=== PATIENT | female | born 1980 | race African-American/Black ===

== ENCOUNTER 2024-02-18 10:10 | Emergency (ER) | payer OTHER, SELFPAY ==
--- NOTE | ~2024-02-18 | US_ITS ---
RIGHT LOWER EXTREMITY VENOUS ULTRASOUND Ordering provider: Owen Dupont MD History: . r/o DVT . Comparison: The FINDINGS: --COMMON FEMORAL: Patent and free of thrombus. Normal compressibility, phasic flow and augmentation. --PROXIMAL SUPERFICIAL FEMORAL: Patent and free of thrombus. Normal compressibility, phasic flow and augmentation. --DISTAL SUPERFICIAL FEMORAL: Patent and free of thrombus. Normal compressibility, phasic flow and au gmentation. --POPLITEAL: Patent and free of thrombus. Normal compressibility, phasic flow and augmentation. --POSTERIOR TIBIAL: Patent and free of thrombus. Normal compressibility, phasic flow and augmentation . IMPRESSION: Negative right lower extremity venous US. No deep vein thrombosis. Reviewed, dictated and finalized at location A. ENTRY
[2024-02-18 10:13] VITALS: BP 186/102; PULSE 91; RESP 20; TEMP 37; O2SAT 100
--- NOTE | 2024-02-18 14:47 | ED_ITS ---
HPI - Extremity Problem General Chief complaint: Extremity Problem,Nontraumatic Stated complaint: right leg pain Time Seen by Provider: 02/18/24 13:33 History of Present Illness HPI Narrative: 43-year-old female with a history of anxiety depression presenting to the emergency room with chief complaint of right lower extremity pain and vague myalgias. Patient states that she is concerned she is having a blood clot. No history of blood clots, no recent surgeries, no recent travel or illnesses. Patient states that she is having some electrical tingling distal to her right knee on lateral aspect. No neuropathy or footdrop. She states she is also getting the same myalgias and sensations in various other locations including neck, arms and legs. She has a history of hypertension diabetes and is somewhat compliant with her medication. Was otherwise in her normal state of health. Related Data Allergies Allergy/AdvReac Type Severity Reaction Status Date / Time amlodipine Allergy Intermediate Anaphylaxis Verified 02/18/24 13:30 fluconazole (From Diflucan) Allergy Intermediate Difficulty Verified 02/18/24 13:30 Swallowing lisinopril Allergy Intermediate Anaphylaxis Verified 02/18/24 13:30 losartan Allergy Intermediate Anaphylaxis Verified 02/18/24 13:30 Review of Systems 2 Review of Systems: As reviewed above in HPI Exam 2 Narrative: GENERAL: [Well-appearing, well-nourished, and in no acute distress.] HEAD: [Normocephalic, atraumatic.] EYES: [PERRLA and EOMI.] ENT: Nares clear, no rhinorrhea or epistaxis. Mucous membranes moist. NECK: Supple. CHEST: [Clear to auscultation. No respiratory distress.] HEART: [Regular rate and rhythm]. No murmur heard. [Normal peripheral pulses.] ABDOMEN: [Soft, nondistended], [nontender], [No rigidity or guarding] EXTREMITIES: Normal range of motion. [No edema.] SKIN: Warm, dry, no rash. NEURO: [No focal deficits]. Alert and oriented [x3.] PSYCH: [Normal mood and affect.] Course Vital Signs Vital signs: Vital Signs Temperature 37.0 C 02/18/24 10:13 Pulse Rate 91 02/18/24 10:13 Respiratory Rate 20 02/18/24 10:13 Blood Pressure 186/102 H 02/18/24 10:13 Pulse Oximetry 100 02/18/24 10:13 Oxygen Delivery Room Air 02/18/24 10:13 Temperature 37.0 C 02/18/24 10:13 Pulse Rate 72 02/18/24 16:01 Respiratory Rate 15 02/18/24 16:01 Blood Pressure 180/115 H 02/18/24 16:01 Pulse Oximetry 98 02/18/24 16:01 Oxygen Delivery Room Air 02/18/24 10:13 MDM - Extremity (Nontraumatic) MDM Narrative Medical decision making narrative: 43-year-old female presenting with vague complaints including right lower extremity electrical pain and concern for blood clot. She also states she is having vague myalgias in various extremities. She thinks her potassium might be deranged or she is having a blood clot. She takes multiple medications sporadically for her hypertension diabetes and is poorly controlled. She is hypertensive here with a blood pressure 186/102 but denies any chest pain, shortness a breath, nausea vomiting, is acting appropriately has normal mental examination and no signs or symptoms of a hypertensive emergency. No tachycardia, tachypnea, fever or hypoxia. She has 2+ pulses throughout all extremities, warm well-perfused extremities, symmetric calf, no tenderness, full range of motion of the ankles and bilateral lower extremities. Very low criteria for DVT but based on patient's complaints at presentation a DVT ultrasound of the right lower extremities ordered. Basic laboratory studies for assessment of her electrolytes and CBC were also obtained. She was bright Toradol for analgesia. Laboratory studies showed no leukocytosis or significant anemia. Normal electrolytes, negative D-dimer. Ultrasound was conducted and shows no deep venous thrombosis, unremarkable DVT study. Patient is requesting a dose of her missed hypertensive medication which will provide her p.o.. She is stable and safe for discharge home at this time with regular PCP follow-up instructions. Patient verbalized understanding and was discharged Lab Data 02/18/24 15:20 02/18/24 15:20 Labs: Lab Results 02/18/24 Range/Units 15:20 WBC 5.6 (4.5-10.0) K/mm3 RBC 4.22 (4.2-5.4) M/mm3 Hgb 11.3 L (12.0-15.0) g/dL Hct 34.5 L (37.0-47.0) % MCV 81.8 (80-100) fl MCH 26.8 (26-34) pg MCHC 32.8 (32-36) g/dl RDW 14.4 (11.5-14.5) % Plt Count 186 (150-375) k/mm3 MPV 13.3 H (7.4-10.4) fl Immature Gran % (Auto) 0.2 (0-0.5) % Neut % (Auto) 53.4 (45.5-73.1) % Lymph % (Auto) 38.7 (18.3-44.2) % [place] % (Auto) 6.8 (2.6-8.5) % Eos % (Auto) 0.5 (0-4.4) % Baso % (Auto) 0.4 (0.2-1.2) % Lymph # (Auto) 2.15 (0.9-3.2) K/mm3 [place] # (Auto) 0.4 (0.1-0.6) K/mm3 Eos # (Auto) 0.0 (0-0.3) K/mm3 Baso # (Auto) 0.0 (0.0-0.1) K/mm3 Abs Immat Gran (auto) 0.01 (0.00-0.031) K/mm3 Absolute Neuts (auto) 3.0 (1.3-6.7) K/mm3 Absolute Nucleated RBC 0.000 (0.0-0.012) K/mm3 Nucleated RBC % 0.0 (0.0-0.2) % % Immature Plt Fraction 14.1 H (0.9-11.2) % PT 14.0 (11.1-14.7) Seconds INR 1.1 APTT 30.6 (22.3-36.8) Seconds D-Dimer < 0.27 (<0.48) ug/mL Sodium 136 L (137-145) mmol/L Potassium 3.8 (3.4-5.0) mmol/L Chloride 107 (98-107) mmol/L Carbon Dioxide 23 (22-30) mmol/L Anion Gap 6 (4-12) mmol/L BUN 10 (7-17) mg/dL Creatinine 0.60 L (0.7-1.0) mg/dL Estim Creat Clear Calc 110 ml/min Estimated GFR > 60 (59 - ) Glucose 194 H (65-110) mg/dL Calcium 9.5 (8.4-10.2) mg/dL Discharge Plan Discharge Clinical Impression: Pain in right lower leg, Chronic hypertension Patient Disposition: Home, Self-Care Condition: Stable Instructions: Antibiotic Form Additional Instructions: Your DVT scan was reassuring, no signs of a blood clot, your electrolytes are within normal limits. We gave you dose of your blood pressure medicine here. Follow-up with your regular doctor for further evaluation treatment and please continue to take your medications as prescribed. Return with any new or worsening concerns at any time. Patient Language: German Follow-up/Referrals: UNKNOWN,DOCTOR [Primary Care Provider] - Time of Disposition: 16:17
[2024-02-18] MEDS: KETOROLAC 15 MG/ML VIAL (*BKC) IV PUSH (15:19)
[2024-02-18 15:35] LABS: Basophils Percent Auto 0.4 % (0.2-1.2); Eosinophils Percent Auto 0.5 % (0-4.4); Hematocrit 34.5 % (37.0-47.0); Hemoglobin 11.3 g/dL (12.0-15.0); Immature Granulocyte Absolute 0.01 K/mm3 (0.00-0.031); Immature Granulocyte Percent A 0.2 % (0-0.5); Immature Platelet Fraction Pct 14.1 % (0.9-11.2); Lymphocytes Absolute Auto 2.15 K/mm3 (0.9-3.2); Lymphocytes Percent Auto 38.7 % (18.3-44.2); Mean Corpuscular HGB Conc 32.8 g/dl (32-36); Mean Corpuscular Hemoglobin 26.8 pg (26-34); Mean Corpuscular Volume 81.8 fl (80-100); Mean Platelet Volume 13.3 fl (7.4-10.4); Monocytes Absolute Auto 0.4 K/mm3 (0.1-0.6); Monocytes Percent Auto 6.8 % (2.6-8.5); Neutrophils Percent Auto 53.4 % (45.5-73.1); Platelet Count Result 186 k/mm3 (150-375); Red Blood Count 4.22 M/mm3 (4.2-5.4); Red Cell Distribution Width 14.4 % (11.5-14.5); White Blood Count 5.6 K/mm3 (4.5-10.0)
[2024-02-18 15:43] LABS: Anion Gap 6 mmol/L (4-12); Blood Urea Nitrogen 10 mg/dL (7-17); Calcium 9.5 mg/dL (8.4-10.2); Carbon Dioxide 23 mmol/L (22-30); Chloride 107 mmol/L (98-107); Estimated CRCL calculation 110 ml/min; Estimated Glomerular Filt Rate > 60; Glucose 194 mg/dL (65-110); Potassium 3.8 mmol/L (3.4-5.0); Sodium 136 mmol/L (137-145)
[2024-02-18 15:48] LABS: INR 1.1; Partial Thromboplastin Time 30.6 Seconds (22.3-36.8)
[2024-02-18 15:58] LABS: D Dimer < 0.27 ug/mL (<0.48)
[2024-02-18 16:01] VITALS: BP 180/115; PULSE 72; RESP 15; O2SAT 98
[2024-02-18] MEDS: NEBIVOLOL HCL 5 MG TABLET PO (16:52)
[2024-02-18 16:59] VITALS: BP 193/108; PULSE 80; RESP 18; O2SAT 100
--- OUTSIDE RECORDS SUMMARY | 2024-02-25 20:47 | XMS_ITS | Encounter Summary ---
Author Organization [facility] Address [address] [place] [address] Care Team Providers Care Radiologic Electronic Specialist Name Role Phone Ruma Shrestha APRN-FIREARMS ASSEMBLY SUPERVISOR Primary Care Provi genoveva Encounter Details Date Type Department Care Team (Late st Contact Info) Description 09/21/2021 [facility] [address], [address] [place] [address] Karina Grace, RN Social History Tobacco Use Types Packs/Day Years Used Date Smoking Tobacco: Former Cigarettes 1 18.7 2 000 - 11/06/2017 Smokeless Tobacco: Never Alcohol Use Standard Drinks/Week Comments No 0 (1 standard drink = 0.6 oz pure alcohol) former heavy drinking after work and weekends, 1/2 pint/d2017 rare alcohol Sex and Gender Information Value Date Recorded Sex Assigned at Not on file Gender Identity Not on file Sexual Orientation Not on file documented as of this encounter Progress Notes * Karina Grace RN - 09/21/2021 1:58 PM CDT Refills authorized per Otolaryngology protocol 08/14/2021. Pt. States pharmacy did not get the Astelin refill that was approved on 08/19/2021. documented in this encounter Plan of Treatment Upcoming Encounters Date Type Department Care Team (Late st Contact Info) Description 03/08/2024 10:45 AM SQL ANALYST Office Visit [facility] - ENT [address] [place] [address] Mitul Canas MD [address] [facility] [address] [place] [address] documented as of this encounter Visit Diagnoses Not on filedocumented in this encounter Care Teams Radiologic Electronic Specialist Relationship Specialty Start Date End Date Ruma Shrestha APRN-FIREARMS ASSEMBLY SUPERVISOR PCP - General 11/17/17 documented as of this encounter
--- OUTSIDE RECORDS SUMMARY | 2024-02-25 20:47 | XMS_ITS | Encounter Summary ---
Author Organization [facility] Address [address] [place] [address] Care Team Providers Care Beet Topper Name Role Phone Valeri Shresthaascha Rabia COLORER HIDES AND SKINS-GRATED CHEESE MAKER Primary Care Provi genoveva Reason for Visit * Reason Comments Refill Request Encounter Details Date Type Department Care Team (Late Contact Info) Description 02/10/2023 Refill [facility] [address] [place] [phone] Mitul Canas MD [address] [facility] [address] [place] [address] Refill Request Social History Tobacco Use Types Packs/Day Years Used Date Smoking Tobacco: Former Cigarettes 1 18.7 2 000 - 11/06/2017 Smokeless Tobacco: Never Alcohol Use Standard Drinks/Week Comments No 0 (1 standard drink = 0.6 oz pure alcohol) former heavy drinking after work and weekends, 1/2 pint/d, 2017 rare alcohol Sex and Gender Information Value Date Recorded Sex Assigned at Not on file Gender Identity Not on file Sexual Orientation Not on file documented as of this encounter Plan of Treatment Upcoming Encounters Date Type Department Care Team (Late Contact Info) Description 03/08/2024 10:45 AM ENVIRONMENTAL SCIENCE TECHNICIAN Office Visit [facility] ENT [address] [place] [address] Mitul Canas MD [address] [facility] [address] [place] [address] documented as of this encounter Visit Diagnoses Not on filedocumented in this encounter Care Teams Beet Topper Relationship Specialty Start Date End Date Ruma Shrestha APRN-GRATED CHEESE MAKER PCP - General 11/17/17 documented as of this encounter
--- OUTSIDE RECORDS SUMMARY | 2024-02-25 20:47 | XMS_ITS | Encounter Summary ---
Author Organization [facility] Address [address] [place] [address] Care Team Providers Care Ship'S Officer Name Role Phone Ruma Shrestha INDUSTRIAL ENGINEERING DIRECTOR-PER DIEM NURSE Primary Care Provi genoveva Encounter Details Date Type Department Care Team (Latest Contact Info) Description 02/14/2020 Travel Social History Tobacco Use Types Packs/Day Years Used Date Smoking Tobacco: Former Cigarettes 1 18.7 2 000 - 11/06/2017 Smokeless Tobacco: Never Alcohol Use Standard Drinks/Week Comments No 0 (1 standard drink = 0.6 oz pure alcohol) former heavy drinking after work and weekends, 2 pint/d2017 rare alcohol Sex and Gender Information Value Date Recorded Sex Assigned at Not on file Gender Identity Not on file Sexual Orientation Not on file COVID-19 Exposure Response Date Recorded In the last month, have you been in contact with someone who was confirmed or suspected to have Coronavirus / COVID-19? Unable to assess 02/14/2020 3:39 PM POLYMERIZATION ENGINEER documented as of this encounter Plan of Treatment Upcoming Encounters Date Type Department Care Team (Late st Contact Info) Description 03/08/2024 10:45 AM POLYMERIZATION ENGINEER Office Visit [facility] [address] [facility], [place] [phone] Mitul Canas MD [facility] [facility] [address] [place] [address] documented as of this encounter Visit Diagnoses Not on filedocumented in this encounter Care Teams Ship'S Officer Relationship Specialty Start Date End Date Ruma Shrestha, FANI-PER DIEM NURSE PCP - General 11/17/17 documented as of this encounter
--- OUTSIDE RECORDS SUMMARY | 2024-02-25 20:47 | XMS_ITS | Encounter Summary ---
Author Organization [facility] Address [address] [address] Care Team Providers Care Plumber Gasfitter Name Role Phone Ruma Shrestha Primary Care Provi genoveva Encounter Details Date Type Department Care Team (Latest Contact Info) Description 01/05/2024 Travel Social History Tobacco Use Types Packs/Day Years Used Date Smoking Tobacco: Former Cigarettes 1 18.7 2 000 - 11/06/2017 Smokeless Tobacco: Never Alcohol Use Standard Drinks/Week Comments Yes 0 (1 standard drink = 0.6 oz pur e alcohol) occ Sex and Gender Information Value Date Recorded Sex Assigned at Not on file Gender Identity Not on file Sexual Orientation Not on file documented as of this encounter Plan of Treatment Upcoming Encounters Date Type Department Care Team (Late st Contact Info) Description 03/08/2024 10:45 AM DRAFTER REFRIGERATION Office Visit [facility] [address] [facility], [place] [phone] Mitul Canas MD [address] [facility] [address] [place] [address] documented as of this encounter Visit Diagnoses Not on filedocumented in this encounter Care Teams Plumber Gasfitter Relationship Specialty Start Date End Date Ruma Shrestha APRN-CNP PCP - General 11/17/17 documented as of this encounter
--- OUTSIDE RECORDS SUMMARY | 2024-02-25 20:47 | XMS_ITS | Clinical Summary ---
Author Organization [facility] [employer] Address [address] [place] [address] Care Team Providers Care Electronic Equipment Installer Name Role Phone Ruma Shrestha APRN-ARCHITECTURAL PROJECT CAPTAIN Primary Care Provi genoveva Source Comments [facility] [employer],non-owned Affiliates and Associated Physician Practices is amultiple site organization consisting of ambulatory clinics and hospital sitesin [place], [place], [place] and [place]. This disclosure is being madepursuant to the Care Everywhere program and may not contain all information available regarding this patient. Last updated 17.[facility] [employer] Allergies Active Allergy Reactions Criticality Noted Date Comments Amlodipine Base Other 12/06/2017 Throat feels funny Diflucan Wheezing Medium 11/27/2020 Lisinopril Itching,Cough Low 08/03/2017 Knot in throat feeling Losartan Itching Low 08/03/2017 Also feels like knot in throat after couple weeks Medications * Be aware that medications may not be up to date on this document. Alwaysverify current medications with the patient. Medication Sig Dispensed Refills Start Date End Date Status metFORMIN (GLUCOPHAGE) 500 MG tablet Take 1 (one) tablet by mouth once daily 3 05/20/2017 Active Carboxymethylcellul ose Sodium (REFRESH LIQUIGEL OP) 2 drops by Ophthalmic route as needed Active TRUE METRIX BLOOD GLUCOSE TEST test strip 12/02/2017 Active potassium chloride (KLOR-CON 10) 10 MEQ tablet Take 1 (one) tablet by mouth once Active PRO COMFORT LANCETS 31G MISC 12/02/2017 Active hydroCHLOROthiazide (HYDRODIURIL) 12.5 MG Take 12.5 mg by mouth once daily Active famotidine (PEPCID) 20 MG tablet Take 1 (one) tablet by mouth once daily 07/04/2019 Active hydrOXYzine hcl (ATARAX) 10 MG tablet Take 1 (one) tablet by mouth 3 times daily 12/31/2019 Active magnesium oxide (MAG-OX) 400 MG tablet every 2 days Active ferrous sulfate 325 (65 FE) MG tablet every 24 hours Act eduard vitamin D, ergocalciferol, (DRISDOL) 1.25 MG (04675 UT) capsule TAKE 1 CAPSULE BY MOUTH EVERY WEEK DIRECTED 02/27/2021 Active clonazePAM (KlonoPIN) 0.5 MG tablet Take 1 (one) tablet by mouth as needed for Anxiety Active Azelastine HCl 137 MCG/SPRAY SOLN [place] 1 spray into each nostril 2 times daily 90 mL 2 01/05/2024 Active fluticasone propionate (Flonase) 50 MCG/ACT nasal spray [place] 1 (one) spray into each nostril once daily 3 Each 2 01/05/2024 Active loratadine (Claritin) 10 MG tablet Take 1 (one) tablet by mouth once daily 90 tablet 2 01/05/2024 Active montelukast (Singulair) 10 MG tablet Take 1 (one) tablet by mouth once daily 90 tablet 2 01/05/2024 Active EPINEPHrine (Epipen) 0.3 MG/0.3ML auto-injector pen Inject 0.3 mL into muscle once as needed for Anaphylaxis 2 Each 01/05/2024 Active azelastine (Optivar) 0.05 % ophthalmic solution Instill 1 (one) drop into both eyes 2 times daily as needed 6 mL 1 01/05/2024 Active Active Problems Problem Noted Date Diagnosed Date History of brain concussion 03/06/2020 Sleep related gastroesophageal reflux disease JAYLEEN (obstructive sleep apnea) 12/06/2017 Restless legs syndrome (RLS) 12/06/2017 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 Excessive daytime sleepiness 12/06/2017 Chronic fatigue 12/06/2017 Inadequate sleep hygiene 12/06/2017 Neuropathy 12/06/2017 Poor concentration 12/06/2017 SOB (shortness of breath) on exertion 12/06/2017 Claustrophobia 12/06/2017 Anxiety 11/02/2017 Chest discomfort 11/02/2017 Gastroesophageal reflux disease 11/02/2017 Hypertensive disorder 11/02/2017 Globus sensation 08/11/2017 Smoking 08/11/2017 Snoring 08/11/2017 PND (post-nasal drip) 08/11/2017 Non-seasonal allergic rhinitis due to pollen Allergic rhinitis due to animal hair and dander 08/03/2017 Diabetes mellitus 10/16/2015 Anemia Bronchitis Overview (12/06/2017): recurrent Memory problem Multiple thyroid nodules Overview (03/06/2020): 07/20/17 Right thyroid lobe: 5.1 x 1.8 x 1.7 cm Left thyroid lobe: 4.9 x 1.7 x 1.9 cm Isthmus: 6 mm ?? Three nodules are detected in the right thyroid lobe. The first nodule is located within the mid-superior right lobe and measures 3 x 2 x 3 mm, decreased in size from prior exam measurement of 10 x 7 x 7 mm. It is hypoechoic, solid, round, and well-defined with an internal focus of echogenicity and no detected vascular flow. The second nodule is located in the mid/inferior right thyroid lobe and measures 3 x 2 x 2 mm, unchanged in size from prior exam measurement. This nodule is round, well-defined, and hypoechoic with no detectable vascular flow. Posterior through transmission is noted, suggesting cystic nature. The third nodule is located in the medial inferior right thyroid lobe, and measures 5 x 1 x 4 mm, and is new from prior exam. This nodule is hypoechoic and mildly irregular in shape but with well-defined margins and no detectable internal vascular flow. No echogenic foci are seen. Multiple tiny hypoechoic nodules are identified in the left thyroid lobe. The isthmus is not thickened. Vascularity of the thyroid is normal. ?? IMPRESSION: ?? 1. Decreased size of mid-superior right thyroid lobe nodule to 3 mm, previously 10 mm. This lesion no longer meets criteria for follow-up or biopsy. ?? 2. Multiple other hypoechoic nodules measuring up to 5 mm in the thyroid lobes. These lesions do not meet criteria for follow-up or biopsy. Obesity (BMI 30-39.9) Encounters Date Type Department Care Team Description 01/05/2024 8:15 AM WEB CONTENT & SOCIAL MEDIA MANAGER Office Visit [facility] - ENT [address] [place] [address] Mitul Canas MD Allergic rhinitis due to animal hair and dander (Primary Dx) 01/05/2024 Travel 12/14/2023 Travel from Last 3 Months Family History Medical History Relation Name Comments CAD (Coronary Artery Disease) Father CVA Father Diabetes - Type 2 Father Hypertension Father Diabetes - Type 2 Mother Hypertension Mother Seizures Sister 1 oleksandr Relation Name Status Comments Brother 1 dad Alive Brother 2 dad Alive Father Alive Mother Alive Sister 1 oleksandr Alive Sister 2 Alive Sister 3 dad Alive Sister 4 dad Alive Social History Tobacco Use Types Packs/Day Years Used Date Smoking Tobacco: Former Cigarettes 1 18.7 2 000 - 11/06/2017 Smokeless Tobacco: Never Tobacco Cessation:Counseling Given: Not Answered Alcohol Use Standard Drinks/Week Comments Yes 0 (1 standard drink = 0.6 oz pur e alcohol) occ Sex and Gender Information Value Date Recorded Sex Assigned at Not on file Gender Identity Not on file Sexual Orientation Not on file Last Filed Vital Signs Vital Sign Reading Time Taken Comments Blood Pressure 169/109 01/05/2024 8:33 AM WEB CONTENT & SOCIAL MEDIA MANAGER Pulse 76 01/05/2024 8:33 AM WEB CONTENT & SOCIAL MEDIA MANAGER Temperature - - Respiratory Rate 12 11/25/2015 9:56 AM CDT Oxygen Saturation 99% 03/29/2019 10:17 AM WEB CONTENT & SOCIAL MEDIA MANAGER Inhaled Oxygen Concentration - - Weight 96.3 kg (212 lb 3.2 oz) 01/05/2024 8:33 A M WEB CONTENT & SOCIAL MEDIA MANAGER Height 157.5 cm (5' 2 ) 01/05/2024 8:33 AM WEB CONTENT & SOCIAL MEDIA MANAGER Body Mass Index 38.81 01/05/2024 8:33 AM WEB CONTENT & SOCIAL MEDIA MANAGER Plan of Treatment Upcoming Encounters Date Type Department Care Team (Late st Contact Info) Description 03/08/2024 10:45 AM WEB CONTENT & SOCIAL MEDIA MANAGER Office Visit [facility] - ENT [address] [place] [address] [place] [address] [place] [address] [address] [place] [address] Health Maintenance Due Date Last Done Comments MAMMOGRAM 1980 PAP SMEAR 1980 PNEUMOCOCCAL VACCINE (1 of 2 - PCV) 1986 HIV SCREENING 05/12/1995 HEPATITIS C SCREENING 05/07/1998 DIABETES-SERUM CREATININE 1998 DTAP/TDAP/TD VACCINES (1 - Tdap) 05/12/1999 HEPATITIS B VACCINE (1 of 3 - 19+ 3-dose series) 05/12/1999 DIABETES RETINOPATHY SCREENING 05/09/2018 DIABETES-FOOT EXAM WITH MONOFILAMENT 05/09/2018 DIABETES-HGB A1C 05/09/2018 DIABETES-STATIN 2020 DEPRESSION SCREENING 02/14/2023 DIABETES - URINE PROTEIN SCREENING 02/14/2023 COVID-19 VACCINE (1 - 2023-2 5 season) 2023 INFLUENZA VACCINE (#1) 2023 ZOSTER VACCINE (1 of 2) 2030 HIB VACCINE Aged Out No longer eligi ble based on patient's age to complete this topic HPV VACCINE Aged Out No longer eligi ble based on patient's age to complete this topic MENINGOCOCCAL VACCINE Aged Out No filipe sylvester eligible based on patient's age to complete this topic Care Teams Electronic Equipment Installer Relationship Specialty Start Date End Date Ruma Shrestha, FIXTURE MAKER-ARCHITECTURAL PROJECT CAPTAIN PCP - General 11/17/17
--- OUTSIDE RECORDS SUMMARY | 2024-02-25 20:47 | XMS_ITS | Encounter Summary ---
Author Organization [facility] Address [address] [place] [address] Care Team Providers Care Lead Custodian Name Role Phone FadyRuma MANAGER OUTPATIENT-SOLAR SALES AMBASSADOR Primary Care Provi genoveva Reason for Visit * Reason Onset Date Comments MEDICATION REFILL 11/14/2023 Allergy medica tions refused Encounter Details Date Type Department Care Team (Late st Contact Info) Description 11/14/2023 Refill [facility] [address] [facility], [place] [phone] Mitul Canas MD [address] [place] [address] [address] [place] [address] MEDICATION REFILL (Allergy medications refused) Social History Tobacco Use Types Packs/Day Years [...] on file documented as of this encounter Miscellaneous Notes * Telephone Encounter - Rosalinda Hare RN - 11/14/2023 10:14 AM CDT Also see other refill encounter for same date. Noted last [facility] visit 11/2020. Will await call from pt for discussion; pt could request refills from PCP or make appt with KRISTEN, orobtain [id number]. documented in this encounter Plan of Treatment Upcoming Encounters Date Type Department Care Team (Late st Contact Info) Description 03/08/2024 10:45 AM WINDOWS MOBILE DEVELOPER Office Visit [facility] - [facility]NT [address] [facility], [place] [phone] Mitul Canas MD [facility] [facility] [address] [place] [address] documented as of this encounter Visit Diagnoses Not on filedocumented in this encounter Care Teams Lead Custodian Relationship Specialty Start Date End Date Ruma Shrestha APRN-SOLAR SALES AMBASSADOR PCP - General 11/17/17 documented as of this encounter
--- OUTSIDE RECORDS SUMMARY | 2024-02-25 20:47 | XMS_ITS | Encounter Summary ---
Author Organization [facility] Address [address] [address] Care Team Providers Care Escalator Attendant Name Role Phone Ruma Shrestha APRN-MACHINE FEEDER FLOORPERSON Primary Care Provi genoveva Reason for Referral * Radiology Services (Routine) - Closed Specialty Diagnoses / Procedures Referred By Contac t Referred To Contact CT Scan Diagnoses JAYLEEN (obstructive sleep apnea) Recurrent sinusitis Procedures CT SINUS WO CONTRAST Mitul Canas MD [address] [place] [address] [facility] [address] [place] [address] Referral ID Status Reason Start Date Expiration Date Visits Re quested Visits Authorized [id number] Closed 02/19/2020 03/19/2020 1 1 NOMICS CONSULTANT Reason for Visit * Reason Comments Sinus Problem Encounter Details Date Type Department Care Team (Late st Contact Info) Description 02/11/2020 1:15 PM ERGONOMICS CONSULTANT Office Visit [facility] [address] [facility], [place] [id number] Mitul Canas MD [facility] [facility] [address] [place] [address] Recurrent sinusitis (Primary Dx); JAYLEEN (obstructive sleep apnea) Social History Tobacco Use Types Packs/Day Years Used Date Smoking Tobacco: Former Cigarettes 1 18.7 2 000 - 11/06/2017 Smokeless Tobacco: Never Alcohol Use Standard Drinks/Week Comments No 0 (1 standard drink = 0.6 oz pure alcohol) former heavy drinking after work and weekends, 12 pint/d2017 rare alcohol Sex and Gender Information Value Date Recorded Sex Assigned at Not on file Gender Identity Not on file Sexual Orientation Not on file documented as of this encounter Last Filed Vital Signs Vital Sign Reading Time Taken Comments Blood Pressure 152/98 02/11/2020 1:13 PM ERGONOMICS CONSULTANT Pulse 113 02/11/2020 1:13 PM ERGONOMICS CONSULTANT Temperature - - Respiratory Rate - - Oxygen Saturation - - Inhaled Oxygen Concentration - - Weight 99.2 kg (218 lb 9.6 oz) 02/11/2020 1:13 P M ERGONOMICS CONSULTANT Height 157.5 cm (5' 2 ) 02/11/2020 1:13 PM ERGONOMICS CONSULTANT Body Mass Index 39.98 02/11/2020 1:13 PM ERGONOMICS CONSULTANT documented in this encounter Patient Instructions * Patient Instructions* Rita Ayala - 02/11/2020 1:18 PM ERGONOMICS CONSULTANT daThank you for visiting [facility] Ot[facility] Surgery. We appreciate your confidence in allowing us to participate in your health care. You may receive a survey about your visit with us today. Making our patients happy isn???t just happy talk; it???s ourmission. Please tell us if we made the right impression on you- and how we can serve you better. Please SAVE the information below, it will assist you when it???s time for you to contact us. ??? To MAKE - CHANGE - CANCEL an office appointment If you become ill, need to be seen before your next scheduled appointment, or need to cancel or reschedule an appointment, please call our office at [phone] Tuesday through Tuesday from 8:30 am to4:30 pm. You can also request a routine appointment through your [email or web address] account. ??? Prescription Refills Contact your pharmacy to request all refills. The pharmacy will need to fax the request to us at . Please allow a minimum of 48-72 hours for your prescription to be completed. Your pharmacy will notify you when your prescription is ready to be picked up. ??? Medical Emergency / After Hours Contact Information If you have a medical emergency, please call 911 or go to the nearest emergency room. For urgent medical calls which cannot wait until the office opens, please call the medical exchangeat and ask the casting machine operator helper to page the ENT physician vocational psychologist. *Caller ID blocking service will need to be turned off for your call to be returned. We also specialize in Hearing Aids, Allergy testing, swallowing disorders, voice problems, cancer diagnosis, and so much more. Visit our website at [email or web address] for information about our practice and an interactive health encyclopedia. NOMICS CONSULTANT documented in this encounter Progress Notes * Mitul Canas MD - 02/11/2020 1:41 PM CST History of Present Illness: 39 year old with a h/o was not able to get sleep study will try again. Has nasal congestion some midface pressure. Review of Systems: A 11-organ review of systems was performed and was negative Past Medical History: Diagnosis Date ??? Allergic rhinitis due to animal hair and dander 08/03/2017 ??? Anemia ??? Anxiety 11/02/2017 ??? Bronchitis recurrent ??? Chest discomfort 11/02/2017 ??? Chronic fatigue 12/06/2017 ??? Claustrophobia 12/06/2017 ??? Concussion no LOC ??? Diabetes mellitus 10/16/2015 ??? Excessive daytime sleepiness 12/06/2017 ??? Frequent headaches ??? Gastroesophageal reflux disease 11/02/2017 ??? Globus sensation 08/11/2017 ??? Hemorrhoids ??? Hypertensive disorder 11/02/2017 ??? Hypnopompic hallucination ??? Inadequate sleep hygiene 12/06/2017 ??? Memory problem ??? Multiple thyroid nodules ??? Non-seasonal allergic rhinitis due to pollen 08/03/2017 ??? Obesity (BMI 30-39.9) ??? JAYLEEN (obstructive sleep apnea) 12/06/2017 ??? PND (post-nasal drip) 08/11/2017 ??? Poor concentration 12/06/2017 ??? Restless legs syndrome (RLS) ??? 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 Smoking 08/11/2017 ??? Snoring 08/11/2017 ??? SOB (shortness of breath) on exertion 12/06/2017 ??? Vitamin D deficiency PSH: has a past surgical history that includes breast lumpectomy; ovarian cyst removal; tonsillectomy and adenoidectomy; colonoscopy; and section. Current Outpatient Medications Medication Sig Dispense Refill ??? azelastine (ASTELIN) 0.1 % nasal spray USE 1 SPRAY IN EACH NOSTRIL TWICE DAILY 30 mL 5 ??? Carboxymethylcellulose Sodium (REFRESH LIQUIGEL OP) 2 drops by Ophthalmic route as needed ??? clonazePAM (KLONOPIN) 0.5 MG tablet Take 0.5 mg by mouth 2 times daily as needed ??? EPINEPHrine (EPIPEN) 0.3 MG/0.3ML auto-injector pen Inject 0.3 mL into muscle as needed for Anaphylaxis 1 Each 0 ??? famotidine (PEPCID) 20 MG tablet Take 20 mg by mouth once daily ??? ferrous sulfate 325 (65 FE) MG tablet every 24 hours ??? fluticasone propionate (FLONASE) 50 MCG/ACT nasal spray [place] 1 spray into each nostril DAILY. 1 bottles 3 ??? hydroCHLOROthiazide (HYDRODIURIL) 12.5 MG Take 12.5 mg by mouth once daily ??? hydrOXYzine hcl (ATARAX) 10 MG tablet Take 10 mg by mouth 3 times daily ??? loratadine (CLARITIN) 10 MG tablet Take 1 tablet by mouth once daily 90 tablet 11 ??? LORazepam (ATIVAN) 1 MG tablet Take 1 mg by mouth every 8 hours as needed for Anxiety ??? magnesium oxide (MAG-OX) 400 MG tablet every 2 days ??? metFORMIN (GLUCOPHAGE) 500 MG tablet Take 500 mg by mouth once daily 3 ??? montelukast (SINGULAIR) 10 MG tablet Take 10 mg by mouth once daily 2 ??? potassium chloride (KLOR-CON 10) 10 MEQ tablet Take 10 mEq by mouth once ??? PRO COMFORT LANCETS 31G MISC ??? TRUE METRIX BLOOD GLUCOSE TEST test strip No current facility-administered medications for this visit. Allergies Lisinopril, Amlodipine base, and Losartan Social History Tobacco Use ??? Smoking status: Former Smoker Packs/day: 1.00 Years: 18.00 Pack years: 18.00 Types: Cigarettes Start date: 1999 Quit date: 11/06/2017 Years since quittin.2 ??? Smokeless tobacco: Never Used Substance Use Topics ??? Alcohol use: No Comment: former heavy drinking after work and weekends, 1/2 pint/d, 2017 rare alcohol ??? Drug use: No Family History Problem Relation Name Age of Onset ??? Hypertension Mother ??? CAD (Coronary Artery Disease) Father ??? Hypertension Father ??? CVA Father ??? Seizures Sister oleksandr Physical Exam: Constitutional: Alert, No acute Distress; Well developed/well nourished Neuro:cranial nerves III-XII grossly intact CV/Pulm: Normal respirations and peripheral pulses. Eyes: PERRL, EOMI Face/Skin: normal appearance, no lesions/masses Ears: Right: Normal external Auditory canal Left: Normal external Auditory canal Nose: patent bilaterally, no septal deviation, Turbinates intact, Mucosal membranes intact, allergic changes. Mouth and oropharynx: symmetric tongue mobility, no lesions/masses/ulcers Neck: supple, no lymphadenopathy, no masses Voice: strong MusculoSkeletal: moves all extremities well No notes on file Assessment and Plan: JAYLEEN will refer to sleep medicine, sinus pain will get CT sinus. NOMICS CONSULTANT * Rita Ayala - 02/11/2020 1:18 PM CST Review of Systems [facility] reports the following:Nose: congestion NOMICS CONSULTANT documented in this encounter Plan of Treatment Upcoming Encounters Date Type Department Care Team (Late st Contact Info) Description 03/08/2024 10:45 AM ERGONOMICS CONSULTANT Office Visit [facility] [facility], [place] [address] Mitul Canas MD [address] [place] [address] [address] [place] [address] documented as of this encounter Results * CT SINUS WO CONTRAST (02/28/2020 1:45 PM ERGONOMICS CONSULTANT) Anatomical Region Laterality Modality Head Computed Tomogra phy 02/28/2020 2:19 PM ERGONOMICS CONSULTANT Impressions 02/28/2020 2:24 PM ERGONOMICS CONSULTANT IMPRESSION: No CT evidence of acute or chronic sinusitis. Anatomic variants as above. This report was electronically signed by DAXA HERNÁNDEZ ??on 02/28/2020 2:24 PM . Narrative 02/28/2020 2:[address] scan of the paranasal sinuses without intravenous contrast INDICATION: Recurrent sinusitis, obstructive apnea COMPARISON: No prior similar studies available for comparison. TECHNIQUE: CT scan of the paranasal sinuses was obtained without intravenous contrast according to standard protocol. FINDINGS: Frontal sinuses: The left frontal sinus is not pneumatized. The right frontal sinus and bilateral outflow tracts are patent. Ethmoid air cells: Aerated bilaterally Maxillary sinuses: There is a small retention cyst in the left maxillary sinus inferiorly. Otherwise, the maxillary sinuses are aerated. The ostiomeatal unit complexes are patent bilaterally. Miryam lamella and bullosa are seen on the right. Mickey cells are seen bilaterally. Sphenoid sinuses: The left frontal sinus is hypoplastic with stenosis of the ostium. The right sinus is unremarkable. The intersinus septum attaches to the left of midline posteriorly, separate from the optic canal and carotid canal. Tympanomastoid cavities: Aerated bilaterally Nasal cavity: No polyps or masses. There is narrowing of the anterior nasal valve bilaterally, left more than right. There is S-shaped deviation of the nasal septum. The cribriform plate is intact bilaterally. The fovea ethmoidalis are at the same level bilaterally. There is aeration of the ethmoid air cells above the anterior ethmoidal notch bilaterally. No significant dental disease is seen. The right styloid process is elongated reaching the oropharynx. Included intracranial contents are unremarkable. The orbits are unremarkable. Procedure Note Daxa Hernández MD - 02/28/2020 CT scan of the paranasal sinuses without intravenous contrast INDICATION: Recurrent sinusitis, obstructive apnea COMPARISON: No prior similar studies available for comparison. TECHNIQUE: CT scan of the paranasal sinuses was obtained without intravenous contrast according to standard protocol. FINDINGS: Frontal sinuses: The left frontal sinus is not pneumatized. The right frontal sinus and bilateral outflow tracts are patent. Ethmoid air cells: Aerated bilaterally Maxillary sinuses: There is a small retention cyst in the left maxillary sinus inferiorly. Otherwise, the maxillary sinuses are aerated. The ostiomeatal unit complexes are patent bilaterally. Miryam lamella and bullosa are seen on the right. Mickey cells are seen bilaterally. Sphenoid sinuses: The left frontal sinus is hypoplastic with stenosis of the ostium. The right sinus is unremarkable. The intersinus septum attaches to the left of midline posteriorly, separate from the opticcanal and carotid canal. Tympanomastoid cavities: Aerated bilaterally Nasal cavity: No polyps or masses. There is narrowing of the anterior nasal valve bilaterally, left more than right. There is S-shapeddeviation of the nasal septum. The cribriform plate is intact bilaterally. Thefovea ethmoidalis are at the same level bilaterally. There is aeration of the ethmoid air cells above the anterior ethmoidal notch bilaterally. No significant dental disease is seen. The right styloid process is elongated reaching the oropharynx. Included intracranial contents are unremarkable. The orbits are unremarkable. IMPRESSION: No CT evidence of acute or chronic sinusitis. Anatomic variants asabove. This report was electronically signed by DAXA HERNÁNDEZ on 02/28/2020 2:24PM . Mitul Canas MD CT ORDERABLES documented in this encounter Visit Diagnoses Diagnosis Recurrent sinusitis- Primary Unspecified sinusitis (chronic) JAYLEEN (obstructive sleep apnea) Obstructive sleep apnea (adult) (pediatric) JAYLEEN (obstructive sleep apnea) Obstructive sleep apnea (adult) (pediatric) Recurrent sinusitis Unspecified sinusitis (chronic) documented in this encounter Care Teams Escalator Attendant Relationship Specialty Start Date End Date Ruma Shrestha, WOOL BUYER-MACHINE FEEDER FLOORPERSON PCP - General 11/17/17 documented as of this encounter
--- OUTSIDE RECORDS SUMMARY | 2024-02-25 20:47 | XMS_ITS | Encounter Summary ---
Author Organization [facility] Address [address] [place] [address] Care Team Providers Care Positive Printer Operator Name Role Phone Ruma Shrestha COUTURIERE-TELEMETRY REGISTERED NURSE Primary Care Provi genoveva Reason for Visit * Reason Onset Date Comments Question 05/13/2021 Encounter Details Date Type Department Care Team (Late st Contact Info) Description 05/13/2021 Telephone [facility] [address] [facility] [place] [address] Mitul Canas MD [address] [facility] [address] [place] [address] Question Social History Tobacco Use Types Packs/Day Years Used Date Smoking Tobacco: Former Cigarettes 1 18.7 2 000 - 11/06/2017 Smokeless Tobacco: Never Alcohol Use Standard Drinks/Week Comments No 0 (1 standard drink = 0.6 oz pure alcohol) former heavy drinking after work and weekends, 12 pint/d, 2018 rare alcohol Sex and Gender Information Value Date Recorded Sex Assigned at Not on file Gender Identity Not on file Sexual Orientation Not on file documented as of this encounter Miscellaneous Notes * Telephone Encounter - Karina Grace RN - 05/13/2021 1:06 PM CDT Pt. LVM with no details. Attempted to reach pt. With no success. LVM for her to return call. documented in this encounter Plan of Treatment Upcoming Encounters Date Type Department Care Team (Late st Contact Info) Description 03/08/2024 10:45 AM LOTUS NOTES ADMINISTRATOR Office Visit [facility] [address] [facility], [place] [address] Mitul Canas MD [facility] [facility] [address] [place] [address] documented as of this encounter Visit Diagnoses Not on filedocumented in this encounter Care Teams Positive Printer Operator Relationship Specialty Start Date End Date Ruma Shrestha, COUTURIERE-TELEMETRY REGISTERED NURSE PCP - General 11/17/17 documented as of this encounter
--- OUTSIDE RECORDS SUMMARY | 2024-02-25 20:47 | XMS_ITS | Patient Health Summary ---
Author Organization [facility] Address [address] [place] [address] Care Team Providers Care Molding Engineer Name Role Phone Ruma Shrestha APRN-AIR TRAFFIC COORDINATOR Primary Care Provi genoveva Note from [facility],non-owned Affiliates and Associated Physician Practices is amultiple site organization consisting of ambulatory clinics and hospital sitesin [place], [place], [place] and [place]. This disclosure is being madepursuant to the Care Everywhere program and may not contain all information available regarding this patient. Last updated 17.[facility] Allergies * Amlodipine Base(Other) * Diflucan(Wheezing) -Medium Criticality * Lisinopril(Itching,Cough) -Low Criticality * Losartan(Itching) -Low Criticality * Naproxen(Other),Inactive Medications * Be aware that medications may not be up to date on this document. Alwaysverify current medications with the patient. * metFORMIN (GLUCOPHAGE) 500 MG tablet(Started 05/20/2017) Take 1 (one) tablet by mouth once daily 3 refills left * Carboxymethylcellulose Sodium (REFRESH LIQUIGEL OP) 2 drops by Ophthalmic route as needed * TRUE METRIX BLOOD GLUCOSE TEST test strip(Started 12/02/2017) * potassium chloride (KLOR-CON 10) 10 MEQ tablet Take 1 (one) tablet by mouth once * PRO COMFORT LANCETS 31G MISC(Started 12/02/2017) * hydroCHLOROthiazide (HYDRODIURIL) 12.5 MG Take 12.5 mg by mouth once daily * famotidine (PEPCID) 20 MG tablet(Started 07/04/2019) Take 1 (one) tablet by mouth once daily * hydrOXYzine hcl (ATARAX) 10 MG tablet(Started 12/31/2019) Take 1 (one) tablet by mouth 3 times daily * magnesium oxide (MAG-OX) 400 MG tablet every 2 days * ferrous sulfate 325 (65 FE) MG tablet every 24 hours * vitamin D, ergocalciferol, (DRISDOL) 1.25 MG (14507 UT) capsule(Started 02/27/2021) TAKE 1 CAPSULE BY MOUTH EVERY WEEK DIRECTED * clonazePAM (KlonoPIN) 0.5 MG tablet Take 1 (one) tablet by mouth as needed for Anxiety * Azelastine HCl 137 MCG/SPRAY SOLN(Started 01/05/2024) [place] 1 spray into each nostril 2 times daily 2 refills by 01/04/2025 * fluticasone propionate (Flonase) 50 MCG/ACT nasal spray(Started 01/05/2024) [place] 1 (one) spray into each nostril once daily 2 refills by 01/04/2025 * loratadine (Claritin) 10 MG tablet(Started 01/05/2024) Take 1 (one) tablet by mouth once daily 2 refills by 01/04/2025 * montelukast (Singulair) 10 MG tablet(Started 01/05/2024) Take 1 (one) tablet by mouth once daily 2 refills by 01/04/2025 * EPINEPHrine (Epipen) 0.3 MG/0.3ML auto-injector pen(Started 01/05/2024) Inject 0.3 mL into muscle once as needed for Anaphylaxis * azelastine (Optivar) 0.05 % ophthalmic solution(Started 01/05/2024) Instill 1 (one) drop into both eyes 2 times daily as needed 1 refill by 01/04/2025 Active Problems Problem Noted Date Diagnosed Date [...] dander 08/03/2017 Diabetes mellitus 10/16/2015 Anemia Bronchitis Memory problem Multiple thyroid nodules Obesity (BMI 30-39.9) Social History Tobacco Use Types Packs/Day Years [...] Comments Blood Pressure 169/109 01/05/2024 8:33 AM CAFE SERVER Pulse 76 01/05/2024 8:33 AM CAFE SERVER Temperature - - Respiratory Rate 12 11/25/2015 9:56 AM CDT Oxygen Saturation 99% 03/29/2019 10:17 AM CAFE SERVER Inhaled Oxygen Concentration - - Weight 96.3 kg (212 lb 3.2 oz) 01/05/2024 8:33 A M CAFE SERVER Height 157.5 cm (5' 2 ) 01/05/2024 8:33 AM CAFE SERVER Body Mass Index 38.81 01/05/2024 8:33 AM CAFE SERVER Procedures * RI SLEEP STUDY UNATT&RESP EFFT(Performed 10/28/2020) Performed for JAYLEEN (obstructive sleep apnea) * CT SINUS WO CONTRAST(Performed 02/28/2020) Performed for JAYLEEN (obstructive sleep apnea), Recurrent sinusitis * RI LARYNGOSCOPY,FLEX FIBER,DIAGNOSTIC(Performed 08/12/2017) Performed for PND (post-nasal drip), Allergic rhinitis due to animal hair and dander * US THYROID(Performed 07/20/2017) Performed for Thyroid nodule * US SOFT TISSUE HEAD NECK(Performed 12/01/2015) Results * RI SLEEP STUDY UNATT&RESP EFFT (10/28/2020 10:15 AM CDT) Narrative Matt Peterson MD - 10/28/2020 10:15 AM CDT Matt Peterson MD ? 10/28/2020 10:18 AM [facility] Accredited by the [place] [employer] [facility], First Floor [address] [place] [address] Telephone : [phone] ? Medical Records Patient Name: ??Maribell Jordan : ??1980 Date of Study: ??10/23/2020 Referring Physician: ??No referring provider defined for this encounter. Type of Montage: ??Type III Respiratory (oximetry, pulse rate, airflow, body position, respiratory movement) UNATTENDED HOME SLEEP APNEA TEST Unattended HST Summary Report Patient Name: Maribell Jordan Date of : 1980 Chart Code: [id number] Weight: 218.0 lbs Study Date: 10/23/20 Height: 5? 2? 157 cm Age: 40 BMI: 40.2 Neck Circumference: 0? Sex: ??Female Waist: ??9? Hip: ??0? Waist-Hip Ratio: ??0.00 Referring Physician: Matt Peterson Comments: Total Recording Time(TRT): ??506.5 minutes Cardiac Respiratory and Snoring Events Total# Index Duration (sec.) Avg HR: 69.0 Min HR: 52.0 Max HR: 101.0 ?? Mean Min Max ? Central Apneas 0 0.0 0.0 0.0 0.0 Oximetry Obstructive.Apneas 2 0.2 15.9 15.2 16.6 Mean SpO2 94.8% Mixed Apneas 0 0.0 0.0 0.0 0.0 Min SpO2 87.0% Hypopneas 40 4.7 22.5 10.0 71.8 Max SpO2 98.0% Apnea + Hypopnea 42 5.0 22.2 10.0 71.8 SpO2 Range % Minutes ?90-100 % 99.6% 344.9 ?80-89 % 0.4% 1.5 Desaturations 45 5.3 41.2 6.3 118.9 70-79 % 0.0% 0.0 ?60-69% 0.0% 0.0 Snoring 917 108.6 0.7 0.2 3.4 50-59% 0.0% 0.0 ?< 50 % 0.0% 0.0 Body Position Supine Prone Left Side Right Side Total Non Supine % Time in Position 1.0% 0.1% 49.0% 49.9% 99.0% Snoring events 25 3 405 483 891 Apnea + Hypopnea events 0 0 10 32 42 Apnea + Hypopnea Index 0.0 0.0 2.4 7.6 5.0 ?? SPO2 ?? PULSE ?? RESPIRATORY #ERR# BODYPOS ?? BAD ? Total Recording Time: 506.5 minutes Patient Apnea-Hypopnea Index Severe Moderate Mild Normal Maribell Jordan 5.0 >30 15 to 30 5 to 15 <5 HOME SLEEP APNEA TEST INTERPRETATION (10/23/2020) DIAGNOSTIC STUDY During this diagnostic study, the patient was monitored for 506.5 minutes. The patient's overall respiratory event index (LUIS F) was increased at 5 per hour. ??The time spent with oxygen saturation less than 90% was 1.5 min. IMPRESSION: Mild obstructive sleep apnea when sleeping entirely in the lateral position RECOMMENDATIONS: Suggest therapeutic continuous positive airway pressure (CPAP) trial if patient has neurocognitive symptoms, mood disorder, cardiovascular disease, or diabetes mellitus. Matt Lee ??MD Kristen, [facility], [facility], [facility] Banana Handler, [facility] Professor of Internal Medicine Adjunct Weatherization Operations Manager of Neurology Division of Pulmonary, Critical Care, and Sleep Medicine [facility] [employer] [facility] This note was electronically signed on 10/28/2020. CC: ??No referring provider defined for this encounter. Ralph Rhodes MD PROCEDURE/MINOR SURG ICAL ORDERABLES * CT SINUS WO CONTRAST (02/28/2020 1:45 PM CAFE SERVER) Anatomical Region Laterality Modality Head Computed Tomogra phy 02/28/2020 2:19 PM CAFE SERVER Impressions 02/28/2020 2:24 PM CAFE SERVER IMPRESSION: No CT evidence of acute or chronic sinusitis. Anatomic variants as above. This report was electronically signed by DAXA HERNÁNDEZ ??on 02/28/2020 2:24 PM . Narrative 02/28/2020 2:[address] scan of the paranasal sinuses without [...] 2:24PM . Mitul Canas MD CT ORDERABLES * RI LARYNGOSCOPY,FLEX FIBER,DIAGNOSTIC (08/12/2017 9:20 AM CDT) Narrative Mitul Canas MD - 08/12/2017 9:20 AM CDT Fidencio Michelle MD ? 08/11/2017 ??7:05 PM Procedure Note Date of Procedure: ??08/11/2017 Indication: ??PND, allergic rhinitis Endoscopy Type: ??Laryngoscopy without stroboscopy Endoscope: 4mm flexible fiberoptic laryngoscope Anesthesia: Topical neosynephrine and lidocaine Procedure Details: ?? The patient was sitting upright in a chair with the head in a slightly anterior sniffing position. The topical anesthesia was administered and then adequate time was allowed ??for an anesthetic effect. The endoscope was passed thru the nasal cavity. The tip of the endoscope was positioned in the oropharynx which allowed a complete view of the base of tongue, vallecula, pyriform recesses, epiglottis, bilateral true and false vocal folds, the interarytenoid and post cricoid region, and the immediate subglottis. Findings: - Normal right nasal cavity with healthy appearing mucosa turbinates and septum, no purulence or polyps - Mucosa cobblestoning of posterior pharyngeal wall - Narrow airway noted at level of soft palate - True vocal cords mobile and symmetric - Arytenoid thickening and erythema - Edematous lingual tonsils - Pyriform sinuses, vallecula, tongue base clear - No masses or lesions Condition: Stable. ??Patient tolerated procedure well. Complications: None Dr. Canas was present for the entirety of the procedure. Fidencio Michelle MD PROCEDURE/MINOR SURG ICAL ORDERABLES * US THYROID (07/20/2017 3:42 PM CDT) Anatomical Region Laterality Modality Chest Ultrasound 07/20/2017 3:42 PM CDT Impressions 07/20/2017 5:46 PM CDT IMPRESSION: 1. Decreased size of mid-superior right thyroid lobe nodule to 3 mm, previously 10 mm. This lesion no longer meets criteria for follow-up or biopsy. 2. Multiple other hypoechoic nodules measuring up to 5 mm in the thyroid lobes. These lesions do not meet criteria for follow-up or biopsy. Dictated by Marlon Alves MD (anesthesia resident). This report was approved ??by Marlon Alves ?? on 07/20/2017 4:30 PM . I, Dr. Ru ONTIVEROS M.D. have personally reviewed and interpreted this examination/study. This report was electronically signed by Ru ONTIVEROS M.D. ??on 07/20/2017 5:46 PM . Narrative 07/20/2017 5:46 PM CDT EXAMINATION: Thyroid sonogram HISTORY: E04.1: Thyroid nodule FINDINGS: Comparison is made with Thyroid ultrasound from 12/01/2015. Right thyroid lobe: 5.1 x 1.8 x 1.7 cm Left thyroid lobe: 4.9 x 1.7 x 1.9 cm Isthmus: 6 mm Three nodules are detected in the right [...] thickened. Vascularity of the thyroid is normal. Procedure Note Fartun Ontiveros MD - 07/20/2017 EXAMINATION: Thyroid sonogram HISTORY: E04.1: Thyroid nodule FINDINGS: Comparison is made with Thyroid ultrasound from 12/01/2015. Right thyroid lobe: 5.1 x 1.8 x 1.7 cm Left thyroid lobe: 4.9 x 1.7 x 1.9 cm Isthmus: 6 mm Three nodules are detected in the right thyroid lobe. The first noduleis located within the mid-superior right lobe and [...] transmission is noted, suggesting cystic nature. The thirdnodule is located in the medial inferior right thyroid lobe, and measures 5 x 1x 4 mm, and is new from prior exam. This nodule is hypoechoic and mildly irregular in shape but with well-defined margins and no detectable internal vascular flow. No echogenic foci are seen. Multiple tiny hypoechoic nodules are identified in the left thyroid lobe. The isthmusis not thickened. Vascularity of the thyroid is normal. IMPRESSION: 1. Decreased size of mid-superior right thyroid lobe nodule to 3 mm, previously 10 mm. This lesion no longer meets criteria for follow-up or biopsy. 2. Multiple other hypoechoic nodules measuring up to 5 mm in the thyroid lobes. These lesions do not meet criteria for follow-up or biopsy. Dictated by Marlon Alves MD (anesthesia resident). This report was approved by Marlon Alves on 07/20/2017 4:[address] Ru Valderrama M.D. have personally reviewed and interpretedthis examination/study. This report was electronically signed by Ru ONTIVEROS M.D. on 07/20/2017 5:46 PM . Mitul Canas MD US ORDERABLES * US SOFT TISSUE HEAD NECK (12/01/2015 10:09 AM CDT) Anatomical Region Laterality Modality Head Other Impressions 12/01/2015 5:37 PM CDT IMPRESSION: 1. ??A 10 mm hypoechoic nodule with eccentric solid component the superior aspect of the right thyroid lobe does not meet strict LELAND criteria for biopsy. Ultrasound follow-up is recommended. 2. ??A 3 mm hypoechoic nodule in the inferior aspect of the right thyroid lobe also does not meet strict LELAND criteria for biopsy. Dictated by Randolph Chadwick MD (resident). This report was approved ??by Randolph Chadwick ?? on 12/01/2015 10:[address] Ru Valderrama M.D. have personally reviewed and interpreted this examination/study. This report was electronically signed by Ru ONTIVEROS M.D. ??on 12/01/2015 5:37 PM . Narrative 12/01/2015 5:37 PM CDT EXAMINATION: Thyroid sonogram HISTORY: Thyroid nodule COMPARISON: No prior study is available for comparison. FINDINGS: Right thyroid lobe: 5.2 x 1.7 x 1.9 cm Left thyroid lobe: 4.2 x 1.7 x 1.9 cm Isthmus: 3 mm There is a hypoechoic nodule with an eccentric solid component in the superior aspect of the right thyroid lobe measuring 10 x 7 x 7 mm. Flow is seen within the solid component. No microcalcifications are identified. A 3 mm hypoechoic nodule in the inferior aspect of the right lobe is also noted. The isthmus is not thickened. Vascularity of the thyroid is normal. Procedure Note Fartun Ontiveros MD - 05/14/2017 EXAMINATION: Thyroid sonogram HISTORY: Thyroid nodule COMPARISON: No prior study is available for comparison. FINDINGS: Right thyroid lobe: 5.2 x 1.7 x 1.9 cm Left thyroid lobe: 4.2 x 1.7 x 1.9 cm Isthmus: 3 mm There is a hypoechoic nodule with an eccentric solid component in thesuperior aspect of the right thyroid lobe measuring 10 x 7 x 7 mm. Flow isseen within the solid component. No microcalcifications are identified. A3 mm hypoechoic nodule in the inferior aspect of the right lobe is also noted. The isthmus is notthickened. Vascularity of the thyroid is normal. IMPRESSION IMPRESSION: 1. A 10 mm hypoechoic nodule with eccentric solid component the superioraspect of the right thyroid lobe does not meet strict LELAND criteria forbiopsy. Ultrasound follow-up is recommended. 2. A 3 mm hypoechoic nodule in the inferior aspect of the right thyroidlobe also does not meet strict LELAND criteria for biopsy. Dictated by Randolph Chadwick MD (resident). This report was approved by Randolph Chadwick on 12/01/2015 10:[address] Ru Valderrama M.D. have personally reviewed and interpreted thisexamination/study. This report was electronically signed by Ru ONTIVEROS M.D. on12/01/2015 5:37 PM . Mitul Canas MD ORDERABLES Care Teams Molding Engineer Relationship Specialty Start Date End Date Ruma Shrestha, POOL PLAYER-AIR TRAFFIC COORDINATOR PCP - General 11/17/17
--- OUTSIDE RECORDS SUMMARY | 2024-02-25 20:47 | XMS_ITS | Encounter Summary ---
Author Organization [facility] Address [address] [place] [address] Care Team Providers Care Buckle Strap Drum Operator Name Role Phone Ruma Shrestha APRN-GREENS CUTTER Primary Care Provi genoveva Encounter Details Date Type Department Care Team (Latest Contact Info) Description 02/28/2020 Travel Social History Tobacco Use Types Packs/Day Years Used Date Smoking Tobacco: Former Cigarettes 1 18.7 2 000 - 11/06/2017 Smokeless Tobacco: Never Alcohol Use Standard Drinks/Week Comments No 0 (1 standard drink = 0.6 oz pure alcohol) former heavy drinking after work and weekends, 02/15 pin/d2017 rare alcohol Sex and Gender Information Value Date Recorded Sex Assigned at Not on file Gender Identity Not on file Sexual Orientation Not on file COVID-19 Exposure Response Date Recorded In the last month, have you been in contact with someone who was confirmed or suspected to have Coronavirus / COVID-19? No / Unsure 02/28/2020 1:33 PM PRINCIPAL JAVA DEVELOPER documented as of this encounter Plan of Treatment Upcoming Encounters Date Type Department Care Team (Late st Contact Info) Description 03/08/2024 10:45 AM PRINCIPAL JAVA DEVELOPER Office Visit [facility] [address] [facility], [place] [phone] Mitul Canas MD [address] [facility] [address] [place] [address] documented as of this encounter Visit Diagnoses Not on filedocumented in this encounter Care Teams Buckle Strap Drum Operator Relationship Specialty Start Date End Date Ruma Shrestha, CRIME PREVENTION WORKER-GREENS CUTTER PCP - General 11/17/17 documented as of this encounter
--- OUTSIDE RECORDS SUMMARY | 2024-02-25 20:47 | XMS_ITS | Encounter Summary ---
Author Organization [facility] Address [address] [place] [address] Care Team Providers Care Oncology Technician Name Role Phone Ruma Shrestha APRN-MACHINE SNELLER Primary Care Provi genoveva Reason for Visit * Reason Onset Date Comments Immunotherapy 10/16/2020 Benefit Check Encounter Details Date Type Department Care Team (Late st Contact Info) Description 10/16/2020 Telephone [facility] [address] [place] [address] Aidee Jordan Immunotherapy (Benefit Check) Social History Tobacco Use Types Packs/Day Years Used Date Smoking Tobacco: Former Cigarettes 1 18.7 2 000 - 11/06/2017 Smokeless Tobacco: Never Alcohol Use Standard Drinks/Week Comments No 0 (1 standard drink = 0.6 oz pure alcohol) former heavy drinking after work and weekends, 1/2 pint/d, 2018 rare alcohol Sex and Gender Information Value Date Recorded Sex Assigned at Not on file Gender Identity Not on file Sexual Orientation Not on file documented as of this encounter Miscellaneous Notes * Telephone Encounter - Aidee Jordan - 10/16/2020 3:22 PM CDT Per phone conversation with Rhona at [facility] on 10/16/2020 : Regarding allergy testing (51599, 01355): Each are covered at 100% of allowable amount deductible waived. Regarding immunotherapy (91041 & 86657): Each are covered at 100% of allowable amount after deductible waived. Specialist copay: 50.00 Calendar year plan: $ 0 has been applied towards $ 1500 individual deductible. $ 0 has been applied towards $ 4500 family calendar year deductible. Authorization for above codes: npr Referral for above codes: none Policy effective 02/14/2019, current. No preexisting applies. Call reference number [id number] . documented in this encounter Plan of Treatment Upcoming Encounters Date Type Department Care Team (Late st Contact Info) Description 03/08/2024 10:45 AM SHEET SEWER Office Visit [facility] [address] [facility], [place] [address] Mitul Canas MD [address] [place] [address] documented as of this encounter Visit Diagnoses Not on filedocumented in this encounter Care Teams Oncology Technician Relationship Specialty Start Date End Date Ruma Shrestha, FANI-MACHINE SNELLER PCP - General 11/17/17 documented as of this encounter
--- OUTSIDE RECORDS SUMMARY | 2024-02-25 20:47 | XMS_ITS | Encounter Summary ---
Author Organization [facility] Address [address] [place] [address] Care Team Providers Care Lamp Shade Maker Name Role Phone Ruma Shrestha Primary Care Provi genoveva Encounter Details Date Type Department Care Team (Latest Contact Info) Description 12/14/2023 Travel Social History Tobacco Use Types Packs/Day [...] st Contact Info) Description 03/08/2024 10:45 AM COTA Office Visit [facility] [address] [facility], [place] [phone] Mitul Canas MD [address] [facility] [address] [place] [address] documented as of this encounter Visit Diagnoses Not on filedocumented in this encounter Care Teams Lamp Shade Maker Relationship Specialty Start Date End Date Ruma Shrestha APRN-CNP PCP - General 11/17/17 documented as of this encounter
--- OUTSIDE RECORDS SUMMARY | 2024-02-25 20:47 | XMS_ITS | Referral Summary ---
Author Organization [facility] Address [address] [facility] [place] [address] Care Team Providers Care Silk Screen Layout Drafter Name Role Phone Ruma Shrestha DOCK SUPERINTENDENT-CONTROL SUPERVISOR Primary Care Provi genoveva Source Comments [facility],non-owned Affiliates and Associated Physician Practices is amultiple site organization consisting of ambulatory clinics and hospital sitesin [place], [place], [place] and [place]. This disclosure is being madepursuant to the Care Everywhere program and may not contain all information available regarding this patient. Last updated 17.[facility] Encounters Date Type Department Care Team Description 01/05/2024 Travel 01/05/2024 8:15 AM YARD SWITCH OPERATOR Office Visit [facility] [address] [place] [address] Mitul Canas MD Allergic rhinitis due to animal hair and dander (Primary Dx) 12/14/2023 Travel from Last 3 Months Allergies Active Allergy Reactions Criticality Noted Date [...] eduard vitamin D, ergocalciferol, (DRISDOL) 1.25 MG (25481 UT) capsule TAKE 1 CAPSULE BY MOUTH EVERY WEEK DIRECTED 02/27/2021 Active clonazePAM (KlonoPIN) 0.5 MG tablet Take 1 (one) tablet by mouth as needed for Anxiety Active Azelastine HCl 137 MCG/SPRAY SOLN [place] 1 spray into each nostril 2 times daily 90 mL 2 01/05/2024 Active fluticasone propionate (Flonase) 50 MCG/ACT nasal spray [place] 1 (one) spray into each nostril once [...] for follow-up or biopsy. Obesity (BMI 30-39.9) Social History Tobacco Use [...] Comments Blood Pressure 169/109 01/05/2024 8:33 AM YARD SWITCH OPERATOR Pulse 76 01/05/2024 8:33 AM YARD SWITCH OPERATOR Temperature - - Respiratory Rate 12 11/25/2015 9:56 AM CDT Oxygen Saturation 99% 03/29/2019 10:17 AM YARD SWITCH OPERATOR Inhaled Oxygen Concentration - - Weight 96.3 kg (212 lb 3.2 oz) 01/05/2024 8:33 A M YARD SWITCH OPERATOR Height 157.5 cm (5' 2 ) 01/05/2024 8:33 AM YARD SWITCH OPERATOR Body Mass Index 38.81 01/05/2024 8:33 AM YARD SWITCH OPERATOR Plan of Treatment Upcoming Encounters Date Type Department Care Team (Late st Contact Info) Description 03/08/2024 10:45 AM YARD SWITCH OPERATOR Office Visit [facility] [address] [place] [phone] Mitul Canas MD [address] [place] [address] [address] [place] [address] Care Teams Silk Screen Layout Drafter Relationship Specialty Start Date End Date Ruma Shrestha, FANI-CONTROL SUPERVISOR PCP - General 11/17/17
--- OUTSIDE RECORDS SUMMARY | 2024-02-25 20:47 | XMS_ITS | Encounter Summary ---
Author Organization [facility] Address [address] [place] [address] Care Team Providers Care Sql Developer Dba Name Role Phone Ruma Shrestha APRN-COOK SHORT ORDER Primary Care Provi genoveva Encounter Details Date Type Department Care Team (Latest Contact Info) Description 02/26/2020 Travel Social History Tobacco Use Types Packs/Day [...] have Coronavirus / COVID-19? Unable to assess 02/26/2020 11:52 AM BANK VAULT ATTENDANT documented as of this encounter Plan of Treatment Upcoming Encounters Date Type Department Care Team (Late st Contact Info) Description 03/08/2024 10:45 AM BANK VAULT ATTENDANT Office Visit [facility] [address] [facility], [place] [phone] Mitul Canas MD [address] [facility] [address] [place] [address] documented as of this encounter Visit Diagnoses Not on filedocumented in this encounter Care Teams Sql Developer Dba Relationship Specialty Start Date End Date Ruma Shrestha, FANI-COOK SHORT ORDER PCP - General 11/17/17 documented as of this encounter
--- OUTSIDE RECORDS SUMMARY | 2024-02-25 20:47 | XMS_ITS | Encounter Summary ---
Author Organization [facility] Address [address] [place] [address] Care Team Providers Care Scuba Diving Teacher Name Role Phone Ruma Shrestha PROFESSIONAL GOLF TOURNAMENT PLAYER-COLLECTION ANALYST Primary Care Provi genoveva Reason for Visit * Reason Onset Date Comments Cpap Follow-up 08/05/2021 Encounter Details Date Type Department Care Team (Late st Contact Info) Description 08/05/2021 Telephone [facility] [address] [place] [address] Matt Peterson MD [address] OF PULMONARY/[place] [address] Cpap Follow-up Social History Tobacco Use Types Packs/Day Years [...] encounter Miscellaneous Notes * Telephone Encounter - MarioCarlos - 08/05/2021 3:44 PM CDT PT DME PROVIDER (IV/RESP) CALL THAT THE PT NEVER CAME TO RESERVATIONS AND TICKETING AGENT HER CPAP AND THIS IS THE SECOND TIME NOW. THEY CALL THE PT AND I CALL THE PT THERE WERE NO RESPONSE, SO THE DME AND I LEFT A VOICE MESSAGE. documented in this encounter Plan of Treatment Upcoming Encounters Date Type Department Care Team (Late st Contact Info) Description 03/08/2024 10:45 AM ASSISTANT DIRECTOR OF ADMISSIONS Office Visit [facility] [address] [facility], [place] [address] Mitul Canas MD [facility] [facility] [address] [place] [address] documented as of this encounter Visit Diagnoses Not on filedocumented in this encounter Care Teams Scuba Diving Teacher Relationship Specialty Start Date End Date Ruma Shrestha APRN-COLLECTION ANALYST PCP - General 11/17/17 documented as of this encounter
--- OUTSIDE RECORDS SUMMARY | 2024-02-25 20:47 | XMS_ITS | Encounter Summary ---
Author Organization [facility] Address [address] [facility] [place] [address] Care Team Providers Care Rubber Moulding Machine Operator Name Role Phone Ruma Shrestha SAWMILL TALLY CLERK-FOREST PRODUCTS TEACHER Primary Care Provi genoveva Reason for Visit * Reason Comments Refill Request Encounter Details Date Type Department Care Team (Late st Contact Info) Description 11/10/2019 Refill [facility] [address] [facility] [address] [place] [address] Mitul Canas MD [address] [facility] [address] [place] [address] Refill Request Social History Tobacco Use Types [...] encounter Miscellaneous Notes * Telephone Encounter - Carmela Oseguera RN - 11/12/2019 9:00 AM CDT Refills authorized per Otolaryngology protocol 08/15/2019. DOUG 07/2019 documented in this encounter Plan of Treatment Upcoming Encounters Date Type Department Care Team (Late st Contact Info) Description 03/08/2024 10:45 AM I&C TECHNICIAN Office Visit [facility] [address] [facility], [place] [address] Mitul Canas MD [address] [facility] [address] [place] [address] documented as of this encounter Visit Diagnoses Not on filedocumented in this encounter Care Teams Rubber Moulding Machine Operator Relationship Specialty Start Date End Date Ruma Shrestha APRN-FOREST PRODUCTS TEACHER PCP - General 11/17/17 documented as of this encounter
--- OUTSIDE RECORDS SUMMARY | 2024-02-25 20:47 | XMS_ITS | Encounter Summary ---
Author Organization [facility] Address [address] [facility] [place] [address] Care Team Providers Care Media Arts Professor Name Role Phone Ruma Shrestha WOODEN SHADE HARDWARE INSTALLER-PROGRAM PROJECT ANALYST Primary Care Provi genoveva Reason for Visit * Reason Comments Sinus Problem Encounter Details Date Type Department Care Team (Late st Contact Info) Description 10/06/2020 9:45 AM CDT Office Visit [facility] [address] [facility], [place] [address] Mitul Canas MD [facility] [facility] [address] [place] [address] JAYLEEN (obstructive sleep apnea) (Primary Dx) Social History Tobacco Use Types Packs/Day Years [...] Sign Reading Time Taken Comments Blood Pressure 144/94 10/06/2020 10:09 AM CDT Pulse 77 10/06/2020 10:09 AM CDT Temperature - - Respiratory Rate - - Oxygen Saturation - - Inhaled Oxygen Concentration - - Weight 98.9 kg (218 lb) 10/06/2020 10:09 AM CDT Height 157.5 cm (5' 2 ) 10/06/2020 10:09 AM CDT Body Mass Index 39.87 10/06/2020 10:09 AM CDT documented in this encounter Patient Instructions * Patient Instructions* Poonam Comer - 10/06/2020 10:10 AM CDT Thank you for visiting [facility] Otolaryngology - Head & Neck Surgery. We [...] an appointment, please call our office at [phone] Tuesday through Tuesday from 8:30 am to4:30 pm. You can also request a routine appointment through your [employer] account. ??? Prescription Refills Contact your pharmacy [...] call the medical exchangeat and ask the metal cnc operator to page the ENT physician frontend engineer. *Caller ID blocking service will need to be turned off for your call to be returned. We also specialize in Hearing Aids, Allergy testing, swallowing disorders, voice problems, cancer diagnosis, and so much more. Visit our website at [email or web address] for information about our practice and an interactive health encyclopedia. Thank you for visiting [facility] Otolaryngology - Head & Neck Surgery. We [...] an appointment, please call our office at [phone] Tuesday through Tuesday from 8:00 am to4:30 pm. You can also request a routine appointment through your [employer] account. ??? Prescription Refills Contact your pharmacy to request all refills. The pharmacy will need to fax the request to us at . Please allow a minimum of 48-72 hours for your prescription to be completed. ??? Medical Emergency / After Hours Contact Information If you have a medical emergency, please call 911 or go to the nearest emergency room. For urgent medical calls, which cannot wait until the office opens, please call the medical exchange at and ask the metal cnc operator to page the ENT physician frontend engineer. *Caller ID blocking service will need to be turned off for your call to be returned. We also specialize in Hearing Aids, Allergy testing, swallowing disorders, voice problems, cancer diagnosis, and so much more. Visit our website at [email or web address] for information about our practice and an interactive health encyclopedia. Thank you for visiting [facility] Otolaryngology - Head & Neck Surgery. We [...] an appointment, please call our office at [phone] Tuesday through Tuesday from 8:00 am to4:30 pm. You can also request a routine appointment through your [employer] account. ??? Prescription Refills Contact your pharmacy to request all refills. The pharmacy will need to fax the request to us at . Please allow a minimum of 48-72 hours for your prescription to be completed. ??? Medical Emergency / After Hours Contact Information If you have a medical emergency, please call 911 or go to the nearest emergency room. For urgent medical calls, which cannot wait until the office opens, please call the medical exchange at and ask the metal cnc operator to page the ENT physician frontend engineer. *Caller ID blocking service will need to be turned off for your call to be returned. We also specialize in Hearing Aids, Allergy testing, swallowing disorders, voice problems, cancer diagnosis, and so much more. Visit our website at [email or web address] for information about our practice and an interactive health encyclopedia. documented in this encounter Progress Notes * Cuate Steven MD - 10/06/2020 10:15 AM CDT Images from the original note were not included. Otolaryngology-Head and Neck Surgery Office Note PATIENT INFORMATION Maribell Jordan 40 year old female Today's Date: 10/06/2020 HPI/ROS/Allergies Maribell Jordan is a 40 year old female with a PMH significant for GERD, headaches, JAYLEEN, HTN, tobacco use seen for follow up. Continues having persistent sinonasal symptoms despite Claritin, Singulair, Flonase, Astelin. Also notes some dizziness. Has not yet done allergy testing and immunotherapy as she was previously on a beta jesus manuel. Prior CT with mild septal deviation but no evidence of sinusitis. Was going to get sleep study, but patient says she was never called and forgot all about it until you just mentioned it. Continues to have excessive daytime fatigue, restless sleep. ESS 12 today. Allergies: Allergies Allergen Reactions ??? Lisinopril Itching and Cough Knot in throat feeling ??? Amlodipine Base Other Throat feels funny ??? Losartan Itching Also feels like knot in throat after couple weeks Review of Systems: A 12-system review of systems was performed and was negative except for: Maribell reports the following:headaches, nose stopped up, burning, some dizziness, ear pain off and on PMH/PSH/SH/FH/Meds PAST MEDICAL HISTORY Past Medical History: Diagnosis Date ??? Allergic rhinitis due to animal hair and dander 08/03/2017 ??? Anemia ??? Anxiety 11/02/2017 ??? Bronchitis recurrent ??? Chest discomfort 11/02/2017 ??? Chronic fatigue 12/06/2017 ??? Claustrophobia 12/06/2017 ??? Concussion no LOC ??? Diabetes mellitus 10/16/2015 ??? Excessive daytime sleepiness 12/06/2017 ??? Frequent headaches ??? Gastroesophageal reflux disease 11/02/2017 ??? Globus sensation 08/11/2017 ??? Hemorrhoids ??? History of brain concussion 03/06/2020 ??? Hypertensive disorder 11/02/2017 ??? Hypnopompic hallucination ??? Inadequate sleep hygiene 12/06/2017 ??? Memory problem ??? Multiple thyroid nodules ??? Non-seasonal allergic rhinitis due to pollen 08/03/2017 ??? Obesity (BMI 30-39.9) ??? JAYLEEN (obstructive sleep apnea) 12/06/2017 ??? PND (post-nasal drip) 08/11/2017 ??? Poor concentration 12/06/2017 ??? Restless legs syndrome (RLS) ??? 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 Sinusitis 04/26/2019 ??? Sleep related gastroesophageal reflux disease 03/06/2020 ??? Smoking 08/11/2017 ??? Snoring 08/11/2017 ??? SOB (shortness of breath) on exertion 12/06/2017 ??? Vitamin D deficiency PAST SURGICAL HISTORY Past Surgical History: Procedure Laterality Date ??? Breast Lumpectomy fibroid ??? Section x3 ??? COLONOSCOPY ??? Ovarian Cyst Removal ??? Tonsillectomy and Adenoidectomy SOCIAL HISTORY: Social History Tobacco Use ??? Smoking status: Former Smoker Packs/day: 1.00 Years: 18.00 Pack years: 18.00 Types: Cigarettes Start date: 1999 Quit date: 11/06/2017 Years since quittin.9 ??? Smokeless tobacco: Never Used Vaping Use ??? Vaping Use: Never used Substance Use Topics ??? Alcohol use: No Comment: former heavy drinking after work and weekends, 1/2 pint/d, 2017 rare alcohol ??? Drug use: No FAMILY HISTORY Non-contributory. MEDICATIONS Current Outpatient Medications on File Prior to Visit Medication Sig Dispense Refill ??? azelastine (ASTELIN) 0.1 % nasal spray USE 1 SPRAY IN EACH NOSTRIL TWICE DAILY 30 mL 5 ??? Carboxymethylcellulose Sodium (REFRESH LIQUIGEL OP) 2 drops by Ophthalmic route as needed ??? clonazePAM (KLONOPIN) 0.5 MG tablet Take 0.5 mg by mouth 2 times daily as needed ??? EPINEPHrine (EPIPEN) 0.3 MG/0.3ML auto-injector pen INJECT 0.3 ML(0.3 MG) IN THE MUSCLE NEEDED FOR ANAPHYLAXIS 2 Each 0 ??? famotidine (PEPCID) 20 MG tablet Take 20 mg by mouth once daily ??? ferrous sulfate 325 (65 FE) MG tablet every 24 hours ??? fluticasone propionate (FLONASE) 50 MCG/ACT nasal spray Bates 1 spray into each nostril DAILY. 1 [...] TEST test strip No current facility-administered medications on file prior to visit. Physical Exam Vitals: BP 144/94 Pulse 77 Ht 5' 2 (1.575 m) Wt 218 lb (98.9 kg) LMP 11/23/2017 (Approximate) BMI 39.87 kg/m?? Constitutional: Alert, NAD. Well developed/well nourished. CV/Pulm: Normal respirations and peripheral pulses. Eyes: PERRL, EOMI Face/Skin: Normal appearance, no lesions/masses. Ears: Right: Normal external auditory canal Left: Normal external auditory canal Nose: Patent bilaterally, mild septal deviation, turbinates intact, mucosal membranes intact. Mouth and oropharynx: Symmetric tongue mobility, no lesions/masses/ulcers. Neck: Supple, no lymphadenopathy, no masses. Voice: Strong. MusculoSkeletal: Moves all extremities well. Neuro: Cranial nerves III-XII grossly intact. No notes on file Assessment & Plan Maribell Jordan is a 40 year old female with JAYLEEN, allergic rhinitis, headaches. 1. Standing order for home sleep study, provided number for [facility]. Patient will call to schedule this. 2. Will repeat allergy testing. 3. Continue current allergy medical regimen. Follow up with Dr. Canas in 2 months.. Cuate Steven MD Otolaryngology-Head and Neck Surgery 10/06/20 I personally saw and examined the patient along with the resident and was present for above procedures. I agree with the H&P and physical exam findings as documented above. I note the following: RTC to 2 months to check sleep study results. * Poonam Comer - 10/06/2020 10:10 AM CDT Review of Systems Maribell reports the following:headaches, nose stopped up, burning, some dizziness, ear pain off and on documented in this encounter Plan of Treatment Upcoming Encounters Date Type Department Care Team (Late st Contact Info) Description 03/08/2024 10:45 AM LEGAL EXECUTIVE Office Visit [facility] [address] [facility], [place] [address] Mitul Canas MD [facility] [facility] [address] [place] [address] documented as of this encounter Visit Diagnoses Diagnosis JAYLEEN (obstructive sleep apnea)- Primary Obstructive sleep apnea (adult) (pediatric) documented in this encounter Care Teams Media Arts Professor Relationship Specialty Start Date End Date Ruma Shrestha, WOODEN SHADE HARDWARE INSTALLER-PROGRAM PROJECT ANALYST PCP - General 11/17/17 documented as of this encounter
--- OUTSIDE RECORDS SUMMARY | 2024-02-25 20:47 | XMS_ITS | Encounter Summary ---
Author Organization [facility] Address [address] [facility] [address] Care Team Providers Care Senior Application Programmer Name Role Phone Ruma Shrestha APRN-JAVA TECHNICAL MANAGER Primary Care Provi genoveva Reason for Visit * Reason Comments Refill Request Encounter Details Date Type Department Care Team (Late st Contact Info) Description 08/19/2021 Refill [facility] [address] [facility] [place] [address] Mitul Canas MD [address] [facility] [address] [place] [address] Refill Request Social History Tobacco Use Types [...] Telephone Encounter - Karina Grace RN - 08/20/2021 8:04 AM CDT Refills authorized per Otolaryngology protocol 08/14/2020. documented in this encounter Plan of Treatment Upcoming Encounters Date Type Department Care Team (Late st Contact Info) Description 03/08/2024 10:45 AM RUG CLEANING SUPERVISOR Office Visit [facility] [address] [facility], [place] [address] Mitul Canas MD [address] [facility] [address] [place] [address] documented as of this encounter Visit Diagnoses Not on filedocumented in this encounter Care Teams Senior Application Programmer Relationship Specialty Start Date End Date Ruma Shrestha, FANI-JAVA TECHNICAL MANAGER PCP - General 11/17/17 documented as of this encounter
--- OUTSIDE RECORDS SUMMARY | 2024-02-25 20:47 | XMS_ITS | Encounter Summary ---
Author Organization [facility] Address [address] [place] [address] Care Team Providers Care Fireproof Door Maker Name Role Phone Ruma Shrestha DRYWALL STRIPPER HELPER-DAMAGED FREIGHT INSPECTOR Primary Care Provi genoveva Reason for Visit * Reason Onset Date Comments MEDICATION REFILL 03/16/2022 Encounter Details Date Type Department Care Team (Late st Contact Info) Description 03/16/2022 Refill [facility] [address] [facility], [place] [address] Mitul Canas MD [facility] [facility] [address] [place] [address] MEDICATION REFILL Social History Tobacco Use Types Packs/Day Years [...] Telephone Encounter - Carmela Oseguera RN - 03/16/2022 3:54 PM CST Refills authorized per Otolaryngology protocol 08/14/2021. RVISOR FORMING AND TEMPERING documented in this encounter Plan of Treatment Upcoming Encounters Date Type Department Care Team (Late st Contact Info) Description 03/08/2024 10:45 AM SUPERVISOR FORMING AND TEMPERING Office Visit [facility] [address] [facility], [place] [address] Mitul Canas MD [address] [facility] [address] [place] [address] documented as of this encounter Visit Diagnoses Not on filedocumented in this encounter Care Teams Fireproof Door Maker Relationship Specialty Start Date End Date Ruma Shrestha, DRYWALL STRIPPER HELPER-DAMAGED FREIGHT INSPECTOR PCP - General 11/17/17 documented as of this encounter
--- OUTSIDE RECORDS SUMMARY | 2024-02-25 20:47 | XMS_ITS | Encounter Summary ---
Author Organization [facility] Address [address] [place] [address] Care Team Providers Care Railroad Baggage Porter Name Role Phone Ruma Shrestha APRN-NIGHT CLEANER Primary Care Provi genoveva Reason for Referral * Procedure (Routine) - Closed Specialty Diagnoses / Procedures Referred By Contac t Referred To Contact Sleep Center Diagnoses JAYLEEN (obstructive sleep apnea) Procedures PROC HOME SLEEP STUDY TEST Ralph Rhodes MD [address] [facility] [address] [place] [address] Referral ID Status Reason Start Date Expiration Date Visits Re quested Visits Authorized [id number] Closed 03/06/2020 03/06/2021 1 1 CUTTER AND REAMER Reason for Visit * Reason Comments Obstructive Sleep Apnea Encounter Details Date Type Department Care Team (Latest Contact Info) Description 03/06/2020 2:00 PM CORE CUTTER AND REAMER Video Visit [facility] [address] [place] [address] Ralph Rhodes MD [address] [address] JAYLEEN (obstructive sleep apnea) ; Restless legs syndrome (RLS); Hypnopompic hallucination; History of brain concussion; Gastroesophageal reflux disease, unspecified whether esophagitis present; Excessive daytime sleepiness; Sleep related gastroesophageal reflux disease Social History Tobacco Use Types Packs/Day Years Used Date Smoking Tobacco: Former Cigarettes 1 18.7 2 000 - 11/06/2017 Smokeless Tobacco: Never Alcohol Use Standard Drinks/Week Comments No 0 (1 standard drink = 0.6 oz pure alcohol) former heavy drinking after work and weekends, 1/ pint/d2017 rare alcohol Sex and Gender Information Value Date Recorded Sex Assigned at Not on file Gender Identity Not on file Sexual Orientation Not on file COVID-19 Exposure Response Date Recorded In the last month, have you been in contact with someone who was confirmed or suspected to have Coronavirus / COVID-19? No / Unsure 02/28/2020 1:33 PM CORE CUTTER AND REAMER documented as of this encounter Last Filed Vital Signs Vital Sign Reading Time Taken Comments Blood Pressure - - Pulse - - Temperature - - Respiratory Rate - - Oxygen Saturation - - Inhaled Oxygen Concentration - - Weight 99.8 kg (220 lb) 03/06/2020 12:22 PM CORE CUTTER AND REAMER Height 157.5 cm (5' 2 ) 03/06/2020 12:22 PM CORE CUTTER AND REAMER Body Mass Index 40.24 03/06/2020 12:22 PM CORE CUTTER AND REAMER documented in this encounter Patient Instructions * Patient Instructions* Ralph Rhodes MD - 03/06/2020 2:55 PM CORE CUTTER AND REAMER Images from the original note were not included. [facility], [address] [facility] [place] [address] Telephone : [phone] Medical Records Impressions: The patient's problems are complicated and interrelated with significant co- morbidities including hypersomnia. We had discussion as regards diagnostic and therapeutic options related to multiple sleep problems and potentially associated comorbidities. We had discussion as regards pathology associated with untreated or insufficiently treated sleep apnea, including hypertension, cardiac arrhythmia,stroke, [place], sudden , autonomic dysfunction, problems with memory, balance, and decision making, sleepiness, decreased hand-eye coordination and visual response time and risk of accidental injuryor , nocturia, insulin resistance, weight gain, fasting hyperglycemia, etc. Obstructive sleep apnea and hypertension frequently coexist (an estimated 50% of patients with HTN have concomitant JAYLEEN), and recent evidence supports the role of JAYLEEN as the most prevalent secondary contributor to elevated blood pressure (BP) in patients with resistant HTN (c.f. Hypertension. 2014;63: 203-209). CPAP should be used in combination with antihypertensive medications in hypertensive patients with JAYLEEN. CPAP has the additional benefits of restoring nocturnal dipping and improving arterial stiffness, thus potentially influencing cardiovascular morbidity in these high-risk patients (Lobo MG1, Shadi DL, Use of continuous positive airway pressure for sleep apnea in the treatment of hypertension. Curr Opin Nephrol Hypertens. 2014). The pathophysiological relationship between upper airway resistance and reflux is complex, as treatment of sleep apnea with nocturnal CPAP improves reflux not only at night due to increase in intrathoracic pressure, but also during the day when the patient is upright, an effect presumably due to improved sleep quality (Seda M, Ranjit S, Pat G, Justin W. The effect of 1 week of continuous pos itive airway pressure treatment in obstructive sleep apnea patients with concomitant gastroesophageal reflux. Chest. 2006 130(4):1003-8). The patient has had problems with hypnpompic hallucinations. This is not currently a problem. Although these symptoms can be a consequence of any cause of sleep deprivation, they are features of narcolepsy. If these symptoms persist in spite of treatment of any other primary sleep disorder, then wewill test for narcolepsy. Memory consolidation occurs with sleep. All primary sleep disturbances can carry risk for reversible deficits in memory and concentration. When she returns to work, we will need to assess the possibility of additional circadian rhythm disorder - shift work type. For efficiency, we will undertake home apnea testing in the context of high risk for JAYLEEN. We discussed the decreased sensitivity and specificity of this test, which does not measure sleep quality or test for limb movements. Recommendations: 1. Diagnostic night of polysomnography. 2. Multiple Sleep Latency Test after a night of polysomnography to assess the etiology and significance of uncontrolled daytime sleepiness - this will be deferred until after treatment of any primarysleep disorder identified on PSG. 3. Review of requested data and pending data as ordered. 4. Further recommendations will follow polysomnography and re-evaluation. Rules for Better Sleep Hygiene 1. Exercise daily. Regular exercise can improve sleep quality. 2. Keep a regular daily activity and sleep schedule. Keeping a regular bedtime and rise time every night, including weekends, stabilizes the biological clock. Regular daily activity keeps the biological clock timed to daylight hours. 3. Make the last hour before bed a ???wind-down?? time. Engage in relaxing and pleasant activities, dim the lights, and have a light snack. 4. Do not consume caffeinated products (e.g., coffee, tea, many sodas, chocolate). 5. Do not use alcohol. 6. Smoking and other drugs will disrupt your sleep. If you smoke, do not smoke too close to bedtimeand do not smoke during the night if you are awake. All drugs of abuse worsen your sleep. 7. Do not nap during the day. Napping makes it harder to fall asleep and stay asleep at night. 8. Create a sleep-friendly bedroom environment. Make sure that your bed is comfortable and that your bedroom is dark, quiet, and cool (around 65??F). Darkness signals to the biological clock that it is night time. 9. Strive for bright light in the morning on awakening but limit exposure to bright light in the evening. CUTTER AND REAMER documented in this encounter Progress Notes * Ralph Rhodes MD - 03/06/2020 2:26 PM CST Images from the original note were not included. [facility], [address] [facility] [place] [address] Telephone : [phone] Medical Records Patient Verification & Telemedicine Based Consent I am proceeding with this evaluation at the direct request of the patient. I have verified this is the correct patient and have obtained verbal consent from the patient/surrogate to perform this voluntary telemedicine encounter evaluation. I have explained risks (including potential loss of confiden tiality), benefits, alternatives, and the potential need for subsequent face to face care. Patient/surrogate understands that there is a risk of medical inaccuracies given that our recommendations will be made based on reported data. Knowing that there is a risk that this information is not reported accurately, and that the telemedicine audio, or data feed may be incomplete, the patient agrees toproceed with evaluation and holds us harmless knowing these risks. In this evaluation, we will be providing recommendations only. The patient/surrogate has been notified that other healthcare professionals (including students, residents and technical personnel) may be involved in this audio evaluation. All laws concerning confidentiality and patient access to medical records and copies of medicalrecords apply to telemedicine. I have reviewed this above verification and consent paragraph with the patient/surrogate. Impressions: The patient's problems are complicated and interrelated with significant co- morbidities including hypersomnia. We had discussion as regards diagnostic and therapeutic options related to multiple sleep problems and potentially associated comorbidities. We had discussion as regards pathology associated with untreated or insufficiently treated sleep apnea, including hypertension, cardiac arrhythmia,stroke, [place], sudden , autonomic dysfunction, problems with memory, balance, and decision making, sleepiness, decreased hand-eye coordination and visual response time and risk of accidental injuryor , nocturia, insulin resistance, weight gain, fasting hyperglycemia, etc. Obstructive sleep apnea and hypertension frequently coexist (an estimated 50% of patients with HTN have concomitant JAYLEEN), and recent evidence supports the role of JAYLEEN as the most prevalent secondary contributor to elevated blood pressure (BP) in patients with resistant HTN (c.f. Hypertension. 2014;63: 203-209). CPAP should be used in combination with antihypertensive medications in hypertensive patients with JAYLEEN. CPAP has the additional benefits of restoring nocturnal dipping and improving arterial stiffness, thus potentially influencing cardiovascular morbidity in these high-risk patients (Lobo HARRISON1, Shadi DL, Use of continuous positive airway pressure for sleep apnea in the treatment of hypertension. Curr Opin Nephrol Hypertens. 2014). The pathophysiological relationship between upper airway resistance and reflux is complex, as treatment of sleep apnea with nocturnal CPAP improves reflux not only at night due to increase in intrathoracic pressure, but also during the day when the patient is upright, an effect presumably due to improved sleep quality (Seda M, Ranjit S, Pat G, Justin W. The effect of 1 week of continuous pos itive airway pressure treatment in obstructive sleep apnea patients with concomitant gastroesophageal reflux. Chest. 2006 130(4):1003-8). Patients with restless leg complaints frequently have low ferritin levels, and it is recommended that these levels be checked to ensure serum content of ferritin > 70 ng/ml and thereby, adequate brain content of iron. Medications and several substances may induce or worsen restless legs syndrome. These include caffeine, alcohol, SSRIs, SNRIs, tricyclic antidepressants, lithium, and dopamine P1xiyezzfy antagonists such as neuroleptics and antipsychotics. The patient has had problems with hypnpompic hallucinations. This is not currently a problem. Although these symptoms can be a consequence of any cause of sleep deprivation, they are features of narcolepsy. If these symptoms persist in spite of treatment of any other primary sleep disorder, then wewill test for narcolepsy. Memory consolidation occurs with sleep. All primary sleep disturbances can carry risk for reversible deficits in memory and concentration. When she returns to work, we will need to assess the possibility of additional circadian rhythm disorder - shift work type. For efficiency, we will undertake home apnea testing in the context of high risk for JAYLEEN. We discussed the decreased sensitivity and specificity of this test, which does not measure sleep quality or test for limb movements. Recommendations: 1. Diagnostic night of polysomnography. 2. Multiple Sleep Latency Test after a night of polysomnography to assess the etiology and significance of uncontrolled daytime sleepiness - this will be deferred until after treatment of any primarysleep disorder identified on PSG. 3. Review of requested data and pending data as ordered. Ferritin, TSH, sed rate, if not done. 4. Further recommendations will follow polysomnography and re-evaluation. Subjective: Chief Complaint Patient presents with ??? Obstructive Sleep Apnea Dr. Canas re-referred this right handed senior instrumentation engineer in consultation as regards the chief complaint and related problems. We reviewed with the patient extensive data that included laboratory results, diagnostic results, notes of other practitioners. She was last seen here by Dr. Simon, whoordered home sleep test, which was never accomplished. High blood pressure for 3-5 years. Diabetes about the same time - about 195 pounds. Son on CPAP at age [address] Canas 11 Feb 2020 ...was not able to get sleep study will try again. Has nasal congestion some midface pressure. Upper airway resistance: Snoring Yes Observed cessation of breathing: Yes Tonsillectomy/Adenoidectomy Yes Cleft palate repair No Mouth or facial surgery: No Nasal trauma or surgery No Nocturia No Sleepiness: The patient estimates [place] Sleepiness Scale at 11/07 Symptoms of cataplexy No Sleep paralysis No Hypnagogic or hypnopompic hallucinations No Parasomniae: Sleep Talking No Sleep walking No Sleep Eating No Awaken to eat No Age of onset of snoring was about 12 years. Mass at age 18 was 180 pounds. Neurological Restless limbs syndrome No* FROM Dr. Simon 06 Dec 2017 HPI: When ENT scoped throat told has tight airways and needed sleep study. Having some headaches and a lot of sinus issues. Starting allergy shots after sleep study. Symptoms have been going on for all her life-even got tonsils aout at age 12. Patient sleeps on 2-3pillows; has fallen asleep while driving last time was recently when coming home from work in the work; has never had a close call while driving due to sleepiness; and, has never had an accident due to sleepiness. [place] Sleep Scale - 10 Fatigue Severity Scale - 37 Sleep Schedule: 7pm to 5 am [facility] Bedtime Workdays 530-6 am Weekends/Off days 3-4 am Fall asleep minutes/hours 5 minutes or play game on phone til sleepy 30-40 minutes Number Times Awake/ Reason Total 2-3x, Bathroom unknown, mom or kids wake her Back to Sleep Hard to get back Awake Time/Alarm Weekdays 630-635 am to get kids to school (kids often wake her) then back to bed at 9 am, wake again 230-245 pm to get kids from school (usually wakes to check time), may doze off later Alarm Yes but often not hear it, often oversleeps Thinks sleeps 5 hours on workday and up to 8 on off day Rise Time Trouble getting out of bed especially if headache Naps Yes tries to nap daily but only if really sleepy, sometimes naps on break at work 20 min SLEEP REVIEW OF SYSTEMS: Sleep hygiene: Pertinent positives: cool room, TV on all night, no exercise 3-4 hours before bedtime and no caffeine 3-4 hours before bed Pertinent negatives: dark room, quiet room, TV off, computer off, regular bed time, regular wake time, No dinner 3-4 hours before bedtime, use of bed only for sleep/sex and no fluids 3-4 hours beforebed Sleep position: prone, lateral and restless sleeper, does not like sleeping on back Feeling upon awakening: sleepy/tired, achy (musculoskeletal), morning headache at most a couple times a week lasting up to all day (?sinus) and sometimes dryness of the mouth/throat Time most tired: 10 am to 2 pm Snoring intensity: Frio when outside room, door open Witnessed apneas: No Snort arousals: Yes Mouth breather: Yes in past maybe not now Nasal congestion: Yes Night sweats: hot all the time but not sweaty Use of fan at night: Yes Weight gain: No Reported collar size: in. Parasomnias: Pertinent positives: hypnopompic hallucination hears things sleep talking sleep drunkenness rhythmic movements: leg-shaking more so in past Limb movements Restless legs/limbs: yes: Location: legs/calves, sometimes arms Quality: creep/crawly and urge to move Activity during onset: sitting lying TIme of onset/aggravation:anytime Relieving factors: rubbing/massaging Periodic limb movements: No Neuropathic pain: Yes numbness and tingling every now and then Systemic ROS: Other pertinent positives and negatives: Pertinent positives: chest pain/angina-may be more GERD exertional dyspnea: Not sure if she can walk a mile orthopnea poor concentration ruminating thought clock watching wheezing heartburn/acid reflux nocturia: frequency ?/night PLAN: Full night polysomnograpy: Diagnostic HST Serum iron, ferritin, MMA, folate-get labs from PCP/psych Complete PFT with bronchodilator Discussed the patient's risk for JAYLEEN based on history and physical findings as well as the complications of JAYLEEN. Explained the procedure for the sleep study including the monitoring. Sinus rinse sample Current Outpatient Medications Medication Instructions ??? azelastine (ASTELIN) 0.1 % nasal spray USE 1 SPRAY IN EACH NOSTRIL TWICE DAILY ??? Carboxymethylcellulose Sodium (REFRESH LIQUIGEL OP) 2 drops, Ophthalmic, PRN ??? clonazePAM (KLONOPIN) 0.5 mg, Oral, 2 TIMES DAILY PRN ??? EPINEPHrine (EPIPEN) 0.3 mg, Intramuscular, PRN ??? famotidine (PEPCID) 20 mg, Oral, DAILY ??? ferrous sulfate 325 (65 FE) MG tablet EVERY 24 HOURS ??? fluticasone propionate (FLONASE) 50 MCG/ACT nasal spray 1 spray, Each Nostril, DAILY ??? hydroCHLOROthiazide (HYDRODIURIL) 12.5 mg, Oral, DAILY ??? hydrOXYzine hcl (ATARAX) 10 mg, Oral, 3 TIMES DAILY ??? loratadine (CLARITIN) 10 mg, Oral, DAILY ??? LORazepam (ATIVAN) 1 mg, Oral, EVERY 8 HOURS PRN ??? magnesium oxide (MAG-OX) 400 MG tablet EVERY 48 HOURS ??? metFORMIN (GLUCOPHAGE) 500 mg, Oral, DAILY ??? montelukast (SINGULAIR) 10 mg, Oral, DAILY ??? potassium chloride (KLOR-CON 10) 10 MEQ tablet 10 mEq, Oral, ONCE ??? PRO COMFORT LANCETS 31G MISC No dose, route, or frequency recorded. ??? TRUE METRIX BLOOD GLUCOSE TEST test strip No dose, route, or frequency recorded. Patient Active Problem List: Non-seasonal allergic rhinitis due to pollen Allergic rhinitis due to animal hair and dander Globus sensation Smoking Snoring PND (post-nasal drip) Anxiety Chest discomfort Diabetes mellitus Gastroesophageal reflux disease Hypertensive disorder Anemia Bronchitis Memory problem Multiple thyroid nodules Obesity (BMI 30-39.9) JAYLEEN (obstructive sleep apnea) Restless legs syndrome (RLS) Shift work sleep disorder Excessive daytime sleepiness Chronic fatigue Inadequate sleep hygiene Hypnopompic hallucination Neuropathy Poor concentration SOB (shortness of breath) on exertion Claustrophobia History of brain concussion Sleep related gastroesophageal reflux disease Objective: Ht 5' 2 (1.575 m) Wt 220 lb (99.8 kg) BMI 40.24 kg/m2 General: normal, appears reported age Integument: Visible integument is clear of significant lesions. Nails and hair are unremarkable. Eyes: Sclera and conjunctiva are clear. Ears: normal pinnae Nose: Appears midline. Neck: The neck is supple. Neuro: The patient is alert, oriented, and capable of rational thought. Extra- ocular movements are intact and without lid lag. Lab Review Lab results smartLinks are not currently available Lab results smartLinks are not currently available Lab results smartLinks are not currently available Lab results smartLinks are not currently available Lab results smartLinks are not currently available Lab results smartLinks are not currently available Links to laboratory results have broken with change in EHR platform. All interim results available were reviewed with the patient. Impressions and recommendations can be found at the beginning of this note. Total of 35 min historical review, exam, analysis, discussion, recommendations. See scanned material and instructions. Patient location: Home This encounter was performed using: audio and video The plan was reviewed with the patient and the patient confirmed understanding of the plan and all follow-up steps. All aspects of patient's medical history were reviewed and updated as documented in Epic CUTTER AND REAMER documented in this encounter Plan of Treatment Upcoming Encounters Date Type Department Care Team (Late st Contact Info) Description 03/08/2024 10:45 AM CORE CUTTER AND REAMER Office Visit [facility] - E[facility] [address] [place] [address] [phone] Mitul Canas MD [address] [place] [id number] documented as of this encounter Results * [place] SLEEP STUDY UNATT&RESP EFFT (10/28/2020 10:15 AM CDT) Narrative Matt Peterson MD - 10/28/2020 10:15 AM CDT Matt Peterson MD ? 10/28/2020 10:18 AM [facility] Accredited by the [place] [employer] [facility], First Floor [address] [facility] [place] [address] Telephone : [phone] ? Medical Records Patient Name: ??Maribell Jordan : ??1980 Date of Study: ??10/23/2020 Referring Physician: ??No referring provider defined for this encounter. Type of Montage: ??Type III Respiratory (oximetry, pulse rate, airflow, body position, respiratory movement) UNATTENDED HOME SLEEP APNEA TEST Unattended HST Summary Report Patient Name: Maribell Jordan Date of : 1980 Chart Code: [id number] Weight: 218.0 lbs Study Date: 10/23/20 Height: [...] Apnea-Hypopnea Index Severe Moderate Mild Normal Maribell Julian 5.0 >30 15 to 30 5 to [...] or diabetes mellitus. Matt Lee ??MD Kristen, [facility], [facility], [facility] Engineering Aid, [facility] Professor of Internal Medicine Adjunct [employer] Furnish[employer] Salesperson of Neurology Division of Pulmonary, Critical Care, and Sleep Medicine [facility] This note was electronically signed on 10/28/2020. CC: ??No referring provider defined for this encounter. Ralph Rhodes MD PROCEDURE/MINOR SURG ICAL ORDERABLES documented in this encounter Visit Diagnoses Diagnosis JAYLEEN (obstructive sleep apnea)- Primary Obstructive sleep apnea (adult) (pediatric) Restless legs syndrome (RLS) Hypnopompic hallucination Hallucinations History of brain concussion Gastroesophageal reflux disease, unspecified whether esophagitis present Excessive daytime sleepiness documented in this encounter Care Teams Railroad Baggage Porter Relationship Specialty Start Date End Date Ruma Shrestha, CLINICAL RESEARCH ANALYST-NIGHT CLEANER PCP - General 11/17/17 documented as of this encounter
--- OUTSIDE RECORDS SUMMARY | 2024-02-25 20:47 | XMS_ITS | Encounter Summary ---
Author Organization [facility] Address [address] [place] [address] Care Team Providers Care Internet Marketing Executive Name Role Phone Ruma Shrestha APRN-CREDIT ADJUSTER Primary Care Provi genoveva Reason for Visit * Reason Comments Refill Request Epinephrine refused Encounter Details Date Type Department Care Team (Late st Contact Info) Description 11/12/2023 Refill [facility] - ENT [address], [address] [place] [phone] Mitul Canas MD [address] [facility] [address] [place] [address] Refill Request (Epinephrine refused) Social History Tobacco Use Types Packs/Day [...] Encounter - Rosalinda Hare RN - 11/14/2023 8:55 AM CDT Noted refused epipen refill 09/2023, No contact with pt for > 1 year; Epipen previously prescribed while pt on immunotherapy with [facility] de[facility]. Will await call & discussion with pt before refill. documented in this encounter Plan of Treatment Upcoming Encounters Date Type Department Care Team (Late st Contact Info) Description 03/08/2024 10:45 AM AUTOMOBILES SALESPERSON Office Visit [facility] - [facility]NT [address] [facility], [place] [address] Mitul Canas MD [facility] [facility] [address] [place] [address] documented as of this encounter Visit Diagnoses Not on filedocumented in this encounter Care Teams Internet Marketing Executive Relationship Specialty Start Date End Date Ruma Shrestha APRN-CREDIT ADJUSTER PCP - General 11/17/17 documented as of this encounter
--- OUTSIDE RECORDS SUMMARY | 2024-02-25 20:47 | XMS_ITS | Encounter Summary ---
Author Organization [facility] Address [address] [facility] [place] [address] Care Team Providers Care Teamcenter Solution Architect Name Role Phone Ruma Shrestha APRN-JEWEL HOLE CORNERER Primary Care Provi genoveva Reason for Visit * Reason Comments Follow-up Obstructive Sleep Apnea Encounter Details Date Type Department Care Team (Late st Contact Info) Description 05/14/2021 3:00 PM CDT Office Visit [facility] [address] [place] [address] Ralph Rhodes MD [address] [id number] JAYLEEN (obstructive sleep apnea) (Primary Dx); UARS (upper airway resistance syndrome); Hypertension, secondary; Hypersomnia due to medical condition Social History Tobacco Use Types Packs/Day Years Used Date Smoking Tobacco: Former Cigarettes 1 18.7 2 000 - 11/06/2017 Smokeless Tobacco: Never Tobacco Cessation:Counseling Given: No Alcohol Use Standard Drinks/Week Comments No 0 [...] Sign Reading Time Taken Comments Blood Pressure 148/92 05/14/2021 3:04 PM CDT Pulse 89 05/14/2021 3:04 PM CDT Temperature - - Respiratory Rate - - Oxygen Saturation - - Inhaled Oxygen Concentration - - Weight 89.8 kg (198 lb) 05/14/2021 3:04 PM CDT Height 157.5 cm (5' 2 ) 05/14/2021 3:04 PM CDT Body Mass Index 36.21 05/14/2021 3:04 PM CDT documented in this encounter Patient Instructions * Patient Instructions* Ralph Rhodes MD - 05/14/2021 3:29 PM CDT Images from the original note were not included. [facility], [address] [facility] [place] [address] Telephone : [phone] Medical Records Recommendations: 1. For now, the patient should be maintained on PAP at pressure setting of 4 to 20 cm H2O as ordered by Dr. Peterson. 2. Download of treatment data in 4 weeks and then every 3 months and immediately if problems develop. Put reminders in your calendar to call ([phone]) or send a message in [place]n Burton in 4 weeks andevery 3 months to let us know how you are doing and to request a review of downloaded flow data from your CPAP device. 3. The patient was counseled and cautioned regarding safe driving. 4. The patient was counseled to avoid sleep deprivation, alcohol, and all sedative medications as these can exacerbate upper airway resistance and sleep related breathing disorders. (If you must go to the hospital, bring your CPAP machine labelled with your name.) 5. The patient should continue a weight reduction program. Even mild to moderate weight loss shouldresult in significant improvement in the patient???s nocturnal respiratory events. 6. Exercise should be undertaken daily, with respect given to any orthopedic limitations. Physical therapy or physical medicine consultation may be warranted. Strenuous exercise, which activates the sympathetic nervous system (adrenaline system) not only helps with weight loss and mood, but also improves sleep quality, and upper respiratory muscle tone during sleep. 7. The patient was counseled on principles of good sleep hygiene with particular emphasis on maintaining a regular sleep/wake schedule, ensuring sufficient total sleep time, and providing a good environment for sleep - dark, cool, quiet, secure area. 8. Continue ENT consultation to determine if the patient is an appropriate candidate for further medical, dental, or surgical intervention for treatment of obstructive sleep apnea. 9. Return in 45 to 90 days - earlier for increase in weight, increase in sleepiness, inability to lose weight, acting out of dreams, or any problems or questions ([phone]). Rules for Better Sleep Hygiene 1. Exercise [...] exposure to bright light in the evening. documented in this encounter Progress Notes * Ralph Rhodes MD - 05/14/2021 3:15 PM CDT Images from the original note were not included. [facility], [address] [facility] [place] [address] Telephone : [phone] Medical Records Impressions: Obstructive Sleep Apnea (LUIS F= 5.0 respiratory events/h; Sandor SaO2=87% with 1.5% of recording belowSaO2 of 90%; reported body mass of 94 kg; Kristen; 23 Oct 2020) The patient had borderline testing at home for sleep apnea. Body mass is 5 kg less than at study, but she continues to have elevated blood pressure and symptoms. She has taken delivery of a CPAP device, and in the context of possibly associated pathology, trialon CPAP seems reasonable to assess effects of therapy on blood pressure, insulin sensitivity/glucose control, reflux, daytime sleepiness. Obstructive sleep apnea and hypertension frequently coexist [...] SSRIs, SNRIs, tricyclic antidepressants, lithium, and dopamine [id number] antagonists such as neuroleptics and antipsychotics. Memory consolidation occurs with sleep. All primary [...] or test for limb movements. Recommendations: 1. For now, the patient should be maintained on PAP at pressure setting of 4 to 20 cm H2O as ordered by Dr. Peterson. 2. Download of treatment data in 4 weeks and then every 3 months and immediately if problems develop. Put reminders in your calendar to call ([phone]) or send a message in [place]n Burton in 4 weeks andevery 3 months to let us know how you are doing and to request a review of downloaded flow data from your CPAP device. 3. The patient was counseled and cautioned regarding safe driving. 4. The patient was counseled to avoid sleep deprivation, alcohol, and all sedative medications as these can exacerbate upper airway resistance and sleep related breathing disorders. (If you must go to the hospital, bring your CPAP machine labelled with your name.) 5. The patient should continue a weight reduction program. Even mild to moderate weight loss shouldresult in significant improvement in the patient???s nocturnal respiratory events. 6. Exercise should be undertaken daily, with respect given to any orthopedic limitations. Physical therapy or physical medicine consultation may be warranted. Strenuous exercise, which activates the sympathetic nervous system (adrenaline system) not only helps with weight loss and mood, but also improves sleep quality, and upper respiratory muscle tone during sleep. 7. The patient was counseled on principles of good sleep hygiene with particular emphasis on maintaining a regular sleep/wake schedule, ensuring sufficient total sleep time, and providing a good environment for sleep - dark, cool, quiet, secure area. 8. Continue ENT consultation to determine if the patient is an appropriate candidate for further medical, dental, or surgical intervention for treatment of obstructive sleep apnea. 9. Return in 45 to 90 days - earlier for increase in weight, increase in sleepiness, inability to lose weight, acting out of dreams, or any problems or questions ([phone]). Rules for Better Sleep Hygiene 1. Exercise [...] exposure to bright light in the evening. Subjective: Chief Complaint Patient presents with ??? Follow-up ??? Obstructive Sleep Apnea Dr. 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 She returned in follow-up to CPAP therapy from Dr. Peterson. All interim data reviewed. High blood pressure for 3-5 years. Diabetes about the same time - about 195 pounds. Son on CPAP at age 19. Body mass is 5 kg less than at study, but she continues to have elevated blood pressure and symptoms. ESS= Interim communication was reviewed with the patient. Some history was reiterated: Upper airway resistance: Snoring Yes Observed cessation of breathing: Yes Tonsillectomy/Adenoidectomy Yes Cleft palate repair No Mouth or facial surgery: No Nasal trauma or surgery No Nocturia No Sleepiness: The patient estimates P[place] Sleepiness Scale at 11/07 Symptoms of cataplexy [...] never had an accident due to sleepiness. P[place]roke Sleep Scale - 10 Fatigue Severity Scale - 37 Sleep Schedule: 7pm to [address] [facility] Bedtime Workdays 530-6 am Weekends/Off days 3-4 [...] 10 am to 2 pm Snoring intensity: Cooper when outside room, door open Witnessed apneas: [...] LIQUIGEL OP) 2 drops, Ophthalmic, PRN ??? EPINEPHrine (EPIPEN) 0.3 MG/0.3ML auto-injector pen INJECT 0.3 ML(0.3 MG) IN THE MUSCLE NEEDED FOR ANAPHYLAXIS ??? famotidine (PEPCID) 20 mg, Oral, DAILY ??? ferrous sulfate 325 (65 FE) MG tablet EVERY 24 HOURS ??? fluticasone propionate (FLONASE) 50 MCG/ACT nasal spray 1 spray, Each Nostril, DAILY ??? hydroCHLOROthiazide (HYDRODIURIL) 12.5 mg, DAILY ??? hydrOXYzine HCl (ATARAX) 10 mg, Oral, 3 TIMES DAILY ??? loratadine (CLARITIN) 10 mg, Oral, DAILY ??? magnesium oxide (MAG-OX) 400 MG tablet EVERY 48 HOURS ??? metFORMIN (GLUCOPHAGE) 500 mg, Oral, DAILY ??? montelukast (SINGULAIR) 10 mg, Oral, DAILY ??? potassium chloride (KLOR-CON 10) 10 MEQ tablet 10 mEq, Oral, ONCE ??? PRO COMFORT LANCETS 31G MISC No dose, route, or frequency recorded. ??? TRUE METRIX BLOOD GLUCOSE TEST test strip No dose, route, or frequency recorded. ??? vitamin D, ergocalciferol, (DRISDOL) 1.25 MG (37647 UT) capsule TAKE 1 CAPSULE BY MOUTH EVERY WEEK DIRECTED Patient Active Problem List: Non-seasonal allergic rhinitis [...] daytime sleepiness Chronic fatigue Inadequate sleep hygiene Neuropathy Poor concentration SOB (shortness of breath) on exertion Claustrophobia History of brain concussion Sleep related gastroesophageal reflux disease Objective: BP 148/92 (BP SITE: LEFT ARM, BP POSITION: SITTING, BP CUFF SIZE: 12) Pulse 89 Ht 5' 2 (1.575 m) Wt 198 lb (89.8 kg) BMI 36.21 kg/m2 General: normal, appears reported age Integument: [...] results available were reviewed with the patient. 10/23/2020 Referring Physician: No referring provider defined for this encounter. Type of Montage: Type III Respiratory (oximetry, pulse rate, airflow, body position, respiratory movement) ?? UNATTENDED HOME SLEEP APNEA TEST ?? Unattended HST Summary Report Patient Name: Maribell Jordan Date of : 1980 Chart Code: [id number] Weight: 218.0 lbs Study Date: 10/23/20 Height: 5??? 2?? 157 cm Age: 40 BMI: 40.2 Neck Circumference: 0?? Sex: Female Waist: 9?? Hip: 0?? Waist-Hip Ratio: 0.00 Referring Physician: Matt Peterson Comments: ?? Total Recording Time(TRT): 506.5 minutes Cardiac Respiratory and Snoring Events Total# Index Duration (sec.) Avg HR: 69.0 Min HR: 52.0 Max HR: 101.0 Mean Min Max Central Apneas 0 0.0 0.0 0.0 0.0 Oximetry Obstructive.Apneas 2 0.2 15.9 15.2 16.6 Mean SpO2 94.8% Mixed Apneas 0 0.0 0.0 0.0 0.0 Min SpO2 87.0% Hypopneas 40 4.7 22.5 10.0 71.8 Max SpO2 98.0% Apnea + Hypopnea 42 5.0 22.2 10.0 71.8 SpO2 Range % Minutes 90-100 % 99.6% 344.9 80-89 % 0.4% 1.5 Desaturations 45 5.3 41.2 6.3 118.9 70-79 % 0.0% 0.0 60-69% 0.0% 0.0 Snoring 917 108.6 0.7 0.2 3.4 50-59% 0.0% 0.0 ? < 50 % 0.0% 0.0 ?? Body Position Supine Prone Left Side Right Side Total Non Supine % Time in Position 1.0% 0.1% 49.0% 49.9% 99.0% Snoring events 25 3 405 483 891 Apnea + Hypopnea events 0 0 10 32 42 Apnea + Hypopnea Index 0.0 0.0 2.4 7.6 5.0 ?? SPO2 PULSE RESPIRATORY #ERR# BODYPOS BAD ? Total Recording Time: 506.5 minutes Patient Apnea-Hypopnea Index Severe Moderate Mild Normal Maribell Julian 5.0 >30 15 to 30 5 to 15 <5 ?? HOME SLEEP APNEA TEST INTERPRETATION (10/23/2020) ?? DIAGNOSTIC STUDY ?? During this diagnostic study, the patient was monitored for 506.5 minutes. The patient's overall respiratory event index (LUIS F) was increased at 5 per hour. The time spent with oxygen saturation less than 90% was 1.5 min. ? IMPRESSION: Mild obstructive sleep apnea when sleeping entirely in the lateral position ? RECOMMENDATIONS: Suggest therapeutic continuous positive airway pressure (CPAP) trial if patient has neurocognitive symptoms, mood disorder, cardiovascular disease, or diabetes mellitus. Impressions and recommendations can be found at the beginning of this note. My total encounter time on 05/14/2021 was 30 minutes which was spent in the activities documented inthe note including review of interim results, analysis, and discussion of impressions and recommmendations. Encounter time includes time spent prior to the visit and after the visit in direct care ofthe patient. This time does not include time spent in any separately reportable services. documented in this encounter Plan of Treatment Upcoming Encounters Date Type Department Care Team (Late st Contact Info) Description 03/08/2024 10:45 AM DESTINATION SPECIALIST Office Visit [facility] - ENT [address] [place] [phone] Mitul Canas MD [address] [facility] [address] [place] [address] documented as of this encounter Visit Diagnoses Diagnosis JAYLEEN (obstructive sleep apnea)- Primary Obstructive sleep apnea (adult) (pediatric) UARS (upper airway resistance syndrome) Other organic sleep disorders Hypertension, secondary Other secondary hypertension, unspecified Hypersomnia due to medical condition Hypersomnia, unspecified documented in this encounter Care Teams Teamcenter Solution Architect Relationship Specialty Start Date End Date Ruma Shrestha, MOLDER SWEEP-JEWEL HOLE CORNERER PCP - General 11/17/17 documented as of this encounter
--- OUTSIDE RECORDS SUMMARY | 2024-02-25 20:47 | XMS_ITS | Encounter Summary ---
Author Organization [facility] Address [address] [place] [address] Care Team Providers Care Flash Drier Operator Name Role Phone Ruma Shrestha APRN-CAFE TEAM MEMBER Primary Care Provi genoveva Reason for Referral * Radiology Services (Routine) - Closed Specialty Diagnoses / Procedures Referred By Contac t Referred To Contact CT Scan Diagnoses JAYLEEN (obstructive sleep apnea) Recurrent sinusitis Procedures CT SINUS WO CONTRAST Mitul Canas MD [address] [place] [address] [address] [facility] [address] [place] [phone] Referral ID Status Reason Start Date Expiration Date Visits Re quested Visits Authorized [id number] Closed 02/19/2020 03/19/2020 1 1 HAND Reason for Visit * Radiology Services (Routine) - Closed Specialty Diagnoses / Procedures Referred By Contac t Referred To Contact CT Scan Diagnoses JAYLEEN (obstructive sleep apnea) Recurrent sinusitis Procedures CT SINUS WO CONTRAST Mitul Canas MD [address] [place] [address] [address] [facility] [address] [facility] [place] [address] Referral ID Status Reason Start Date Expiration Date Visits Re quested Visits Authorized [id number] Closed 02/19/2020 03/19/2020 1 1 Encounter Details Date Type Department Care Team (Latest Contact Info) Description 02/28/2020 1:30 PM DOCK HAND - 02/28/2020 11:59 PM DOCK HAND Hospital Encounter [facility] CAT SCAN [address] [place] [address] Mitul Canas MD [address] [facility] [address] [place] [address] Discharge Disposition: Home or Self Care Social History Tobacco Use Types Packs/Day Years Used Date Smoking Tobacco: Former Cigarettes 1 18.7 2 000 - 11/06/2017 Smokeless Tobacco: Never Alcohol Use Standard Drinks/Week Comments No 0 (1 standard drink = 0.6 oz pure alcohol) former heavy drinking after work and weekends, 02/15 pint/d2017 rare alcohol Sex and Gender Information Value Date Recorded Sex Assigned at Not on file Gender Identity Not on file Sexual Orientation Not on file COVID-19 Exposure Response Date Recorded In the last month, have you been in contact with someone who was confirmed or suspected to have Coronavirus / COVID-19? No / Unsure 02/28/2020 1:33 PM DOCK HAND documented as of this encounter Medications at Time of Discharge Medication Sig Dispensed Refills Start Date End Date Carboxymethylcellulos e Sodium (REFRESH LIQUIGEL OP) 2 drops by Ophthalmic route as needed famotidine (PEPCID) 20 MG tablet Take 1 (one) tablet by mouth once daily 07/04/2019 ferrous sulfate 325 (65 FE) MG tablet every 24 hours hydroCHLOROthiazide (HYDRODIURIL) 12.5 MG Take 12.5 mg by mouth once daily hydrOXYzine hcl (ATARAX) 10 MG tablet Take 1 (one) tablet by mouth 3 times daily 12/31/2019 magnesium oxide (MAG-OX) 400 MG tablet every 2 days metFORMIN (GLUCOPHAGE) 500 MG tablet Take 1 (one) tablet by mouth once daily 3 05/20/2017 potassium chloride (KLOR-CON 10) 10 MEQ tablet Take 1 (one) tablet by mouth once PRO COMFORT LANCETS 31G MISC 12/02/2017 TRUE METRIX BLOOD GLUCOSE TEST test strip 12/02/2017 azelastine (ASTELIN) 0.1 % nasal spray USE 1 SPRAY IN EACH NOSTRIL TWICE DAILY 30 mL 5 11/12/2019 07/17/2020 clonazePAM (KLONOPIN) 0.5 MG tablet Take 0.5 mg by mouth 2 times daily as needed 07/14/2019 10/06/2020 EPINEPHrine (EPIPEN) 0.3 MG/0.3ML auto-injector pen Inject 0.3 mL into muscle as needed for Anaphylaxis 1 Each 08/02/2019 09/05/2020 fluticasone propionate (FLONASE) 50 MCG/ACT nasal spray [place] 1 spray into each nostril DAILY. 1 bottles 3 11/25/2015 03/16/2022 loratadine (CLARITIN) 10 MG tablet Take 1 tablet by mouth once daily 90 tablet 11 03/29/2019 03/16/2022 LORazepam (ATIVAN) 1 MG tablet Take 1 mg by mouth every 8 hours as needed for Anxiety 10/06/2020 montelukast (SINGULAIR) 10 MG tablet Take 10 mg by mouth once daily 2 05/20/2017 03/16/2022 documented as of this encounter Plan of Treatment Upcoming Encounters Date Type Department Care Team (Late st Contact Info) Description 03/08/2024 10:45 AM DOCK HAND Office Visit [facility] - ENT [address] [place] [phone] Mitul Canas MD [address] [place] [address] 3 [place] [address] documented as of this encounter Procedures Procedure Name Priority Date/Time Associated Diagnosis Comments CT SINUS WO CONTRAST Routine 02/28/2020 1:45 PM DOCK HAND JAYLEEN (obstructive sleep apnea) Recurrent sinusitis documented in this encounter Results * CT SINUS WO CONTRAST (02/28/2020 1:45 PM DOCK HAND) Anatomical Region Laterality Modality Head Computed Tomogra phy 02/28/2020 2:19 PM DOCK HAND Impressions 02/28/2020 2:24 PM DOCK HAND IMPRESSION: No CT evidence of acute or chronic sinusitis. Anatomic variants as above. This report was electronically signed by DAXA HERNÁNDEZ ??on 02/28/2020 2:24 PM . Narrative 02/28/2020 2:[address] scan of the paranasal sinuses without [...] encounter Visit Diagnoses Diagnosis JAYLEEN (obstructive sleep apnea) Obstructive sleep apnea (adult) (pediatric) Recurrent sinusitis Unspecified sinusitis (chronic) documented in this encounter Care Teams Flash Drier Operator Relationship Specialty Start Date End Date Ruma Shrestha, COMPONENTS ENGINEER-CAFE TEAM MEMBER PCP - General 11/17/17 documented as of this encounter
--- OUTSIDE RECORDS SUMMARY | 2024-02-25 20:47 | XMS_ITS | Encounter Summary ---
Author Organization [facility] Address [address] [place] [address] Care Team Providers Care Development Intern Name Role Phone Ruma Shrestha APRN-SYSTEMS OPERATOR Primary Care Provi genoveva Reason for Visit * Reason Comments Refill Request Encounter Details Date Type Department Care Team (Late st Contact Info) Description 09/01/2021 Refill [facility] [address] [facility], [address] [place] [address] Mitul Canas MD [address] [facility] [address] [place] [address] Refill Request Social History Tobacco Use Types [...] Telephone Encounter - Carmela Oseguera RN - 09/02/2021 8:22 AM CDT Refills authorized per Otolaryngology protocol 08/14/2021. documented in this encounter Plan of Treatment Upcoming Encounters Date Type Department Care Team (Late st Contact Info) Description 03/08/2024 10:45 AM PROJECT DEVELOPMENT LEADER Office Visit [facility] [address] [facility], [place] [address] Mitul Canas MD [address] [facility] [address] [place] [address] documented as of this encounter Visit Diagnoses Not on filedocumented in this encounter Care Teams Development Intern Relationship Specialty Start Date End Date Ruma Sherstha APRN-SYSTEMS OPERATOR PCP - General 11/17/17 documented as of this encounter
--- OUTSIDE RECORDS SUMMARY | 2024-02-25 20:47 | XMS_ITS | Encounter Summary ---
Author Organization [facility] Address [address] [place] [address] Care Team Providers Care Geochemical Manager Name Role Phone Fady Rumarich Camarillo APRN-SEAL MIXER Primary Care Provi genoveva Reason for Visit * Reason Onset Date Comments Immunotherapy 08/30/2019 plan to start SC IT Encounter Details Date Type Department Care Team ([facility] Contact Info) Description 08/30/2019 Telephone [facility] [address] [address] Rosalinda Hare, RN Immunotherapy (plan to start SCIT) Social History Tobacco Use Types Packs/Day Years [...] Miscellaneous Notes * Telephone Encounter - Rosalinda Hare, RN - 08/30/2019 2:46 PM CDT Pt has not shown for allergy shots scheduled in August so far. Left message requesting call to [facility] allergy line. documented in this encounter Plan of Treatment Upcoming Encounters Date Type Department Care Team (Late Contact Info) Description 03/08/2024 10:45 AM JEWELRY SALES Office Visit [facility] [address] [facility], [place] [address] Mitul Canas MD [address] [facility] [address] [place] [address] documented as of this encounter Visit Diagnoses Not on filedocumented in this encounter Care Teams Geochemical Manager Relationship Specialty Start Date End Date Ruma Shrestha, FANI-SEAL MIXER PCP - General 11/17/17 documented as of this encounter
--- OUTSIDE RECORDS SUMMARY | 2024-02-25 20:47 | XMS_ITS | Encounter Summary ---
Author Organization [facility] Address [address] [facility] [place] [address] Care Team Providers Care High School Admissions Representative Name Role Phone Ruma Shrestha POLICE DETENTION ATTENDANT-UX INTERACTION DESIGNER Primary Care Provi genoveva Reason for Visit * Reason Comments Sinus Problem Encounter Details Date Type Department Care Team (Late st Contact Info) Description 08/02/2019 11:00 AM CDT Office Visit [facility] [address] [address] Mitul Canas MD [address] [facility] [address] [place] [address] Seasonal allergic rhinitis due to pollen (Primary Dx) Social History Tobacco Use Types [...] Sign Reading Time Taken Comments Blood Pressure 128/86 08/02/2019 11:25 AM CDT Pulse - - Temperature - - Respiratory Rate - - Oxygen Saturation - - Inhaled Oxygen Concentration - - Weight 101.2 kg (223 lb) 08/02/2019 11:25 AM CDT Height 157.5 cm (5' 2 ) 08/02/2019 11:25 AM CDT Body Mass Index 40.79 08/02/2019 11:25 AM CDT documented in this encounter Patient Instructions * Patient Instructions* Claudette Hodge - 08/02/2019 11:26 AM CDT Thank you for visiting [facility] Otolaryngology - Head & Neck Surgery. We appreciate your confidence in allowing us to participate in your health care. You may receive a survey about your visit with us today. Making our patients happy isn't just happy talk; it's our mission. Please tell us ifwe made the right impression on you- and how we can serve you better. Please SAVE the information below, it will assist you when it's time for you to contact us. To MAKE - CHANGE - CANCEL an office appointment If you become ill, need to be seen before your next scheduled appointment, or need to cancel or reschedule an appointment, please call our office at [phone] Tuesday through Tuesday from 8:30 am to4:30 pm. You can also request a routine appointment through your [facility] account. Prescription Refills Contact your pharmacy to request all refills. The pharmacy will need to fax the request to us at . Please allow a minimum of 48-72 hours for your prescription to be completed. Your pharmacy will notify you when your prescription is ready to be picked up. Medical Emergency / After Hours Contact Information If you have a medical emergency, please call 911 or go to the nearest emergency room. For urgent medical calls which cannot wait until the office opens, please call the medical exchangeat and ask the nitroglycerin separator operator to page the ENT physician soft iron inspector. *Caller ID blocking service will need to be turned off for your call to be returned. We also specialize in Hearing Aids, Allergy testing, swallowing disorders, voice problems, cancer diagnosis, and so much more. Visit our website at [email or web address] for information about our practice and an interactive healthencyclopedia. documented in this encounter Progress Notes * Mariama Ramirez - 08/02/2019 11:33 AM CDT Otolaryngology Clinic Note Date: 08/02/2019 Patient Name: Maribell Jordan : 1980 Chief Complaint Patient presents with ??? Sinus Problem HPI: Maribell Jordan is a 39 year old female with history of chronic nasal congestion. Had previously attempted to start SCIT but there was an issue with insurance. At last visit 03/29/19, we added astelin to her flonase. This has made a small difference, but overall she is very frustrated with her nasal congestion. Feels like this worsens her panic attacks. + rhinorrhea and postnasal drip. No acute sinusitis type symptoms. Patient is interested in allergy shots again. ROS: 11 system review performed and notable as Maribell reports the following: Nose: sinus pain, post nasal drainage, congestion Current Outpatient Medications Medication Sig Dispense Refill ??? azelastine (ASTELIN) 0.1 % nasal spray [place] 1 spray into each nostril 2 times daily 1 Inhaler 5 ??? BYSTOLIC 5 MG tablet Take 5 mg by mouth once daily ??? Carboxymethylcellulose Sodium (REFRESH LIQUIGEL OP) 2 drops by Ophthalmic route as needed ??? clonazePAM (KLONOPIN) 0.5 MG tablet Take 0.5 mg by mouth 2 times daily as needed ??? EPINEPHrine (EPIPEN) 0.3 MG/0.3ML auto-injector pen Inject 0.3 mL into muscle as needed for Anaphylaxis (Patient not taking: Reported on 03/29/2019) 1 Each 0 ??? famotidine (PEPCID) 20 MG tablet Take 20 mg by mouth once daily ??? fluticasone propionate (FLONASE) 50 MCG/ACT nasal spray [place] 1 spray into each nostril DAILY. 1 bottles 3 ??? hydroCHLOROthiazide (HYDRODIURIL) 12.5 MG Take 12.5 mg by mouth once daily ??? loratadine (CLARITIN) 10 MG tablet Take 1 tablet by mouth once daily 90 tablet 11 ??? loratadine (CLARITIN) 10 MG tablet Take 10 mg by mouth once daily ??? LORazepam (ATIVAN) 1 MG tablet Take 1 mg by mouth every 8 hours as needed for Anxiety ??? metFORMIN (GLUCOPHAGE) 500 MG tablet Take 500 mg by mouth once daily 3 ??? montelukast (SINGULAIR) 10 MG tablet Take 10 mg by mouth once daily 2 ??? potassium chloride (KLOR-CON 10) 10 MEQ tablet Take 10 mEq by mouth once ??? PRO COMFORT LANCETS 31G MISC ??? TRUE METRIX BLOOD GLUCOSE TEST test strip No current facility-administered medications for this visit. ALLERGIES: Lisinopril; Amlodipine base; and Losartan Past Medical History: Diagnosis Date ??? Allergic [...] on exertion 12/06/2017 ??? Vitamin D deficiency Past Surgical History: Procedure Laterality Date ??? Breast Lumpectomy fibroid ??? Section x3 ??? COLONOSCOPY ??? Ovarian Cyst Removal ??? Tonsillectomy and Adenoidectomy Family History Problem Relation Name Age of Onset ??? Hypertension Mother ??? CAD (Coronary Artery Disease) Father ??? Hypertension Father ??? CVA Father ??? Seizures Sister oleksandr Social History Socioeconomic History ??? Marital status: Single Spouse name: Not on file ??? Number of children: 2 ??? Years of education: 13 ??? Highest education level: Not on file Occupational History ??? 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 Smoking status: Former Smoker Packs/day: 1.00 Years: 18.00 Pack years: 18.00 Types: Cigarettes Start date: 1999 Last attempt to quit: 11/06/2017 Years since quittin.7 ??? Smokeless tobacco: Never Used Substance and Sexual Activity ??? Alcohol use: No Comment: former heavy drinking after work and weekends, 02/15 pint/d, 2017 rare alcohol ??? Drug use: No ??? Sexual activity: Yes Partners: Male control/protection: Condom, I.U.D. Other Topics Concern ??? Not on file Social History Narrative ??? Not on file Physical Exam: Vitals: 08/02/19 1125 BP: 128/86 Weight: 223 lb (101.2 kg) Height: 5' 2 (1.575 m) Estimated body mass index is 40.79 kg/m?? as calculated from the following: Height as of this encounter: 5' 2 (1.575 m). Weight as of this encounter: 223 lb (101.2 kg). General: NAD Eyes: EOMI, normal conjunctivae and lids Ears: EACs clear, TM intact bilaterally with normal landmarks Nose: Bilateral inferior turbinate hypertrophy. L septal deviation. Narrow nasal passages. Oral Cavity, Oropharynx: Age appropriate dentition, no lesions/masses/ulcerations noted, symmetric tongue mobility Neck: No appreciable cervical lymphadenopathy Neuro: CN 2-12 grossly intact bilaterally Resp: Comfortable on room air CV: Extremities WWP No notes on file Radiology Na/ Lab n/a Pathology n/a Assessment: Maribell Jordan is a 39 year old female with allergic rhinitis and nasal congestion Plan: We will initiate SCIT Allergy nurse to call with a date for first administration F/u in 4 months Mariama Ramirez MD Otolaryngology - Head and Neck Surgery PGY-3 I personally saw and examined the patient along with the resident and was present for above procedures. I agree with the H&P and physical exam findings as documented above. I note the following: will try again to start shot as this likely best treatment. * Claudette Hodge - 08/02/2019 11:25 AM CDT Review of Systems Maribell reports the following: Nose: sinus pain, post nasal drainage, congestion documented in this encounter Plan of Treatment Upcoming Encounters Date Type Department Care Team (Late st Contact Info) Description 03/08/2024 10:45 AM GARBAGE COLLECTOR Office Visit [facility] - ENT [address] [place] [address], [place] [address] Mitul Canas MD [address] [place] [address] [address] [place] [address] documented as of this encounter Visit Diagnoses Diagnosis Seasonal allergic rhinitis due to pollen- Primary documented in this encounter Care Teams High School Admissions Representative Relationship Specialty Start Date End Date Ruma Shrestha, POLICE DETENTION ATTENDANT-UX INTERACTION DESIGNER PCP - General 11/17/17 documented as of this encounter
--- OUTSIDE RECORDS SUMMARY | 2024-02-25 20:47 | XMS_ITS | Encounter Summary ---
Author Organization [facility] Address [address] [place] [address] Care Team Providers Care Resource Efficiency Manager Name Role Phone Ruma Shrestha APRN-PRESIDENT & FOUNDER Primary Care Provi genoveva Reason for Referral * Evaluate & Treat (Routine) - Closed Specialty Diagnoses / Procedures Referred By Renata t Referred To Contact Sleep Center Diagnoses Allergic rhinitis due to animal hair and dander Mitul Canas MD [address] [place] [address] [address] Referral ID Status Reason Start Date Expiration Date V isits Requested Visits Authorized [id number] Closed Specialty Services Required 01/05/2024 01/04/2025 1 1 RVISOR ALUMINUM FABRICATION Reason for Visit * Reason Comments Establish Care Sinus Problem Encounter Details Date Type Department Care Team (Late st Contact Info) Description 01/05/2024 8:15 AM SUPERVISOR ALUMINUM FABRICATION Office Visit [facility] - ENT [address] [place] [phone] Mitul Canas MD [address] [place] [id number] Allergic rhinitis due to animal hair and dander (Primary Dx) Social History Tobacco Use Types [...] Comments Blood Pressure 169/109 01/05/2024 8:33 AM SUPERVISOR ALUMINUM FABRICATION Pulse 76 01/05/2024 8:33 AM SUPERVISOR ALUMINUM FABRICATION Temperature - - Respiratory Rate - - Oxygen Saturation - - Inhaled Oxygen Concentration - - Weight 96.3 kg (212 lb 3.2 oz) 01/05/2024 8:33 A M SUPERVISOR ALUMINUM FABRICATION Height 157.5 cm (5' 2 ) 01/05/2024 8:33 AM SUPERVISOR ALUMINUM FABRICATION Body Mass Index 38.81 01/05/2024 8:33 AM SUPERVISOR ALUMINUM FABRICATION documented in this encounter Patient Instructions * Patient Instructions* Mariam Garcia MA - 01/05/2024 8:08 AM SUPERVISOR ALUMINUM FABRICATION Thank you for visiting [facility] Otolaryngology - Head & Neck Surgery. [...] it???s time for you to contact us. To MAKE - CHANGE - CANCEL an office appointment If you become ill, need to be seen before your next scheduled appointment, or need to cancel or reschedule an appointment, please call our office at [phone] Tuesday through Tuesday from 8:00 am to4:30 pm. You can also request a routine appointment through your [email or web address] account. Prescription Refills Contact your pharmacy to request all refills. The pharmacy will need to fax the request to us at . Please allow a minimum of 48-72 hours for your prescription to be completed. Medical Emergency / After Hours Contact Information If you have a medical emergency, please call 911 or go to the nearest emergency room. For urgent medical calls, which cannot wait until the office opens, please call the medical exchange at and ask the poultice machine operator to page the ENT physician roll tension tester. *Caller ID blocking service will need to be turned off for your call to be returned. We also specialize in Hearing Aids, Allergy testing, swallowing disorders, voice problems, cancer diagnosis, and so much more. Visit our website at [email or web address] for information about our practice and an interactive health encyclopedia. RVISOR ALUMINUM FABRICATION documented in this encounter Progress Notes * Kevin Sanchez MD - 01/05/2024 8:29 AM CST Images from the original note were not included. Otolaryngology-Head and Neck Surgery Office Note PATIENT INFORMATION Maribell Jordan 43 year old female Today's Date: 01/05/2024 HPI/ROS/Allergies Maribell Jordan is a 43 year old female with a PMH significant for GERD, headaches, JAYLEEN, HTN, tobacco use, allergic rhinitis seen for follow up. Prior CT with mild septal deviation but no evidence of sinusitis. Prior allergy testing a few years ago but not doing shots because at the time she was on beta jesus manuel. She is seeing cardiology soon for fu to see if she needs it agian Current regimen of astelin, flonase, claritin, Singulair. Has epipen bc of multiple allergies Still having sleep symptoms and dry throat. She was recommended CPAP but never picked it up Prior sleep study with Obstructive Sleep Apnea (LUIS F= 5.0 respiratory events/h; Sandor SaO2=87% with 1.5% of recording below SaO2 of 90%) and was started on CPAP. Previously seen thyroid nodules US in 2018 required no further follow up at the time Allergies: Allergies Allergen Reactions Lisinopril Itching and Cough Knot in throat feeling Diflucan Wheezing Amlodipine Base Other Throat feels funny Losartan Itching Also feels like knot in throat after couple weeks Review of Systems: A 12-system review of systems was performed and was negative except for above PMH/PSH/SH/FH/Meds PAST MEDICAL HISTORY Past Medical History: Diagnosis Date Acute pharyngitis 11/08/2003 Allergic rhinitis due to animal hair and dander 08/03/2017 Anemia Anxiety 11/02/2017 Bronchitis recurrent Chest discomfort 11/02/2017 Chronic fatigue 12/06/2017 Claustrophobia 12/06/2017 Concussion no LOC Diabetes mellitus (HCC) 10/16/2015 Excessive daytime sleepiness 12/06/2017 Frequent headaches Gastroesophageal reflux disease 11/02/2017 Globus sensation 08/11/2017 Hemorrhoids History of brain concussion 03/06/2020 Hypertensive disorder 11/02/2017 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 Inadequate sleep hygiene 12/06/2017 Memory problem Multiple thyroid nodules Non-seasonal allergic rhinitis due to pollen 08/03/2017 Obesity (BMI 30-39.9) JAYLEEN (obstructive sleep apnea) 12/06/2017 PND (post-nasal drip) 08/11/2017 Poor concentration 12/06/2017 Restless legs syndrome (RLS) 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 Sinusitis 04/26/2019 Sleep related gastroesophageal reflux disease 03/06/2020 Smoking 08/11/2017 Snoring 08/11/2017 SOB (shortness of breath) on exertion 12/06/2017 Vitamin D deficiency PAST SURGICAL HISTORY Past Surgical History: Procedure Laterality Date Breast Lumpectomy fibroid Section x3 COLONOSCOPY Ovarian Cyst Removal Tonsillectomy and Adenoidectomy SOCIAL HISTORY: Social History Tobacco Use Smoking status: Former Current packs/day: 0.00 Average packs/day: 1 pack/day for 18.7 years (18.7 ttl pk-yrs) Types: Cigarettes Start date: 1999 Quit date: 11/06/2017 Years since quittin.1 Smokeless tobacco: Never Vaping Use Vaping status: Never Used Substance Use Topics Alcohol use: No Comment: former heavy drinking after work and weekends, 1/2 pint/d, 2017 rare alcohol Drug use: No FAMILY HISTORY Non-contributory. MEDICATIONS Current Outpatient Medications on File Prior to Visit Medication Sig Dispense Refill Azelastine HCl 137 MCG/SPRAY SOLN [place] 1 spray into each nostril 2 times daily 90 mL 2 Carboxymethylcellulose Sodium (REFRESH LIQUIGEL OP) 2 drops by Ophthalmic route as needed EPINEPHrine (EPIPEN) 0.3 MG/0.3ML auto-injector pen INJECT 0.3 ML( 0.3 MG) IN THE MUSCLE NEEDED FOR ANAPHYLAXIS 2 Each 0 famotidine (PEPCID) 20 MG tablet Take 20 mg by mouth once daily ferrous sulfate 325 (65 FE) MG tablet every 24 hours fluticasone propionate (Flonase) 50 MCG/ACT nasal spray [place] 1 (one) spray into each nostril once daily 3 Each 2 hydroCHLOROthiazide (HYDRODIURIL) 12.5 MG Take 12.5 mg by mouth once daily (Patient not taking: Reported on 05/14/2021) hydrOXYzine hcl (ATARAX) 10 MG tablet Take 10 mg by mouth 3 times daily loratadine (Claritin) 10 MG tablet Take 1 (one) tablet by mouth once daily 90 tablet 2 magnesium oxide (MAG-OX) 400 MG tablet every 2 days (Patient not taking: Reported on 05/14/2021) metFORMIN (GLUCOPHAGE) 500 MG tablet Take 500 mg by mouth once daily 3 montelukast (Singulair) 10 MG tablet Take 1 (one) tablet by mouth once daily 90 tablet 2 potassium chloride (KLOR-CON 10) 10 MEQ tablet Take 10 mEq by mouth once PRO COMFORT LANCETS 31G [facility] TRUE METRIX BLOOD GLUCOSE TEST test strip vitamin D, ergocalciferol, (DRISDOL) 1.25 MG (25782 UT) capsule TAKE 1 CAPSULE BY MOUTH EVERY WEEK DIRECTED No current facility-administered medications on file prior to visit. Physical Exam Vitals: BP (!) 169/109 (BP Location: Left arm, Patient Position: Sitting, BP Cuff Size: Large adult) Pulse 76 Ht 1.575 m (5' 2 ) Wt 96.3 kg (212 lb 3.2 oz) Constitutional: Alert, NAD. Well developed/well nourished. CV/Pulm: Normal respirations and peripheral pulses. Eyes: PERRL, EOMI Face/Skin: Normal appearance, no lesions/masses. Ears: Right: Normal external auditory canal Left: Normal external auditory canal Nose: Patent bilaterally, mild septal deviation, turbinates intact, mucosal membranes intact. Larynx: mirror exam with generalized narrowing of pharynx Mouth and oropharynx: Symmetric tongue mobility, no lesions/masses/ulcers. Neck: Supple, no lymphadenopathy, no masses. Voice: Strong. MusculoSkeletal: Moves all extremities well. Neuro: Cranial nerves III-XII grossly intact. Assessment & Plan Maribell Jordan is a 43 year old female with JAYLEEN, allergic rhinitis, headaches. - Refilled allergy meds and epipen today - At this time her symptoms are controlled. If interested and ok to not take beta jesus manuel per cardiology, we could re consider immunotherapy for allergies - She never picked up CPAP after her last sleep eval so will send again to sleep medicine for evaluation - Follow up Kevin Sanchez MD Otolaryngology - Head and Neck Surgery 01/05/2024 I personally saw and examined the patient along with the resident. I agree with the A&P and physical exam findings as documented above. I note the following: Will consider allergy treatment if not on bet jesus manuel. RVISOR ALUMINUM FABRICATION documented in this encounter Plan of Treatment Upcoming Encounters Date Type Department Care Team (Late st Contact Info) Description 03/08/2024 10:45 AM SUPERVISOR ALUMINUM FABRICATION Office Visit [facility] - ENT [address] [facility], [place] [address] Mitul Canas MD [address] [place] [address] [address] [place] [address] Scheduled Referrals Name Type Priority Associated Diagnoses Order Schedule Ref to Sleep Specialist - [facility] Outpatient Referral Routine Allergic rhinitis due to animal hair and dander 1 Occurrences starting 01/05/2024 until 01/04/2025 documented as of this encounter Visit Diagnoses Diagnosis Allergic rhinitis due to animal hair and dander- Primary Allergic rhinitis due to animal (cat) (dog) hair and dander documented in this encounter Care Teams Resource Efficiency Manager Relationship Specialty Start Date End Date Ruma Shrestha, ATMOSPHERIC PHYSICIST-PRESIDENT & FOUNDER PCP - General 11/17/17 documented as of this encounter
--- OUTSIDE RECORDS SUMMARY | 2024-02-25 20:47 | XMS_ITS | Encounter Summary ---
Author Organization [facility] Address [address] [place] [place] [address] Care Team Providers Care Acid Adjuster Name Role Phone Valeri Shresthaascha Rabia SAND MILL OPERATOR FACING SAND-SURGICAL DRESSING MAKER Primary Care Provi genoveva Reason for Visit * Reason Comments Refill Request Encounter Details Date Type Department Care Team (Late Contact Info) Description 09/23/2023 Refill [facility] - ENT [address] [place] [phone] Mitul Canas MD [address] [facility] [address] [place] [address] Refill Request Social History Tobacco Use Types [...] (Late Contact Info) Description 03/08/2024 10:45 AM DIGITAL PRODUCT MANAGER Office Visit [facility] - ENT [address] [place] [address] Mitul Canas MD [address] [facility] [address] [place] [address] documented as of this encounter Visit Diagnoses Not on filedocumented in this encounter Care Teams Acid Adjuster Relationship Specialty Start Date End Date Ruma Shrestha APRN-SURGICAL DRESSING MAKER PCP - General 11/17/17 documented as of this encounter
--- OUTSIDE RECORDS SUMMARY | 2024-02-25 20:47 | XMS_ITS | Encounter Summary ---
Author Organization [facility] Address [address] [facility] [place] [address] Care Team Providers Care Clam Bed Laborer Name Role Phone Ruma Shrestha APRN-VASCULAR NEUROLOGIST Primary Care Provi genoveva Reason for Visit * Reason Comments Refill Request Encounter Details Date Type Department Care Team (Late st Contact Info) Description 09/05/2020 Refill [facility] [address] [facility] [address] [place] [address] Mitul Canas MD [address] [facility] [address] [place] [address] Refill Request Social History Tobacco Use Types [...] Telephone Encounter - Carmela Oseguera RN - 09/05/2020 4:40 PM CDT Refills authorized per Otolaryngology protocol 08/14/2020. documented in this encounter Plan of Treatment Upcoming Encounters Date Type Department Care Team (Late st Contact Info) Description 03/08/2024 10:45 AM FOUR SLIDE OPERATOR Office Visit [facility] - ENT [address] [facility], [place] [address] Mitul Canas MD [address] [facility] [address] [place] [address] documented as of this encounter Visit Diagnoses Not on filedocumented in this encounter Care Teams Clam Bed Laborer Relationship Specialty Start Date End Date Ruma Shrestha APRN-VASCULAR NEUROLOGIST PCP - General 11/17/17 documented as of this encounter
--- OUTSIDE RECORDS SUMMARY | 2024-02-25 20:47 | XMS_ITS | Data Portability ---
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 Plan of Treatment Reminders Order Date Submit Date Provider Last Modified By Organization Details Last Modified Time Details Appointments ESTABLI SHED PATIENT DETAILE D 2024 05:15P M Jared Brown i, MD Not available Not available Not available Lab None recorde d. Referral None recorde d. Procedures None recorde d. Surgeries None recorde d. Imaging electro cardiog sabra 2019 020 NASIR Not available 07/24/2019 09:41:15 Medication Orders hydroch lorothi azide 12.5 mg tablet 2017 [id number], [address] [place] [address], [phone], 09/18/2022 14:40:22 Klor-Co n 10 mEq tablet, extende d release 2017 018 INTERFACE [id number], [facility] [place], [place], [phone], 11/23/2017 16:38:20 magnesi um 400 mg (as magnesi um oxide) tablet 2017 018 fhearn [id number], [address] [place] [address], [id number], 04/26/2019 15:10:36 Bystoli c 5 mg tablet 2022 023 [facility], [facility] [place], [place], [phone], 09/21/2022 10:20:35 Patient TargetsNo targets recorded. Patient Instructions Encounter Date Encounter Id Patient Instructions Last Modified By Organization Details Last Modified Time 11/02/2017 [id number] elevated blood pressure: care instructions [email or web address] Not available 11/02/2017 12:43:02 11/23/2017 [id number] elevated blood pressure: care instructions [email or web address] Not available 11/23/2017 16:29:46 04/26/2019 [id number] palpitations: care instructions [email or web address] Not available 04/26/2019 15:52:52 elevated blood pressure: care instructions [email or web address] Not available 04/26/2019 15:52:52 panic attacks: care instructions [email or web address] Not available 04/26/2019 15:52:52 07/23/2019 [id number] palpitations: care instructions mzabad Not available 07/23/2019 16:16:47 elevated blood pressure: care instructions mzabad Not available 07/23/2019 16:16:47 panic attacks: care instructions mzabad Not available 07/23/2019 16:16:47 Reason for Referral None Reported. Results Created Date Observation Date Name Description Value Unit Range Abnormal Flag Note LastModifiedBy Organization Detail LastModifiedTime 11/09/19 18 10/03/2017 elect apurva vicentegr am No observ ation record ed. [email or web address] Not Available 2017 17:35:31 11/09/19 18 10/03/2017 XR, chest No observ ation record ed. [email or web address] Not Available 2017 12:38:09 11/23/19 18 11/17/2017 US, echoc ardio gram No observ ation record ed. hmesto Not Available 2017 15:07:23 11/23/19 18 11/04/2017 lynda r monit or No observ ation record ed. [email or web address] Not Available 2017 17:23:11 03/02/19 19 01/12/2018 tread mill nucle ar stres s test (PROC ) No observ ation record ed. [email or web address] Not Available 02/14 13:12:42 07/26/19 20 07/23/2019 elect rocar diogr am No observ ation record ed. [email or web address] Not Available 2019 16:02:45 09/21/1909/18/2022 elect rocar diogr am No observ ation record ed. [email or web address] Not Available 2022 12:58:43 10/10/1910/07/2022 , echo ardio gram No observ ation record ed. [facility] [address], [place], [address], 10/10/2022 15:46:27 01/05/20 elect rocar diogr am No observ ation record ed. reid Brice MD [address], [place], [address], 01/05/2024 15:26:14 Result Notes None recorded. Problems Name Problem SNOMED Code Status Onset Date Resolution Date Notes Provider Name and Address Organization Details Recorded Time Diabetes mellitus 24956140 Active 2015 [email or web address] 8 Tommy [place], [place] - [facility] 0 15:32:27 Hypertensiv e disorder 67062411 Active 2017 Tommy [place] - [facility] 8 12:26:33 Anxiety 33107669 Active 2017 Tommy [place] - [facility] 8 12:27:07 Gastroesoph ageal reflux disease 562359594 Active 2017 Tommy [place] - [facility] 8 12:27:17 Chest discomfort 687048251 Active 2017 Tommy [place] - [facility] 8 12:42:18 Sinusitis 95596398 Active [address] chakraborty U Tommy [place] - [facility] 0 15:21:38 Panic attack 633333042 Active 2019 Tommy [place] - [facility] 0 15:47:07 Palpitation s 09070083 Active 2019 Tommy Greenberg [facility], [place] - [facility] 0 15:47:28 Dyspnea on exertion 25782876 Active 2019 Tommy [place] - [facility] 0 15:48:00 Problem Notes None recorded. Procedures Surgical History Date Name Laterality Status Provider Name and Address Organization Details Recorded Time Tonsillectomy/A denoidectomy completed [facility] 11/02/2017 11:33:[address] [facility] 11/02/2017 11:33:19 Induced d&c completed [facility] 11/02/2017 11:33:38 Imaging Results Imaging Date Name Status LastModified by Organization Details LastModified Time 10/03/2017 electrocardiogram completed Informa tion not available 11/11/2017 17:35:31 10/03/2017 XR, chest completed [email or web address] Information no t available 11/09/2017 12:38:09 11/17/2017 US, echocardiogram completed Inform ation not available 11/22/2017 15:07:23 11/04/2017 holter monitor completed [email or web address] Informatio n not available 11/22/2017 17:23:11 01/12/2018 treadmill nuclear stress test (PROC) completed [email or web address] Information not available 03/02/2018 13:12:42 07/23/2019 electrocardiogram completed [email or web address] Informa tion not available 07/26/2019 16:02:45 09/18/2022 electrocardiogram completed [email or web address] Informa tion not available 09/20/2022 12:58:43 10/07/2022 US, echocardiogram completed [email or web address] [facility] [address], [place], [address], 10/10/2022 15:46:27 01/05/2024 electrocardiogram active reid Butts MD [address], [place], [address], 01/05/2024 15:26:14 Procedure Notes None recorded. Medical Equipment None Reported. Allergies Allergen ID Allergen Name Allergen Category Reaction Reaction Severity Criticality Documentation Date Start Date Code Code System Note Provider Name and Address Organization Details Recorded Time 6790 lisinopri l medicatio n Not available Not available Not available 11/02/2017 77738 RxNorm makes throa t itchy Deborah Jamison [facility], [facility] 8 11:43:13 6791 losartan medicatio n Not available Not available Not available 11/02/2017 11559 RxNorm makes throa t itchy Deborah orozco, [facility] 8 11:43:24 6792 amlodipin e medicatio n Not available Not available Not available 11/02/2017 48621 RxNorm Deborah orozco, [facility] 8 11:42:40 Medications Name Sig Start Date Stop Date Status Note LastModified by Organization Details LastModified Time cyclobenza vicente 10 mg tablet prn 11/23 completed Not Available Not Available Not Available buspirone 5 mg tablet TAKE 1 TABLET BY MOUTH TWICE DAILY active Not Available Not Available No t Available hydrocorti sone 0.5 % topical cream APPLY TOPICALL Y TO THE AFFECTED AREA EVERY 12 HOURS NEEDED active Not Available Not Available No t Available metformin 500 mg tablet Take 1 tablet every day by oral route. 04/25 completed Not Available Not Available Not Available azelastine 0.05 % eye drops INSTILL 1 DROP IN BOTH EYES FOUR TIMES DAILY active Not Available Not Available No t Available cetirizine 10 mg tablet 11/23 completed Not Available Not Available Not Available metoprolol succinate ER 50 mg tablet,ext ended release 24 hr Take 1 tablet twice a day by oral route. 11/23 completed not taking Not Available Not Available Not Available sucralfate 1 gram tablet active pt is no longer taking 09/18/22 SA Not Available Not Available Not Available famotidine 40 mg tablet 11/23 completed Not Available Not Available Not Available prednisone 20 mg tablet TAKE 3 TABLETS BY MOUTH EVERY DAY FOR 5 DAYS active Not Available Not Available No t Available clonazepam 0.5 mg tablet Take 0.5 tablets as needed by oral route as needed. active pt is no longer taking 09/18/22 SA Not Available Not Available Not Available terconazol e 0.8 % vaginal cream INSERT 1 APPLICAT ORFUL VAGINALL Y EVERY DAY AT BEDTIME FOR 3 DAYS FOR YEAST active Not Available Not Available No t Available pimecrolim us 1 % topical cream apply a thin layer TO ezcema TWICE DAILY active Not Available Not Available No t Available cromolyn 4 % eye drops INSTILL 1 DROP INTO AFFECTED EYE(S) BY OPHTHALM IC ROUTE 4 TIMES PER DAY active Not Available Not Available No t Available Nexium 40 mg capsule,de layed release Take 1 capsule every day by oral route. active pt is no longer taking 09/18/22 SA Not Available Not Available Not Available potassium chloride ER 10 mEq tablet,ext ended release TAKE 1 TABLET BY MOUTH EVERY DAY IN THE MORNING active Not Available Not Available No t Available metronidaz ole 500 mg tablet TAKE 1 TABLET BY MOUTH TWICE DAILY FOR 7 DAYS DIRECTED FOR BACTERIA L VAGINOSI S active Not Available Not Available No t Available fexofenadi ne 180 mg tablet Take 1 tablet every day by oral route. 11/23 completed Not Available Not Available Not Available amlodipine 5 mg tablet qd 11/23 completed Not Available Not Available Not Available tramadol 50 mg tablet TAKE 1 TABLET BY MOUTH EVERY 6 HOURS active pt is no longer taking 09/18/22 Not Available Not Available Not Available triamcinol one acetonide 0.1 % topical cream APPLY TOPICALL Y TO THE AFFECTED AREA TWICE DAILY active Not Available Not Available No t Available pantoprazo le 20 mg tablet,del ayed release active pt is no longer taking 09/18/22 Not Available Not Available Not Available ciclopirox 8 % topical solution active Not Available Not Available Not Available hydrocorti sone 2.5 % topical cream with perineal applicator APPLY TO RECTAL AREA TWICE DAILY FOR 2 WEEKS active Not Available Not Available No t Available blood pressure monitor kit active Not Available Not Available Not Available amoxicilli n 875 mg tablet 11/23 completed Not Available Not Available Not Available famotidine 20 mg tablet TAKE 1 TABLET BY MOUTH TWICE DAILY active Not Available Not Available No t Available cephalexin 500 mg capsule TAKE 1 CAPSULE BY MOUTH TWICE DAILY FOR 7 DAYS active Not Available Not Available No t Available metformin 1,000 mg tablet TAKE 1 TABLET BY MOUTH TWICE DAILY active Not Available Not Available No t Available ranitidine 150 mg tablet 04/25 completed pt. no longer take 3/12/20 20 FH Not Available Not Available Not Available ibuprofen 400 mg tablet TAKE 1 TABLET BY MOUTH THREE TIMES DAILY NEEDED active Not Available Not Available No t Available metoprolol tartrate 50 mg tablet 11/23 completed not taking Not Available Not Available Not Available nicotine 21 mg/24 hr daily transderma l patch 11/23 completed Not Available Not Available Not Available hydrochlor othiazide 12.5 mg capsule TAKE 1 CAPSULE BY MOUTH EVERY DAY IN THE MORNING 09/18 completed pt is no longer taking 09/18/22 SA Not Available Not Available Not Available omeprazole 20 mg capsule,de layed release active pt is no longer taking 09/18/22 SA Not Available Not Available Not Available diclofenac sodium 75 mg tablet,del ayed release qd 04/25 completed pt. no longer take 04/26/19 20 FH Not Available Not Available Not Available montelukas t 10 mg tablet TAKE 1 TABLET BY MOUTH EVERY DAY active Not Available Not Available No t Available alcohol swabs active Not Available Not Available Not Available ranitidine 150 mg capsule Take 1 capsule twice a day by oral route. 04/25 completed pt. no longer take 04/26/19 20 FH Not Available Not Available Not Available mupirocin 2 % topical ointment APPLY TOPICALL Y TO THE AFFECTED AREA THREE TIMES DAILY active Not Available Not Available No t Available ergocalcif tiana (vitamin D2) 1,250 mcg (50,000 unit) capsule TAKE 1 CAPSULE BY MOUTH EVERY WEEK DIRECTED active Not Available Not Available No t Available azelastine 137 mcg (0.1 %) nasal spray SPRAY ONCE INTO EACH NOSTRIL TWICE DAILY active Not Available Not Available No t Available epinephrin e 0.3 mg/0.3 mL injection, auto-injec tor active Not Available Not Available Not Available ibuprofen 600 mg tablet TAKE 1 TABLET BY MOUTH THREE TIMES DAILY FOR 5 DAYS DIRECTED FOR CRAMPING active Not Available Not Available No t Available methylpred nisolone 4 mg tablets in a dose pack FOLLOW PACKAGE DIRECTIO NS active pt is no longer taking 09/18/22 SA Not Available Not Available Not Available hydroxyzin e HCl 10 mg tablet TAKE 1 TO 2 TABLETS BY MOUTH THREE TIMES DAILY NEEDED FOR ANXIETY active Not Available Not Available No t Available ondansetro n 4 mg disintegra ting tablet DISSOLVE ONE TABLET BY MOUTH EVERY 8 HOURS NEEDED FORNAUSE A AND VOMITING . active pt is no longer taking 09/18/22 SA Not Available Not Available Not Available fluticason e propionate 50 mcg/actuat ion nasal spray,susp ension SPRAY 1 SPRAY INTO EACH NOSTRIL ONCE DAILY active Not Available Not Available No t Available doxycyclin e hyclate 100 mg tablet 11/23 completed Not Available Not Available Not Available loratadine 10 mg tablet TAKE 1 TABLET BY MOUTH EVERY DAY active Not Available Not Available No t Available naproxen 500 mg tablet 11/23 completed Not Available Not Available Not Available Artificial Tears (polyvinyl alcohol) 1.4 % eye drops active pt. no longer take 04/26/19 20 FH needs refill 04/26/19 Not Available Not Available Not Available amoxicilli n 875 mg-potassi um clavulanat e 125 mg tablet TAKE 1 TABLET BY MOUTH EVERY 12 HOURS FOR 10 DAYS. 10/24 completed pt is no longer taking 09/18/22 SA Not Available Not Available Not Available escitalopr am 10 mg tablet Take 1 tablet every day by oral route. active pt is no longer taking 09/18/22 SA Not Available Not Available Not Available hydrochlor othiazide unsure of dose 11/23 completed Not Available Not Available Not Available fluticason e propionate 50 mg daily 04/25 completed pt. no longer take 04/25/19 20 FH Not Available Not Available Not Available Januvia 100 mg tablet TAKE 1 TABLET BY MOUTH DAILY active pt is no longer taking 09/18/22 SA Not Available Not Available Not Available hydrochlor othiazide 12.5 mg tablet Take 1 tablet every day by oral route. 09/18 completed Not Available Not Available Not Available FeroSul 325 mg (65 mg iron) tablet Take 1 tablet every day by oral route. active Not Available Not Available No t Available nebivolol 5 mg tablet TAKE 1 TABLET BY MOUTH EVERY DAY active Not Available Not Available No t Available cetirizine 10 mg capsule Take 1 capsule every day by oral route. 11/23 completed not taking Not Available Not Available Not Available True Metrix Glucose Test Strip active Not Available Not Available N ot Available Pro Comfort Lancet 31 gauge active Not Available Not Available Not Available magnesium 400 mg (as magnesium oxide) tablet Take 1 tablet every other day by oral route. 2017 active pt needs refill 04/26/19 20 FH Not Available Not Available Not Available Rybelsus 7 mg tablet TAKE 1 TABLET BY MOUTH EVERY DAY DIRECTED active Not Available Not Available No t Available Rybelsus 3 mg tablet TAKE 1 TABLET BY MOUTH EVERY DAY DIRECTED active Not Available Not Available No t Available Vitals Date Recorded Body height Body mass index (BMI) Body weight Heart rate Oxygen saturation Oxygen saturation in Arterial blood by Pulse oximetry Systolic blood pressure Diastolic blood pressure Provider Name and Address Organization Details Last Updated DateTime 8 157.48 cm 39.1 kg/m2 81829.7 7 g 97 /min 98 % 98 % 140 mm[Hg] 78 mm[Hg] Deborah Duboise [facility] 8 11:47:20 Date Recorded Body height Body mass index (BMI) Body weight Heart rate Oxygen saturation Oxygen saturation in Arterial blood by Pulse oximetry Systolic blood pressure Diastolic blood pressure Provider Name and Address Organization Details Last Updated DateTime 8 157.48 cm 39.1 kg/m2 83392.7 7 g 85 /min 97 % 97 % 146 mm[Hg] 72 mm[Hg] Corina Sanchez [facility] 8 12:16:46 Date Recorded Body height Body mass index (BMI) Body weight Heart rate Oxygen saturation Oxygen saturation in Arterial blood by Pulse oximetry Systolic blood pressure Diastolic blood pressure Provider Name and Address Organization Details Last Updated DateTime 0 157.48 cm 39 kg/m2 79372.1 7 g 76 /min 96 % 96 % 110 mm[Hg] 80 mm[Hg] Mariam Schaffer [facility] 0 15:08:00 Date Recorded Body height Body mass index (BMI) Body weight Heart rate Respiratory rate Oxygen saturation Oxygen saturation in Arterial blood by Pulse oximetry Systolic blood pressure Diastolic blood pressure Provider Name and Address Organization Details Last Updated DateTime 0 157.48 cm 39.1 kg/m2 30074.7 7 g 71 /min 18 /min 98 % 98 % 138 mm[Hg] 76 mm[Hg] Roxanne Carreno [facility] 0 12:25:27 Date Recorded Body height Body mass index (BMI) Body weight Oxygen saturation Oxygen saturation in Arterial blood by Pulse oximetry Heart rate Provider Name and Address Organization Details Last Updated DateTime 3 157.48 cm 38.3 kg/m2 79387.6 g 98 % 98 % 78 /min ALESIA FORTUNE [facility] 3 14:15:54 Date Recorded Systolic blood pressure Diastolic blood pressure Provider Name and Address Organization Details Last Updated DateTime 09/18/2022 160 mm[Hg] 80 mm[Hg] Jared Brice MD [address] [place], [address], [facility] 09/18/2022 14:40:05 Social History Question Answer Notes LastModified by Organizat ion Details LastModified Time Tobacco Smoking Status Current Every Day Smoker Not Available [facility] 12/18/2019 03:30:41 What Is Your Level Of Alcohol Consumption? Occasional [id number] Information not available 12/18/2019 What Is Your Level Of Caffeine Consumption? Occasional [id number] Information not available 12/18/2019 How Much Tobacco Do You Chew? None [id number] Information not available 12/18/2019 What Type Of Diet Are You Following? REGULAR [id number] Information not available 12/18/2019 Do You Or Have You Ever Used E-cigarettes Or Vape? 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 11/02/2017 [id number] Information not available 12/18/2019 How Many Children Do You Have? 3 [id number] Information not available 12/18/2019 How Much Tobacco Do You Smoke? 0.5 PPD [id number] Information not available 12/18/2019 How Many Years Have You Smoked Tobacco? 18 [id number] Information not available 12/18/2019 Sex: Unknown Functional Status Question Answer Note LastModified by Organization D etails LastModified Time What is your exercise level? None [id number] Information not available 12/18/2019 Mental Status None recorded. Family History Relationship Description Onset Age of this Age Resolved Age Notes LastModified by Organization Details LastModified Time Father Heart disease [email or web address] Not available 2017 11:35:53 Father Diabetes mellitus [email or web address] Not available 2017 11:36:15 Father Cerebrovascu lar accident [email or web address] Not available 11:36:24 Father Hypertensive disorder [email or web address] Not available 2017 11:36:45 Paternal Grandfather Heart disease [email or web address] Not available 2017 11:35:53 Mother Diabetes mellitus [email or web address] Not available 2017 11:36:15 Medical History Condition Response Diabetes Y Hypertension Y Gynecological HistoryNo gynecological history recorded. Obstetrics History GPAL:G 0 P 0 0 0 0 Past Encounters Encounter ID Performer Location Encounter Start Date Encounter Closed Date Diagnosis/Indication Diagnosis SNOMED-CT Code Diagnosis ICD10 Code Diagnosis Note [id number] Tommy Dionicio tee Office [address] [place] [address] 11/02/2017 11:26:29 11/02/2017 12:39:31 Chest discomfort 096721842 R07.89 Patient presents with {{chest* a rm back ja w}} pain {{typical of angina wit h atypical features*} }. Given the history, exam findings and {{high int ermediate * low}} cardiac risk factors, I {{feel* do not feel}} additional investigat ion is warranted. I have made arrangemen ts in the near future for {{an exercise stress echocardio gram to evaluate for any ischemia, structural heart disease, or exercise induced arrythmia* an exercise stress nuclear test an exercise stress nuclear test (stress echo not possible due to COPD or obesity) a n exercise stress nuclear test and an echocardio gram to evaluate for any ischemia or structural heart disease a pharmacolo gic stress nuclear test due to reduced functional capacity or conduction abnormalit y cardiac catheteriz ation an echocardio gram to evaluate left ventricula r function and any structural heart disease or valvular abnormalit y}}. The procedure was discussed with the patient, and risks, benefits, and alternativ e options were explained. {{ The patient was informed about heart catheteriz ation and interventi onal procedures and agrees to proceed.}} Appropriat e labwork {{has has not*}} been performed recently, therefore I {{have not have*} } made arrangemen ts for further testing. I have asked the patient to curtail exercise and activities until our investigat ion is complete. I have {{made no made the following* }} adjustment s to the present medical regimen. {{ Patient has been started on daily aspirin.*} } {{ Patient has been given a prescripti on for sublingual nitroglyce rin.}} Hypertensive disorder 38 [id number] I10 Patient's blood pressure is {{well-con trolled* n ot well-contr olled}} on present medical therapy. Patient is {{tolerati ng, without difficulty ,* having side effects with}} the current medication s. I have {{not made* made the following} } changes to the current regimen. {{ Patient is advised to maintain a blood pressure diary.*}} Cont low Na diet. bp MACHINE [id number] Tommy Enciso Office [address] [place] [address] 11/23/2017 11:57:55 11/23/2017 12:59:20 Chest discomfort [id number] R07.89 Patient presents with {{chest* a rm back ja w}} pain {{typical of angina wit h atypical features*} }. Given the history, exam findings and {{high int ermediate * low}} cardiac risk factors, I {{feel* do not feel}} additional investigat ion is warranted. I have made arrangemen ts in the near future for {{an exercise stress echocardio gram to evaluate for any ischemia, structural heart disease, or exercise induced arrythmia an exercise stress nuclear test an exercise stress nuclear test (stress echo not possible due to COPD or obesity) a n exercise stress nuclear test and an echocardio gram to evaluate for any ischemia or structural heart disease a pharmacolo gic stress nuclear test due to reduced functional capacity or conduction abnormalit y* cardiac catheteriz ation an echocardio gram to evaluate left ventricula r function and any structural heart disease or valvular abnormalit y}}. The procedure was discussed with the patient, and risks, benefits, and alternativ e options were explained. {{ The patient was informed about heart catheteriz ation and interventi onal procedures and agrees to proceed.}} Appropriat e labwork {{has has not*}} been performed recently, therefore I {{have not have*} } made arrangemen ts for further testing. I have asked the patient to curtail exercise and activities until our investigat ion is complete. I have {{made no made the following* }} adjustment s to the present medical regimen. {{ Patient has been started on daily aspirin.*} } {{ Patient has been given a prescripti on for sublingual nitroglyce rin.}} Hypertensive disorder [id number] I10 Patient's blood pressure is {{well-con trolled* n ot well-contr olled}} on present medical therapy. Patient is {{tolerati ng, without difficulty ,* having side effects with}} the current medication s. I have {{not made* made the following} } changes to the current regimen. {{ Patient is advised to maintain a blood pressure diary.*}} Cont low Na diet. 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 [id number] [facility] OFF[address] [place] [address] 04/26/2019 14:38:54 04/26/2019 15:55:18 Hypertensive disorder [id number] I10 Patient's blood pressure is {{well-con trolled* n ot well-contr olled}} on present medical therapy. Patient is {{tolerati ng, without difficulty ,* having side effects with}} the current medication s. I have {{not made* made the following} } changes to the current regimen. {{ Patient is advised to maintain a blood pressure diary.*}} Cont low Na diet. bp MACHINElas t ECHO showed normal LV systolic function. Palpitations [id number] R0 0.2 Event monitor, labs Panic attack [id number] F 41.0 Diabetes mellitus 037059 09 E11.9 Dyspnea on exertion 6084 5006 R06.09 Patient presents with ALVA which could be equivalent of angina.Giv en the history, exam findings and {{high int ermediate * low}} cardiac risk factors, I {{feel* do not feel}} additional investigat ion is warranted. I have made arrangemen ts in the near future for {{an exercise stress echocardio gram to evaluate for any ischemia, structural heart disease, or exercise induced arrythmia* an exercise stress nuclear test an exercise stress nuclear test (stress echo not possible due to COPD or obesity) a n exercise stress nuclear test and an echocardio gram to evaluate for any ischemia or structural heart disease a pharmacolo gic stress nuclear test due to reduced functional capacity or conduction abnormalit y cardiac catheteriz ation an echocardio gram to evaluate left ventricula r function and any structural heart disease or valvular abnormalit y}}. The procedure was discussed with the patient, and risks, benefits, and alternativ e options were explained. {{ The patient was informed about heart catheteriz ation and interventi onal procedures and agrees to proceed.}} Appropriat e labwork {{has has not*}} been performed recently, therefore I {{have not have*} } made arrangemen ts for further testing. I have asked the patient to curtail exercise and activities until our investigat ion is complete. I have {{made no made the following* }} adjustment s to the present medical regimen. {{ Patient has been started on daily aspirin.}} {{ Patient has been given a prescripti on for sublingual nitroglyce rin.}} [id number] [facility] [place] OFF[address] [place] [address] 07/23/2019 11:59:42 07/23/2019 13:01:53 Hypertensive disorder [id number] I10 Well controlled . She never started Bystolic that was added by her PCP. WIll monitor BP control on current regimen Palpitations [id number] R0 0.2 Seems palpitatio ns and chest pains are provoked by anxiety.WI ll check 1 week event monitor.2D echo and Nuc stress were essentiall y unremarkab le Panic attack [id number] F 41.0 Diabetes mellitus 663944 09 E11.9 [id number] Elsy Brink [place] OFF[address] [place] [address] 09/18/2022 13:57:34 09/18/2022 14:51:26 Palpitations 50700194 R00.2 will resume Bystolic Hypertensive disorder 38 976999 I10 Well controlled . She never started Bystolic that was added by her PCP. WIll monitor BP control on current regimen Panic attack [id number] F 41.0 Diabetes mellitus 323697 09 E11.9 Health Concerns Section Related Observation LastModified by Organization Martha thao LastModified Time None Recorded Concern Status LastModified by Organization Details LastModified Time None Recorded Advance Directives Directive None Recorded Payers Encounter Date Sequence Insurance Name Policy Number Policy Weiner Covered Member ID Weiner Member ID Guarantor Name 11/02/2017 1 [facility] PRIOR TO 08/14/2020 (MEDICAID REPLACEMENT - HMO) Maribell Jordan [id number] Maribell Jordan 11/23/2017 1 [facility] PRIOR TO 08/14/2020 (MEDICAID REPLACEMENT - HMO) Maribell Jordan [id number] Maribell Jordan 04/26/2019 1 [employer] - ALLIED BENEFITS - OPEN ACCESS Maribell Jordan [id number] Maribell Jordan 07/23/2019 1 [employer] - ALLIED BENEFITS - OPEN ACCESS Maribell Jordan [id number] Maribell Jordan 09/18/2022 1 [employer] - ALLIED BENEFITS - OPEN ACCESS Maribell Jordan [id number] Maribell Jordan 09/18/2022 2 MEDICAID-[place]: [facility] Maribell Jordan [id number] Maribell Jordan Notes Date Note Type Note Provider Name and Address Organization Details Recorded Time 11/02/2017 text/html 37 year-old AAF with history of diabetes, anxiety, and hypertension presents for cardiac consultation with a chief complaint of chest discomfort. Pt states that she does have hurting of her chest as well as back pain for the last few weeks. SOB sometimes. no bp machine Pt had stress test in about 2 yrs ago. It was in clinic pt was not notified that something was wrong. pt states that she was on Lisinopril and Cozaar in the past but can not tolerate them due to swelling of face. They are listed as allergic meds for her as well as amlodipine. {{No known history of coronary artery disease.* History of coronary artery disease reported.}} {{No history of previous myocardial infarction.* History of previous myocardial infarction reported.}} {{No history of heart failure.* History of heart failure reported.}} {{No known valvular heart disease.* History of valvular heart disease reported.}} {{No known arrhythmia.* History of arrhythmia reported.}} {{Patient reports feeling well overall.* Patient reports not feeling well sometimes.}} {{Patient is active, but is not exercising regularly.* Patient is active, exercising regularly. Patient is not very active, and is not exercising.}} {{No chest pain. Chest pain reported.* Exertional chest pain reported. Non-exertion al chest pain reported. Chest pain reported which is only sometimes associated with activity.}} {{No arm pain.* Arm pain reported.}} {{No neck pain.* Neck pain reported.}} {{No nausea and vomiting.* Nausea and vomiting reported.}} {{No diaphoresis.* Diaphore sis reported.}} {{No shortness of breath at rest.* Shortness of breath at rest reported.}} {{No dyspnea on exertion.* Dyspnea on exertion reported.}} {{No fatigue.* Fatigue reported.}}{{No orthopnea.* Orthopnea reported.}} {{No PND.* PND reported.}} {{No leg swelling.* Leg swelling reported.}} {{No palpitation.* Palpitat ion reported.}} {{No dizziness.* Dizziness reported.}} {{No syncope .* Syncope reported.}} {{No pre-syncope.* Pre-sync ope reported.}} {{No claudication.* Claudic ation reported.}} {{No major bleeding events.* Major bleeding event reported.}} {{No side effects from medications.* Side effects from medications reported.}} {{Complete ROS negative except as stated in the HPI. Complete ROS negative except as stated in the HPI and ROS.*}} Results from this visit, or from the past:LIPIDS ): TC 149, TG 61, DHDL 35, LDL 102, 03/01/2017: SOD 139, K 3.8, CL 100, CO2 23.0, GL 129, BUN 13, CR 0.64, AST 16, ALT 16003/01/2017: TC 149, HDL 43, [place] 89, [place] [address]/01/2017: WBC 7.8, HGB 11.4, HCT 33.4, PLT 202 ekg ,): NSR, normal ECG Tommy orozco [facility] 11/02/2017 12:45:47 11/23/2017 text/html 11/23/17 CC: HTN fu 37 year-old women with hypertension, hyperlipidema presents for scheduled fu.. Had ECHO done in 11/17/17 showed normal global systolic function , EF 60-65% . She feel well overall. Is fairy active with walking. She previously saw Dr. Kingston at [facility] on 06/16/15 with complaints of chest pain. Had negative stress echocardiogram done. Not Pt states that she tried Lisinopril and Losartan and it cause her to have some face swelling . Amlodpine knot in throat . Had echocardiogram done on 05/21/15 with normal LV systolic size and function. EF 60-65%. Wore 24 hr holter revealing NSR with occasional PACs and PVCs. No SVT, VT or pauses. No no hx of CAD, CHF, arhythmia, or valvular heart disease. Denies chest pain. No shortness of breath at rest. Reports stable dyspnea on exertion. No dizziness. No syncope or near syncope. No orthopnea or PND. No leg edema. No major bleeding events. Tolerating medications with no missed doses 11/17/17 ECHO : LV chamber size is normal. LV wall thickness is mildly increased. There is normal global systolic function and contractility. The estimated left ventricle ejection fraction is 60-65%(normal). Diastolic function is difficult to determine. There is mild thickening of mitral valve anterior leaflet. 10/03/17: WBC 6.3, Hgb 9.8, Hct 30.1, Na 131, K 3.7, BUN 10, Cr 0.6, AST 14, ALT 17, Mg 1.9, TC 149, HDL 35, LDL 102, BNP 9 03/01/2017: SOD 139, K 3.8, CL 100, CO2 23.0, GL 129, BUN 13, CR 0.64, AST 16, ALT 16 03/01/2017: TC 149, HDL 43, LDL 89, TR 61 Unremarkable holter. Frequent PVC's but not correlated with symptoms. Occasional PAC's but not correlated with symptoms. {{No known history of coronary artery disease.* History of coronary artery disease reported.}} {{No history of previous myocardial infarction.* History of previous myocardial infarction reported.}} {{No history of heart failure.* History of heart failure reported.}} {{No known valvular heart disease.* History of valvular heart disease reported.}} {{No known arrhythmia.* History of arrhythmia reported.}} {{Patient reports feeling well overall.* Patient reports not feeling well sometimes.}} {{Patient is active, but is not exercising regularly.* Patient is active, exercising regularly. Patient is not very active, and is not exercising.}} {{No chest pain. Chest pain reported.* Exertional chest pain reported. Non-exertion al chest pain reported. Chest pain reported which is only sometimes associated with activity.}} {{No arm pain.* Arm pain reported.}} {{No neck pain.* Neck pain reported.}} {{No nausea and vomiting.* Nausea and vomiting reported.}} {{No diaphoresis.* Diaphore sis reported.}} {{No shortness of breath at rest.* Shortness of breath at rest reported.}} {{No dyspnea on exertion.* Dyspnea on exertion reported.}} {{No fatigue.* Fatigue reported.}}{{No orthopnea.* Orthopnea reported.}} {{No PND.* PND reported.}} {{No leg swelling.* Leg swelling reported.}} {{No palpitation.* Palpitat ion reported.}} {{No dizziness.* Dizziness reported.}} {{No syncope .* Syncope reported.}} {{No pre-syncope.* Pre-sync ope reported.}} {{No claudication.* Claudic ation reported.}} {{No major bleeding events.* Major bleeding event reported.}} {{No side effects from medications.* Side effects from medications reported.}} {{Complete ROS negative except as stated in the HPI. Complete ROS negative except as stated in the HPI and ROS.*}} Results from this visit, or from the past: LIPIDS 9010/03/17): TC 149, TG 61, DHDL 35, LDL 102, 03/01/2017: SOD 139, K 3.8, CL 100, CO2 23.0, GL 129, BUN 13, CR 0.64, AST 16, ALT 16003/01/2017: TC 149, HDL 43, [place] 89[place] [address]/01/2017: WBC 7.8, HGB 11.4, HCT 33.4, PLT 202 ekg 11/03/17: NSR, normal ECG 11/17/17 ECHO : LV chamber size is normal. LV wall thickness is mildly increased. There is normal global systolic function and contractility. The estimated left ventricle ejection fraction is 60-65%(normal). Diastolic function is difficult to determine. There is mild thickening of mitral valve anterior leaflet. Holter 11/04/17: Unremarkable holter. Frequent PVC's but not correlated with symptoms. Occasional PAC's but not correlated with symptoms. Tommy Greenberg [facility] 11/23/2017 16:38:52 04/26/2019 text/html 04/26/19 CC : Palpitation 38 year-old AAF with h/o hypertension, Diabetes mellitus, and hyperlipidema is here for follow up . She was seen last time in our office about 1.5 year ago. States that does have occasional palpitations and ALVA. No LE edema. No CP She denies any hx of thyroid problem She was in [facility] in 02/02/19 because of palpitations. She had panic attack at that time BP runs 140/[address] Murphy, Had Shortness of breath and palpitations. previously Had negative stress test done in 01/12/18 with normal LV systolic function , EF 51% . Had ECHO done in 11/17/17 showed normal global systolic function , EF 60-65% . She feel well overall. Is fairy active with walking. She previously saw Dr. Kingston at [facility] on 06/16/15 with complaints of chest pain. Had negative stress echocardiogram done. Pt states that she tried Lisinopril and Losartan and it cause her to have some face swelling . Amlodpine knot in throat . Wore 24 hr holter revealing NSR with occasional PACs and PVCs. No SVT, VT or pauses. No no hx of CAD, CHF, arhythmia, or valvular heart disease. Denies chest pain. No shortness of breath at rest. Reports stable dyspnea on exertion. No dizziness. No syncope or near syncope. No orthopnea or PND. No leg edema. No major bleeding events. Tolerating medications with no missed doses 11/17/17 ECHO : LV chamber size is normal. LV wall thickness is mildly increased. There is normal global systolic function and contractility. The estimated left ventricle ejection fraction is 60-65%(normal). Diastolic function is difficult to determine. There is mild thickening of mitral valve anterior leaflet. 08/20/18: WBC 6.3, Hgb 9.8, Hct 30.1, Na 131, K 3.7, BUN 10, Cr 0.6, AST 14, ALT 17, Mg 1.9, TC 149, HDL 35, LDL 102, BNP 9 03/01/2017: TC 149, HDL 43, LDL 89, TR 61 Unremarkable holter. Frequent PVC's but not correlated with symptoms. Occasional PAC's but not correlated with symptoms. No known history of coronary artery disease. No history of previous myocardial infarction. No history of heart failure. No known valvular heart disease. No known arrhythmia. Patient reports feeling well overall. Patient is active, but is not exercising regularly. Chest pain reported. No arm pain. No neck pain. No nausea and vomiting. No diaphoresis. No shortness of breath at rest. No dyspnea on exertion. No fatigue.No orthopnea. No PND. No leg swelling. No palpitation. No dizziness. No syncope . No pre-syncope. No claudication. No major bleeding events. No side effects from medications. Complete ROS negative except as stated in the HPI and ROS. CC: HTN fu 37 year-old women with hypertension, hyperlipidema presents for scheduled fu.. Had ECHO done in 11/17/17 showed normal global systolic function , EF 60-65% . She feel well overall. Is fairy active with walking. She previously saw Dr. Kingston at [facility] on 06/16/15 with complaints of chest pain. Had negative stress echocardiogram done. Not Pt states that she tried Lisinopril and Losartan and it cause her to have some face swelling . Amlodpine knot in throat . Had echocardiogram done on 05/21/15 with normal LV systolic size and function. EF 60-65%. Wore 24 hr holter revealing NSR with occasional PACs and PVCs. No SVT, VT or pauses. No no hx of CAD, CHF, arhythmia, or valvular heart disease. Denies chest pain. No shortness of breath at rest. Reports stable dyspnea on exertion. No dizziness. No syncope or near syncope. No orthopnea or PND. No leg edema. No major bleeding events. Tolerating medications with no missed doses 11/17/17 ECHO : LV chamber size is normal. LV wall thickness is mildly increased. There is normal global systolic function and contractility. The estimated left ventricle ejection fraction is 60-65%(normal). Diastolic function is difficult to determine. There is mild thickening of mitral valve anterior leaflet. 10/03/17: WBC 6.3, Hgb 9.8, Hct 30.1, Na 131, K 3.7, BUN 10, Cr 0.6, AST 14, ALT 17, Mg 1.9, TC 149, HDL 35, LDL 102, BNP 9 03/01/2017: SOD 139, K 3.8, CL 100, CO2 23.0, GL 129, BUN 13, CR 0.64, AST 16, ALT 16 03/01/2017: TC 149, HDL 43, LDL 89, TR 61 Unremarkable holter. Frequent PVC's but not correlated with symptoms. Occasional PAC's but not correlated with symptoms. {{No known history of coronary artery disease.* History of coronary artery disease reported.}} {{No history of previous myocardial infarction.* History of previous myocardial infarction reported.}} {{No history of heart failure.* History of heart failure reported.}} {{No known valvular heart disease.* History of valvular heart disease reported.}} {{No known arrhythmia.* History of arrhythmia reported.}} {{Patient reports feeling well overall.* Patient reports not feeling well sometimes.}} {{Patient is active, but is not exercising regularly.* Patient is active, exercising regularly. Patient is not very active, and is not exercising.}} {{No chest pain. Chest pain reported.* Exertional chest pain reported. Non-exertion al chest pain reported. Chest pain reported which is only sometimes associated with activity.}} {{No arm pain.* Arm pain reported.}} {{No neck pain.* Neck pain reported.}} {{No nausea and vomiting.* Nausea and vomiting reported.}} {{No diaphoresis.* Diaphore sis reported.}} {{No shortness of breath at rest.* Shortness of breath at rest reported.}} {{No dyspnea on exertion.* Dyspnea on exertion reported.}} {{No fatigue.* Fatigue reported.}}{{No orthopnea.* Orthopnea reported.}} {{No PND.* PND reported.}} {{No leg swelling.* Leg swelling reported.}} {{No palpitation.* Palpitat ion reported.}} {{No dizziness.* Dizziness reported.}} {{No syncope .* Syncope reported.}} {{No pre-syncope.* Pre-sync ope reported.}} {{No claudication.* Claudic ation reported.}} {{No major bleeding events.* Major bleeding event reported.}} {{No side effects from medications.* Side effects from medications reported.}} {{Complete ROS negative except as stated in the HPI. Complete ROS negative except as stated in the HPI and ROS.*}} Results from this visit, or from the past: 02/02/19 CMP: NA 131, K 3.7, CL 98, CO2 22, GLU 235, BUN 11, CR 0.6, AST 12, ALT 15 02/02/19 CBC: WBC 6.2, HGB 8.9, HCT 29.8, PLT 240 LIPIDS 9010/03/17): TC 149, TG 61, DHDL 35, LDL 102, 03/01/2017: SOD 139, K 3.8, CL 100, CO2 23.0, GL 129, BUN 13, CR 0.64, AST 16, ALT 16003/01/2017: TC 149, HDL 43, LDL 89, TR [address]1003/01/2017: WBC 7.8, HGB 11.4, HCT 33.4, PLT 202 ekg 04/25/19 : NSR, NSST changesekg 11/03/17: NSR, normal ECG 11/17/17 ECHO : LV chamber size is normal. LV wall thickness is mildly increased. There is normal global systolic function and contractility. The estimated left ventricle ejection fraction is 60-65%(normal). Diastolic function is difficult to determine. There is mild thickening of mitral valve anterior leaflet. Holter 11/04/17: Unremarkable holter. Frequent PVC's but not correlated with symptoms. Occasional PAC's but not correlated with symptoms. Tommy orozco [facility] - [facility] 04/26/2019 15:55:16 07/23/2019 text/html 07/23/19 CC : Palpitation 38 year-old AAF with h/o hypertension, Diabetes mellitus, and hyperlipidema is here for follow up . She was seen last time in our office 3 months ago. She was scheduled to do event monitor but that was cancelled with the pandemic. She continues to have palpitations and chest pains. She has negative cardiac work up in late 2017 with negative Nuc stress test and 2Decho. She admits to anxeity that she feels is contributes to her symptoms. She was start on Bystolic per her PCP but never started that as she was worried about side effects. She states she could not tolerate Losartan or Amlodipine. She was in [facility] in 02/02/19 because of palpitations. She had panic attack at that time BP runs 140/[address] Murphy, Had Shortness of breath and palpitations. previously Had negative stress test done in 01/12/18 with normal LV systolic function , EF 51% . Had ECHO done in 11/17/17 showed normal global systolic function , EF 60-65% . She feel well overall. Is fairy active with walking. She previously saw Dr. Kingston at [facility] on 06/16/15 with complaints of chest pain. Had negative stress echocardiogram done. Pt states that she tried Lisinopril and Losartan and it cause her to have some face swelling . Amlodpine knot in throat . Wore 24 hr holter revealing NSR with occasional PACs and PVCs. No SVT, VT or pauses. No no hx of CAD, CHF, arhythmia, or valvular heart disease. Denies chest pain. No shortness of breath at rest. Reports stable dyspnea on exertion. No dizziness. No syncope or near syncope. No orthopnea or PND. No leg edema. No major bleeding events. Tolerating medications with no missed doses 11/17/17 ECHO : LV chamber size is normal. LV wall thickness is mildly increased. There is normal global systolic function and contractility. The estimated left ventricle ejection fraction is 60-65%(normal). Diastolic function is difficult to determine. There is mild thickening of mitral valve anterior leaflet. 10/03/17: WBC 6.3, Hgb 9.8, Hct 30.1, Na 131, K 3.7, BUN 10, Cr 0.6, AST 14, ALT 17, Mg 1.9, TC 149, HDL 35, LDL 102, BNP 9 03/01/2017: TC 149, HDL 43, LDL 89, TR 61 Unremarkable holter. Frequent PVC's but not correlated with symptoms. Occasional PAC's but not correlated with symptoms. No known history of coronary artery disease. No history of previous myocardial infarction. No history of heart failure. No known valvular heart disease. No known arrhythmia. Patient reports feeling well overall. Patient is active, but is not exercising regularly. Chest pain reported. No arm pain. No neck pain. No nausea and vomiting. No diaphoresis. No shortness of breath at rest. No dyspnea on exertion. No fatigue.No orthopnea. No PND. No leg swelling. No palpitation. No dizziness. No syncope . No pre-syncope. No claudication. No major bleeding events. No side effects from medications. Complete ROS negative except as stated in the HPI and ROS. CC: HTN fu 37 year-old women with hypertension, hyperlipidema presents for scheduled fu.. Had ECHO done in 11/17/17 showed normal global systolic function , EF 60-65% . She feel well overall. Is fairy active with walking. She previously saw Dr. Kingston at [facility] on 06/16/15 with complaints of chest pain. Had negative stress echocardiogram done. Not Pt states that she tried Lisinopril and Losartan and it cause her to have some face swelling . Amlodpine knot in throat . Had echocardiogram done on 05/21/15 with normal LV systolic size and function. EF 60-65%. Wore 24 hr holter revealing NSR with occasional PACs and PVCs. No SVT, VT or pauses. No no hx of CAD, CHF, arhythmia, or valvular heart disease. Denies chest pain. No shortness of breath at rest. Reports stable dyspnea on exertion. No dizziness. No syncope or near syncope. No orthopnea or PND. No leg edema. No major bleeding events. Tolerating medications with no missed doses 11/17/17 ECHO : LV chamber size is normal. LV wall thickness is mildly increased. There is normal global systolic function and contractility. The estimated left ventricle ejection fraction is 60-65%(normal). Diastolic function is difficult to determine. There is mild thickening of mitral valve anterior leaflet. 10/03/17: WBC 6.3, Hgb 9.8, Hct 30.1, Na 131, K 3.7, BUN 10, Cr 0.6, AST 14, ALT 17, Mg 1.9, TC 149, HDL 35, LDL 102, BNP 9 03/01/2017: SOD 139, K 3.8, CL 100, CO2 23.0, GL 129, BUN 13, CR 0.64, AST 16, ALT 16 03/01/2017: TC 149, HDL 43, LDL 89, TR 61 Unremarkable holter. Frequent PVC's but not correlated with symptoms. Occasional PAC's but not correlated with symptoms. {{No known history of coronary artery disease.* History of coronary artery disease reported.}} {{No history of previous myocardial infarction.* History of previous myocardial infarction reported.}} {{No history of heart failure.* History of heart failure reported.}} {{No known valvular heart disease.* History of valvular heart disease reported.}} {{No known arrhythmia.* History of arrhythmia reported.}} {{Patient reports feeling well overall.* Patient reports not feeling well sometimes.}} {{Patient is active, but is not exercising regularly.* Patient is active, exercising regularly. Patient is not very active, and is not exercising.}} {{No chest pain. Chest pain reported.* Exertional chest pain reported. Non-exertion al chest pain reported. Chest pain reported which is only sometimes associated with activity.}} {{No arm pain.* Arm pain reported.}} {{No neck pain.* Neck pain reported.}} {{No nausea and vomiting.* Nausea and vomiting reported.}} {{No diaphoresis.* Diaphore sis reported.}} {{No shortness of breath at rest.* Shortness of breath at rest reported.}} {{No dyspnea on exertion.* Dyspnea on exertion reported.}} {{No fatigue.* Fatigue reported.}}{{No orthopnea.* Orthopnea reported.}} {{No PND.* PND reported.}} {{No leg swelling.* Leg swelling reported.}} {{No palpitation.* Palpitat ion reported.}} {{No dizziness.* Dizziness reported.}} {{No syncope .* Syncope reported.}} {{No pre-syncope.* Pre-sync ope reported.}} {{No claudication.* Claudic ation reported.}} {{No major bleeding events.* Major bleeding event reported.}} {{No side effects from medications.* Side effects from medications reported.}} {{Complete ROS negative except as stated in the HPI. Complete ROS negative except as stated in the HPI and ROS.*}} Results from this visit, or from the past: 06-20-2019 Iron 23 TIBC 413 Transferrin 6 Ferritin 8.1 TSH 0.853 06/20/19:NA 137 ,K 3.8 ,CL 100 ,CO2 26 ,GLU 207 ,BUN 9 ,CR 0.6,06/20/19: TC 141 ,TG 75 ,HDL 44 ,LDL 82, 02/02/19 CMP: NA 131, K 3.7, CL 98, CO2 22, GLU 235, BUN 11, CR 0.6, AST 12, ALT 15 02/02/19 CBC: WBC 6.2, HGB 8.9, HCT 29.8, PLT 240 LIPIDS 9010/03/17): TC 149, TG 61, DHDL 35, LDL 102, 03/01/2017: SOD 139, K 3.8, CL 100, CO2 23.0, GL 129, BUN 13, CR 0.64, AST 16, ALT 16003/01/2017: TC 149, HDL 43, [place] 89, [place] [address]/01/2017: WBC 7.8, HGB 11.4, HCT 33.4, PLT 202 ekg 04/25/19 : NSR, NSST changesekg 11/03/17: NSR, normal ECG 01/12/18 NUC : Negative stress test. Normal LV systolic function. No previous study to compare. LVEF 51% 11/17/17 ECHO : LV chamber size is normal. LV wall thickness is mildly increased. There is normal global systolic function and contractility. The estimated left ventricle ejection fraction is 60-65%(normal). Diastolic function is difficult to determine. There is mild thickening of mitral valve anterior leaflet. Holter 11/04/17: Unremarkable holter. Frequent PVC's but not correlated with symptoms. Occasional PAC's but not correlated with symptoms. Keisha orozco [place] - [facility] 07/23/2019 16:16:51 09/18/2022 text/html 09/18/22CC: raffaele ma pain42 year-old AAF with h/o hypertension, Diabetes mellitus, and hyperlipidemia was referred for cardiac evaluation due to chest pain She was last seen in the clinic on 07/23/19, since then she had chest pain, and had negative cardiac work upShe denies ER visits and hospitalizations since she was last seen. Denies shortness of breath at rest. Has mild dyspnea on exertion.No orthopnea. No PNDs.Denies heart palpitations.Denies dizziness. Denies syncope or near syncope.No ankle or leg edema.No major bleeding events.No reported side effects from medications. Taking medications as prescribed with no missed doses.Denies snoring, daytime somnolence and AM headache.*Last LDL was 82 done on 06/19/19. Pt dose not takes any statins. She had anxiety that she feels is contributes to her symptoms. She was start on Bystolic per her PCP but never started that as she was worried about side effects. *Had negative stress test done in 01/12/18 with normal LV systolic function , EF 51% . *Had ECHO done in 11/17/17 showed normal global systolic function , EF 60-65% .She feel well overall. Is fairy active with walking. *Wore 24 hr holter revealing NSR with occasional PACs and PVCs. No SVT, VT or pauses. *Had Unremarkable holter. Frequent PVC's but not correlated with symptoms. Occasional PAC's but not correlated with symptoms. Patient reports feeling well overall. Patient is active, but is not exercising regularly. Results from this visit, or from the past:06-20-2019 Iron 23 TIBC 413 Transferrin 6 Ferritin 8.1 TSH 0.853 06/20/19:NA 137 ,K 3.8 ,CL 100 ,CO2 26 ,GLU 207 ,BUN 9 ,CR 0.6,06/20/19: TC 141 ,TG 75 ,HDL 44 ,LDL 82,02/02/19 CMP: NA 131, K 3.7, CL 98, CO2 22, GLU 235, BUN 11, CR 0.6, AST 12, ALT 15 02/02/19 CBC: WBC 6.2, HGB 8.9, HCT 29.8, PLT 240 LIPIDS ): TC 149, TG 61, DHDL 35, LDL 102,03/01/2017: SOD 139, K 3.8, CL 100, CO2 23.0, GL 129, BUN 13, CR 0.64, AST 16, ALT 16003/01/2017: TC 149, HDL 43, LDL 89, [place] 61003/01/2017: WBC 7.8, HGB 11.4, HCT 33.4, PLT 202 ekg 04/25/19 : NSR, NSST changesekg 11/03/17: NSR, normal ECG 01/12/18 NUC : Negative stress test. Normal LV systolic function. No previous study to compare. LVEF 51% 11/17/17 ECHO : LV chamber size is normal. LV wall thickness is mildly increased. There is normal global systolic function and contractility. The estimated left ventricle ejection fraction is 60-65%(normal). Diastolic function is difficult to determine. There is mild thickening of mitral valve anterior leaflet. Holter 11/04/17: Unremarkable holter. Frequent PVC's but not correlated with symptoms. Occasional PAC's but not correlated with symptoms. Elsy orozco [place] - [facility] 09/20/2022 08:56:01 OBGyn Episode No OBEpisode recorded.
--- OUTSIDE RECORDS SUMMARY | 2024-02-25 20:47 | XMS_ITS | Encounter Summary ---
Author Organization [facility] Address [address] [place] [address] Care Team Providers Care Computer Systems Information Director Name Role Phone FadyRuma FIELD LABORER-COLLECTION ADVISOR Primary Care Provi genoveva Reason for Visit * Reason Comments Immunotherapy Allergy Testing Encounter Details Date Type Department Care Team (Late st Contact Info) Description 11/27/2020 10:15 AM CDT Office Visit [facility] [address] [facility] [place] [address] Mitul Canas MD [address] [facility] [address] [place] [address] Seasonal allergic rhinitis due to pollen (Primary Dx); Allergic rhinitis due to mold; Allergic rhinitis due to dust mite; 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 Your arms may continue to itch and show areas of redness and swelling for the next several days (the molds we tested may continue to react). This will NOT change the results we saw in the office today, or the recommendation from the doctor.If it is uncomfortable or if the itching is bothersome, you can try applying ice, and/or Benedryl cream (obtain [id number]), and/or take one extra dose of your antihistamine pill. If you have questions, please contact us. Continue current medications, including nasal irrigations (at least daily, but may do as often as you like), Use nasal steroid spray every day -- Flonase, fluticasone, Nasacort, triamcinolone, etc Take daily antihistamine, Dr. Canas has no preference regarding the best antihistamine (generic of Klarissa, Zyrtec, Claritin OR Xyzal). Try each for a week, and see which works best for you. Also continue Singulair (montelukast) nightly Also continue nasal antihistamine spray up to twice daily as needed -- Astepro, azelastine. If you decide that you want to start immunotherapy (SCIT - weekly allergy shots, or SLIT - daily allergy drops), please let Aidee Mcintosh know @ [phone]. To schedule your first Allergy shot at either office, talk with Aidee Plascencia at [phone]. You can only get your shots at one location (because that is where your vials will be). Shots are done weekly, by a Registered Nurse, ONLY when a doctor is in the office. You MUST bring an epi-pen with you to every allergy shot visit, and keep it with you the day of theshot. You may use antihistamines and any other medications while you are on immunotherapy, it will NOT change the benefit of immunotherapy. ANY questions, you may also call Aidee Mcintosh or Sherine Plascencia at [phone], or message Dr. Canas through [employer]. Follow up with Dr. Canas in 6 months documented in this encounter Progress Notes * Aidee Jordan - 11/27/2020 10:19 AM CDT 1000 Pt completed questionnaire. Consent obtained. Allergy testing via modified quantitative technique was performed. Most bothered by allergy symptoms of nasal congestion While off antihistamines for testing, allergy symptoms worse CT scan - in the past unsure of date; showed small deviation Sinus surgery(ies) - no Sleep study - 2020 recommended cpap Ordered By: Missael Tested By: Aidee Supervising Physician: Missael Clark A left forearm percutaneously, level 4: right upper arm intradermally: Site Antigen Wheal Dilution # 6 Dilution # 5 Dilution # 4 Dilution # 3 Dilution # 2 Dilution # 1 ITVol. (ml) Initial IT dilution 1 Histamine 9 mm 2 Saline 5 mm 3 Marne Pollen * 5 mm ep7 0.2 1 4 Birch Mix * 5 mm ep7 0.2 1 5 Elm Mix 5 mm 5 0.2 -- 6 [place] 5 mm 5 0.2 -- 7 Red Ucon 5 mm 5 0.2 -- 8 Glycerine 5 mm Battery B left forearm, percutaneously, level 4: right upper arm intradermally: Site Antigen Wheal Dilution # 6 Dilution # 5 Dilution # 4 Dilution # 3 Dilution # 2 Dilution # 1 ITVol. (ml) Initial IT dilution 1 Maple Mix 5 mm ep7 0.2 1 2 #4 Ragweed Mix * 5 mm 5 0.2 -- 3 Pigweed Mix * 7 mm ep 0.2 2 4 Lambs Quarter 7 mm ep 0.2 2 5 Ambrose Elder 7 mm ep 0.2 2 6 Jose Mix 5 mm 5 0.2 -- 7 Kochia 5 mm ep7 0.2 1 8 Nigerian Thistle 7 mm ep 0.2 2 Battery C left forearm, percutaneously, level 4: right upper arm intradermally: Site Antigen Wheal Dilution # 6 Dilution # 5 Dilution # 4 Dilution # 3 Dilution # 2 Dilution # 1 ITVol. (ml) Initial IT dilution 1 Dock [place] Mix 5 mm 5 0.2 -- 2 Cocklebur 5 mm 5 0.2 -- 3 Std Mite D Farinae * 5 mm ep7 0.1 1 4 Std Mite D Ptero. * 5 mm 5 0.1 -- 5 Cockroach * 7 mm ep 0.1 2 6 Std Cat Hair * 5 mm 5 0.1 -- 7 Dog Hair * 5 mm 5 0.1 -- 8 Feather Hair * 7 mm ep 0.1 2 Battery D right upper arm intradermally: Site Antigen Wheal Dilution # 6 Dilution # 5 Dilution # 4 Dilution # 3 Dilution # 2 Dilution # 1 ITVol. (ml) Initial IT dilution 1 Alternaria * mm ep7 0.1 2 2 Hormodendrum * mm ep7 0.1 2 3 Pullularia * mm 5 5 0.1 4 Apergillus Mix * mm ep7 0.1 2 5 Samaria Albicans mm ep7 0.1 1 6 Helminthosporium mm 5 0.1 -- 7 Pencillium mm 5 0.1 -- 8 Fusarium mm ep7 0.1 1 Battery E right upper arm intradermally: Site Antigen Wheal Dilution # 6 Dilution # 5 Dilution # 4 Dilution # 3 Dilution # 2 Dilution # 1 ITVol. (ml) Initial IT dilution 1 Mucor mm ep7 0.1 1 2 CORN Smut Mix mm ep 9 0.1 2 3 Bermuda Grass mm ep7 0.2 4 Thor Grass mm 5 0.2 5 Horse Hair mm 0.2 Not Tested Symptom Review Eye Symptoms: itching, watering, crusting, dryness Ear Symptoms: itching, earache, dizziness Nasal Symptoms: sneezing, itching, congestion, loss of taste and smell Mouth and Throat Symptoms: itchy throat, post nasal drip Headaches: occasional facial back of head Chest Symptoms: shortness of breath Stomach/Intestinal Symptoms: bloating, heartburn Skin Symptoms: itchy skin Insect Sting Reaction: unknown Stung by: unknown Triggers: mold, mildew When are symptoms worse? Year round Are you symptoms better away from home? no Current nasal regimen: Nasal irrigations: sometimes uses salt water irrigation, causes headaches Currently using oral antihistamine claritin ; has tried Claritin (loratidine), Zyrtec (ceterizine),Klarissa (fexofenadine) Currently using nasal steroid spray flonase ; has tried fluticasone Currently using nasal antihistamine spray azelastine ; has tried Astelin (azelastine) Also has used Singulair, atarax Testing lasting 2 hours. Pt tolerated testing well with localized itching only. Dr. Canas talks with pt about results, suggests: Patient is on a beta jesus manuel will discuss with e commerce manager, recommend immunotherapy. Also discussed / suggested environmental control; use of nasal irrigaiton Follow up 6 months . Summary of testing process: For Battery A, B and C, listed extracts are applied at left forearm percutaneously scratch test (Multitest from [facility]); wheal is read at 20 minutes. 5mm or less is negative, and may be rechecked intradermally. Then, 0.02ml of marked extracts are placed intradermally at right upper arm with dilution noted on table; wheal is read at 15 minutes. ep notes endpoint. For Battery D and E, 0.02ml of listed extracts are placed intradermally at right upper arm with dilution noted on table; wheal is read at 15 minutes. 5mm or less is negative, and may be rechecked with higher concentration. ep notes endpoint. Testing extracts are from [facility]. I personally saw and examined the patient along with the allergy nurse and was present for above procedures. I agree with the H&P and physical exam findings as documented above. I note the following: multiple positive reactions will start allergy shots. 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
--- OUTSIDE RECORDS SUMMARY | 2024-02-25 20:47 | XMS_ITS | Encounter Summary ---
Author Organization [facility] Address [address] [place] [address] Care Team Providers Care Heel Trimmer Name Role Phone FadyRuma APRN-EMBEDDED LINUX DEVELOPER Primary Care Provi genoveva Reason for Visit * Reason Onset Date Comments Insurance Issue/question 03/29/2019 allergy benefits Encounter Details Date Type Department Care Team (Late st Contact Info) Description 03/29/2019 Telephone [facility] [address] [address] Sherine Liu Insurance Issue/question ( allergy benefits) Social History Tobacco Use Types Packs/Day Years [...] encounter Miscellaneous Notes * Telephone Encounter - Sherine Liu - 04/04/2019 1:06 PM CST Per phone conversation with Tanvi at [phone] on 03/29/2019 Regarding immunotherapy ([id number]): Each are covered at 80% of allowable amount after deductible is met. Calendar year plan: $ 0 has been applied towards $ 1500 individual deductible. Authorization for above codes: no Referral for above codes: no Policy effective 02/14/2019, current. No preexisting applies. Call reference number [id number] . Informed patient of allergy shot benefits and explained the deductible process. Patient will call back if wants to start shots. Also reminded her to let us know what the name of the new blood pressure medication that was prescribed for her. 04/02/2019: Left message on the recorder for patient to call with new blood pressure medication and if she decided ifshe wanted to start immunotherapy. ING FURNACE FEEDER documented in this encounter Plan of Treatment Upcoming Encounters Date Type Department Care Team (Late st Contact Info) Description 03/08/2024 10:45 AM BRAZING FURNACE FEEDER Office Visit [facility] [address] [facility], [place] [address] Mitul Canas MD [facility] [facility] [address] [place] [address] documented as of this encounter Visit Diagnoses Not on filedocumented in this encounter Care Teams Heel Trimmer Relationship Specialty Start Date End Date Ruma Shrestha, ROLLER CLEANER-EMBEDDED LINUX DEVELOPER PCP - General 11/17/17 documented as of this encounter
--- OUTSIDE RECORDS SUMMARY | 2024-02-25 20:47 | XMS_ITS | Encounter Summary ---
Author Organization [facility] Address [address] [place] [address] Care Team Providers Care Hoisting Pile Driving Engineer Name Role Phone Fady Ruma Rabia CHEMICAL ANALYTICAL SAMPLER-TEACHING YOUNG Primary Care Provi genoveva Reason for Visit * Reason Comments Refill Request Encounter Details Date Type Department Care Team (Late Contact Info) Description 07/16/2020 Refill [facility] [address] [address] Mitul Canas MD [address] [facility] [address] [place] [address] Refill Request Social History Tobacco Use Types [...] (Late Contact Info) Description 03/08/2024 10:45 AM LINE PALLETIZER Office Visit [facility] [address] [place] [address] Mitul Canas MD [address] [facility] [address] [place] [address] documented as of this encounter Visit Diagnoses Not on filedocumented in this encounter Care Teams Hoisting Pile Driving Engineer Relationship Specialty Start Date End Date Ruma Shrestha APRN-TEACHING YOUNG PCP - General 11/17/17 documented as of this encounter
--- OUTSIDE RECORDS SUMMARY | 2024-02-25 20:47 | XMS_ITS | Encounter Summary ---
Author Organization [facility] Address [address] [place] [address] Care Team Providers Care Biomedical Engineering Internship Name Role Phone Ruma Shrestha COMPANY MARKER-QUALITY ASSURANCE MONITOR CHASSIS Primary Care Provi genoveva Encounter Details Date Type Department Care Team (Latest Contact Info) Description 10/23/2020 12:00 PM CDT Procedure visit [facility] [place] [address] [place] [address] Matt Peterson MD [address] DIV OF PULMONARY/[place] [address] JAYLEEN (obstructive sleep apnea) Social History Tobacco [...] as of this encounter Progress Notes * Matt Peterson MD - 10/28/2020 10:15 AM CDT [facility], First Floor [address] [place] [address] Telephone : [phone] or Medical Records AUTOMATIC POSITIVE AIRWAY PRESSURE (APAP) PRESCRIPTION FORM Patient Name: Maribell Jordan Date of : 1980 Date of Visit: 10/28/2020 Age: [age] year old Sex: female Diagnosis: [x] Obstructive sleep apnea [] Other: APAP Settings: Minimum pressure = 4 cmH2O Maximum pressure = 20 cmH2O Interface: Brand: [] fit for mask [x] Humidifier: [x] heated [] non-heated [x] Heated tubing [x] Other necessary positive airway pressure therapy supplies (e.g., filters, etc.) Matt Peterson MD, [facility], [facility] (NPI# [id number]) Site Specialist, [facility] Professor of Internal Medicine Adjunct [facility] of Neurology Division of Pulmonary, Critical Care, and Sleep Medicine [facility] This note was electronically signed on 10/28/2020. * Matt Peterson MD - 10/28/2020 10:13 AM CDT Images from the original note were not included. [facility] Accredited by the [place] [employer] [facility], First Floor [address] [place] [address] Telephone : [phone] Medical Records Patient Name: Maribell Jordan : 1980 Date of Study: 10/23/2020 Referring Physician: No referring provider defined for this encounter. Type of Montage: Type III Respiratory (oximetry, pulse rate, airflow, body position, respiratory movement) UNATTENDED HOME SLEEP APNEA TEST Unattended HST Summary Report Patient Name: Maribell Jordan Date of : 1980 Chart Code: [id number] Weight: 218.0 lbs Study Date: 10/23/20 Height: 5??? 2?? 157 cm Age: 40 BMI: 40.2 Neck Circumference: 0?? Sex: Female Waist: 9?? Hip: 0?? Waist-Hip Ratio: 0.00 Referring Physician: Matt Peterson Comments: Total Recording Time(TRT): 506.5 minutes Cardiac Respiratory [...] 108.6 0.7 0.2 3.4 50-59% 0.0% 0.0 < 50 % 0.0% 0.0 Body Position Supine Prone Left Side Right Side Total Non Supine % Time in Position 1.0% 0.1% 49.0% 49.9% 99.0% Snoring events 25 3 405 483 891 Apnea + Hypopnea events 0 0 10 32 42 Apnea + Hypopnea Index 0.0 0.0 2.4 7.6 5.0 SPO2 PULSE RESPIRATORY #ERR# BODYPOS BAD Total Recording Time: 506.5 minutes Patient Apnea-Hypopnea [...] disorder, cardiovascular disease, or diabetes mellitus. Matt Peterson MD, [facility], [facility] Site Specialist, [facility] [place] Professor of Internal Medicine Adjunct Rhia of Neurology Division of Pulmonary, Critical Care, and Sleep Medicine [facility] This note was electronically signed on 10/28/2020. CC: No referring provider defined for this encounter. documented in this encounter H&P Notes * Myesha Chris - 10/24/2020 9:59 AM CDT HST VISIT NOTE The patient arrived today 10/23/2020 to cotton picking machine operator the Home Sleep test device. Myesha Chris instructed the patient on the proper use of the device. The patient will return device in 24 to 48 hours fordownloading of the HST report. Myesha Chris Data Systems Manager [facility] [place] documented in this encounter Procedure Notes * Matt Peterson MD - 10/28/2020 10:15 AM CDTAssociated Order(s): PROC HOME SLEEP STUDY TEST Procedure(s): UT SLEEP STUDY UNATT&RESP EFFT Pre-Procedure Diagnose(s): JAYLEEN (obstructive sleep apnea) Post-Procedure Diagnose(s): JAYLEEN (obstructive sleep apnea) Images from the original note were not included. [facility] Accredited by the [place] [employer] Medicine [facility], First Floor [address] [place] [address] Telephone : [phone] Medical Records Patient Name: Maribell Jordan : 1980 Date of Study: 10/23/2020 Referring Physician: No referring provider defined for this encounter. Type of Montage: Type III Respiratory (oximetry, pulse rate, airflow, body position, respiratory movement) UNATTENDED HOME SLEEP APNEA TEST Unattended HST Summary Report Patient Name: Maribell Jordan Date of : 1980 Chart Code: [id number] Weight: 218.0 lbs Study Date: 10/23/20 Height: 5??? 2?? 157 cm Age: 40 BMI: 40.2 Neck Circumference: 0?? Sex: Female Waist: 9?? Hip: 0?? Waist-Hip Ratio: 0.00 Referring Physician: Matt Peterson Comments: Total Recording Time(TRT): 506.5 minutes Cardiac Respiratory [...] 108.6 0.7 0.2 3.4 50-59% 0.0% 0.0 < 50 % 0.0% 0.0 Body Position Supine Prone Left Side Right Side Total Non Supine % Time in Position 1.0% 0.1% 49.0% 49.9% 99.0% Snoring events 25 3 405 483 891 Apnea + Hypopnea events 0 0 10 32 42 Apnea + Hypopnea Index 0.0 0.0 2.4 7.6 5.0 SPO2 PULSE RESPIRATORY #ERR# BODYPOS BAD Total Recording Time: 506.5 minutes Patient Apnea-Hypopnea [...] disorder, cardiovascular disease, or diabetes mellitus. Matt Peterson MD, [facility], [facility] Site Specialist, [facility] Professor of Internal Medicine Adjunct Rhia of Neurology Division of Pulmonary, Critical Care, and Sleep Medicine [facility] This note was electronically signed on 10/28/2020. CC: No referring provider defined for this encounter. documented in this encounter Plan of Treatment Upcoming Encounters Date Type Department Care Team (Late st Contact Info) Description 03/08/2024 10:45 AM JAVA DESIGNER Office Visit [facility] [address] [place] [id number] Mitul Canas MD [address] [place] [address] [address] [place] [address] documented as of this encounter Procedures Procedure Name Priority Date/Time Associated Diagnosis Comments UT SLEEP STUDY UNATT&RESP EFFT Routine 10/28/2020 10:15 AM CDT JAYLEEN (obstructive sleep apnea) documented in this encounter Visit Diagnoses Diagnosis JAYLEEN (obstructive sleep apnea)- Primary Obstructive sleep apnea (adult) (pediatric) documented in this encounter Care Teams Biomedical Engineering Internship Relationship Specialty Start Date End Date Ruma Shrestha, FANI-QUALITY ASSURANCE MONITOR CHASSIS PCP - General 11/17/17 documented as of this encounter
--- OUTSIDE RECORDS SUMMARY | 2024-02-25 20:48 | XMS_ITS | Encounter Summary ---
Author Organization [facility] Address [address] [place] [address] Care Team Providers Care Beverage Inspection Machine Tender Name Role Phone Cornelia Easley MD Primary Care Provider [phone] Reason for Referral * Radiology Services (Routine) - Closed Specialty Diagnoses / Procedures Referred By Contac t Referred To Contact Diagnoses Thyroid nodule Procedures US THYROID Mitul Canas MD [facility] [place] [address] Referral ID Status Reason Start Date Expiration Date Visits Re quested Visits Authorized [id number] Closed 09/23/2017 03/22/2018 1 1 Reason for Visit * Reason Comments Allergy Symptoms Encounter Details Date Type Department Care Team (Late st Contact Info) Description 06/07/2017 12:45 PM CDT Office Visit [facility] [address] [facility], [address] [place] [address] Mitul Canas MD [address] [facility] LEVEL [address] [place] [address] Thyroid nodule (Primary Dx) Social History Tobacco Use Types Packs/Day Years Used Date Smoking Tobacco: Every Day Cigarettes Smokeless Tobacco: Never Alcohol Use Standard Drinks/Week Comments No 0 (1 standard drink = 0.6 oz pur e alcohol) Sex and Gender Information Value Date Recorded Sex Assigned at Not on file Gender Identity Not on file Sexual Orientation Not on file documented as of this encounter Last Filed Vital Signs Vital Sign Reading Time Taken Comments Blood Pressure 153/99 06/07/2017 12:43 PM CDT Pulse 109 06/07/2017 12:43 PM CDT Temperature - - Respiratory Rate - - Oxygen Saturation - - Inhaled Oxygen Concentration - - Weight 98 kg (216 lb) 06/07/2017 12:43 PM CDT Height 157.5 cm (5' 2 ) 06/07/2017 12:43 PM CDT Body Mass Index 39.51 06/07/2017 12:43 PM CDT documented in this encounter Patient Instructions * Patient Instructions* Kathleen Leach - 06/07/2017 12:44 PM CDT Thank you for visiting [facility] Otolaryngology - Head & Neck Surgery. [...] an appointment, please call our office at [phone] Tuesday through Tuesday from 8:30 am to4:30 pm. You can also request a routine appointment through your [employer] account. ??? Prescription Refills Contact your pharmacy [...] the medical exchange at and ask the pouring crane operator to page the ENT physician director of personnel. *Caller ID blocking service will need to be turned off for your call to be returned. We also specialize in Hearing Aids, Allergy testing, swallowing disorders, voice problems, cancer diagnosis, and so much more. Visit our website at [email or web address] for information about our practice and an interactive health encyclopedia. documented in this encounter Progress Notes * Mitul Canas MD - 06/07/2017 1:01 PM CDT History of Present Illness: 37 y.o. with a h/o lost to follow up throat has been stable some irritation mostly with PND. She has been using Pepcid PRN. She is trying to stop smoking. Her primary ordered CT sinus and this was negative. Review of Systems: ROS x 11 was performed and was negative except for PND No past medical history on file. PSH: has no past surgical history on file. Current Outpatient Prescriptions Medication Sig Dispense Refill ??? polyvinyl alcohol-povidone (REFRESH) 1.4-0.6 % ophthalmic solution 1 drop 3 times daily ??? amLODIPine (NORVASC) 5 MG tablet TK 1 T PO QD 3 ??? famotidine (PEPCID) 40 MG tablet TK SS T BID. 5 ??? hydroCHLOROthiazide (MICROZIDE) 12.5 MG capsule TK ONE C PO QD 2 ??? metFORMIN (GLUCOPHAGE) 500 MG tablet TK 1 T PO ONCE A DAY 3 ??? montelukast (SINGULAIR) 10 MG tablet TK 1 T PO HS 2 ??? fluticasone propionate (FLONASE) 50 MCG/ACT nasal spray [place] 1 spray into each nostril DAILY. 1 bottles 3 ??? blood glucose (ONETOUCH ULTRA TEST STRIPS) test strip ??? clotrimazole (LOTRIMIN AF) 1 % cream 5 ??? loratadine (CLARITIN) 10 MG tablet ??? lancets ??? omeprazole (PRILOSEC) 40 MG capsule 3 No current facility-administered medications for this visit. Allergies Review of patient's allergies indicates no known allergies. Social History Substance Use Topics ??? Smoking status: Current Every Day Smoker Packs/day: 1.00 ??? Smokeless tobacco: Never Used ??? Alcohol use No No family history on file. Physical Exam: Constitutional: Alert, No acute Distress; Well developed/well nourished Neuro:cranial nerves III-XII grossly intact CV/Pulm: Normal respirations and peripheral pulses. Eyes: PERRL, EOMI Face/Skin: normal appearance, no lesions/masses Ears: Right: Normal external Auditory canal Left: Normal external Auditory canal Nose: patent bilaterally, no septal deviation, Turbinates intact, Mucosal membranes intact no polyps Mouth and oropharynx: symmetric tongue mobility, no lesions/masses/ulcers Neck: supple, no lymphadenopathy, no masses Voice: strong MusculoSkeletal: moves all extremities well Assessment and Plan: allergic rhinitis with thyroid nodule . allergy test and thyroid US. * Kathleen Leach - 06/07/2017 12:39 PM CDT Review of Systems Maribell Jordan reports the following; Eyes: eye pain Ears: ear pain Nose: sinus pain, congestion documented in this encounter Plan of Treatment Upcoming Encounters Date Type Department Care Team (Late st Contact Info) Description 03/08/2024 10:45 AM EMERGENCY VEHICLE TECHNICIAN Office Visit [facility] - ENT [address] [facility], [place] [address] Mitul Canas MD [address] [place] [address] [address] [place] [address] documented as of this encounter Results * US THYROID (07/20/2017 3:42 PM CDT) [...] or biopsy. Dictated by Marlon Alves MD (vice president research). This report was approved ??by Marlon Alves ?? on 07/20/2017 4:[address] Ru [...] or biopsy. Dictated by Marlon Alves MD (vice president research). This report was approved by Marlon Alves on 07/20/2017 4:30 PM . IDr. Ru M.D. have personally reviewed and interpretedthis examination/study. This report was electronically signed by Ru ONTIVEROS M.D. on 07/20/2017 5:46 PM . Mitul Canas MD ORDERABLES documented in this encounter Visit Diagnoses Diagnosis Thyroid nodule- Primary Nontoxic uninodular goiter Thyroid nodule Nontoxic uninodular goiter documented in this encounter Care Teams Beverage Inspection Machine Tender Relationship Specialty Start Date End Date Cornelia Easley MD [address] [place] [address] PCP - General 04/10/15 11/16/17 documented as of this encounter
--- OUTSIDE RECORDS SUMMARY | 2024-02-25 20:48 | XMS_ITS | Encounter Summary ---
Author Organization [facility] Address [address] [place] [address] Care Team Providers Care Environmental Sustainability Manager Name Role Phone Cornelia Easley MD Primary Care Provider [phone] Reason for Visit * Reason Comments Throat Problem Encounter Details Date Type Department Care Team (Late st Contact Info) Description 08/11/2017 7:45 AM CDT Office Visit [facility] [address] [address] Mitul Canas MD [address] [facility] [address] [place] [address] Globus sensation (Primary Dx); Smoking; Snoring; PND (post-nasal drip); Allergic rhinitis due to animal hair and dander Social History Tobacco Use Types Packs/Day Years [...] Sign Reading Time Taken Comments Blood Pressure 136/88 08/11/2017 8:16 AM CDT Pulse 107 08/11/2017 8:16 AM CDT Temperature - - Respiratory Rate - - Oxygen Saturation - - Inhaled Oxygen Concentration - - Weight 97.1 kg (214 lb) 08/11/2017 8:16 AM CDT Height 157.5 cm (5' 2 ) 08/11/2017 8:16 AM CDT Body Mass Index 39.14 08/11/2017 8:16 AM CDT documented in this encounter Patient Instructions * Patient Instructions* Xin Corrigan - 08/11/2017 8:16 AM CDT Thank you for visiting [facility] Otolaryngology - Head & Neck Surgery. We [...] an appointment, please call our office at [phone] Tuesday through Tuesday from 8:30 am to4:30 pm. You can also request a routine appointment through your [email or web address] account. ??? Prescription Refills Contact your pharmacy [...] the medical exchange at and ask the cider press operator to page the ENT physician human factors ergonomist. *Caller ID blocking service will need to be turned off for your call to be returned. We also specialize in Hearing Aids, Allergy testing, swallowing disorders, voice problems, cancer diagnosis, and so much more. Visit our website at [email or web address] for information about our practice and an interactive health encyclopedia. documented in this encounter Progress Notes * Xin Corrigan - 08/11/2017 8:17 AM CDT Review of Systems Maribell Jordan reports the following; Ears: ear pain Nose: congestion Throat: frequent soreness or swelling * Fidencio Michelle - 08/11/2017 8:04 AM CDT DEPARTMENT OF OTOLARYNGOLOGY-HEAD AND NECK SURGERY History of Present Illness Maribell Jordan is a 37 y.o. female smoker with history of allergic rhinitis and PND who presentsto clinic for follow up of sore throat and thyroid nodules. Patient had allergy testing on 08/03/17 and had thyroid US performed on 07/20/17 that showed 3 nodules on right thyroid lobes with mid-superior nodule decreased size, others stable, and all 3 not meeting criteria for follow up or biopsy. Today, patient reports intermittent globus sensation that comes and goes for the past 1-2 years that has been more frequent in the last month. She has tried salt water rinses, honey and tees. She reports that her throat feels strained or tired. She is currently taking Pepcid for reflux. Patient eats before bed. Patient snores and reports that she is tired even after long sleep. Patient continues to smoke 2-9 cigarettes day, but still trying to quit. Patient wants to make sureshe does not have throat cancer. Patient notes she had mouth/throat itching with HTN meds lisinopril and losartan. Reports dyspnea on exertion, PND, nasal congestion Denies voice changes, swallowing issues, fevers, chest pain Allergies Allergen Reactions ??? Lisinopril Itching ??? Losartan Itching No past medical history on file. No past surgical history on file. Current Outpatient Prescriptions Medication ??? fexofenadine (GLENNY) 180 MG tablet ??? azelastine (OPTIVAR) 0.05 % ophthalmic solution ??? ARTIFICIAL TEARS 1.4 % ophthalmic solution ??? Carboxymethylcellulose Sodium (REFRESH LIQUIGEL OP) ??? CROMOLYN SODIUM OP ??? EPINEPHrine (EPIPEN) 0.3 MG/0.3ML auto-injector pen ??? famotidine (PEPCID) 40 MG tablet ??? metFORMIN (GLUCOPHAGE) 500 MG tablet ??? montelukast (SINGULAIR) 10 MG tablet ??? fluticasone propionate (FLONASE) 50 MCG/ACT nasal spray ??? loratadine (CLARITIN) 10 MG tablet No current facility-administered medications for this visit. Social History Substance Use Topics ??? Smoking status: Current Every Day Smoker Packs/day: 1.00 ??? Smokeless tobacco: Never Used ??? Alcohol use No No family history on file. Review of Systems ROSx11 performed: pertinent items noted in medical corps officer EPIC note and/or in HPI Ears: ear pain Nose: congestion Throat: frequent soreness or swelling ?? Physical Examination Vitals: 08/11/17 0816 BP: 136/88 Pulse: 107 Weight: 214 lb (97.1 kg) Constitutional: alert, not in distress Head and Face: normocephalic, atraumatic Eyes: normal gaze alignment Ears: External: normal pinnae shape and position EACs: Left: patent Right: patent Tympanic membrane: Left ear: normal appearance and landmarks Right ear: normal appearance and landmarks Nasal: Nares normal. Septum midline. Mucosa normal. No drainage or sinus tenderness. Oral Cavity: Mucosa normal; normal tongue and buccal mucosa Throat: The tonsils are absent . The soft palate and posterior pharyngeal wall appear normal. Neck: no asymmetry, masses, or scars, supple without significant adenopathy Cranial Nerve Exam: alert, oriented x 3, no defects noted in general exam. Respiration: unlabored breathing Cardiovascular: Good color and pulses Skin: No rashes or abnormal dyspigmentation Procedure Note Date of Procedure: 08/11/2017 Indication: PND, allergic rhinitis Endoscopy Type: Laryngoscopy without stroboscopy Endoscope: 4mm flexible fiberoptic laryngoscope Anesthesia: Topical neosynephrine and lidocaine Procedure Details: The patient was sitting upright in a chair with the head in a slightly anterior sniffing position. The topical anesthesia was administered and then adequate time was allowed for an anesthetic effect.The endoscope was passed thru the nasal cavity. [...] - No masses or lesions Condition: Stable. Patient tolerated procedure well. Complications: None Dr. Canas was present for the entirety of the procedure. Assessment: 37 y.o. female with allergic rhinitis, PND, GERD with posterior pharyngeal mucosa cobblestoning, globus sensation most likely secondary to GERD and/or allergic rhinitis/PND, and snoring. Narrow airway noted at level of soft palate on scope exam today. Plan: - Reflux precautions, don't eat before bed - Continue antireflux medication - Recommend smoking cessation - Continue allergy immunotherapy - Sleep study - Follow up after sleep study Fidencio Michelle MD 08/11/2017 9:04 AM I personally saw and examined the patient along with the resident. I agree with the H&P and physical exam findings as documented above. I note the following: globus still a concern flexible exam today negative for pathology. Will get sleep study for fatigue symptoms. documented in this encounter Procedure Notes * Fidencio Michelle - 08/11/2017 8:58 AM CDTAssociated Order(s): PROC ENDOSCOPY-LARYNX Procedure(s): NC LARYNGOSCOPY,FLEX FIBER,DIAGNOSTIC Pre-Procedure Diagnose(s): PND (post-nasal drip); Allergic rhinitis due to animal hair and dander Procedure Note Date of Procedure: 08/11/2017 Indication: PND, allergic rhinitis Endoscopy Type: Laryngoscopy without stroboscopy Endoscope: 4mm flexible fiberoptic laryngoscope Anesthesia: Topical neosynephrine and lidocaine Procedure Details: The patient was sitting upright in a chair with the head in a slightly anterior sniffing position. The topical anesthesia was administered and then adequate time was allowed for an anesthetic effect.The endoscope was passed thru the nasal cavity. [...] - No masses or lesions Condition: Stable. Patient tolerated procedure well. Complications: None Dr. Canas was present for the entirety of the procedure. documented in this encounter Plan of Treatment Upcoming Encounters Date Type Department Care Team (Late st Contact Info) Description 03/08/2024 10:45 AM SALES PROGRAM MANAGER Office Visit [facility] - ENT [address] [facility] [place] [address] Mitul Canas MD [address] [place] [address] [address] [place] [address] documented as of this encounter Procedures Procedure Name Priority Date/Time Associated Diagnosis Comments NC LARYNGOSCOPY,FLEX FIBER,DIAGNOSTIC Routine 08/12/2017 9:20 AM CDT PND (post-nasal drip) Allergic rhinitis due to animal hair and dander documented in this encounter Results * NC LARYNGOSCOPY,FLEX FIBER,DIAGNOSTIC (08/12/2017 9:20 AM CDT) Narrative [...] Fidencio Michelle MD PROCEDURE/MINOR SURG ICAL ORDERABLES documented in this encounter Visit Diagnoses Diagnosis Globus sensation- Primary Gastrointestinal malfunction arising from mental factors Smoking Tobacco use disorder Snoring Other dyspnea and respiratory abnormality PND (post-nasal drip) Postnasal drip Allergic rhinitis due to animal hair and dander Allergic rhinitis due to animal (cat) (dog) hair and dander documented in this encounter Care Teams Environmental Sustainability Manager Relationship Specialty Start Date End Date Cornelia Easley MD [address] [place] [id number] PCP - General 04/10/15 11/16/17 documented as of this encounter
--- OUTSIDE RECORDS SUMMARY | 2024-02-25 20:48 | XMS_ITS | Encounter Summary ---
Author Organization [facility] Address [address] [place] [address] Care Team Providers Care Oral Surgery Physician Name Role Phone Unavailable Primary Care Provider Unavailabl e Encounter Details Date Type Department Care Team (Late st Contact Info) Description 12/29/2019 Lab Requisition [facility] [address] [place] [address] [place] [address] [place] [address] Social History Tobacco Use Types Packs/Day Years Used Date Smoking Tobacco: Never Assessed Comments Unknown Sex and Gender Information Value Date Recorded Sex Assigned at Not on file Legal Sex Female 2:35 PM BLOCKER AND CUTTER CONTACT LENS Gender Identity Not on file Sexual Orientation Not on file documented as of this encounter Plan of Treatment Not on file documented as of this encounter Procedures Procedure Name Priority Date/Time Associated Diagnosis Comments SARS-COV-2 PCR [facility] ONLY Routine 12/29/2019 2:56 PM BLOCKER AND CUTTER CONTACT LENS documented in this encounter Visit Diagnoses Not on filedocumented in this encounter
--- OUTSIDE RECORDS SUMMARY | 2024-02-25 20:48 | XMS_ITS | Encounter Summary ---
Author Organization [facility] Address [address] [facility] [place] [address] Care Team Providers Care Filter Screen Cleaner Name Role Phone Ruma Shrestha APRN-COMMUNITY HEALTH PROMOTER Primary Care Provi genoveva Reason for Visit * Reason Onset Date Comments Future Appointment 12/23/2017 interest in s tarting immunotherapy Encounter Details Date Type Department Care Team (Late st Contact Info) Description 12/23/2017 Telephone [facility] [address] [address] Rosalinda Hare, RN Future Appointment (interest in starting immunotherapy) Social History Tobacco Use Types Packs/Day Years [...] Telephone Encounter - Rosalinda Hare, RN - 12/23/2017 2:21 PM CST 12/23 spoke with pt, is still interested in immunotherapy, is NOT on beta-jesus manuel medication at thistime. Work-up with sleep study continues. Reminded of appt scheduled 12/[address] Canas, could get allergy shot at that time, must bring epipen. Requested call [facility] line if she wants to start IT on a different day. Pt acknowledgesunderstanding. ER PRINTING SUPERVISOR documented in this encounter Plan of Treatment Upcoming Encounters Date Type Department Care Team (Late st Contact Info) Description 03/08/2024 10:45 AM ROLLER PRINTING SUPERVISOR Office Visit [facility] - [facility]NT [address] [facility], [place] [address] Mitul Canas MD [facility] [facility] [address] [place] [address] documented as of this encounter Visit Diagnoses Not on filedocumented in this encounter Care Teams Filter Screen Cleaner Relationship Specialty Start Date End Date Ruma Shrestha APRN-COMMUNITY HEALTH PROMOTER PCP - General 11/17/17 documented as of this encounter
--- OUTSIDE RECORDS SUMMARY | 2024-02-25 20:48 | XMS_ITS | Clinical Summary ---
Author Organization [facility] Address [address] [place] [address] Care Team Providers Care Transfer Coordinator Name Role Phone Ruma Shrestha NP Primary Care Provider + Allergies Active Allergy Reactions Criticality Noted Date Comments Amlodipine Unknown 08/19/2020 Pt states It makes me feel like I have a lump in my throat . Fluconazole Other (See comments) Low 12/07/2021 Makes her throat feel funny Lisinopril Cough,Itching,Swelling Medium 08/03/2017 Knot in throat feeling Swelling Losartan Unknown 08/19/2020 Pt states It makes me feel like I have a lump in my throat . Naproxen Unknown 08/19/2020 Pt states It makes me feel like I have a lump in my throat . Medications ondansetron ODT (ZOFRAN-ODT) 4 mg disintegrating tablet Take 1 tablet (4 mg total) by mouth every 8 (eight) hours as needed for nausea or vomiting 20 tablet 06/29/19 23 Active famotidine (PEPCID) 20 mg tablet Take 1 tablet (20 mg total) by mouth 2 (two) times a day 20 tablet 07/26/19 23 Active triamcinolone (KENALOG) 0.1 % cream Apply topically 2 (two) times a day 30 g 01/09/20 23 Active Additional Information Patient not taking.Reported on 01/09/2024 azelastine (ASTELIN) 137 mcg (0.1 %) nasal spray Administer 1 spray into affected nostril(s) 2 (two) times a day 01/05/20 24 Active cephalexin (KEFLEX) 500 mg capsule TAKE 1 CAPSULE BY MOUTH TWICE DAILY FOR 7 DAYS 01/05/20 24 Active ergocalciferol (VITAMIN D) 50,000 unit capsule TAKE 1 CAPSULE BY MOUTH EVERY WEEK DIRECTED 02/27/19 22 Active ferrous sulfate 325 mg (65 mg of elemental iron) tablet daily Active hydroCHLOROthiazid e 12.5 mg tablet Take 1 tablet (12.5 mg total) by mouth daily Active hydrOXYzine (ATARAX) 10 mg tablet Take 1 tablet (10 mg total) by mouth 3 (three) times a day 12/31/19 20 Active magnesium oxide (MAG-OX) 400 mg (241.3 mg elemental magnesium) tablet every 48 hours Active metFORMIN (GLUCOPHAGE) 500 mg tablet 1 tablet (500 mg total) 11/11/19 19 Active mupirocin (BACTROBAN) 2 % ointment APPLY TOPICALLY TO THE AFFECTED AREA THREE TIMES DAILY 01/05/20 24 Active potassium chloride ER 10 mEq CR tablet Take 1 tablet/capsule (10 mEq total) by mouth once Active Active Problems No known active problems Encounters Date Type Department Care Team Description 01/09/2024 12:00 PM MEDICAL IMAGING SPECIALIST Office Visit [facility] Obstetrical Gynecology [address] [place] [phone] Jeancarlos Sotomayor MD Cyst of right ovary (Primary Dx) from Last 3 Months Surgical History Surgery Date Site/Laterality Comments BREAST SURGERY TONSILLECTOMY OVARIAN CYST REMOVAL Medical History Medical History Date Comments Hypertension Sinus congestion Diabetes mellitus (HCC) Acid reflux Ovarian cyst Family History Medical History Relation Name Comments Cancer Paternal Grandfather Breast cancer Neg Hx Relation Name Status Comments Paternal Grandfather Social History Tobacco Use Types Packs/Day Years Used Date Smoking Tobacco: Former Alcohol Use Standard Drinks/Week Comments Not Currently 0 (1 standard drink = 0.6 oz pur e alcohol) Personal Safety Answer Date Recorded Have you ever been in or are you currently in a harmful physical or emotional relationship or is someone making you feel afraid or unsafe? Denies 01/08/2023 Comments No Sex and Gender Information Value Date Recorded Sex Assigned at Not on file Legal Sex Female 5:42 AM MEDICAL IMAGING SPECIALIST Gender Identity Not on file Sexual Orientation Not on file Obstetrics History Para Term AB IAB SAB Ectopic Multiple Livin g Live Births 7 3 Date Outcome GA Total Labor Labor/2nd/3rd Weight Sex Type Anes PTL Nelli A1 A5 Name Clin Para Para Para Comments Menarche: 11 First delivery: 19 Last Filed Vital Signs Vital Sign Reading Time Taken Comments Blood Pressure 152/90 01/09/2024 11:53 AM MEDICAL IMAGING SPECIALIST Pulse 77 01/08/2023 1:51 AM MEDICAL IMAGING SPECIALIST Temperature 37 ??C (98.6 ??F) 01/08/2023 12:34 AM MEDICAL IMAGING SPECIALIST Respiratory Rate 16 01/08/2023 1:51 AM MEDICAL IMAGING SPECIALIST Oxygen Saturation 100% 01/08/2023 1:51 AM MEDICAL IMAGING SPECIALIST Inhaled Oxygen Concentration - - Weight 96.2 kg (212 lb) 01/09/2024 11:53 AM MEDICAL IMAGING SPECIALIST Height 157.5 cm (5' 2 ) 01/09/2024 11:53 AM MEDICAL IMAGING SPECIALIST Body Mass Index 38.78 01/09/2024 11:53 AM MEDICAL IMAGING SPECIALIST Plan of Treatment Health Maintenance Due Date Last Done Comments Breast Cancer Screening-Mammogram 1980 Cervical Cancer Screening 1980 Depression Screening 1980 Hepatitis C Screening 1980 Pneumococcal vaccine <65 (1 of 2 - PCV) 1986 DTaP/Tdap/Td Vaccine (1 - Tdap) 05/12/1991 Varicella Vaccines (1 of 2 - 13+ 2-dose series) 1993 Hepatitis B Screening 1998 Regular Well Visit/Exam 18-64 1998 Influenza Vaccine (#1) 2023 HPV Vaccines Aged Out No longer eligi ble based on patient's age to complete this topic Insurance [facility] HMO/PPO Address: [facility] [address] [place] [address] [place] [address] Care Teams Transfer Coordinator Relationship Specialty Start Date End Date Ruma Shrestha NP PCP - General 05/30/18
--- OUTSIDE RECORDS SUMMARY | 2024-02-25 20:48 | XMS_ITS | Encounter Summary ---
Author Organization [facility] Address [address] [place] [address] Care Team Providers Care Synthetic Gem Press Operator Name Role Phone Ruma Shrestha DIGITAL PROGRAM MANAGER-ELECTRO TECH Primary Care Provi genoveva Reason for Visit * Reason Comments Sore Throat Encounter Details Date Type Department Care Team (Late st Contact Info) Description 05/09/2018 9:30 AM CDT Office Visit [facility] OT[facility] [address] [facility], [address] [place] [address] Mitul Canas MD [address] [facility] [address] [place] [address] Seasonal allergic rhinitis due to pollen (Primary Dx); Smoking; Snoring Social History Tobacco Use Types Packs/Day Years [...] Sign Reading Time Taken Comments Blood Pressure 145/91 05/09/2018 9:47 AM CDT Pulse 75 05/09/2018 9:47 AM CDT Temperature - - Respiratory Rate - - Oxygen Saturation - - Inhaled Oxygen Concentration - - Weight 101.2 kg (223 lb) 05/09/2018 9:47 AM CDT Height 157.5 cm (5' 2 ) 05/09/2018 9:47 AM CDT Body Mass Index 40.79 05/09/2018 9:47 AM CDT documented in this encounter Patient Instructions * Patient Instructions* Francheska Jim - 05/09/2018 9:46 AM CDT Thank you for visiting [facility] Otolaryngology - Head & Neck Surgery. [...] an appointment, please call our office at [phone] Tuesday through Tuesday from 8:30 am to4:30 pm. You can also request a routine appointment through your [employer] account. ??? Prescription Refills Contact your pharmacy [...] the medical exchange at and ask the humid system operator to page the ENT physician ammonia box tender. *Caller ID blocking service will need to be turned off for your call to be returned. We also specialize in Hearing Aids, Allergy testing, swallowing disorders, voice problems, cancer diagnosis, and so much more. Visit our website at [email or web address] for information about our practice and an interactive health encyclopedia. documented in this encounter Progress Notes * Mitul Canas MD - 05/09/2018 10:15 AM CDT History of Present Illness: 37 year old with a h/o recent voice change but no improving . Patient has not underwent allergy therapy or sleep study Review of Systems: ROS x 11 was performed and was negative except for General: fatigue Eyes: glasses/contacts Ears: ear pain Nose: frequent bloody nose, sinus pain, post nasal drainage, congestion Mouth: bleeding Throat: frequent soreness or swelling Musculoskeletal: joint pain Mental Health: anxiety Past Medical History: Diagnosis Date ??? Allergic [...] and adenoidectomy; colonoscopy; and section. Current Outpatient Prescriptions Medication Sig Dispense Refill ??? ARTIFICIAL TEARS 1.4 % ophthalmic solution 6 ??? azelastine (OPTIVAR) 0.05 % ophthalmic solution Instill 1 drop into both eyes 2 times daily 3 ??? busPIRone (BUSPAR) 5 MG tablet Take 1 tablet by mouth once daily 0 ??? Carboxymethylcellulose Sodium (REFRESH LIQUIGEL OP) 2 drops by Ophthalmic route as needed ??? CROMOLYN SODIUM OP 2 drops by Ophthalmic route as needed ??? EPINEPHrine (EPIPEN) 0.3 MG/0.3ML auto-injector pen Inject 0.3 mL into muscle as needed for Anaphylaxis 1 Each 0 ??? fluticasone propionate (FLONASE) 50 MCG/ACT nasal spray [place] 1 spray into each nostril DAILY. 1 bottles 3 ??? hydroCHLOROthiazide (HYDRODIURIL) 12.5 MG Take 1 tablet every day by oral route. ??? loratadine (CLARITIN) 10 MG tablet qd ??? Magnesium 400 MG every 2 days ??? metFORMIN (GLUCOPHAGE) 500 MG tablet TK 1 T PO ONCE A DAY 3 ??? montelukast (SINGULAIR) 10 MG tablet TK 1 T PO HS 2 ??? potassium chloride (KLOR-CON 10) 10 MEQ tablet Take 1 tablet as needed by oral route. ??? PRO COMFORT LANCETS 31G MISC ??? raNITIdine (ZANTAC) 150 MG tablet Take 1 tablet by mouth 2 times daily 2 ??? sucralfate (CARAFATE) 1 GM tablet Take 1 tablet by mouth 4 times daily as needed 0 ??? TRUE METRIX BLOOD GLUCOSE TEST test strip No current facility-administered medications for this visit. Allergies Lisinopril; Amlodipine base; and Losartan Social History Substance Use Topics ??? Smoking status: Former Smoker Packs/day: 1.00 Years: 18.00 Types: Cigarettes Start date: 1999 Quit date: 11/06/2017 ??? Smokeless tobacco: Never Used ??? Alcohol use No Comment: former heavy drinking after work and weekends, 1/2 pint/d, 2017 rare alcohol Family History Problem Relation Age of Onset ??? Hypertension Mother ??? Coronary Artery Disease Father ??? Hypertension Father ??? CVA Father ??? Seizures Sister Physical Exam: Constitutional: Alert, No acute Distress; Well developed/well nourished Neuro:cranial nerves III-XII grossly intact CV/Pulm: Normal respirations and peripheral pulses. Eyes: PERRL, EOMI Face/Skin: normal appearance, no lesions/masses Ears: Right: Normal external Auditory canal middle ear healthy bi alteral Left: Normal external Auditory canal Nose: patent bilaterally, no septal deviation, Turbinates intact, Mucosal membranes intact Mouth and oropharynx: symmetric tongue mobility, no lesions/masses/ulcers indirect exam no lesion seen in hypopharynx or glottis Neck: supple, no lymphadenopathy, no masses Voice: strong MusculoSkeletal: moves all extremities well Assessment and Plan: delay in allergy therapy do to insurance sleep study also delay will arrange and have RTC in 4 weeks to check progress. * Francheska Jim - 05/09/2018 9:47 AM CDT Review of Systems Maribell Jordan reports the following; General: fatigue Eyes: glasses/contacts Ears: ear pain Nose: frequent bloody nose, sinus pain, post nasal drainage, congestion Mouth: bleeding Throat: frequent soreness or swelling Musculoskeletal: joint pain Mental Health: anxiety documented in this encounter Plan of Treatment Upcoming Encounters Date Type Department Care Team (Late st Contact Info) Description 03/08/2024 10:45 AM TERMINAL WORKER Office Visit [facility] - ENT [address] [place] [phone] Mitul Canas MD [address] [place] [address] [address] [place] [address] documented as of this encounter Visit Diagnoses Diagnosis Seasonal allergic rhinitis due to pollen- Primary Smoking Tobacco use disorder Snoring Other dyspnea and respiratory abnormality documented in this encounter Care Teams Synthetic Gem Press Operator Relationship Specialty Start Date End Date Ruma Shrestha APRN-ELECTRO TECH PCP - General 11/17/17 documented as of this encounter
--- OUTSIDE RECORDS SUMMARY | 2024-02-25 20:48 | XMS_ITS | Encounter Summary ---
Author Organization [facility] Address [address] [facility] [place] [address] Care Team Providers Care Pushcart Peddler Name Role Phone Cornelia Easley MD Primary Care Provider [phone] Reason for Visit * Reason Onset Date Comments Immunotherapy 08/04/2017 plan to start Results 08/04/2017 ultrasound neck 07/20/17 Encounter Details Date Type Department Care Team (Late st Contact Info) Description 08/04/2017 Telephone [facility] [address] [address] Rosalinda Hare, RN Immunotherapy (plan to start); Results (ultrasound neck 07/20/17) Social History Tobacco Use Types Packs/Day Years [...] as of this encounter Miscellaneous Notes * Addendum Note - Rosalinda Hare RN - 08/04/2017 11:51 AM CDTAddended by: ROSALINDA HARE on: 08/04/2017 11:51 AM Modules accepted: Orders * Telephone Encounter - Rosalinda Hare RN - 08/04/2017 11:38 AM CDT Case discussed with Dr. Canas on 08/04 and call returned to patient at 1100: SCIT as discussed at testing visit yesterday. Ultrasound shows thyroid nodules stable and in fact one is smaller; will continue to watch, and repeat ultrasound in 12 to 18 months. No need to come for appt 08/09, could instead see Dr. Canas in about 6 months. Continue Pepcid for throat sensation, can add omeprazole otc ([facility] does not cover PPI for pt age >21). No need to trial ranitidine, would be similar to Pepcid. Patient acknowledges understanding. Requested pt check with PCP office Dr. Easley; if PCP office will do shots, pt can have first 12 shots there. Requested have that office staff contact [facility] with questions, and if OK. If PCP office cannot do SCIT injections, pt could come to [facility] office. Pt's work schedule will change in August, so does not know yet which day she will be available for in-office injections. Pt again talks about nasal symptoms immediately upon entering work at [employer]. Suggested nasally irrigate BID, trial different antihistamines (currently takes Claritin in am), continue montelukast in evenings. Reviewed MD does not complete FML for allergies. Pt requests prescription for Klarissa. Prescription authorized per Otolaryngology Protocol 08/2016 after last office note reviewed. Pt prefers to wait to cancel appt next week, I will cancel Tuesday if I am feeling OK. Makes appt for 6 mo f/u at [facility] office. documented in this encounter Plan of Treatment Upcoming Encounters Date Type Department Care Team (Late st Contact Info) Description 03/08/2024 10:45 AM EXPERIMENTAL PLASTICS FABRICATOR Office Visit [facility] - [facility] [address] [facility], [place] [phone] Mitul Canas MD [address] [facility] [address] [place] [address] documented as of this encounter Visit Diagnoses Not on filedocumented in this encounter Care Teams Pushcart Peddler Relationship Specialty Start Date End Date Cornelia aEsley MD [address] [place] [address] PCP - General 04/10/15 11/16/17 documented as of this encounter
--- OUTSIDE RECORDS SUMMARY | 2024-02-25 20:48 | XMS_ITS | Encounter Summary ---
Author Organization [facility] Address [address] [facility] [place] [address] Care Team Providers Care Criminal Analyst Name Role Phone Cornelia Easley MD Primary Care Provider [phone] Reason for Visit * Radiology Services (Routine) - Closed Specialty Diagnoses / Procedures Referred By Contac t Referred To Contact Ultrasound Diagnoses Nontoxic single thyroid nodule Procedures US THYROID Mitul Canas MD [facility] [place] [address] [phone] Referral ID Status Reason Start Date Expiration Date Visits Re quested Visits Authorized [id number] Closed 06/20/2017 12/17/2017 1 1 Encounter Details Date Type Department Care Team (Latest Contact Info) Description 07/20/2017 2:30 PM CDT - 07/20/2017 11:59 PM CDT Hospital Encounter [facility] [id number] [place] [phone] Mitul Canas MD [address] [facility] [address] [place] [address] Discharge Disposition: Home or Self Care Social [...] on file documented as of this encounter Medications at Time of Discharge Medication Sig Dispensed Refills Start Date End Date metFORMIN (GLUCOPHAGE) 500 MG tablet Take 1 (one) tablet by mouth once daily 3 05/20/2017 amLODIPine (NORVASC) 5 MG tablet TK 1 T PO QD 3 05/20/2017 08/03/2017 blood glucose (ONETOUCH ULTRA TEST STRIPS) test strip 10/30/2015 08/03/2017 clotrimazole (LOTRIMIN AF) 1 % cream 5 10/30/2015 08/03/2017 famotidine (PEPCID) 40 MG tablet TK SS T BID. 5 03/11/2017 12/06/2017 fluticasone propionate (FLONASE) 50 MCG/ACT nasal spray [place] 1 spray into each nostril DAILY. 1 bottles 3 11/25/2015 03/16/2022 hydroCHLOROthiazide (MICROZIDE) 12.5 MG capsule TK ONE C PO QD 2 05/20/2017 08/03/2017 lancets 10/30/2015 08/03/2017 loratadine (CLARITIN) 10 MG tablet 11/24/2015 10/27/2017 montelukast (SINGULAIR) 10 MG tablet Take 10 mg by mouth once daily 2 05/20/2017 03/16/2022 omeprazole (PRILOSEC) 40 MG capsule 3 10/28/2015 08/03/2017 polyvinyl alcohol-povidone (REFRESH) 1.4-0.6 % ophthalmic solution 1 drop 3 times daily 08/03/2017 documented as of this encounter Plan of Treatment Upcoming Encounters Date Type Department Care Team (Late st Contact Info) Description 03/08/2024 10:45 AM PHARMACEUTICAL BOTANIST Office Visit [facility] ENT [address] [place] [phone] Mitul Canas MD [address] [place] [id number] documented as of this encounter Procedures Procedure Name Priority Date/Time Associated Diagnosis Comments US THYROID Routine 07/20/2017 3:42 PM CDT Thyroid nodule documented in this encounter Results * US THYROID (07/20/2017 [...] PM . Mitul Canas MD US ORDERABLES documented in this encounter Visit Diagnoses Diagnosis Thyroid nodule Nontoxic uninodular goiter documented in this encounter Care Teams Criminal Analyst Relationship Specialty Start Date End Date Cornelia Easley MD [address] [place] [phone] PCP - General 04/10/15 11/16/17 documented as of this encounter
--- OUTSIDE RECORDS SUMMARY | 2024-02-25 20:48 | XMS_ITS | Encounter Summary ---
Author Organization [facility] Address [address] [place] [address] Care Team Providers Care Environmental Education Specialist Name Role Phone Ruma Shrestha Primary Care Provi genoveva Reason for Visit * Reason Comments Establish Care Sleep Problem ent referral snores /daytime fatigue /headaches / no sleep test previously Encounter Details Date Type Department Care Team (Late st Contact Info) Description 12/06/2017 5:00 PM CDT Office Visit [facility] [address] [place] [address] Tamara Simon, APGERARDO-FOUNTAIN ROLLER ASSEMBLER [address] OF PULMONARY/[place] [address] JAYLEEN (obstructive sleep apnea) (Primary Dx); Restless legs syndrome (RLS); Shift work sleep disorder; Excessive daytime sleepiness; Chronic fatigue; Inadequate sleep hygiene; Hypnopompic hallucination; Neuropathy; Poor concentration; Gastroesophageal reflux disease, esophagitis presence not specified; Anxiety state; Obesity (BMI 30-39.9); SOB (shortness of breath) on exertion; Anemia, unspecified type; Essential hypertension; Claustrophobia Social History Tobacco Use Types Packs/Day Years Used Date Smoking Tobacco: Former Cigarettes 1 18.7 2 000 - 11/06/2017 Smokeless Tobacco: Never Tobacco Cessation:Counseling Given: Yes Alcohol Use Standard Drinks/Week Comments No 0 [...] Sign Reading Time Taken Comments Blood Pressure 151/86 12/06/2017 5:11 PM CDT Pulse 83 12/06/2017 5:11 PM CDT Temperature - - Respiratory Rate - - Oxygen Saturation - - Inhaled Oxygen Concentration - - Weight 97.1 kg (214 lb) 12/06/2017 5:11 PM CDT Height 157.5 cm (5' 2 ) 12/06/2017 5:11 PM CDT Body Mass Index 39.14 12/06/2017 5:11 PM CDT documented in this encounter Patient Instructions * Patient Instructions* Tamara Simon APNP-[employer]SEMBLER - 12/06/2017 6:35 PM CDT Images from the original note were not included. Sleep Apnea Sleep apnea is a sleep disorder characterized by abnormal pauses in breathing while you sleep. Whenyour breathing pauses, the level of oxygen in your blood decreases. This causes you to move out of deep sleep and into light sleep. As a result, your quality of sleep is poor, and the system that carries your blood throughout your body (cardiovascular system) experiences stress. If sleep apnea remains untreated, the following conditions can develop: ?? High blood pressure (hypertension). ?? Coronary artery disease. ?? Inability to achieve or maintain an erection (impotence). ?? Impairment of your thought process (cognitive dysfunction). There are three types of sleep apnea: 1. Obstructive sleep apnea--Pauses in breathing during sleep because of a blocked airway. 2. Central sleep apnea--Pauses in breathing during sleep because the area of the brain that controls your breathing does not send the correct signals to the muscles that control breathing. 3. Mixed sleep apnea--A combination of both obstructive and central sleep apnea. RISK FACTORS The following risk factors can increase your risk of developing sleep apnea: ?? Being overweight. ?? Smoking. ?? Having narrow passages in your nose and throat. ?? Being of older age. ?? Being male. ?? Alcohol use. ?? Sedative and tranquilizer use. ?? Ethnicity. Among individuals younger than 35 years, Americans are at increased risk of sleep apnea. SYMPTOMS ?? Difficulty staying asleep. ?? Daytime sleepiness and fatigue. ?? Loss of energy. ?? Irritability. ?? Loud, heavy snoring. ?? Morning headaches. ?? Trouble concentrating. ?? Forgetfulness. ?? Decreased interest in sex. ?? Unexplained sleepiness. DIAGNOSIS In order to diagnose sleep apnea, your caregiver will perform a physical examination. A sleep studydone in the comfort of your own home may be appropriate if you are otherwise healthy. Your caregiver may also recommend that you spend the night in a sleep lab. In the sleep lab, several monitors record information about your heart, lungs, and brain while you sleep. Your leg and arm movements and blood oxygen level are also recorded. TREATMENT The following actions may help to resolve mild sleep apnea: ?? Sleeping on your side. ?? Using a decongestant if you have nasal congestion. ?? Avoiding the use of depressants, including alcohol, sedatives, and narcotics. ?? Losing weight and modifying your diet if you are overweight. There also are devices and treatments to help open your airway: ?? Oral appliances. These are custom-made mouthpieces that shift your lower jaw forward and slightly open your bite. This opens your airway. ?? Devices that create positive airway pressure. This positive pressure splints your airway open to help you breathe better during sleep. The following devices create positive airway pressure: ?? Continuous positive airway pressure (CPAP) device. The CPAP device creates a continuous level ofair pressure with an air pump. The air is delivered to your airway through a mask while you sleep. This continuous pressure keeps your airway open. ?? Nasal expiratory positive airway pressure (EPAP) device. The EPAP device creates positive air pressure as you exhale. The device consists of single-use valves, which are inserted into each nostriland held in place by adhesive. The valves create very little resistance when you inhale but create much more resistance when you exhale. That increased resistance creates the positive airway pressure. This positive pressure while you exhale keeps your airway open, making it easier to breath when you inhale again. ?? Bilevel positive airway pressure (BPAP) device. The BPAP device is used mainly in patients with central sleep apnea. This device is similar to the CPAP device because it also uses an air pump to deliver continuous air pressure through a mask. However, with the BPAP machine, the pressure is set at two different levels. The pressure when you exhale is lower than the pressure when you inhale. ?? Surgery. Typically, surgery is only done if you cannot comply with less invasive treatments or if the less invasive treatments do not improve your condition. Surgery involves removing excess tissue in your airway to create a wider passage way. This information is not intended to replace advice given to you by your health care provider. Make sure you discuss any questions you have with your health care provider. Document Released: 01/21/2003 Document Revised: 02/21/2015 Document Reviewed: 06/08/2012 [employer] Interactive Patient Education ??2016 [employer] Sleep Apnea Sleep apnea is a sleep disorder characterized by abnormal pauses in breathing while you sleep. Whenyour breathing pauses, the level of oxygen in your blood decreases. This causes you to move out of deep sleep and into light sleep. As a result, your quality of sleep is poor, and the system that carries your blood throughout your body (cardiovascular system) experiences stress. If sleep apnea remains untreated, the following conditions can develop: ?? High blood pressure (hypertension). ?? Coronary artery disease. ?? Inability to achieve or maintain an erection (impotence). ?? Impairment of your thought process (cognitive dysfunction). There are three types of sleep apnea: 4. Obstructive sleep apnea--Pauses in breathing during sleep because of a blocked airway. 5. Central sleep apnea--Pauses in breathing during sleep because the area of the brain that controls your breathing does not send the correct signals to the muscles that control breathing. 6. Mixed sleep apnea--A combination of both obstructive and central sleep apnea. RISK FACTORS The following risk factors can increase your risk of developing sleep apnea: ?? Being overweight. ?? Smoking. ?? Having narrow passages in your nose and throat. ?? Being of older age. ?? Being male. ?? Alcohol use. ?? Sedative and tranquilizer use. ?? Ethnicity. Among individuals younger than 35 years, Americans are at increased risk of sleep apnea. SYMPTOMS ?? Difficulty staying asleep. ?? Daytime sleepiness and fatigue. ?? Loss of energy. ?? Irritability. ?? Loud, heavy snoring. ?? Morning headaches. ?? Trouble concentrating. ?? Forgetfulness. ?? Decreased interest in sex. ?? Unexplained sleepiness. DIAGNOSIS In order to diagnose sleep apnea, your caregiver will perform a physical examination. A sleep studydone in the comfort of your own home may be appropriate if you are otherwise healthy. Your caregiver may also recommend that you spend the night in a sleep lab. In the sleep lab, several monitors record information about your heart, lungs, and brain while you sleep. Your leg and arm movements and blood oxygen level are also recorded. TREATMENT The following actions may help to resolve mild sleep apnea: ?? Sleeping on your side. ?? Using a decongestant if you have nasal congestion. ?? Avoiding the use of depressants, including alcohol, sedatives, and narcotics. ?? Losing weight and modifying your diet if you are overweight. There also are devices and treatments to help open your airway: ?? Oral appliances. These are custom-made mouthpieces that shift your lower jaw forward and slightly open your bite. This opens your airway. ?? Devices that create positive airway pressure. This positive pressure splints your airway open to help you breathe better during sleep. The following devices create positive airway pressure: ?? Continuous positive airway pressure (CPAP) device. The CPAP device creates a continuous level ofair pressure with an air pump. The air is delivered to your airway through a mask while you sleep. This continuous pressure keeps your airway open. ?? Nasal expiratory positive airway pressure (EPAP) device. The EPAP device creates positive air pressure as you exhale. The device consists of single-use valves, which are inserted into each nostriland held in place by adhesive. The valves create very little resistance when you inhale but create much more resistance when you exhale. That increased resistance creates the positive airway pressure. This positive pressure while you exhale keeps your airway open, making it easier to breath when you inhale again. ?? Bilevel positive airway pressure (BPAP) device. The BPAP device is used mainly in patients with central sleep apnea. This device is similar to the CPAP device because it also uses an air pump to deliver continuous air pressure through a mask. However, with the BPAP machine, the pressure is set at two different levels. The pressure when you exhale is lower than the pressure when you inhale. ?? Surgery. Typically, surgery is only done if you cannot comply with less invasive treatments or if the less invasive treatments do not improve your condition. Surgery involves removing excess tissue in your airway to create a wider passage way. This information is not intended to replace advice given to you by your health care provider. Make sure you discuss any questions you have with your health care provider. Document Released: 01/21/2003 Document Revised: 02/21/2015 Document Reviewed: 06/08/2012 [employer] Interactive Patient Education ??2016 [employer]. Restless Legs Syndrome Restless legs syndrome is a condition that causes uncomfortable feelings or sensations in the legs,especially while sitting or lying down. The sensations usually cause an overwhelming urge to move the legs. The arms can also sometimes be affected. The condition can range from mild to severe. The symptoms often interfere with a person's ability to sleep. CAUSES The cause of this condition is not known. RISK FACTORS This condition is more likely to develop in: ?? People who are older than age 50. ?? women. In general, restless legs syndrome is more common in women than in men. ?? People who have a family history of the condition. ?? People who have certain medical conditions, such as iron deficiency, kidney disease, Parkinson disease, or nerve damage. ?? People who take certain medicines, such as medicines for high blood pressure, nausea, colds, allergies, depression, and some heart conditions. SYMPTOMS The main symptom of this condition is uncomfortable sensations in the legs. These sensations may be: ?? Described as pulling, tingling, prickling, throbbing, crawling, or burning. ?? Worse while you are sitting or lying down. ?? Worse during periods of rest or inactivity. ?? Worse at night, often interfering with your sleep. ?? Accompanied by a very strong urge to move your legs. ?? Temporarily relieved by movement of your legs. The sensations usually affect both sides of the body. The arms can also be affected, but this is rare. People who have this condition often have tiredness during the day because of their lack of sleep at night. DIAGNOSIS This condition may be diagnosed based on your description of the symptoms. You may also have tests,including blood tests, to check for other conditions that may lead to your symptoms. In some cases,you may be asked to spend some time in a sleep lab so your sleeping can be monitored. TREATMENT Treatment for this condition is focused on managing the symptoms. Treatment may include: ?? Self-help and lifestyle changes. ?? Medicines. HOME CARE INSTRUCTIONS ?? Take medicines only as directed by your health care provider. ?? Try these methods to get temporary relief from the uncomfortable sensations: ?? Massage your legs. ?? Walk or stretch. ?? Take a cold or hot bath. ?? Practice good sleep habits. For example, go to bed and get up at the same time every day. ?? Exercise regularly. ?? Practice ways of relaxing, such as yoga or meditation. ?? Avoid caffeine and alcohol. ?? Do not use any tobacco products, including cigarettes, chewing tobacco, or electronic cigarettes. If you need help quitting, ask your health care provider. ?? Keep all follow-up visits as directed by your health care provider. This is important. SEEK MEDICAL CARE IF: Your symptoms do not improve with treatment, or they get worse. This information is not intended to replace advice given to you by your health care provider. Make sure you discuss any questions you have with your health care provider. Restless Legs Syndrome BROUSSARD POINTS ?? Restless legs syndrome (RLS) is aching, twitching, tingling, burning, or prickling feelings in your legs when you lie in bed or are sitting. You may have uncontrollable, and sometimes overwhelming, urges to move your legs. ?? If your symptoms are mild, you may not need medical treatment. You may feel better with stretching, massage, or relaxation exercises. Your healthcare provider may prescribe medicine to help you sleep. ?? Follow your healthcare provider's advice for relief of your RLS symptoms. It may help if you avoid smoking, caffeine, and alcohol, and get exercise that's right for you. What is restless legs syndrome? Restless legs syndrome (RLS) is aching, twitching, tingling, burning, or prickling feelings in yourlegs when you lie in bed or are sitting. You may have uncontrollable, and sometimes overwhelming, urges to move your legs. Moving your legs or getting up and standing or walking may make your legs feel better, but not for long. RLS is also called Jackson-Ekbom disease. RLS can cause trouble sleeping (insomnia). What is the cause? The exact cause of RLS is not known. It tends to run in families. It is more common after middle age and happens more often in women than in men. Conditions that may be linked to RLS include: ?? Nerve damage ?? Drinking a lot of alcohol ?? Smoking ?? Too much caffeine ?? Health problems such as Parkinson's disease, rheumatoid arthritis, low blood levels of iron, anemia, or diabetes ?? Use of some medicines ?? Dialysis ?? The problem may get worse when you have been lying in bed or sitting for a long time. What are the symptoms? Symptoms may include: ?? Strong urges to move your legs ?? Aching, twitching, tingling, burning, or prickling in your legs when you are lying down or sitting ?? Relief from the symptoms when you move, especially if you get up and walk The symptoms start or get worse in the evening or at night. Leg cramps and occasional, sudden jerking of legs or arms are not symptoms of RLS. How is it diagnosed? Your healthcare provider will ask about your symptoms and medical history and examine you. Tests may include: ?? Blood tests ?? An EMG (electromyogram), which uses needles passed through your skin to send mild electric signals and check how your nerves and muscles respond Your healthcare provider may suggest that you get tested for sleep apnea. With a sleep apnea study or at a sleep center, you will have a continuous, all-night recording of your breathing, eye movements, muscle tone and muscle movement, blood oxygen levels, heart rate and rhythm, and brain waves. How is it treated? If your symptoms are mild, you may not need medical treatment. Here are some things you can do thatmay help relieve your symptoms: ?? Stretch or massage your leg muscles before going to sleep. ?? Practice relaxation methods. ?? Ask your provider about wearing elastic compression socks up over your calves. Use a covered hotwater bottle or cold moist cloths (whichever works best for you) on painful areas before you go to sleep. ?? Take a warm bath before bedtime. If these steps do not help, your healthcare provider may prescribe medicine to relieve the symptomsand help you sleep better. Medicine is helpful but not a cure. Getting more iron if you don???t have enough iron in your blood sometimes helps ease the symptoms. How can I take care of myself? Follow your healthcare provider's advice for relief of your RLS symptoms. You may need to: ?? Avoid or cut back on caffeine (coffee, tea, cocoa, cola). ?? Avoid or cut back on alcohol. ?? Stay fit with the right kind of exercise for you. ?? Practice good sleep hygiene and keep a sleep diary. ?? If you smoke, try to quit. Talk to your healthcare provider about ways to quit smoking. ?? Join a support group. Support groups can help by sharing common concerns and solutions to problems with others in the same situation. Contact your healthcare provider if you have new or worsening symptoms. You can get more information from: ?? Jackson-Ekbom Disease Foundation https://www.rls.org Developed by [employer]. Adult Advisor 2017.4 published by [employer]. Last modified: 2015-12-02 Last reviewed: 2015-05-29 This content is reviewed periodically and is subject to change as new health information becomes available. The information is intended to inform and educate and is not a replacement for medical evaluation, advice, diagnosis or treatment by a healthcare professional. References Adult Advisor 2017.4 Index Copyright ?? 2017 [employer], a division of [employer]. All rights reserved. Losing Weight BROUSSARD POINTS ?? If you want to lose weight, you need a safe, healthy, well-balanced weight- loss plan. However, you also need to change your physical activity habits. ?? Keep track of how many calories you take in, and how many calories you burn each day. Eating 500calories a day less than you need to keep your weight can result in a loss of 1 pound a week. Talk with your healthcare provider or a dietitian about the right calorie goal for you to lose weight in a healthy way. ?? A healthy goal for all adults is to exercise for 30 minutes a day for 5 days a week. Some peoplewill need to do up to 5 hours of physical activity a week to help them lose weight. Ask your healthcare provider what kinds and amounts of exercise might be right for you. Why do I need to lose weight if I am overweight? Being overweight increases your risk for high blood pressure, heart disease, stroke, diabetes, and some forms of cancer. If you are overweight, losing just 5 to 10% of your weight and keeping it off lowers your risk for developing most of these diseases. Losing weight can also help relieve stress on your joints, muscles, and bones. How can I know if I am overweight? For most adults, your waist size and body mass index (BMI) are good ways to tell whether you are overweight. Your provider will measure your waist at the point below your ribcage but above your navel. Your waist size is a measure of your belly fat. Your health risks increase as your BMI and waist size get larger. A waist size more than 40 inches for men or 35 inches for women puts you at risk for type 2 diabetes, heart disease, and stroke. BMI is determined by looking up your height and weight on a BMI chart. A BMI of at least 25 indicates overweight. A BMI of 30 or more means that you are obese. Note that the BMI score may not be an accurate way to measure body fat if you are athletic or have a muscular build. It may underestimate body fat in older people and people who have lost muscle mass. Your provider will use a different chart if you are . The chart can also be used as a guide for normal weight gain during . Your healthcare provider can tell you if you have an increased risk of health problems because of your weight. Your provider can also help you find a weight- loss program that works for you. What are calories? Calories are a way to measure the energy value of food. Your body needs the right amount of calories for you to have the energy to do things. How many calories you should eat depends on your age, activity level, and whether you are trying to gain, maintain, or lose weight. If you want to stay at your current weight, eat the same number of calories as you burn every day. If you want to lose weight, you need to eat fewer calories and increase your physical activity. Eating 500 calories a day less than you need to keep your weight can result in a loss of 1 pound a week. Most weight loss diets suggest 1200 to 1500 calories a day for women and 1500 to 1800 caloriesa day for men. However, your calorie needs may be different. Talk with your healthcare provider or a dietitian about the right calorie goal for you to lose weight in a healthy way. What can I do to lose weight? If you want to lose weight, you need a safe, healthy, well-balanced weight-loss plan. However, you also need to change your physical activity habits. Keep track of how many calories you take in, and how many calories you burn each day. You could use a journal or a calorie calculator. There are manyfree online tools to help track diet and calories. These tools can provide daily and weekly calorie totals for you. The best sources for information about a safe, healthy, effective weight loss program are dietitians and healthcare providers. Here are some general guidelines: ?? Write down everything you eat and drink. This lets you see if you are eating a good variety of foods. It can help you count your daily calories. ?? Do not fast or follow fad diets. ?? Don???t skip meals. It???s especially important that you eat a healthy breakfast. ?? It is helpful to drink a lot of water. A quick way to check that you are getting enough fluids is to look at the color of your urine. The urine should be pale yellow. ?? Choose unlimited amounts of vegetables and salads, but take care to add only small amounts of dressings and sauces to these foods. ?? Choose healthy fats (olive, canola, and soybean oils and the fat found in nuts, seeds, soybeans,fish, and avocado) ?? Choose: ?? Lean meats, poultry, fish, or soy protein ?? Baked or broiled meat, fish, or poultry ?? Salad dressing containing little or no oil ?? Include the following foods in your diet every day: ?? Nonfat dairy products ?? Lentils, peas, beans, and nuts ?? Whole grain products such as whole wheat bread, whole oats or oatmeal, whole grain cereals without sugar, brown rice, bulgur (cracked wheat), and popcorn without added fat. ?? Raw fruit, unsweetened frozen fruit, and canned fruit in its own juice, water, or light syrup Limit how much you eat of the following: ?? Sugar and foods with a lot of added sugar. Foods with sugar can fit into a weight loss plan if they are eaten in small portions and not too often. Look for snack foods that are 100-calories per serving to help you with portion and calorie control. ?? Refined grain products such as white rice and white flour. Eat products made with whole grains instead of white flour whenever you can. ?? Saturated fats such as the fat in meat, poultry skin, butter, cheese, and other whole-milk products, and trans fats found in stick margarine, shortening, and many snack foods such as crackers, chips, and sweet baked goods. Look for products that have less than 2 grams of saturated fat per serving and 0 grams trans fat per serving. Even healthy fats, such as canola, olive, peanut, and flaxseed oil are high calorie. Try to keep added fats to no more than a few tablespoons a day. ?? High-fat snack foods and fried foods. ?? Processed foods and meats because they are often high in fat, salt, and preservatives. Look for low-fat, low-salt products and fresh, unprocessed foods. ?? Alcohol. Men should have no more than 2 servings a day and women should have no more than 1 serving a day. Alcoholic drinks have calories without nutrition. ?? Sit down and relax while you eat your meals. Avoid distractions such as the phone and TV. Chewing your food thoroughly helps digestion. Eating 4 to 6 small meals instead of 3 large meals per day may be helpful. This keeps your blood glucose at a constant level and helps keep you from feeling hungry. Finish your meals with a piece of fruit instead of a sweet dessert. What are the physical activity guidelines for losing weight? Physical activity is a very important part of a successful weight-loss program. Once you reach a lower weight, exercise may help you stay at that weight. A healthy goal for all adults is to exercise for 30 minutes a day for 5 days a week (or 2 hours and30 minutes or more each week), in addition to your regular activities. You don't need to do 30 minutes of activity all at once. You can do shorter periods, at least 10 minutes each time. Some people will need to do up to 5 hours of physical activity a week to help them lose weight. Almost any activity that involves mild to moderate effort is good. You may choose to walk, jog, swim, cycle, or do aerobics. Walking is a great way for almost everyone to get more exercise. Using a pedometer can be fun and motivating. A pedometer is a device that attaches to your clothing and tracks how many steps you take in a day. A good goal is to work up to 10,000 steps a day (5 miles). Strength training will make your muscles stronger and able to work longer without getting tired. Strength training, or weight training, means doing exercises that build muscle strength. To build muscle you can lift free weights, use weight machines, use resistance bands, or use your own bodyweight,such as doing push-ups, pull-ups, or sit-ups. Muscle mass robertson more calories than fat so as your muscle increases, you burn more calories. Ask your healthcare provider what kinds and amounts of exercise might be right for you. Developed by [employer]. Adult Advisor 2017.4 published by [employer]. Last modified: 2015-04-01 Last reviewed: 2016-02-23 This content is reviewed periodically and is subject to change as new health information becomes available. The information is intended to inform and educate and is not a replacement for medical evaluation, advice, diagnosis or treatment by a healthcare professional. documented in this encounter Progress Notes * Tamara Simon APNP-CNP - 12/06/2017 5:24 PM CDT Maribell Jordan 1980 12/06/2017 Mitul Caans MD [address] [place] [address] Chief Complaint Patient presents with ??? Establish Care ??? Sleep Problem ent referral snores /daytime fatigue /headaches / no sleep test previously HPI: When ENT scoped throat told has [...] never had an accident due to sleepiness. Ashley Sleep Scale - 10 Fatigue Severity Scale - 37 Sleep Schedule: 7pm to 5 am [facility] Bedtime Workdays 530-6 am Weekends/Off days [...] 10 am to 2 pm Snoring intensity: [place] when outside room, door open Witnessed apneas: [...] watching wheezing heartburn/acid reflux nocturia: frequency ?/night PAST MEDICAL HISTORY: Past Medical History: Diagnosis Date ??? Allergic rhinitis due to animal hair and dander 08/03/2017 ??? Anemia ??? Anxiety 11/02/2017 ??? Bronchitis recurrent ??? Chest discomfort 11/02/2017 ??? Concussion no LOC ??? Diabetes mellitus 10/16/2015 ??? Frequent headaches ??? Gastroesophageal reflux disease 11/02/2017 ??? Globus sensation 08/11/2017 ??? Hemorrhoids ??? Hypertensive disorder 11/02/2017 ??? Hypnopompic hallucination ??? Memory problem ??? Multiple thyroid nodules ??? Non-seasonal allergic rhinitis due to pollen 08/03/2017 ??? Obesity (BMI 30-39.9) ??? PND (post-nasal drip) 08/11/2017 ??? Restless legs syndrome (RLS) ??? Smoking 08/11/2017 ??? Snoring 08/11/2017 ??? Vitamin D deficiency PSYCHIATRIC HISTORY: Patient reports anxiety Patient denies history of: panic disorder, attention-deficit hyperactivity disorder (ADHD), bipolardisorder, dementia, depression, obsessive/compulsive disorder, schizophrenia and suicide attempt PAST SURGICAL HISTORY: Past Surgical History: Procedure Laterality Date ??? Breast Lumpectomy fibroid ??? Section x3 ??? COLONOSCOPY ??? Ovarian Cyst Removal ??? Tonsillectomy and Adenoidectomy Denies history of: bariatric (obesity) surgery, cleft palate repair, mouth or facial surgery, and nasal trauma or surgery ALLERGIES: Allergies Allergen Reactions ??? Lisinopril Itching and Cough Knot in throat feeling ??? Amlodipine Base Other Throat feels funny ??? Losartan Itching Also feels like knot in throat after couple weeks MEDICATIONS: Current Outpatient Prescriptions: ??? TRUE METRIX BLOOD GLUCOSE TEST test strip, , Disp: , Rfl: ??? potassium chloride (KLOR-CON 10) 10 MEQ tablet, Take 1 tablet as needed by oral route., Disp: ,Rfl: ??? PRO COMFORT LANCETS 31G [facility], , Disp: , Rfl: ??? loratadine (CLARITIN) 10 MG tablet, qd, Disp: , Rfl: ??? Magnesium 400 MG, every 2 days, Disp: , Rfl: ??? hydroCHLOROthiazide (HYDRODIURIL) 12.5 MG, Take 1 tablet every day by oral route., Disp: , Rfl: ??? raNITIdine (ZANTAC) 150 MG tablet, Take 1 tablet by mouth 2 times daily, Disp: , Rfl: 2 ??? azelastine (OPTIVAR) 0.05 % ophthalmic solution, Instill 1 drop into both eyes 2 times daily, Disp: , Rfl: 3 ??? Carboxymethylcellulose Sodium (REFRESH LIQUIGEL OP), 2 drops by Ophthalmic route as needed, Disp: , Rfl: ??? CROMOLYN SODIUM OP, 2 drops by Ophthalmic route as needed, Disp: , Rfl: ??? EPINEPHrine (EPIPEN) 0.3 MG/0.3ML auto-injector pen, Inject 0.3 mL into muscle as needed for Anaphylaxis, Disp: 1 Each, Rfl: 0 ??? metFORMIN (GLUCOPHAGE) 500 MG tablet, TK 1 T PO ONCE A DAY, Disp: , Rfl: 3 ??? montelukast (SINGULAIR) 10 MG tablet, TK 1 T PO HS, Disp: , Rfl: 2 ??? fluticasone propionate (FLONASE) 50 MCG/ACT nasal spray, Minerva 1 spray into each nostril DAILY., Disp: 1 bottles, Rfl: 3 ??? sucralfate (CARAFATE) 1 GM tablet, Take 1 tablet by mouth 4 times daily as needed, Disp: , Rfl:0 ??? busPIRone (BUSPAR) 5 MG tablet, Take 1 tablet by mouth once daily, Disp: , Rfl: 0 ??? ARTIFICIAL TEARS 1.4 % ophthalmic solution, , Disp: , Rfl: 6 IMMUNIZATIONS There is no immunization history on file for this patient. FAMILY HISTORY: Family History Problem Relation Age of Onset ??? Hypertension Mother ??? Coronary Artery Disease Father ??? Hypertension Father ??? CVA Father ??? 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 Shift work: Yes Frequency of shift changes: Straight nights Social History Social History ??? Marital status: Single Spouse name: N/A ??? Number of children: 2 ??? Years of education: 13 Occupational History ??? 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 Smoking status: Former Smoker Packs/day: 1.00 Years: 18.00 Types: Cigarettes Start date: 1999 Quit date: 11/06/2017 ??? Smokeless tobacco: Never Used ??? Alcohol use No Comment: former heavy drinking after work and weekends, 1/2 pint/d2017 rare alcohol ??? Drug use: No ??? Sexual activity: Yes Partners: Male control/ protection: Condom, IUD Other Topics Concern ??? Not on file Social History Narrative Coffee: per Cola: per Tea: hot tea when throat irritated per Energy drinks: per Exercise Schedule: No exercise PHYSICAL EXAMINATION: Visit Vitals Vitals: 12/06/17 1711 BP: 151/86 Pulse: 83 Weight: 214 lb (97.1 kg) Height: 5' 2 (1.575 m) Body mass index is 39.14 kg/(m^2). General Appearance: alert, well appearing, and in no distress, oriented to person, place, and time and obese Face: no creases, no pressure sores, no redness Chin: orthognathia Neck: circumference: 15.5 in and increased thryomental angle Eyes: normal and EOM's intact Ear: normal external and dull tm with fluid Nasal: nasal congestion, nasal drainage and bad odor Oropharynx: Mallampati 4 and scalloping of tongue Breath Sounds: Vesicular, no adventitious sounds Respiratory: normal effort Cardiac: RRR, widely split Clubbing: No Cyanosis No Lower extremity edema: 1+ Screening neurologic exam: Cranial nerves intact Motor: strength 5/5 all extremities, normal bulk/tone and coordination and gait normal: Yes REVIEW OF DATA: No labs US Thyroid 1. Decreased size of mid-superior right thyroid lobe nodule to 3 mm, previously 10 mm. This lesion no longer meets criteria for follow-up or biopsy. 2. Multiple other hypoechoic nodules measuring up to 5 mm in the thyroid lobes. These lesions do not meet criteria for follow-up or biopsy. ?? Reports having had echo within past month and all ok. Having stress echo end of month-[facility] ASSESSMENT: JAYLEEN probable RLS Shift work sleep disorder Excessive daytime sleepiness Chronic fatigue Inadequate sleep hygiene Hypnopompic hallucinations Neuropathy Poor concentration GED Anxiety state Obesity SOB exertion Claustrophobia in elevators and trapped in traffic PLAN: Full night polysomnograpy: Diagnostic HST Serum iron, ferritin, MMA, folate-get labs from PCP/psych Complete PFT with bronchodilator Discussed the patient's risk for JAYLEEN based on history and physical findings as well as the complications of JAYLEEN. Explained the procedure for the sleep study including the monitoring. Sinus rinse sample RTC: Post PSG Visit lasted for 70 minutes. More than 50% of visit was direct [id number], including counseling and coordination of care. Tamara Simon, Ph.D.c, D.N.P, A.N.P.-B.C. Adult Nurse Practitioner reinforcing steel worker wire mesh Director, [facility] These notes have been electronically signed by Tamara Simon APN as the Authorizing and/or the Encounter Provider in the [facility]. 12/06/2017 documented in this encounter Plan of Treatment Upcoming Encounters Date Type Department Care Team (Late st Contact Info) Description 03/08/2024 10:45 AM FABRIC AND ACCESSORIES ESTIMATOR Office Visit [facility] - ENT [address], [place] [address] Mitul Canas MD [address] [place] [address] Scheduled Orders Name Type Priority Associated Diagnoses Orde r Schedule PROC HOME SLEEP STUDY TEST Procedures Routine JAYLEEN (obstructive sleep apnea) Excessive daytime sleepiness Chronic fatigue Obesity (BMI 30-39.9) Essential hypertension Ordered: 12/06/2017 documented as of this encounter Visit Diagnoses Diagnosis JAYLEEN (obstructive sleep apnea)- Primary Obstructive sleep apnea (adult) (pediatric) Restless legs syndrome (RLS) Shift work sleep disorder Circadian rhythm sleep disorder, shift work type Excessive daytime sleepiness Chronic fatigue Other malaise and fatigue Inadequate sleep hygiene Other specific disorder of sleep of nonorganic origin Hypnopompic hallucination Hallucinations Neuropathy Mononeuritis of unspecified site Poor concentration Attention or concentration deficit Gastroesophageal reflux disease, esophagitis presence not specified Anxiety state Anxiety state, unspecified Obesity (BMI 30-39.9) Obesity, unspecified SOB (shortness of breath) on exertion Shortness of breath Anemia, unspecified type Essential hypertension Claustrophobia Other isolated or specific phobias documented in this encounter Care Teams Environmental Education Specialist Relationship Specialty Start Date End Date Ruma Shrestha, FANI-FOUNTAIN ROLLER ASSEMBLER PCP - General 11/17/17 documented as of this encounter
--- OUTSIDE RECORDS SUMMARY | 2024-02-25 20:48 | XMS_ITS | Encounter Summary ---
Author Organization [facility] Address [address] [place] [address] Care Team Providers Care Associate Programmer Analyst Name Role Phone Ruma hSrestha NP Primary Care Provider + Reason for Referral * MRI/CAT/PET Scan (Routine) - Authorized Specialty Diagnoses / Procedures Referred By Anaac t Referred To Contact Radiology Diagnoses Cyst of right ovary Procedures MRI Pelvis W WO Contrast MRI Pelvis W Contrast Jeancarlos Sotomayor MD [address] [place] [address] [address] [place] [address] Phone: tel: fax: [address] [address] Referral ID Status Reason Start Date Expiration Date V isits Requested Visits Authorized [id number] Authorized 01/09/2024 02/07/2025 1 1 ERCIAL ESTIMATOR Reason for Visit * Reason Comments New Patient Referred by [facility] for abnormal pelvic ultrasound done in September. C/w Right adnexal lesion, 2.9cm. warrants an MRI Encounter Details Date Type Department Care Team (Late st Contact Info) Description 01/09/2024 12:00 PM COMMERCIAL ESTIMATOR Office Visit [facility] Obstetrical Gynecology [address] [place] [address] Jeancarlos Sotomayor MD [address] [place] [address] [address] [place] [address] Cyst of right ovary (Primary Dx) Social History Tobacco Use Types [...] on file Legal Sex Female 5:42 AM COMMERCIAL ESTIMATOR Gender Identity Not on file Sexual Orientation Not on file documented as of this encounter Last Filed Vital Signs Vital Sign Reading Time Taken Comments Blood Pressure 152/90 01/09/2024 11:53 AM COMMERCIAL ESTIMATOR Pulse - - Temperature - - Respiratory Rate - - Oxygen Saturation - - Inhaled Oxygen Concentration - - Weight 96.2 kg (212 lb) 01/09/2024 11:53 AM COMMERCIAL ESTIMATOR Height 157.5 cm (5' 2 ) 01/09/2024 11:53 AM COMMERCIAL ESTIMATOR Body Mass Index 38.78 01/09/2024 11:53 AM COMMERCIAL ESTIMATOR documented in this encounter Progress Notes * Jeancarlos Sotomayor MD - 01/09/2024 12:00 PM CST Images from the original note were not included. Subjective/Objective Patient ID: Maribell Jordan is a 43 y.o. female. Chief Complaint New Patient (Referred by [facility] for abnormal pelvic ultrasound done in September. C/w Right adnexal lesion, 2.9cm. warrants an MRI) HPI: 43-year-old 7, para 3 who presents to the office for abnormal ultrasound. Recently received an ultrasound from outlying facility due to inability to visualize IUD string. IUD was noted to be placed appropriately. Incidental finding of a right adnexal mass, 2.9 x 2.5 x 2.3 cm. Predominantly solid with small cystic components. Echogenic calcifications also present. Smooth margins. O-RADS score: 4 Asymptomatic. Denies any pain or cramping. Periods are regular on ParaGard IUD. Inserted for 5 years ago. x3 Status post ovarian cystectomy by Dr. Ovalle 15+ years ago. Review of Systems Constitutional: Negative for appetite change, chills, diaphoresis, fatigue and fever. Eyes: Negative for visual disturbance. Respiratory: Negative for cough and shortness of breath. Cardiovascular: Negative for chest pain. Gastrointestinal: Negative for abdominal distention, abdominal pain, blood in stool, constipation, diarrhea, nausea and vomiting. Endocrine: Negative for polyuria. Genitourinary: Negative for dyspareunia, dysuria, frequency, hematuria, pelvic pain, urgency and vaginal discharge. Musculoskeletal: Negative for back pain. Skin: Negative for rash. Neurological: Negative for dizziness, syncope, light-headedness and headaches. Psychiatric/Behavioral: Negative for self-injury, sleep disturbance and suicidal ideas. The patientis not nervous/anxious. Breast: Negative for tenderness, breast discharge and lump(s). Physical Exam Vitals and nursing note reviewed. Exam conducted with a cullet crusher present. Constitutional: Appearance: Normal appearance. HENT: Head: Normocephalic. Abdominal: Palpations: Abdomen is soft. There is no mass. Tenderness: There is no abdominal tenderness. Genitourinary: Comments: No lesions noted, vault is clear without discharge or blood, cervix nontender, uterus notenlarged nontender, no adnexal mass appreciated. Skin: General: Skin is warm and dry. Neurological: General: No focal deficit present. Mental Status: She is alert and oriented to person, place, and time. Psychiatric: Mood and Affect: Mood normal. Judgment: Judgment normal. Assessment/Plan Diagnoses and all orders for this visit: Cyst of right ovary (N83.201) (Primary) - MRI Pelvis W Contrast; Future - CA 125; Future - Cancer antigen 19-9; Future Reviewed previous imaging and clinical findings. Discussed at length ,with an O rads reading of 4, more times than not this is a benign process. Discussed possible need for referral to vacuum truck driver Oncology based on MRI results. All questions answered and understood. We will call her with results. If negative lab work and benign-appearing cyst, most likely repeat an ultrasound in 4-6 months for stability or resolution. *This note is dictated using datatracker voice recognition software, variances in spelling and vocabulary are possible and unintentional* ERCIAL ESTIMATOR documented in this encounter Plan of Treatment Scheduled Orders Name Type Priority Associated Diagnoses Orde r Schedule CA 125 Lab Routine Cyst of right ovary Expected: 01/09/2024, Expires: 01/08/2025 Cancer antigen 19-9 Lab Routine Cyst of right ovary Expected: 01/12/2024, Expires: 01/08/2025 MRI Pelvis W WO Contrast Imaging Schedule Routine, Read Routine (OP Routine) Cyst of right ovary Expected: 01/09/2024, Expires: 01/08/2025 documented as of this encounter Visit Diagnoses Diagnosis Cyst of right ovary- Primary Other and unspecified ovarian cyst documented in this encounter Discontinued Medications Medication Sig Discontinue Reason Start Date End Da te SITagliptin phosphate (Januvia) 100 mg tablet Take 1 tablet (100 mg total) by mouth daily Therapy completed 01/09/2024 traMADoL (ULTRAM) 50 mg tablet Take 1 tablet (50 mg total) by mouth every 6 (six) hours Alternate therapy 12/07/2021 01/09/2024 documented as of this encounter Historical Medications * This list may reflect changes made after this encounter. potassium chloride ER 10 mEq CR tablet Take 1 tablet/capsule (10 mEq total) by mouth once mupirocin (BACTROBAN) 2 % ointment APPLY TOPICALLY TO THE AFFECTED AREA THREE TIMES DAILY 01/05/2024 metFORMIN (GLUCOPHAGE) 500 mg tablet 1 tablet (500 mg total) 11/10/2018 magnesium oxide (MAG-OX) 400 mg (241.3 mg elemental magnesium) tablet every 48 hours hydrOXYzine (ATARAX) 10 mg tablet Take 1 tablet (10 mg total) by mouth 3 (three) times a day 12/31/2019 hydroCHLOROthiaz tania 12.5 mg tablet Take 1 tablet (12.5 mg total) by mouth daily ferrous sulfate 325 mg (65 mg of elemental iron) tablet daily ergocalciferol (VITAMIN D) 50,000 unit capsule TAKE 1 CAPSULE BY MOUTH EVERY WEEK DIRECTED 02/27/2021 cephalexin (KEFLEX) 500 mg capsule TAKE 1 CAPSULE BY MOUTH TWICE DAILY FOR 7 DAYS 01/05/2024 azelastine (ASTELIN) 137 mcg (0.1 %) nasal spray Administer 1 spray into affected nostril(s) 2 (two) times a day 01/05/2024 SITagliptin phosphate (Januvia) 100 mg tablet Take 1 tablet (100 mg total) by mouth daily 4 added in this encounter Care Teams Associate Programmer Analyst Relationship Specialty Start Date End Date Ruma Shrestha NP PCP - General 05/30/18 documented as of this encounter
--- OUTSIDE RECORDS SUMMARY | 2024-02-25 20:48 | XMS_ITS | Encounter Summary ---
Author Organization [facility] Address [address] [place] [address] Care Team Providers Care Packer Denture Name Role Phone Unavailable Primary Care Provider Unavailabl e Encounter Details Date Type Department Care Team (Late st Contact Info) Description 12/29/2019 3:00 PM DIGITAL ASSET SPECIALIST Rapid Evaluation [place] [facility] Community Testing [facility] [address] [place] [address] Social History Tobacco Use Types Packs/Day Years Used Date Smoking Tobacco: Never Assessed Comments Unknown Sex and Gender Information Value Date Recorded Sex Assigned at Not on file Legal Sex Female 2:35 PM DIGITAL ASSET SPECIALIST Gender Identity Not on file Sexual Orientation Not on file documented as of this encounter Plan of Treatment Not on file documented as of this encounter Visit Diagnoses Not on filedocumented in this encounter
--- OUTSIDE RECORDS SUMMARY | 2024-02-25 20:48 | XMS_ITS | Referral Summary ---
Author Organization [facility] Address [address] [place] [address] Care Team Providers Care Customer Marketing Intern Name Role Phone Ruma Shrestha NP Primary Care Provider + Encounters Date Type Department Care Team Description 01/09/2024 12:00 PM PVC LOADER Office Visit [facility] Obstetrical Gynecology [address] [place] [address] Jeancarlos Sotomayor MD Cyst of right ovary (Primary Dx) from Last 3 Months Allergies Active Allergy [...] Active Active Problems No known active problems Social History Tobacco Use Types Packs/Day Years [...] on file Legal Sex Female 5:42 AM PVC LOADER Gender Identity Not on file Sexual Orientation Not on file Last Filed Vital Signs Vital Sign Reading Time Taken Comments Blood Pressure 152/90 01/09/2024 11:53 AM PVC LOADER Pulse 77 01/08/2023 1:51 AM PVC LOADER Temperature 37 ??C (98.6 ??F) 01/08/2023 12:34 AM PVC LOADER Respiratory Rate 16 01/08/2023 1:51 AM PVC LOADER Oxygen Saturation 100% 01/08/2023 1:51 AM PVC LOADER Inhaled Oxygen Concentration - - Weight 96.2 kg (212 lb) 01/09/2024 11:53 AM PVC LOADER Height 157.5 cm (5' 2 ) 01/09/2024 11:53 AM PVC LOADER Body Mass Index 38.78 01/09/2024 11:53 AM PVC LOADER Plan of Treatment Not on file Insurance [facility] Care Teams Customer Marketing Intern Relationship Specialty Start Date End Date Ruma Shrestha NP PCP - General 05/30/18
--- OUTSIDE RECORDS SUMMARY | 2024-02-25 20:48 | XMS_ITS | Clinical Summary ---
Author Organization [facility] Address [address] [place] [address] Care Team Providers Care Nursing Services Manager Name Role Phone Unavailable Primary Care Provider Unavailabl e Social History Tobacco Use Types Packs/Day Years Used Date Smoking Tobacco: Never Assessed Comments Unknown Sex and Gender Information Value Date Recorded Sex Assigned at Not on file Legal Sex Female 2:35 PM BALANCING MACHINE SET UP WORKER Gender Identity Not on file Sexual Orientation Not on file Plan of Treatment Health Maintenance Due Date Last Done Comments Hepatitis C Virus (HCV) Screening 1980 TdaP Immunization 1980 Hepatitis B Immunization (1 of 3 - 19+ 3-dose series) 05/12/1999 Pap Smear 2001 Cervical Cancer Screening (CCS) 2010 HPV/Cotest 2010 Discussion re Starting/Frequ ency of Mammograms 2020 Influenza Immunization (#1) 2023 SARS-COV-2 Immunization ( season) 2023 Respiratory Syncytial Virus (RSV) Immunization (Adult) (1 - 1-dose 75+ series) 05/12/2055 Meningococcal Immunization (ACWY) Aged Out No longer eligible based on patient's age to complete this topic Pneumococcal Immunization Combined Aged Out No longer eligible based on patient's age to complete this topic Rotavirus Immunization Aged Out No lo nger eligible based on patient's age to complete this topic
--- OUTSIDE RECORDS SUMMARY | 2024-02-25 20:48 | XMS_ITS | Encounter Summary ---
Author Organization [facility] Address [address] [facility] [place] [address] Care Team Providers Care Admitting Representative Name Role Phone Cornelia Easley MD Primary Care Provider Encounter Details Date Type Department Care Team (Latest Contact Info) Description 12/01/2015 Hospital Outpatient Visit Historic [facility] [address] [place] [phone] Mitul Canas MD [address] [place] [id number] Discharge Disposition: Home or Self Care Social [...] st Contact Info) Description 03/08/2024 10:45 AM CONCRETE CURER Office Visit [facility] [address] [place] [phone] Mitul Canas MD [facility] [address] documented as of this encounter Visit Diagnoses Not on filedocumented in this encounter Care Teams Admitting Representative Relationship Specialty Start Date End Date Cornelia Easley MD [address] [place] [address] PCP - General 04/10/15 11/16/17 documented as of this encounter
--- OUTSIDE RECORDS SUMMARY | 2024-02-25 20:48 | XMS_ITS | Encounter Summary ---
Author Organization [facility] Address [address] [facility] [place] [address] Care Team Providers Care Electromechanical Assembly Technician Name Role Phone Ruma Shrestha DIVISION SALES MANAGER-COVERSTITCH ELASTIC ATTACHER Primary Care Provi genoveva Encounter Details Date Type Department Care Team (Late st Contact Info) Description 11/17/2017 9:30 AM CDT Office Visit [facility] [address] [facility] [address] [place] [address] Mitul Canas MD [address] [facility] [address] [place] [address] Seasonal allergic rhinitis due to pollen (Primary [...] as of this encounter Progress Notes * Mitul Canas MD - 11/17/2017 8:32 PM CDT History of Present Illness: 37 y.o. with a h/o sleep study pending still has some nasal congestion. Review of Systems: ROS x 11 was performed and was negative except for nasal congestion No past medical history on file. PSH: has no past surgical history on file. Current Outpatient Prescriptions Medication Sig Dispense Refill ??? fexofenadine (GLENNY) 180 MG tablet TK 1 T PO ONCE D 4 ??? hydroCHLOROthiazide (MICROZIDE) 12.5 MG capsule hydrochlorothiazide 12.5 mg capsule ??? NICOTINE STEP 1 21 MG/24HR patch ??? raNITIdine (ZANTAC) 150 MG tablet Take 1 tablet by mouth 2 times daily 2 ??? sucralfate (CARAFATE) 1 GM tablet Take 1 tablet by mouth 4 times daily as needed 0 ??? busPIRone (BUSPAR) 5 MG tablet Take 1 tablet by mouth once daily 0 ??? metoprolol tartrate (LOPRESSOR) 50 MG tablet Take 1 tablet by mouth 2 times daily 1 ??? cetirizine (ZYRTEC) 10 MG tablet Take 1 tablet by mouth once daily 30 tablet 3 ??? azelastine (OPTIVAR) 0.05 % ophthalmic solution Instill 1 drop into both eyes 2 times daily 3 ??? ARTIFICIAL TEARS 1.4 % ophthalmic solution 6 ??? Carboxymethylcellulose Sodium (REFRESH LIQUIGEL OP) 2 drops by Ophthalmic route as needed ??? CROMOLYN SODIUM OP 2 drops by Ophthalmic route as needed ??? EPINEPHrine (EPIPEN) 0.3 MG/0.3ML auto-injector pen Inject 0.3 mL into muscle as needed for Anaphylaxis 1 Each 0 ??? famotidine (PEPCID) 40 MG tablet TK SS T BID. 5 ??? metFORMIN (GLUCOPHAGE) 500 MG tablet TK 1 T PO ONCE A DAY 3 ??? montelukast (SINGULAIR) 10 MG tablet TK 1 T PO HS 2 ??? fluticasone propionate (FLONASE) 50 MCG/ACT nasal spray [place] 1 spray into each nostril DAILY. 1 bottles 3 No current facility-administered medications for this visit. Allergies Lisinopril and Losartan Social History Substance Use Topics [...] septal deviation, Turbinates intact, Mucosal membranes intact, no polyps no infection Mouth and oropharynx: symmetric tongue mobility, no lesions/masses/ulcers Neck: supple, no lymphadenopathy, no masses Voice: strong MusculoSkeletal: moves all extremities well Assessment and Plan: chronic rhinitis will meet with supervisor brake repair to discuss beta jesus manuel, return to [facility]ft[facility] sleep study. documented in this encounter Plan of Treatment Upcoming Encounters Date Type Department Care Team (Late st Contact Info) Description 03/08/2024 10:45 AM ARCADE GAME TECHNICIAN Office Visit [facility] [address] [place] [phone] Mitul Canas MD [address] [place] [address] [address] [place] [address] documented as of this encounter Visit Diagnoses Diagnosis Seasonal allergic rhinitis due to pollen- Primary documented in this encounter Care Teams Electromechanical Assembly Technician Relationship Specialty Start Date End Date Ruma Shrestha APRN-COVERSTITCH ELASTIC ATTACHER PCP - General 11/17/17 documented as of this encounter
--- OUTSIDE RECORDS SUMMARY | 2024-02-25 20:48 | XMS_ITS | Encounter Summary ---
Author Organization [facility] Address [address] [facility] [address] Care Team Providers Care School Bus Attendant Name Role Phone Ruma Shrestha SIGNAL TOWER OPERATOR-RESPIRATORY THERAPIST ASSISTANT Primary Care Provi genoveva Reason for Visit * Reason Comments Sinus Problem Encounter Details Date Type Department Care Team (Late st Contact Info) Description 03/29/2019 9:45 AM HOUSEPERSON Office Visit [facility] [address] [address] Mitul Canas MD [address] [facility] [address] [address] [place] [address] Seasonal allergic rhinitis due to pollen (Primary [...] Sign Reading Time Taken Comments Blood Pressure 147/93 03/29/2019 10:17 AM HOUSEPERSON Pulse 99 03/29/2019 10:17 AM HOUSEPERSON Temperature - - Respiratory Rate - - Oxygen Saturation 99% 03/29/2019 10:17 AM HOUSEPERSON Inhaled Oxygen Concentration - - Weight 101.2 kg (223 lb) 03/29/2019 10:17 AM HOUSEPERSON Height 157.5 cm (5' 2 ) 03/29/2019 10:17 AM HOUSEPERSON Body Mass Index 40.79 03/29/2019 10:17 AM HOUSEPERSON documented in this encounter Patient Instructions * Patient Instructions* Ian Peterson - 03/29/2019 9:45 AM HOUSEPERSON Thank you for visiting [facility] - Head & Neck Surgery. [...] an appointment, please call our office at [phone] Tuesday through Tuesday from 8:30 am to4:30 pm. You can also request a routine appointment through your mNectar account. Prescription Refills Contact your pharmacy to [...] call the medical exchangeat and ask the glue machine operator to page the ENT physician batch tank controller. *Caller ID blocking service will need to be turned off for your call to be returned. We also specialize in Hearing Aids, Allergy testing, swallowing disorders, voice problems, cancer diagnosis, and so much more. Visit our website at [email or web address] for information about our practice and an interactive healthencyclopedia. EPERSON documented in this encounter Progress Notes * Mitul Canas MD - 03/29/2019 10:46 AM CST History of Present Illness: 38 year old with a h/o lost to follow up chronic nasal congestion with positive testing was going to stat drop but had insurance change. Would like some done for chronic nasal congestion bilateral. She is still also working on sleep study. Has been using Flonase and loratadine. Review of Systems: ROS x 11 was performed and was negative except for General: fatigue Nose: frequent bloody nose, congestion Lungs: shortness of breath Musculoskeletal: joint pain Mental Health: anxiety Past [...] ??? azelastine (ASTELIN) 0.1 % nasal spray [place] 1 spray into each nostril 2 times daily 1 Inhaler 5 ??? Carboxymethylcellulose Sodium (REFRESH LIQUIGEL OP) 2 drops by Ophthalmic route as needed ??? EPINEPHrine (EPIPEN) 0.3 MG/0.3ML auto-injector pen Inject 0.3 mL into muscle as needed for Anaphylaxis (Patient not taking: Reported on 03/29/2019) 1 Each 0 ??? fluticasone propionate (FLONASE) 50 MCG/ACT nasal spray [place] 1 spray into each nostril DAILY. 1 bottles 3 ??? hydroCHLOROthiazide (HYDRODIURIL) 12.5 MG Take 1 tablet every day by oral route. ??? loratadine (CLARITIN) 10 MG tablet Take 1 tablet by mouth once daily 90 tablet 11 ??? loratadine (CLARITIN) 10 MG tablet qd ??? LORazepam (ATIVAN) 1 MG tablet Take 1 mg by mouth every 8 hours as needed for Anxiety ??? metFORMIN (GLUCOPHAGE) 500 MG tablet TK [...] Lisinopril; Amlodipine base; and Losartan Social History Tobacco Use ??? Smoking status: Former Smoker Packs/day: 1.00 Years: 18.00 Pack years: 18.00 Types: Cigarettes Start date: 1999 Last attempt to quit: 11/06/2017 Years since quittin.3 ??? Smokeless tobacco: Never Used Substance Use Topics ??? Alcohol use: No Comment: former heavy drinking after work and weekends, 1/2 pint/d2017 rare alcohol ??? Drug use: No Family [...] no septal deviation, Turbinates intact, Mucosal membranes turbinate hypertrophy consistent with allergy. intact Mouth and oropharynx: symmetric tongue mobility, no lesions/masses/ulcers Neck: supple, no lymphadenopathy, no masses Voice: strong MusculoSkeletal: moves all extremities well Assessment and Plan: allergic rhinitis will add asteline to medications and [facility]. EPERSON * Ian Peterson - 03/29/2019 10:18 AM CST Review of Systems Maribell oJrdan reports the following; General: fatigue Nose: frequent bloody nose, congestion Lungs: shortness of breath Musculoskeletal: joint pain Mental Health: anxiety EPERSON documented in this encounter Plan of Treatment Upcoming Encounters Date Type Department Care Team (Late st Contact Info) Description 03/08/2024 10:45 AM HOUSEPERSON Office Visit [facility] [address] [place] [phone] Mitul Canas MD [address] [place] [address] [address] [place] [address] documented as of this encounter Visit Diagnoses Diagnosis Seasonal allergic rhinitis due to pollen- Primary documented in this encounter Care Teams School Bus Attendant Relationship Specialty Start Date End Date Ruma Shrestha, FANI-RESPIRATORY THERAPIST ASSISTANT PCP - General 11/17/17 documented as of this encounter
--- OUTSIDE RECORDS SUMMARY | 2024-02-25 20:48 | XMS_ITS | Encounter Summary ---
Author Organization [facility] Address [address] [facility] [place] [address] Care Team Providers Care Process Improvement Consultant Name Role Phone Cornelia Easley MD Primary Care Provider [phone] Encounter Details Date Type Department Care Team (Latest Contact Info) Description 12/01/2015 Hospital Outpatient Visit Historic [facility] [address] [place] [phone] Discharge Disposition: Home or Self Care Social [...] st Contact Info) Description 03/08/2024 10:45 AM WELDING EQUIPMENT REPAIRER Office Visit [facility] [address] [facility], [place] [address] Mitul Canas MD [facility] [facility] [address] [place] [address] documented as of this encounter Procedures Procedure Name Priority Date/Time Associated Diagnosis Comments US SOFT TISSUE HEAD NECK Routine 12/01/2015 10:09 AM CDT documented in this encounter Results * US SOFT TISSUE HEAD NECK (12/01/2015 [...] Randolph Chadwick on 12/01/2015 10:12 AM . I, Dr. Ru ONTIVEROS M.D. have personally reviewed and interpreted thisexamination/study. This report was electronically signed by Ru ONTIVEROS M.D. on12/01/2015 5:37 PM . Mitul Canas MD ORDERABLES documented in this encounter Visit Diagnoses Diagnosis Nontoxic multinodular goiter documented in this encounter Care Teams Process Improvement Consultant Relationship Specialty Start Date End Date Cornelia Easley MD [address] [place] [phone] PCP - General 04/10/15 11/16/17 documented as of this encounter
--- OUTSIDE RECORDS SUMMARY | 2024-02-25 20:48 | XMS_ITS | Encounter Summary ---
Author Organization [facility] Address [address] [facility] [place] [address] Care Team Providers Care Copper Plater Name Role Phone Cornelia Easley MD Primary Care Provider [phone] Reason for Visit * Reason Comments Allergy Testing Encounter Details Date Type Department Care Team (Late st Contact Info) Description 08/03/2017 8:30 AM CDT Office Visit [facility] [address] [address] Shira Mullen MD [address] [place] [address] Non-seasonal allergic rhinitis due to pollen (Primary Dx); Allergic rhinitis due to animal hair and dander; Allergic rhinitis due to mold Social History Tobacco Use Types Packs/Day Years [...] this encounter Patient Instructions * Patient Instructions* Rosalinda Hare RN - 08/03/2017 10:25 AM CDT See results and suggestions provided [...] try applying ice, and/or Benedryl cream (obtain [id number]), and/or take one extra dose of your antihistamine pill. If you have questions, please contact us. Continue current medications, including nasal irrigations (at least daily, but may do as often as you like), daily antihistamine, nasal steroid spray. Dr. Canas has no preference regarding the best antihistamine (generic of Klarissa, Zyrtec or Claritin). Try each for a week, and see which works best for you. If you decide that you want to start SCIT (weekly allergy shots, or Subcutaneous Immunotherapy), please let Rosalinda or Sherine Plascencia know @ [phone]. To schedule your first Allergy shot at the / [place] office, talk with Sherine Plascencia or Rosalinda Gonzalez at [phone]. Shots are done weekly, by a Registered Nurse, ONLY when a doctor is in the office, And you MUST bring your epi-pen to each shot appointment, and keep it with you the day of the shot. You may use antihistamines while you are on immunotherapy, it will NOT change the benefit of immunotherapy. ANY questions, you may also call SEPIDEH Tellez or Sherine Plascencia at [phone], or message Dr. Canas through [employer]. Follow up with Dr. Canas, keep appt on 08/09, unless we call you with different suggestions. documented in this encounter Progress Notes * Shira Mullen MD - 08/03/2017 11:30 AM CDT HPI: Patient with symptoms c/w allergic rhinitis. Questionnaire filled out and informed consent obtained. Allergy testing via modified quantitative technique was performed. Results: see reporting grid in nursing notes A/P: Extensively positive. Discussed options with patient. She is interested in proceeding with immunotherapy. She is scheduled to follow-up with Dr. Canas next week. Discussed further at that point. All questions were answered. * Rosalinda Hare RN - 08/03/2017 9:14 AM CDT 0905 Pt completed questionnaire. Consent obtained. Allergy testing via modified quantitative technique was performed. Most bothered by allergy symptoms of lump at throat, dry eyes, stuffy nose, clogged ears. While off antihistamine: long week, eyes swelled bob right eye and eyes more dry than usual. Ordered By: Dr. Canas Tested By: Tristian Hare, SEPIDEH Supervising Physician: Dr. Mullen Battery A ? left forearm percutaneously, level 4: right upper arm intradermally: ?? Site Antigen Wheal Dilution # 6 Dilution # 5 Dilution # 4 Dilution # 3 Dilution # 2 Dilution # 1 ITVol. (ml) Initial IT dilution 1 Histamine 9 mm ? 2 Saline 5 mm ? 3 Clio Pollen * 5 mm ? 5 ? 0.2 none 4 Birch Mix * 5 mm ? 7ep ? 0.2 1 5 Elm Mix 5 mm ? 5 ? 0.2 none 6 [place] 5 mm ? 5 ? 0.2 none 7 Red [place] 5 mm ? 5 ? 0.2 none 8 Glycerine 5 mm ? Battery B ? left forearm, percutaneously, level 4: right upper arm intradermally: ?? Site Antigen Wheal Dilution # 6 Dilution # 5 Dilution # 4 Dilution # 3 Dilution # 2 Dilution # 1 ITVol. (ml) Initial IT dilution 1 Maple Mix 7 mm ?ep ? 0.2 2 2 #4 Ragweed Mix * 5 mm ? 7ep ? 0.2 1 3 Pigweed Mix * 7 mm ?ep ? 0.2 2 4 Lambs Quarter 7 mm ?ep ? 0.2 2 5 Ambrose Elder 5 mm ? 7ep ? 0.2 1 6 Jose Mix 5 mm ? 5 ? 0.2 none 7 Kochia 5mm ?ep 9 ? 0.2 2 8 [place] Thistle 5 mm ? 5 ? 0.2 none ?? Battery C ? left forearm, percutaneously, level 4: right upper arm intradermally: ?? ite Antigen Wheal Dilution # 6 Dilution # 5 Dilution # 4 Dilution # 3 Dilution # 2 Dilution # 1 IT Vol. (ml) Initial IT dilution 1 Dock [place] Mix 5 mm ? 5 ? 0.2 none 2 Cocklebur 7 mm ?ep ? 0.2 2 3 Std Mite D Farinae * 5 mm ? 7ep ? 0.1 1 4 Std Mite D Ptero. * 5 mm ? 7ep ? 0.1 1 5 Cockroach * 5 mm ? 5 ? 0.1 none 6 Std Cat Hair * 5 mm ? 7ep ? 0.1 1 7 Dog Hair * 5 mm ? 5 ? 0.1 none 8 Feather Hair * 5 mm ? 7ep ? 0.1 1 ?? Battery D right upper arm intradermally: ?? Site Antigen Wheal Dilution # 6 Dilution # 5 Dilution # 4 Dilution # 3 Dilution # 2 Dilution # 1 ITVol. (ml) Initial IT dilution 1 Alternaria * mm ? 5 ?? 7 ?? 0.1 none 2 Hormodendrum * mm ? 5 ?? 7 ?? 0.1 none 3 Pullularia * mm ? 7ep ? 0.1 2 4 Apergillus Mix * mm ? 7ep ? 0.1 2 5 Samaria Albicans mm ?ep 5 13 ?? 0.1 3 6 Helminthosporium mm ? 7ep ?? 0.1 2 7 Pencillium mm ? 5 7 ?? 0.1 none 8 Fusarium mm ? 7ep ?? 0.1 2 ?? Battery E right upper arm intradermally: ?? Site Antigen Wheal Dilution # 6 Dilution # 5 Dilution # 4 Dilution # 3 Dilution # 2 Dilution # 1 ITVol. (ml) Initial IT dilution 1 Mucor mm ? 5 ep 9? 0.1 1 2 CORN Smut Mix mm ? 7ep ? 0.1 2 ? 3 Bermuda Grass mm ? 7ep ? 0.2 2 4 Thor Grass mm ? 5 ? 0.2 none 5 Horse Hair mm ? 0.2 None/not tested ? Symptom Review Eye Symptoms: itching, watering, redness, swelling, crusting, dryness, dark circles, blurred vision, wears glasses Ear Symptoms: itching, congested, frequent infections, fluid in middle ear, earache dizziness Nasal Symptoms: sneezing, sniffles, cloudy discharge, congestion, frequebt sinus infections, nasal dryness, snoring at night Mouth and Throat Symptoms: frequent sore throats, itchy throat, mouth breathing, frequent strep throat, postnasal drip, lump in throat, dry mouth/throat Headaches: occasional, occurs with sinus symptoms, sharp, facial, forehead, temples, pain in eyes Chest Symptoms: shortness of breath Stomach/Intestinal Symptoms: bloating, heartburn or indigestion, nausea, burning in stomach Skin Symptoms: dry skin, itchy skin Insect Sting Reaction: none Stung by:n/a Triggers: Weather Changes, beer When are symptoms worse? Year Round Are you symptoms better away from home? no Current nasal regimen: Nasal irrigations never. Pt watches video and nasally irrigates during visit today. Currently using oral antihistamine Claritin ; has tried Klarissa (fexofenadine), Benedryl (diphenydramine) Currently using nasal steroid spray Flonase ; has tried Flonase only, and [place] Testing lasting 2 hours. Pt tolerated testing well with localized itching only. Provided Claritin sample as pt requests. Reviewed benefit of nasal irrigations. Provided [facility] GERD handout, reviewed lifestyle modifications for reflux, suggested consider obtaining PPI over the counter, as pt states omeprazole had helped her symptoms, but no PPIs are covered by [facility]. Reviewed benefits of immunotherapy. Pt willing to try if suggested by MD. Would prefer weekly shotsat PCP office, but could come to [address] office, then learn to do at home. epipen prescription per Otolaryngology protocol for SCIT. Dr. Mullen talks with pt about results, suggests: Try Optivar as suggested by your eye doctor, will not necessarily increase eye dryness. Follow up/discuss with Dr. Canas, next visit scheduled for 08/09/17. Summary of testing process: For Battery A, B and C, listed extracts are applied at left forearm percutaneously scratch test; wheal is read at 20 minutes. 5mm [...] rechecked with higher concentration. ep notes endpoint. documented in this encounter Plan of Treatment Upcoming Encounters Date Type Department Care Team (Late st Contact Info) Description 03/08/2024 10:45 AM WASTEWATER TREATMENT SUPERVISOR Office Visit [facility] [address] [facility] [place] [address] Mitul Canas MD [address] [facility] [address] [place] [address] documented as of this encounter Visit Diagnoses Diagnosis Non-seasonal allergic rhinitis due to pollen- Primary Allergic rhinitis due to animal hair and dander Allergic rhinitis due to animal (cat) (dog) hair and dander Allergic rhinitis due to mold documented in this encounter Care Teams Copper Plater Relationship Specialty Start Date End Date Cornelia Easley MD [address] [place] [address] PCP - General 04/10/15 11/16/17 documented as of this encounter
--- OUTSIDE RECORDS SUMMARY | 2024-02-25 20:48 | XMS_ITS | Encounter Summary ---
Author Organization [facility] Address [address] [place] [address] Care Team Providers Care Graphite Grinder Name Role Phone Unavailable Primary Care Provider Unavailabl e Encounter Details Date Type Department Care Team (Late st Contact Info) Description 12/18/2019 Lab Requisition [facility] Community Testing [facility] [address] [place] [address] [place] [address] [place] [address] Social History Tobacco Use Types Packs/Day Years Used Date Smoking Tobacco: Never Assessed Comments Unknown Sex and Gender Information Value Date Recorded Sex Assigned at Not on file Legal Sex Female 2:35 PM GARMENT MENDER Gender Identity Not on file Sexual Orientation Not on file documented as of this encounter Plan of Treatment Not on file documented as of this encounter Procedures Procedure Name Priority Date/Time Associated Diagnosis Comments SARS-COV-2 PCR [facility] ONLY Routine 12/18/2019 2:43 PM GARMENT MENDER documented in this encounter Visit Diagnoses Not on filedocumented in this encounter
--- OUTSIDE RECORDS SUMMARY | 2024-02-25 20:48 | XMS_ITS | Encounter Summary ---
Author Organization [facility] Address [address] [place] [address] Care Team Providers Care Snuff Drier Name Role Phone Ruma Shrestha NP Primary Care Provider + Reason for Visit * Reason Comments Rash Encounter Details Date Type Department Care Team (Late st Contact Info) Description 01/08/2023 1:19 AM CHILD DEVELOPMENT ASSISTANT - 01/08/2023 1:59 AM CHILD DEVELOPMENT ASSISTANT Emergency [address] [address] Rash (Primary Dx) Discharge Disposition: Discharge to home or self care Social History Tobacco Use Types Packs/Day Years [...] on file Legal Sex Female 5:42 AM CHILD DEVELOPMENT ASSISTANT Gender Identity Not on file Sexual Orientation Not on file documented as of this encounter Last Filed Vital Signs Vital Sign Reading Time Taken Comments Blood Pressure 181/100 01/08/2023 1:51 AM CHILD DEVELOPMENT ASSISTANT Pulse 77 01/08/2023 1:51 AM CHILD DEVELOPMENT ASSISTANT Temperature 37 ??C (98.6 ??F) 01/08/2023 12:34 AM CHILD DEVELOPMENT ASSISTANT Respiratory Rate 16 01/08/2023 1:51 AM CHILD DEVELOPMENT ASSISTANT Oxygen Saturation 100% 01/08/2023 1:51 AM CHILD DEVELOPMENT ASSISTANT Inhaled Oxygen Concentration - - Weight 93.4 kg (206 lb) 01/08/2023 12:34 AM CHILD DEVELOPMENT ASSISTANT Height 157.5 cm (5' 2 ) 01/08/2023 12:34 AM CHILD DEVELOPMENT ASSISTANT Body Mass Index 37.68 01/08/2023 12:34 AM CHILD DEVELOPMENT ASSISTANT documented in this encounter Discharge Instructions * Discharge Instructions* Kathleen Temple PA - 01/08/2023 1:43 AM CHILD DEVELOPMENT ASSISTANT 1) Use cream on your hands. Do not use this on your eyes. Take steroid pack as directed. You can take an antihistamine such as Benadryl for itching. 2) Follow-up with your PCP in 1 week for reevaluation. Recommend following up with Dermatology as this is a recurrent rash 3) Return to the emergency room for any new or worsening symptoms especially for fever, trouble breathing/throat closing off sensation, uncontrollable vomiting, increased pain, pus-like discharge, increased redness/pain/swelling, discoloration, cooling, loss of sensation or mobility of affected area or other new emergent concerns. D DEVELOPMENT ASSISTANT * Attachments The following attachments cannot be sent through Care Everywhere. * Acute Rash (AfterCare(R) Instructions(ER/ED)) (Maltese) documented in this encounter Medications at Time of Discharge ergocalciferol (VITAMIN D) 50,000 unit capsule TAKE 1 CAPSULE BY MOUTH EVERY WEEK DIRECTED 02/27/2021 famotidine (PEPCID) 20 mg tablet Take 1 tablet (20 mg total) by mouth 2 (two) times a day 20 tablet 07/25/2022 hydrOXYzine (ATARAX) 10 mg tablet Take 1 tablet (10 mg total) by mouth 3 (three) times a day 12/31/2019 metFORMIN (GLUCOPHAGE) 500 mg tablet 1 tablet (500 mg total) 11/10/2018 ondansetron ODT (ZOFRAN-ODT) 4 mg disintegrating tablet Take 1 tablet (4 mg total) by mouth every 8 (eight) hours as needed for nausea or vomiting 20 tablet 06/28/2022 triamcinolone (KENALOG) 0.1 % cream Apply topically 2 (two) times a day 30 g 01/08/2023 predniSONE (DELTASONE) 20 mg tablet Take 1 tablet (20 mg) by mouth 2 (two) times a day for 5 days 10 tablet 01/08/2023 3 traMADoL (ULTRAM) 50 mg tablet Take 1 tablet (50 mg total) by mouth every 6 (six) hours 20 tablet 12/07/2021 4 documented as of this encounter Ordered Prescriptions Prescription Sig Dispense Quantity Refills Last Filled Start Date End Date triamcinolone (KENALOG) 0.1 % cream Apply topically 2 (two) times a day 30 g 01/08/2023 predniSONE (DELTASONE) 20 mg tablet Take 1 tablet (20 mg) by mouth 2 (two) times a day for 5 days 10 tablet 01/08/2023 3 documented in this encounter Discharge Disposition Disposition Code Departure Means Destination Comment s Discharge to home or self care documented in this encounter ED Notes * Roxy Cummins RN - 01/08/2023 1:54 AM CST Pt is A & O X 4, ambulatory with steady gait when leaving ED. Roxy Cummins RN 01/08/23 0158 D DEVELOPMENT ASSISTANT * Kathleen Temple PA - 01/08/2023 1:40 AM CST ED NOTE Chief Complaint Chief Complaint Patient presents with Rash History of Present Illness The patient is a 42 y.o. female who presents for evaluation of rash to bilateral face and bilateralhands that hernandez been present for couple months but worsened recently. Denies new or changes to hygiene products, laundry detergents, foods. She does note that she has several food allergies though. Shenoticed more swelling under her eyes and some weeping in which prompted her to come to the ER. She has been using CeraVe lotion. She has previously seen Dermatology for this rash and was treated withprednisone in the past. Medical History ALLERGIES: Allergies Allergen Reactions Amlodipine Unknown Pt states It makes me feel like I have a lump in my throat . Losartan Unknown Pt states It makes me feel like I have a lump in my throat . Naproxen Unknown Pt states It makes me feel like I have a lump in my throat . Diflucan [Fluconazole] Other (See comments) Makes her throat feel funny MEDICATIONS: Prior to Admission medications Medication Sig Start Date End Date Taking? Authorizing Provider famotidine (PEPCID) 20 mg tablet Take 1 tablet (20 mg total) by mouth 2 (two) times a day 07/25/22 07/25/23 Deedee Silva PA ondansetron ODT (ZOFRAN-ODT) 4 mg disintegrating tablet Take 1 tablet (4 mg total) by mouth every 8(eight) hours as needed for nausea or vomiting 06/28/22 Rea Vaughan NP traMADoL (ULTRAM) 50 mg tablet Take 1 tablet (50 mg total) by mouth every 6 (six) hours 12/07/21 Myesha Graves MD PAST MEDICAL HISTORY: Past Medical History: Diagnosis Date Acid reflux Diabetes mellitus (HCC) Hypertension Ovarian cyst Sinus congestion PAST SURGICAL HISTORY: Past Surgical History: Procedure Laterality Date BREAST SURGERY OVARIAN CYST REMOVAL TONSILLECTOMY FAMILY HISTORY: History reviewed. No pertinent family history. SOCIAL HISTORY: Social History Tobacco Use Smoking status: Former Smokeless tobacco: None Substance and Sexual Activity Drug use: Not Currently Sexual activity: None Alcohol Use: Not on file Review of Systems All systems reviewed and are neg or non contributory for this patients presentation today other than as stated in the HPI . Physical Exam BP (!) 178/100 (BP Location: Right arm, Patient Position: Sitting) Pulse 83 Temp 37 ??C (98.6 ??F) (Oral) Resp 18 Ht 157.5 cm (5' 2 ) Wt 93.4 kg (206 lb) SpO2 99% BMI 37.68 kg/m?? Physical Exam Vitals and nursing note reviewed. Constitutional: Appearance: Normal appearance. Eyes: Extraocular Movements: Extraocular movements intact. Conjunctiva/sclera: Conjunctivae normal. Pupils: Pupils are equal, round, and reactive to light. Cardiovascular: Rate and Rhythm: Normal rate. Pulses: Normal pulses. Pulmonary: Effort: Pulmonary effort is normal. Musculoskeletal: General: Normal range of motion. Cervical back: Normal range of motion and neck supple. Skin: General: Skin is warm. Capillary Refill: Capillary refill takes less than 2 seconds. Findings: Rash (erythematous, dry below both eyes, dorsal aspect of bilateral hands) present. Comments: Mild swelling below bilateral eyes Neurological: General: No focal deficit present. Mental Status: She is alert. Psychiatric: Mood and Affect: Mood normal. Diagnostic Studies / Procedures LABORATORY STUDIES: Labs Reviewed - No data to display IMAGING STUDIES: No orders to display No results found. Procedures ED Course / Medical Decision Making MDM Number of Diagnoses or Management Options Diagnosis management comments: DDX includes: Contact dermatitis, allergic dermatitis, dry skin, autoimmune disorder Patient presents with rash to face and hands for a couple months. She has seen Dermatology for thispreviously. Plan to treat with steroids as this has worked for her in the past. Follow-up with primary care and Dermatology. Strict verbal return precautions reviewed. Patient expresses verbal understanding and agreement with plan. All questions answered to the best of my ability. Nontoxic exit exam. Patient discharged home in stable condition. Medications - No data to display Diagnoses that have been ruled out: None Diagnoses that are still under consideration: None Final diagnoses: Rash Disposition: Home Follow-Up: Ruma Shrestha NP [address] [facility] [id number] Call in 3 days As needed REJI See 01/08/2023 Kathleen Temple PA 01/08/23 0157 Cosigned by Myesha Graves MD at 01/08/2023 5:04 AM CHILD DEVELOPMENT ASSISTANT D DEVELOPMENT ASSISTANT D DEVELOPMENT ASSISTANT * Jennifer Carter RN - 01/08/2023 12:38 AM CST Patient arrives to ed with complaints of rash to bilateral eyes and hands. Patient states she has had this for a couple months. She states it has never been leaking or this swollen , so she came to the ED. Patient also reports that it occurs on her hands sometimes too. Patient states it feels likea burning sensation. Patient denies any vision changes. She was told at the eye doctor that she hasvery dry eyes. D DEVELOPMENT ASSISTANT D DEVELOPMENT ASSISTANT documented in this encounter Plan of Treatment Not on file documented as of this encounter Visit Diagnoses Diagnosis Rash- Primary Rash and other nonspecific skin eruption documented in this encounter Care Teams Snuff Drier Relationship Specialty Start Date End Date Ruma Shrestha NP PCP - General 05/30/18 documented as of this encounter
--- OUTSIDE RECORDS SUMMARY | 2024-02-25 20:48 | XMS_ITS | Encounter Summary ---
Author Organization [facility] Address [address] [place] [address] Care Team Providers Care Production Line Operator Name Role Phone Unavailable Primary Care Provider Unavailabl e Encounter Details Date Type Department Care Team (Late st Contact Info) Description 12/18/2019 3:00 PM EDUCATION PROGRAM ASSOCIATE Rapid Evaluation [place] [facility] Community Testing [facility] [address] [place] [address] Social History Tobacco Use Types Packs/Day Years Used Date Smoking Tobacco: Never Assessed Comments Unknown Sex and Gender Information Value Date Recorded Sex Assigned at Not on file Legal Sex Female 2:35 PM EDUCATION PROGRAM ASSOCIATE Gender Identity Not on file Sexual Orientation Not on file documented as of this encounter Plan of Treatment Not on file documented as of this encounter Visit Diagnoses Not on filedocumented in this encounter
--- OUTSIDE RECORDS SUMMARY | 2024-02-25 20:48 | XMS_ITS | Encounter Summary ---
Author Organization [facility] Address [address] [place] [address] Care Team Providers Care Family Service Counselor Name Role Phone Cornelia Easley MD Primary Care Provider [phone] Reason for Visit * Reason Onset Date Comments Medication Issue 10/27/2017 coverage for an tihistamine Future Appointment 10/27/2017 when to start immunotherapy Encounter Details Date Type Department Care Team (Late st Contact Info) Description 10/27/2017 Telephone [facility] [address] [address] Rosalinda Hare, diamond die maker Issue (coverage for antihistamine); Future Appointment (when to start immunotherapy) Social History Tobacco Use Types Packs/Day [...] Telephone Encounter - Rosalinda Hare, RN - 10/27/2017 3:36 PM CDT 10/27 Per pt, has tried Claritin didn't work, has been paying out of pocket for Klarissa, works OK. Is willing to try cetirizine. Med change authorized per Otolaryngology Protocol 08/2017 after last office note reviewed. Makes appt for 11/09 for first allergy shot at [facility]. Reminded bring epipen. Noted with med reconciliation that pt started metoprolol in August. Reviewed with pt that she cannot be on beta-jesus manuel medication while on IT. Pt states she is to see her master printer next week, and will discuss with that MD. I wanted to come off it anyway, I am on it for my nerves and blood pressure, I don't like how it makes me feel. Encouraged call with update before first allergy shot appt. Pt acknowledges understanding. 11/07 Pt has been of metoprolol. Is to have stress test 11/09, I don't know if he (master printer) will put me back on that. Agrees to wait to start IT until cardiac med is decided. Pt also talks about use of cetirizine, makes me feel weird. Agreeable to discuss with Dr. Castro appt 11/10/17. documented in this encounter Plan of Treatment Upcoming Encounters Date Type Department Care Team (Late st Contact Info) Description 03/08/2024 10:45 AM NURSING UNIT CLERK Office Visit [facility] - [facility] [address] [facility], [place] [address] Mitul Canas MD [address] [place] [id number] documented as of this encounter Visit Diagnoses Not on filedocumented in this encounter Care Teams Family Service Counselor Relationship Specialty Start Date End Date Cornelia Easley MD [address] [place] [id number] PCP - General 04/10/15 11/16/17 documented as of this encounter
--- OUTSIDE RECORDS SUMMARY | 2024-02-25 20:48 | XMS_ITS | Encounter Summary ---
Author Organization [facility] Healthcare Address [address] [place] [address] Care Team Providers Care Bell Spinner Name Role Phone Ruma Shrestha NP Primary Care Provider + Reason for Visit * Reason Comments Allergic Reaction Encounter Details Date Type Department Care Team (Late st Contact Info) Description 07/24/2022 11:59 PM CDT - 07/25/2022 2:00 AM CDT Emergency [address] [address] Contact dermatitis, unspecified contact dermatitis type, unspecified trigger (Primary Dx) Discharge Disposition: Discharge to home or self care Social History Tobacco Use Types Packs/Day Years Used Date Smoking Tobacco: Former Alcohol Use Standard Drinks/Week Comments Not Currently 0 (1 standard drink = 0.6 oz pur e alcohol) Comments No Sex and Gender Information Value Date Recorded Sex Assigned at Not on file Legal Sex Female 5:42 AM [facility] DIRECT[facility] Gender Identity Not on file Sexual Orientation Not on file documented as of this encounter Last Filed Vital Signs Vital Sign Reading Time Taken Comments Blood Pressure 191/100 07/25/2022 1:45 AM CDT Pulse 78 07/25/2022 1:45 AM CDT Temperature 36.9 ??C (98.4 ??F) 07/25/2022 12:02 AM C DT Respiratory Rate 20 07/25/2022 1:45 AM CDT Oxygen Saturation 100% 07/25/2022 1:45 AM CDT Inhaled Oxygen Concentration - - Weight 95.3 kg (210 lb) 07/25/2022 12:02 AM CDT Height 157.5 cm (5' 2 ) 07/25/2022 12:02 AM CDT Body Mass Index 38.41 07/25/2022 12:02 AM CDT documented in this encounter Discharge Instructions * Discharge Instructions* Deedee Silva PA - 07/25/2022 1:36 AM CDT Take medication as prescribed. In addition to the prescribed medications you should also take 1-2 tablets a Benadryl every 4-6 hours. Follow up with Dermatology if symptoms persist. Return to the ER for any new or worsening symptoms. Follow-up as recommended is mandatory. You have received emergency care only at your visit today. This is not a substitute for ongoing care, further evaluation and treatment and therefore follow-up as directed is not optional but mandatory You MUST follow up for further evaluation of all incidental abnormal radiographic and laboratory findings, Have your physician obtain records from this visit and address all the incidental abnormal findings. This may include final results of lab testing, cultures, final x-ray reports which may not have been available during the time of the visit. Return immediately for any new symptoms, worsening of symptoms, or persistent symptoms * Attachments The following attachments cannot be sent through Care Everywhere. * Dermatitis (AfterCare(R) Instructions(ER/ED)) (Faroese) documented in this encounter Medications at Time [...] for nausea or vomiting 20 tablet 06/28/2022 methylPREDNISolone (MEDROL DOSEPACK) 4 mg Dosepack Take as directed on package 1 packet 07/25/2022 3 traMADoL (ULTRAM) 50 mg tablet Take 1 tablet (50 mg total) by mouth every 6 (six) hours 20 tablet 12/07/2021 4 documented as of this encounter Ordered Prescriptions Prescription Sig Dispense Quantity Refills Last Filled Start Date End Date famotidine (PEPCID) 20 mg tablet Take 1 tablet (20 mg total) by mouth 2 (two) times a day 20 tablet 07/25/2022 methylPREDNISolone (MEDROL DOSEPACK) 4 mg Dosepack Take as directed on package 1 packet 07/25/2022 3 documented in this encounter Discharge Disposition Disposition Code Departure Means Destination Discharge to home or self care documented in this encounter ED Notes * Deedee Silva PA - 07/25/2022 12:59 AM CDT CHIEF COMPLAINT: Chief Complaint Patient presents with Allergic Reaction HPI 4:52 AM Maribell Jordan is a 42 y.o. female presenting to the ED c/o rash. Patient reports an erythematous pruritic rash over her arms, neck, and face that started 2 weeks ago. Patient went to an urgent care and was prescribed prednisone. She completed that on Tuesday. Patient had 60 mg for 5 days. While she was taking the medication her rash started to improve but when she stopped returned. She denies any shortness of breath. She denies any new lotions, soaps, detergents, foods, or medications. History provided by patient PCP: Ruma Shrestha NP PAST MEDICAL HISTORY Past Medical History: Diagnosis Date Acid reflux Diabetes mellitus (HCC) Hypertension Ovarian cyst Sinus congestion PAST SURGICAL HISTORY Past Surgical History: Procedure Laterality Date BREAST SURGERY OVARIAN CYST REMOVAL TONSILLECTOMY FAMILY HISTORY No family history on file. MEDICATIONS GIVEN IN THE ED Medications diphenhydrAMINE (BENADRYL) 50 mg/mL injection 25 mg (25 mg intramuscular Given 07/25/22 0133) famotidine (PEPCID) tablet 20 mg (20 mg oral Given 07/25/22132) dexAMETHasone (DECADRON) preservative free solution 10 mg (10 mg intramuscular Given 07/25/22134) CURRENT HOME MEDICATIONS No current facility-administered medications for this encounter. Current Outpatient Medications: famotidine (PEPCID) 20 mg tablet, Take 1 tablet (20 mg total) by mouth 2 (two) times a day, Disp: 20 tablet, Rfl: 0 methylPREDNISolone (MEDROL DOSEPACK) 4 mg Dosepack, Take as directed on package, Disp: 1 packet, Rfl: 0 ondansetron ODT (ZOFRAN-ODT) 4 mg disintegrating tablet, Take 1 tablet (4 mg total) by mouth every 8 (eight) hours as needed for nausea or vomiting, Disp: 20 tablet, Rfl: 0 traMADoL (ULTRAM) 50 mg tablet, Take 1 tablet (50 mg total) by mouth every 6 (six) hours, Disp: 20 tablet, Rfl: 0 ALLERGIES Allergies Allergen Reactions Amlodipine Unknown Pt states [...] (See comments) Makes her throat feel funny SOCIAL HISTORY Social History Tobacco Use Smoking status: Former Smokeless tobacco: Not on file Substance and Sexual Activity Drug use: Not Currently Sexual activity: Not on file Alcohol Use: Not on file PHYSICAL EXAM TRIAGE VITAL SIGNS: ED Triage Vitals Temp Pulse Resp BP SpO2 07/25/22 0002 07/25/22 0002 07/25/22 0002 07/25/22 0002 07/25/22 0002 36.9 ??C (98.4 ??F) 88 19 (!) 184/103 98 % Temp src Heart Rate Source Patient Position BP Location FiO2 (%) 07/25/22 0002 07/25/22 0002 07/25/22 0002 07/25/22 0145 -- Oral Monitor Sitting Left arm Height Height Method Weight Weight Method 07/25/22 0002 07/25/22 0002 07/25/22 0002 07/25/22 0002 1.575 m (5' 2 ) Stated 95.3 kg (210 lb) Stated Physical Exam Vitals and nursing note reviewed. Constitutional: General: She is not in acute distress. Appearance: She is well-developed. HENT: Head: Normocephalic and atraumatic. Right Ear: External ear normal. Left Ear: External ear normal. Nose: Nose normal. Mouth/Throat: Mouth: Mucous membranes are moist. Comments: No oral swelling Eyes: Conjunctiva/sclera: Conjunctivae normal. Cardiovascular: Rate and Rhythm: Normal rate and regular rhythm. Pulmonary: Effort: Pulmonary effort is normal. No respiratory distress. Breath sounds: Normal breath sounds. Abdominal: Palpations: Abdomen is soft. Musculoskeletal: General: Normal range of motion. Cervical back: Neck supple. Skin: General: Skin is warm and dry. Findings: Rash (erythmatous raised rash to face, arms, and neck) present. Neurological: General: No focal deficit present. Mental Status: She is alert. Psychiatric: Mood and Affect: Mood normal. Behavior: Behavior normal. LABS Labs Reviewed POCT GLUCOSE DEVICE POCT GLUCOSE DEVICE Result Value Glucose, POC 192 ED COURSE/MEDICAL DECISION MAKING Differential diagnosis included but not limited to contact dermatitis, allergic reaction, viral exanthem Will prescribe patient a Medrol Dosepak with instructions to take Benadryl and Pepcid in addition to this medication. Will refer patient to Dermatology if symptoms do not improve. I discussed treatment plan, indications for return to the ER, the importance of follow-up. All questions answered. Patient's medical records were reviewed. Procedures FINAL IMPRESSION Contact dermatitis, unspecified contact dermatitis type, unspecified trigger DISPOSITION: Home All findings were discussed with patient. Pt agreeable with plan. Non toxic appearing, vitals stable. Patient stable for discharge home. Given return to ER precautions Close outpatient follow-up with a low threshold to return has been mandated , concerning symptoms have been emphasized in detail, and this patient expresses understanding PATIENT INSTRUCTED TO FOLLOW UP Ruma Shrestha NP [address] [facility] [address] In 3 days for re-evaluation and further treatment Rustam Olivas MD [address] [place] [address] In 1 week for re-evaluation and further treatment DISCHARGE MEDICATIONS Your medication list START taking these medications Instructions Last Dose Given Next Dose Due famotidine 20 mg tablet Commonly known as: PEPCID Take 1 tablet (20 mg total) by mouth 2 (two) times a day methylPREDNISolone 4 mg Dosepack Commonly known as: MEDROL DOSEPACK Take as directed on package ASK your doctor about these medications Instructions Last Dose Given Next Dose Due ondansetron ODT 4 mg disintegrating tablet Commonly known as: ZOFRAN-ODT Take 1 tablet (4 mg total) by mouth every 8 (eight) hours as needed for nausea or vomiting traMADoL 50 mg tablet Commonly known as: ULTRAM Take 1 tablet (50 mg total) by mouth every 6 (six) hours Where to Get Your Medications These medications were sent to [facility] #[id number] AT [address] [id number] Hours: 24-hours famotidine 20 mg tablet methylPREDNISolone 4 mg Dosepack This examination was transcribed using the [employer] voice recognition system without human patient services specialist. In an effort to expedite patient care, this report has not been adjusted for typographical, grammatical, and syntax by a trained medical office worker. Deedee Silva PA 07/25/22 0452 Cosigned by Roberta Anaya DO at 07/25/2022 7:21 PM CDT Associated attestation - Roberta Anaya DO - 07/25/2022 7:21 PM CDT ED Attestation I did not see this patient. However, I was personally available for consultation in the ED for thispatient if the Advanced Practice Provider (MARY) needed any assistance. The MARY evaluated the patient independently and completed their own examination, documentation, and disposition. * Faviola Flynn RN - 07/25/2022 12:12 AM CDT Pt ambulatory to triage from home with c/o allergic reaction to face, bilateral arms and neck x 2 weeks. Pt states she was seen at urgent care last week and completed a 5-day steroid prescription with no relief. Pt is reporting itching. Red, raised rash noted. Pt is unsure what caused the reaction. Pt aox4, answers questions appropriately. documented in this encounter Plan of Treatment Not on file documented as of this encounter Procedures Procedure Name Priority Date/Time Associated Diagnosis Comments POCT GLUCOSE DEVICE Routine 07/25/2022 1 2:47 AM CDT documented in this encounter Results * POCT glucose (07/25/2022 12:47 AM CDT) [facility] Glucose, POC 192 70 - 199 mg/dL TAO CASTRO Blood 07/25/2022 12:4 7 AM CDT 07/25/2022 12:47 AM CDT us Notinfile Unknown LAB POCT ORDERABLES - DEVICE F inal Result TAO [address] [facility] Department [place] [address] documented in this encounter Visit Diagnoses Diagnosis Contact dermatitis, unspecified contact dermatitis type, unspecified trigger- Primary documented in this encounter Administered Medications Inactive Administered Medications - up to 3 most recent administrations Medication Order MAR Action Action Date Dose Rate Site dexAMETHasone (DECADRON) preservative free solution 10 mg 10 mg, intramuscular, Once, On 07/25/22 at 0037, For 1 dose Given 07/25/2022 1:35 AM CDT 10 mg Left Deltoid diphenhydrAMINE (BENADRYL) 50 mg/mL injection 25 mg 25 mg, intramuscular, Once, On 07/25/22 at 0037, For 1 dose Given 07/25/2022 1:33 AM CDT 25 mg Right Deltoid famotidine (PEPCID) tablet 20 mg 20 mg, oral, Once, On 07/25/22 at 0037, For 1 dose Given 07/25/2022 1:33 AM CDT 20 mg documented in this encounter Active and Recently Administered Medications Times are shown in CDT. Scheduled Medication Order 07/23/2022 07/24/2022 07/25/2022 dexAMETHasone (DECADRON) preservative free solution 10 mg (COMPLETED) 10 mg, intramuscular, Once, On 07/25/22 at 0037, For 1 dose 0135 (Given - Provid er: Faviola Flynn RN) diphenhydrAMINE (BENADRYL) 50 mg/mL injection 25 mg (COMPLETED) 25 mg, intramuscular, Once, On 07/25/22 at 0037, For 1 dose 0133 (Given - Provid er: Faviola Flynn RN) famotidine (PEPCID) tablet 20 mg (COMPLETED) 20 mg, oral, Once, On 07/25/22 at 0037, For 1 dose 0133 (Given - Provid er: Faviola Flynn RN) documented in this encounter Orders Lab Orders Without Results Count Last Ordered D ate First Ordered Date POCT GLUCOSE DEVICE 1 07/25/2022 documented in this encounter Care Teams Bell Spinner Relationship Specialty Start Date End Date Ruma Shrestha NP PCP - General 05/30/18 documented as of this encounter
--- OUTSIDE RECORDS SUMMARY | 2024-02-25 20:48 | XMS_ITS | Encounter Summary ---
Author Organization [facility] Address [address] [place] [address] Care Team Providers Care Associate Spa Director Name Role Phone Ruma Shrestha MEDICAL LABORATORY TECHNICIAN-PORTAL ARCHITECT Primary Care Provi geonveva Encounter Details Date Type Department Care Team (Late Contact Info) Description 12/06/2017 [facility] Only [facility] [address] [place] [address] Tamara Simon, APNP-PORTAL ARCHITECT [address] [facility] 2L DIV OF PULMONARY/[place] [address] Restless legs syndrome (RLS); Neuropathy; Anemia, unspecified type Social History Tobacco Use Types Packs/Day Years [...] (Late Contact Info) Description 03/08/2024 10:45 AM SUPERINTENDENT DRILLING Office Visit [facility] [address] [facility], [place] [id number] Mitul Canas MD [address] [facility] [address] [place] [address] documented as of this encounter Visit Diagnoses Diagnosis Restless legs syndrome (RLS) Neuropathy Mononeuritis of unspecified site Anemia, unspecified type documented in this encounter Care Teams Associate Spa Director Relationship Specialty Start Date End Date Ruma Shrestha APRN-PORTAL ARCHITECT PCP - General 11/17/17 documented as of this encounter
--- OUTSIDE RECORDS SUMMARY | 2024-02-25 20:49 | XMS_ITS | Encounter Summary ---
Author Organization [facility] Healthcare Address [address] [place] [address] Care Team Providers Care Lab Clerk Name Role Phone Ruma Shrestha NP Primary Care Provider + Encounter Details Date Type Department Care Team (Late st Contact Info) Description 06/04/2019 9:30 AM CDT - 06/04/2019 1:14 PM CDT Hospital Encounter [address] [address] Candi Mcgovern DO [address] [place] [address] [place] [address] Unknown, Notinfile Discharge Disposition: Discharge to home or self care Social History Tobacco Use Types Packs/Day Years Used Date Smoking Tobacco: Never Assessed Comments Unknown Sex and Gender Information Value Date Recorded Sex Assigned at Not on file Legal Sex Female 5:42 AM [employer] Gender Identity Not on file Sexual Orientation Not on file documented as of this encounter Last Filed Vital Signs Vital Sign Reading Time Taken Comments Blood Pressure 119/83 06/04/2019 9:34 AM CDT Pulse 97 06/04/2019 9:34 AM CDT Temperature 36.9 ??C (98.4 ??F) 06/04/2019 9:34 AM CD T Respiratory Rate - - Oxygen Saturation 98% 06/04/2019 9:34 AM CDT Inhaled Oxygen Concentration - - Weight 99.8 kg (220 lb) 06/04/2019 9:34 AM CDT Height 157.5 cm (5' 2 ) 06/04/2019 9:34 AM CDT Body Mass Index 40.24 06/04/2019 9:34 AM CDT documented in this encounter Medications at Time of Discharge metFORMIN (GLUCOPHAGE) 500 mg tablet 1 tablet (500 mg total) 11/10/2018 documented as of this encounter Discharge Disposition Disposition Code Departure Means Destination Discharge to home or self care documented in this encounter Plan of Treatment Not on file documented as of this encounter Procedures Procedure Name Priority Date/Time Associated Diagnosis Comments SCAN - LABS 06/05/2019 12:00 AM CDT TROPONIN I Routine 06/04/2019 12:18 PM CDT DRUGS OF ABUSE SCREEN, URINE WITHOUT CONFIRMATION Routine 06/04/2019 10:50 AM CDT CTA CHEST W IV CONTRAST - PE 06/04/2019 10:09 AM CDT ECG 12-LEAD 06/04/2019 9:49 AM CDT TNI WITH LIPID PANEL Routine 06/04/2019 9:36 AM CDT CBC WITH AUTO DIFFERENTIAL Routine 06/04/2019 9:36 AM CDT D-DIMER, QUANTITATIVE Routine 06/04/2019 9:36 AM CDT B-TYPE NATRIURETIC PEPTIDE Routine 06/04/2019 9:36 AM CDT ETHANOL Routine 06/04/2019 9:36 AM CDT COMPREHENSIVE METABOLIC PANEL Routine 06/04/2019 9:36 AM CDT ECG 12-LEAD 06/04/2019 9:34 AM CDT XR CHEST 1 VIEW 06/04/2019 12:00 AM CDT documented in this encounter Results * SCAN - LABS (06/05/2019 12:00 AM CDT) Narrative 06/05/2019 12:00 AM CDT Ordered by an unspecified provider. us Historical Provider MD Final Res ult * Troponin I (06/04/2019 12:18 PM CDT) Pathologist [facility] Troponin I <0.300 0.000 - 0.300 ng/mL [facility] Comment: Reference using ANGÉLICA Chemiluminescence ? Negative: Repeat in 4-6 hours as indicated. 06/04/2019 12:1 8 PM CDT 06/04/2019 12:23 PM CDT Narrative Resulting Agency Comment ER Candi Mcgovern DO LAB BLOOD ORDERABLES Final Resu lt [facility] [address] [place] [address], [facility] [phone] * Drugs of Abuse Screen, Urine without Confirmation (06/04/2019 10:50 AM CDT) Pathologist [facility] Amphetamines NOT DETECTED [facility] Comment: This assay uses 500 ng/mL as a cutoff for a positive result. Barbiturates NOT DETECTED [facility] Comment: This assay uses 200 ng/mL as a cutoff for a positive result. Urine Fentanyl NOT DETECTED [facility] Comment: This assay uses 1 ng/mL as a cutoff for a positive result. Benzodiazepines NOT DETECTED [facility] [address] [facility] Comment: This assay uses 100 ng/mL as a cutoff for a positive result. Cannabinoids NOT DETECTED [facility] Comment: This assay uses 50 ng/mL as a cutoff for a positive result. Cocaine NOT DETECTED [facility] Comment: This assay uses 150 ng/mL as a cutoff for a positive result. Opiates NOT DETECTED [facility] [address] [facility] Comment: This assay uses 300 ng/mL as a cutoff for a positive result. Urine methadone NOT DETECTED [facility] Comment: This assay uses 300 ng/mL as a cutoff for a positive result. Urine phencyclidine plus NOT DETECTED [facility] Comment: This assay uses 25 ng/mL as a cutoff for a positive result. Oxycodone NOT DETECTED [facility] Comment: This assay uses 100 ng/mL as a cutoff for a positive result. Urine Creatinine/JESUS 24.0 mg/dL [facility] Comment: If Creatinine is < 40 mg/dL, recollection is suggested. 06/04/2019 10:5 0 AM CDT 06/04/2019 11:02 AM CDT Narrative [facility] - 06/04/2019 11:35 AM CDT Collected By [facility] Agency Comment ER us Candi Mcgovern DO LAB URINE ORDERABLES Final Resu lt [facility] [address] [phone] * CTA Chest W IV Contrast - PE (06/04/2019 10:09 AM CDT) Anatomical Region Laterality Modality Body N/A Computed Tomogra phy 06/04/2019 11:1 3 AM CDT Narrative 06/04/2019 11:17 AM CDT Patient Name: MARIBELL DAMICO ?Ordering Dr: Candi Mcgovern DO ?? D.O.B: 1980 ? Exam Date: 06/04/19 ?? 1009 ?? Age: 39 ?Sex: Female ? MR#: [id number] ?? Loc: ? RADIOLOGY REPORT ?? Order #[id number] ?? CT Scan ? CTA Chest W IV Contrast - PE ? Signed ?? EXAM DESCRIPTION: ??CTA Chest W IV Contrast - PE ? REASON FOR STUDY: ??Chest pain; shortness of breath ? TECHNIQUE: ??CT angiogram of the chest performed with intravenous contrast ?? using helical scanning technique with dynamic intravenous contrast injection. ?? Reconstructed coronal and sagittal MPR images reviewed. All images stored on ?? PACS. 3D MIP images rendered on scanning unit and reviewed at time of ?? interpretation. Automated exposure control was used as a dose optimization ?? technique for this examination. ? CONTRAST TYPE/DOSE: ??Omnipaque injected via antecubital vein ? COMPARISON: ??None ? FINDINGS: ? VASCULATURE: No identified pulmonary emboli. ? LUNGS: Mild mosaic attenuation in the lung bases likely secondary to air ?? trapping. ? PLEURA: No effusion. No pneumothorax. ? MEDIASTINUM/HI: Scattered supraclavicular lymph nodes, left greater than ?? right, likely reactive. ? HEART: Heart size is normal with no pericardial effusion. ? AXILLA: No adenopathy. ? CHEST WALL: No masses. ??No subcutaneous air. ? HARDWARE/LINES/TUBES: None. ? UPPER ABDOMEN: No significant abnormality. ? MUSCULOSKELETAL: No significant abnormality. ? OTHER: No significant abnormality. ? IMPRESSION: ??No evidence of pulmonary embolism. ??Mild mosaic attenuation of ?? the lung bases likely secondary to air trapping, otherwise normal CT of the ?? chest. ? THIS IS AN ELECTRONICALLY VERIFIED FINAL REPORT ?? 06/04/2019 11:17 AM - Electronically signed by Davon Burnett ?? Davon Burnett ? BB ?? D: ??06/04/2019 11:17 AM ?? T: ? Report ID: [id number] ?? Reading Location: ??[id number] ? REPORT ELECTRONICALLY SIGNED IN OTHER VENDOR SYSTEM ?? Resulting Agency Comment E Procedure Note Davon Burnett MD PhD - 06/04/2019 Patient Name: MARIBELL DAMICO Dr: Candi Mcgovern DO, D.O.B: 1980 Exam Date: 06/04/19 1009 Age: 39 Sex: Female MR#: [id number] Loc: RADIOLOGY REPORT Order #[id number] CT Scan CTA Chest W IV Contrast - PE Signed EXAM DESCRIPTION: CTA Chest W IV Contrast - PE REASON FOR STUDY: Chest pain; shortness of breath TECHNIQUE: CT angiogram of the chest performed with intravenous contrast using helical scanning technique with dynamic intravenous contrastinjection. Reconstructed coronal and sagittal MPR images reviewed. All images storedon PACS. 3D MIP images rendered on scanning unit and reviewed at time of interpretation. Automated exposure control was used as a doseoptimization technique for this examination. CONTRAST TYPE/DOSE: Omnipaque injected via antecubital vein COMPARISON: None FINDINGS: VASCULATURE: No identified pulmonary emboli. LUNGS: Mild mosaic attenuation in the lung bases likely secondary to air trapping. PLEURA: No effusion. No pneumothorax. MEDIASTINUM/HI: Scattered supraclavicular lymph nodes, left greaterthan right, likely reactive. HEART: Heart size is normal with no pericardial effusion. AXILLA: No adenopathy. CHEST WALL: No masses. No subcutaneous air. HARDWARE/LINES/TUBES: None. UPPER ABDOMEN: No significant abnormality. MUSCULOSKELETAL: No significant abnormality. OTHER: No significant abnormality. IMPRESSION: No evidence of pulmonary embolism. Mild mosaic attenuationof the lung bases likely secondary to air trapping, otherwise normal CT ofthe chest. THIS IS AN ELECTRONICALLY VERIFIED FINAL REPORT 06/04/2019 11:17 AM - Electronically signed by Davon AMBROCIO T: Report ID: [id number] Reading Location: [place] [address] REPORT ELECTRONICALLY SIGNED IN OTHER VENDOR SYSTEM Candi Mcgovern DO IMG CT PROCEDURES Final Result * ECG 12 lead (06/04/2019 9:49 AM CDT) Ventricular Rate EKG/Min 87 BPM [facility] Atrial Rate 87 BPM [facility] CT-Interval (MSEC) 142 ms [facility] QRS-Interval (MSEC) 82 ms [facility] QT-Interval (MSEC) 356 ms [facility] QTc 428 ms [facility] P [place] 17 degrees [facility] R [place] 25 degrees [facility] T [place] 18 degrees [facility] Diagnosis Normal sinus rhythm Normal ECG When compared with ECG of 04-JUN-2019 09:34, No significant change was found [facility] 06/04/2019 9:49 AM CDT 06/04/2019 3:58 PM CDT Narrative Resulting Agency Comment NATALI Candi Mcgovern DO ECG ORDERABLES Final Result [address] [address], [facility] * Ethanol (06/04/2019 9:36 AM CDT) Ethyl Alcohol <10 mg/dL [facility] Comment: % = mg/dL x .001 06/04/2019 9:36 AM CDT 06/04/2019 9:43 AM CDT Narrative Resulting Agency Comment ER Candi Mcgovern DO LAB BLOOD ORDERABLES Final Resu lt Performing Organization Address [facility] de Phone Number [address] [phone] * B-type natriuretic peptide (06/04/2019 9:36 AM CDT) Pathologist [facility] B-Natriuretic Peptide 14 0 - 100 pg/mL [facility] Comment: B Natriutetic Peptide METHOD: ??[employer]iemens Centaur XP using YANNA. Decision threshold of 100 pg/mL has been demonstrated to provide the maximal combination of sensitivity, specificity, and predictive value for the diagnosis of congestive heart failure (CHF). ??Virtually all patients with no evidence of CHF have BNP values <100 pg/mL. NOTE: ??Nesiritide (Natrecor) interferes with the BNP assay. BNP result will be invalid if drawn within 2 hours of bolus or infusion of nesiritide. 06/04/2019 9:36 AM CDT 06/04/2019 9:43 AM CDT Narrative Resulting Agency Comment ER Candi Mcgovern DO LAB BLOOD ORDERABLES Final Resu Performing Organization Address [facility] de Phone Number [address] [phone] * TNI with LIPID PANEL (06/04/2019 9:36 AM CDT) [facility] Troponin I <0.300 0.000 - 0.300 ng/mL [facility] Comment: Reference using ANGÉLICA Chemiluminescence ? Negative: Repeat in 4-6 hours as indicated. Triglycerides 107 0 - 149 mg/dL [facility] Comment: National Lipid Association/NCEP Guidelines: ?? Normal ?< 150 mg/dL ?? Borderline high ?? 150-199 mg/dL ?? High ?200-499 mg/dL ?? Very High ? >=500 mg/dL Cholesterol 159 0 - 199 mg/dL [facility] Comment: National Lipid Association/NCEP Guidelines: Desirable ? < 200 mg/dL Borderline high: ??200-239 mg/dL High Risk: ?>=240 mg/dL HDL Cholesterol 46 mg/dL [facility] Comment: Reference Ranges: ? Males: >=40 mg/dL ? Females: >=50 mg/dL LDL Cholesterol, Calc 92 0 - 129 mg/dL [facility] Comment: National Lipid Association/NCEP Guidelines: ??Optimal ? < 100 mg/dL ??Near Optimal ?100-129 mg/dL ??Borderline high 130-159 mg/dL ??High ?>=160 mg/dL Cholesterol/HDL Ratio 3.5 [facility] Comment: Optimal ??< 3.5:1 High ? > 5:1 06/04/2019 9:36 AM CDT 06/04/2019 9:43 AM CDT Narrative Resulting Agency Comment ER us Candi Mcgovern DO LAB BLOOD ORDERABLES Final Resu lt [facility] [address] [place] [address], [facility] [phone] * (ABNORMAL) Comprehensive metabolic panel (06/04/2019 9:36 AM CDT) Sodium 135 135 - 145 mmol/L [facility] Potassium 3.8 3.3 - 5.1 mmol/L [facility] Chloride 100 96 - 108 mmol/L [facility] Carbon Dioxide 25 22 - 32 mmol/L [facility] Anion Gap 10 7 - 16 [facility] Glucose 177(H) 70 - 100 mg/dL [facility] BUN 9 8 - 25 mg/dL [facility] Creatinine 0.7 0.5 - 1.1 mg/dL [facility] Comment: NOTE: Estimated GFR (Cockroft-Gault) will NOT be calculated unless patient Height and Weight were entered. Also, Kidney Disease Stage (GFR) and Estimated GFR (Cockroft-Gault) will NOT be calculated if Creatinine result is <0.2. Kidney Disease Stage >90 mL/MIN [facility] Comment: NOTE; ??The GFR is an estimated value using the creatinine, sex, age, and race of the patient. THE Estimated Kidney Disease GFR is validated for AGES 18-70 YEARS STAGE ?mL/Min ?DESCRIPTION ??1 ?90 mL/min or more ?Normal or elevated GFR ??2 ? 60-89 mL/min ?Mildly decreased GFR ??3 ? 30-59 mL/min ?Moderately decreased GFR ??4 ? 15-29 mL/min ?Severely decreased GFR ??5 ? <15 mL/min ? Kidney failure or on dialysis Est GFR (Cockcroft-G) 119 ml/MIN [facility] Comment: Estimated GFR(Cockroft-Gault)is used to calculate patient medication dosage Calcium 9.5 8.6 - 10.3 mg/dL [facility] Total Protein 8.0 6.4 - 8.3 g/dL [facility] Albumin 4.5 3.5 - 5.0 g/dL [facility] Globulin 3.5 2.3 - 3.5 gm/dL [facility] Albumin/Globulin Ratio 1.3 1.1 - 1.8 [facility] Total Bilirubin 0.3 0.0 - 1.2 mg/dL [facility] AST 14 0 - 32 U/L [facility] ALT 13 0 - 33 U/L [facility] Alkaline Phosphatase 62 35 - 104 U/L [facility] 06/04/2019 9:36 AM CDT 06/04/2019 9:43 AM CDT Narrative Resulting Agency Comment ER [facility] LAB BLOOD ORDERABLES Final Resu lt Performing Organization Address [facility] Co de Phone Number [facility] [address] [phone] * (ABNORMAL) D-dimer, quantitative (06/04/2019 9:36 AM CDT) [facility] D-Dimer, Quantitative 630(H) <500 ng/mLFEU [facility] Comment: Studies indicate that a D-Dimer level of <500 ng/ml FEU has a >95% negative predictive value for DVT,DIC,PE and other embolus conditions. ??Levels >500 ng/ml FEU may be present in a wide variety of conditions and should not be considered diagnostic of any disease state. Please note unit of measure has changed from ug/ml FEU to ng/ml FEU effective 12/26/18. 06/04/2019 9:36 AM CDT 06/04/2019 9:43 AM CDT Narrative Resulting Agency Comment ER Candi Mcgovern DO LAB BLOOD ORDERABLES Final Resu lt Performing Organization Address [facility] [place] [address], [facility] [phone] * (ABNORMAL) CBC with auto differential (06/04/2019 9:36 AM CDT) [facility] WBC 6.0 3.8 - 9.9 X10 3/ul [facility] RBC 4.38 3.90 - 5.20 x10 6/ul [facility] Hemoglobin 8.7(L) 11.9 - 15.5 g/dL [facility] Hct 29.3(L) 35.6 - 45.5 % [facility] MCV 66.9(L) 81.3 - 96.4 fl [facility] MCH 19.9(L) 27.1 - 33.3 pg [facility] MCHC 29.7(L) 32.3 - 35.7 g/dl [facility] RDW 17.9(H) 11.1 - 14.9 % [facility] Plt Count 214 150 - 400 x10 3/ul [facility] Neut % 54.8 % [facility] Immature Gran % 0.0 % [place] [facility] Lymph % 35.9 % [facility] Vance % 8.1 % [facility] Eos % 0.7 % [facility] AUTO BASO % 0.5 % [facility] NEUTROPHIL ABS # 3.3 1.7 - 6.5 x10 3/ul [facility] Immature Gran # 0.0 0.0 - 0.1 x10 3/ul [facility] Absolute Lymphs (auto) 2.2 0.8 - 3.3 x10 3/ul [facility] Absolute Monos (auto) 0.5 0.2 - 0.8 x10 3/ul [facility] Absolute Eos (auto) 0.0 0.0 - 0.5 x10 3/ul [facility] BASOPHIL ABS # 0.0 0.0 - 0.1 x10 3/ul [facility] Nucleat RBC Rel Count 0.0 #/100WBC [facility] NRBC abs 0.00 0.00 - 0.01 x10 3/ul [facility] Absolute Neutrophils 3,300 200 - 8,000 /ul [facility] Platelet Evaluation AGREE AGREE [facility] Comment: Slide review of platelets correlates with instrument count. Absolute Neutrophils 3,300 200 - 8,000 /ul [facility] Polychromasia 1+ [facility] Hypochromasia 2+ [facility] Basophilic Stippling 1+ [facility] Poikilocytosis 2+ [facility] Ovalocytes 2+ [facility] Absolute Neutrophils 3,300 200 - 8,000 /ul [facility] 06/04/2019 9:36 AM CDT 06/04/2019 9:43 AM CDT Narrative Resulting Agency Comment ER Candi Mcgovern DO LAB BLOOD ORDERABLES Final Resu lt [facility] [address] [phone] * ECG 12 lead (06/04/2019 9:34 AM CDT) Ventricular Rate EKG/Min 108 BPM ER RADIOLOGY Atrial Rate 108 BPM ER RADIOLOGY CT-Interval (MSEC) 134 ms [facility] QRS-Interval (MSEC) 78 ms [facility] QT-Interval (MSEC) 340 ms [facility] QTc 455 ms [facility] P [place] 29 degrees [facility] R [place] 30 degrees [facility] T [place] 18 degrees [facility] Diagnosis Sinus tachycardia Otherwise normal ECG When compared with ECG of 02-FEB-2019 11:47, No significant change was found [facility] 06/04/2019 9:34 AM CDT 06/04/2019 3:58 PM CDT Narrative Resulting Agency Comment NATALI Candi Mcgovern DO ECG ORDERABLES Final Result ER RADIOLOGY * XR Chest 1 View (06/04/2019 12:00 AM CDT) Anatomical Region Laterality Modality Body, Chest N/A Radiographic Juanita ging 06/04/2019 9:53 AM CDT Narrative 06/04/2019 9:53 AM CDT Patient Name: MARIBELL DAMICO ?Ordering Dr: Candi Mcgovern DO ?? D.O.B: 1980 ? Exam Date: 06/03/ ?? 0000 ?? Age: 39 ?Sex: Female ? MR#: [id number] ?? Loc: ? RADIOLOGY REPORT ?? Order #[id number] ?? Radiology ? Chest 1 View Portable ? Signed ?? EXAM DESCRIPTION: ??Chest 1 View Portable ? REASON FOR STUDY: ??Intermittent left sided chest pain that radiates to right ?? side x today ? TECHNIQUE: ??Frontal radiographic view of the chest acquired. ? COMPARISON: ??02/02/2019. ? FINDINGS: ? LUNGS/PLEURA: No focal consolidation or pneumothorax. No pleural effusion. ? HEART/MEDIASTINUM: Heart size is normal. Normal mediastinal and hilar contours. ? HARDWARE/LINES/TUBES: None. ? BONES: No acute findings. ? OTHER: No other significant finding. ? IMPRESSION: ??No acute cardiopulmonary disease. ? THIS IS AN ELECTRONICALLY VERIFIED FINAL REPORT ?? 06/04/2019 9:53 AM - Electronically signed by Rivera Coffman M.D. ?? Rivera Coffman M.D. ? CH ?? D: ??06/04/2019 9:53 AM ?? T: ? Report ID: [id number] ?? Reading Location: ??[id number] ? REPORT ELECTRONICALLY SIGNED IN OTHER VENDOR SYSTEM ?? Resulting Agency Comment P Procedure Note Rivera Coffman Jr., MD - 06/04/2019 Patient Name: MARIBELL DAMICO Dr: Candi Mcgovern DO D.O.B: 1980 Exam Date: 06/04/19 0000 Age: 39 Sex: Female MR#: [id number] Loc: RADIOLOGY REPORT Order #[id number] Radiology Chest 1 View Portable Signed EXAM DESCRIPTION: Chest 1 View Portable REASON FOR STUDY: Intermittent left sided chest pain that radiates toright side x today TECHNIQUE: Frontal radiographic view of the chest acquired. COMPARISON: 02/02/2019. FINDINGS: LUNGS/PLEURA: No focal consolidation or pneumothorax. No pleuraleffusion. HEART/MEDIASTINUM: Heart size is normal. Normal mediastinal and hilarcontours. HARDWARE/LINES/TUBES: None. BONES: No acute findings. OTHER: No other significant finding. IMPRESSION: No acute cardiopulmonary disease. THIS IS AN ELECTRONICALLY VERIFIED FINAL REPORT 06/04/2019 9:53 AM - Electronically signed by Rivera Coffman M.D. T: Report ID: [id number] Reading Location: [place] [address] REPORT ELECTRONICALLY SIGNED IN OTHER VENDOR SYSTEM us Candi Mcgovern DO IMG XR PROCEDURES Final Result documented in this encounter Visit Diagnoses Not on filedocumented in this encounter Care Teams Lab Clerk Relationship Specialty Start Date End Date Ruma Shrestha NP PCP - General 05/30/18 documented as of this encounter
--- OUTSIDE RECORDS SUMMARY | 2024-02-25 20:49 | XMS_ITS | Encounter Summary ---
Author Organization [facility] Healthcare Address [address] [place] [address] Care Team Providers Care General Education Instructor Name Role Phone Ruma Shrestha NP Primary Care Provider + Encounter Details Date Type Department Care Team (Late st Contact Info) Description 09/20/2019 5:05 AM CDT - 09/20/2019 8:38 AM CDT Hospital Encounter [address] [address] Philip Del Toro MD [address] [place] [phone] Unknown, Notinfile Discharge Disposition: Discharge to home or self care Social History Tobacco Use Types Packs/Day Years Used Date Smoking Tobacco: Never Assessed Comments Unknown Sex and Gender Information Value Date Recorded Sex Assigned at Not on file 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 Gender Identity Not on file Sexual Orientation Not on file documented as of this encounter Last Filed Vital Signs Vital Sign Reading Time Taken Comments Blood Pressure 144/91 09/20/2019 5:09 AM CDT Pulse 90 09/20/2019 5:09 AM CDT Temperature 36.5 ??C (97.7 ??F) 09/20/2019 5:09 AM CD T Respiratory Rate - - Oxygen Saturation 97% 09/20/2019 5:09 AM CDT Inhaled Oxygen Concentration - - Weight 99.3 kg (219 lb) 09/20/2019 5:09 AM CDT Height 157.5 cm (5' 2 ) 09/20/2019 5:09 AM CDT Body Mass Index 40.06 09/20/2019 5:09 AM CDT documented in this encounter Medications [...] Date/Time Associated Diagnosis Comments SCAN - LABS 09/21/2019 12:00 AM CDT URINALYSIS AND REFLEX TO MICROSCOPIC AND CULTURE Routine 09/20/2019 5:50 AM CDT BETA-HYDROXYBUTYRATE Routine 09/20/2019 5:24 AM CDT CBC WITH AUTO DIFFERENTIAL Routine 09/20/2019 5:24 AM CDT PHOSPHORUS Routine 09/20/2019 5:24 AM CDT MAGNESIUM Routine 09/20/2019 5:24 AM CDT COMPREHENSIVE METABOLIC PANEL Routine 09/20/2019 5:24 AM CDT documented in this encounter Results * SCAN - LABS (09/21/2019 12:00 AM CDT) Narrative 09/21/2019 12:00 AM CDT Ordered by an unspecified provider. us Historical Provider Final Res ult * (ABNORMAL) Urinalysis reflex to microscopic and culture (09/20/2019 5:50 AM CDT) Ur Collection Type CLEAN CATCH [facility] Ur Culture Indicated? C S NOT INDICATED [facility] Urine Color COLORLESS YELLOW [facility] Urine Clarity CLEAR [facility] Urine Glucose (UA) >=500(A) NORMAL mg/dL [facility] Urine Bilirubin NEGATIVE NEGATIVE mg/dl [facility] Urine Ketones NEGATIVE NEGATIVE mg/dL [facility] Ur Specific [place] 1.009 1.005 - 1.025 [facility] Urine Blood NEGATIVE NEGATIVE mg/dl [facility] Urine pH 7.0 5.0 - 8.0 [facility] Urine Protein NEGATIVE NEGATIVE mg/dL [facility] Urine Urobilinogen NORMAL NORMAL mg/dL [facility] Urine Nitrite NEGATIVE NEGATIVE [facility] Ur Leukocyte Esterase NEGATIVE NEGATIVE Nuno/ul [facility] Ur Microscopic Review Not Indicated [facility] Urine RBC 2 0 - 2 /HPF [facility] Urine WBC <1 0 - 2 /HPF [facility] Urine Bacteria Rare /HPF [facility] Ur Squamous Epith Cells Rare /HPF [facility] 09/20/2019 5:50 AM CDT 09/20/2019 6:01 AM CDT Narrative [facility] - 09/20/2019 6:12 AM CDT Indication(s) for ordering ?? Other - enter in comments nt Clean catch Resulting Agency Comment ER Roberta Anaya DO LAB MICROBIOLOGY - GENERAL ORDE RABLES Final Result [address] [phone] * Beta-hydroxybutyrate (09/20/2019 5:24 AM CDT) B-Hydroxybutyr ate 0.1 0.0 - 0.4 mmol/L [facility] 09/20/2019 5:24 AM CDT 09/20/2019 5:30 AM CDT Narrative Resulting Agency Comment ER Roberta Anaya DO LAB BLOOD ORDERABLES Final Resu lt [address] [phone] * Phosphorus (09/20/2019 5:24 AM CDT) Phosphorus 2.9 2.3 - 4.5 mg/dL [facility] 09/20/2019 5:24 AM CDT 09/20/2019 5:30 AM CDT Narrative Resulting Agency Comment ER Roberta Anaya DO LAB BLOOD ORDERABLES Final Resu lt Performing Organization Address [facility] [employer] Phone Number [address] [phone] * Magnesium (09/20/2019 5:24 AM CDT) Pathologist [facility] Magnesium 1.6 1.6 - 2.6 mg/dL [facility] Comment: Magnesium sulfate therapy: ??3.0-9.1 mg/dL 09/20/2019 5:24 AM CDT 09/20/2019 5:30 AM CDT Narrative Resulting Agency Comment ER Roberta Jaclyn DO LAB BLOOD ORDERABLES Final Resu lt Performing Organization Address [facility] de Phone Number [address] [phone] * (ABNORMAL) Comprehensive metabolic panel (09/20/2019 5:24 AM CDT) Pathologist [facility] Sodium 130(L) 135 - 145 mmol/L [facility] Potassium 4.2 3.3 - 5.1 mmol/L [facility] Chloride 97 96 - 108 mmol/L [facility] Carbon Dioxide 20(L) 22 - 32 mmol/L [facility] Anion Gap 13 7 - 16 [facility] Glucose 450(HH) 70 - 100 mg/dL [facility] Comment: CRITICAL VALUE CALLED and REPEATED. at:0603 09/20/19 by:Verónica Porter to:JUAN DANIEL [id number] BUN 10 8 - 25 mg/dL [facility] Creatinine 0.6 0.5 - 1.1 mg/dL [facility] Comment: NOTE: Estimated GFR (Cockroft-Gault) will NOT be calculated unless patient Height and Weight were entered. Also, Kidney Disease Stage (GFR) and Estimated GFR (Cockroft-Gault) will NOT be calculated if Creatinine result is <0.2. Kidney Disease Stage >90 mL/MIN [facility] Comment: NOTE; ??The GFR is an estimated [...] failure or on dialysis Est GFR (Cockcroft-G) 139 ml/MIN [facility] Comment: Estimated GFR(Cockroft-Gault)is used to calculate patient medication dosage Calcium 9.6 8.6 - 10.3 mg/dL [facility] Total Protein 7.8 6.4 - 8.3 g/dL [facility] Albumin 4.5 3.5 - 5.0 g/dL [facility] Globulin 3.3 2.3 - 3.5 gm/dL [facility] Albumin/Globulin Ratio 1.4 1.1 - 1.8 [facility] Total Bilirubin <0.2 0.0 - 1.2 mg/dL [facility] AST 16 0 - 32 U/L [facility] ALT 20 0 - 33 U/L [facility] Alkaline Phosphatase 93 35 - 104 U/L [facility] 09/20/2019 5:24 AM CDT 09/20/2019 5:30 AM CDT Narrative Resulting Agency Comment ER us Roberta Anaya DO LAB BLOOD ORDERABLES Final Resu lt [facility] [address] [phone] * (ABNORMAL) CBC with auto differential (09/20/2019 5:24 AM CDT) WBC 5.8 3.8 - 9.9 X10 3/ul [facility] RBC 4.61 3.90 - 5.20 x10 6/ul [facility] Hemoglobin 11.7(L) 11.9 - 15.5 g/dL [facility] Hct 35.4(L) 35.6 - 45.5 % [facility] MCV 76.8(L) 81.3 - 96.4 fl [facility] MCH 25.4(L) 27.1 - 33.3 pg [facility] MCHC 33.1 32.3 - 35.7 g/dl [facility] RDW 16.8(H) 11.1 - 14.9 % [facility] Plt Count 256 150 - 400 x10 3/ul [facility] Neut % 77.4 % [facility] Immature Gran % 0.2 % [place] [facility] Lymph % 18.4 % [facility] Kern % 3.5 % [facility] Eos % 0.2 % [facility] AUTO BASO % 0.3 % [facility] NEUTROPHIL ABS # 4.5 1.7 - 6.5 x10 3/ul [facility] Immature Gran # 0.0 0.0 - 0.1 x10 3/ul [facility] Absolute Lymphs (auto) 1.1 0.8 - 3.3 x10 3/ul [facility] Absolute Monos (auto) 0.2 0.2 - 0.8 x10 3/ul [facility] Absolute Eos (auto) 0.0 0.0 - 0.5 x10 3/ul [facility] BASOPHIL ABS # 0.0 0.0 - 0.1 x10 3/ul [facility] Nucleat RBC Rel Count 0.0 #/100WBC [facility] NRBC abs 0.00 0.00 - 0.01 x10 3/ul [facility] Absolute Neutrophils 4,500 200 - 8,000 /ul [facility] 09/20/2019 5:24 AM CDT 09/20/2019 5:30 AM CDT Narrative Resulting Agency Comment ER us Roberta Anaya DO LAB BLOOD ORDERABLES Final Resu lt [facility] [address] [place] [address], [facility] [phone] documented in this encounter Visit Diagnoses Not on filedocumented in this encounter Care Teams General Education Instructor Relationship Specialty Start Date End Date Ruma Shrestha NP PCP - General 05/30/18 documented as of this encounter
--- OUTSIDE RECORDS SUMMARY | 2024-02-25 20:49 | XMS_ITS | Encounter Summary ---
Author Organization [facility] Healthcare Address [address] [place] [address] Care Team Providers Care Hand Paster Name Role Phone Ruma Shrestha NP Primary Care Provider + Reason for Visit * Reason Comments Congestion Encounter Details Date Type Department Care Team (Late st Contact Info) Description 08/19/2020 4:20 AM CDT - 08/19/2020 4:52 AM CDT Emergency [address] [address] Nasal congestion (Primary Dx); Hypertension, unspecified type Discharge Disposition: Discharge to home or self care Social History Tobacco Use Types Packs/Day Years Used Date Smoking Tobacco: Former Alcohol Use Standard Drinks/Week Comments Not Currently 0 (1 standard drink = 0.6 oz pur e alcohol) Comments No Sex and Gender Information Value Date Recorded Sex Assigned at Not on file 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 Gender Identity Not on file Sexual Orientation Not on file documented as of this encounter Last Filed Vital Signs Vital Sign Reading Time Taken Comments Blood Pressure 150/100 08/19/2020 4:38 AM CDT Pulse 102 08/19/2020 4:28 AM CDT Temperature 36.8 ??C (98.2 ??F) 08/19/2020 4:35 AM CD T Respiratory Rate 18 08/19/2020 4:28 AM CDT Oxygen Saturation 99% 08/19/2020 4:28 AM CDT Inhaled Oxygen Concentration - - Weight - - Height - - Body Mass Index - - documented in this encounter Discharge Instructions * Discharge Instructions* Forrest Downey PA - 08/19/2020 4:36 AM CDT Return to ER immediately for any new or worsening symptoms. Follow-up as recommended is mandatory. You had elevated blood pressure during your visit today. It is important to follow-up with your primary care provider regarding elevated blood pressure. * Attachments The following attachments cannot be sent through Care Everywhere. * Cold Symptoms (AfterCare(R) Instructions(ER/ED)) (Sami) documented in this encounter Medications at Time of Discharge hydrOXYzine (ATARAX) 10 mg tablet Take 1 tablet (10 mg total) by mouth 3 (three) times a day 12/31/2019 metFORMIN (GLUCOPHAGE) 500 mg tablet 1 tablet (500 mg total) 11/10/2018 methylPREDNISolo ne (MEDROL DOSEPACK) 4 mg Dosepack Take as directed on package 1 packet 08/19/2020 08/25/2020 documented as of this encounter Ordered Prescriptions Prescription Sig Dispense Quantity Refills Last Filled Start Date End Date methylPREDNISolone (MEDROL DOSEPACK) 4 mg Dosepack Take as directed on package 1 packet 08/19/2020 documented in this encounter Discharge Disposition Disposition Code Departure Means Destination Discharge to home or self care documented in this encounter ED Notes * Jeana Mueller RN - 08/19/2020 4:52 AM CDT This RN attempted to call the pt as a discharge follow up with no success. VM left with call back number provided. Jeana Mueller RN 08/20/20 1211 * Forrest Downey PA - 08/19/2020 4:31 AM CDT HPI Chief Complaint Patient presents with ??? Congestion HPI 4:31 AM Maribell Jordan is a 40 y.o. female presenting to the ED c/o nasal congestion and loss oftaste onset 3 days ago. Patient notes she was seen at urgent care on Tuesday and was given no prescriptions. Patient has been using nasal spray at home with little relief. She denies fever, chills, body aches, cough, sore throat, or any other complaints. Patient History: No past medical history on file. No past surgical history on file. No family history on file. Social History Tobacco Use ??? Smoking status: Not on file Substance Use Topics ??? Alcohol use: Not on file ??? Drug use: Not on file No current facility-administered medications for this encounter. No current outpatient medications on file. Review of Systems Review of Systems Constitutional: Negative. HENT: Positive for congestion. Eyes: Negative. Respiratory: Negative. Cardiovascular: Negative. Gastrointestinal: Negative. Genitourinary: Negative. Musculoskeletal: Negative. Skin: Negative. Neurological: Negative. Psychiatric/Behavioral: Negative. All systems reviewed and are neg or non contributory for this patients presentation today other than as stated in the HPI . Physical Exam ED Triage Vitals [08/19/20 0428] Temp Pulse Resp BP SpO2 -- 102 18 (!) 173/113 99 % Temp src Heart Rate Source Patient Position BP Location FiO2 (%) -- -- -- -- -- Physical Exam Vitals and nursing note reviewed. Constitutional: Appearance: Normal appearance. HENT: Head: Normocephalic and atraumatic. Right Ear: External ear normal. Left Ear: External ear normal. Nose: Congestion present. No rhinorrhea. Eyes: Conjunctiva/sclera: Conjunctivae normal. Cardiovascular: Rate and Rhythm: Normal rate and regular rhythm. Pulses: Normal pulses. Heart sounds: Normal heart sounds. Pulmonary: Effort: Pulmonary effort is normal. Breath sounds: Normal breath sounds. Musculoskeletal: General: Normal range of motion. Cervical back: Neck supple. Skin: General: Skin is warm and dry. Neurological: Mental Status: She is alert and oriented to person, place, and time. Psychiatric: Mood and Affect: Mood normal. Behavior: Behavior normal. Procedures [facility] Labs Reviewed COVID-19 CORONAVIRUS RNA No orders to display BP (!) 173/113 Pulse 102 Resp 18 SpO2 99% [facility] ED Course as of Aug 20 439 Time: 08/19 0436 Comment: Repeat blood pressure 156/100. Patient reports history of hypertension but does not take her medications as she is supposed to. Denies chest pain, shortness of breath, headache, edema. Asymptomatic hypertension. Patient notes she has a follow-up with her primary care provider on 08/28/2020.She was instructed to follow up and address high blood pressure. Patient's symptoms have only been present for 3 days. No indication for antibiotics at this time. Will test for COVID-19. Patient is not wanting to wait for results. She was informed to follow up with medical records or mites are. Strict ER return precautions were discussed. All questions were addressed. By: Forrest Downey PA This examination was transcribed using the [employer] voice recognition system without human mule tender. In an effort to expedite patient care, this report has not been adjusted for typographical, grammatical, and syntax by a trained certified court/medical interpreter. Clinical Impression: No diagnosis found. 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 Pt reports going to [facility] Tuesday and being diagnosed with sinuitis. Pt also reports loss of taste. Sidra Nolen RN documented in this encounter Miscellaneous Notes * Result Encounter Note - Catherine Lloyd RN - 08/19/2020 4:52 AM CDT Results positive, will notify patient. documented in this encounter Plan of Treatment Not on file documented as of this encounter Procedures Procedure Name Priority Date/Time Associated Diagnosis Comments COVID-19 CORONAVIRUS RNA Routine 08/19/2020 4:39 AM CDT documented in this encounter Results * (ABNORMAL) COVID-19 Coronavirus RNA Nasopharyngeal (08/19/2020 4:39 AM CDT) COVID-19 RNA Positive( A) Negative [facility] Comment: Interpretive data: Synonyms for this test include: PCR and NAAT . ??This test is performed using the [employer] Xpert Xpress assay. This is a real-time RT-PCR test intended for the qualitative detection of nucleic acid from the SARS-CoV-2. This assay has been reviewed by the FDA for Emergency Use Authorization (EUA). The performance characteristics have been verified by the performing laboratory. Results must be considered in the clinical context and a negative result does not rule out infection. Interpretive data last revised March 20, 2020. Nasopharyngeal 08/19/2020 4: 39 AM CDT 08/19/2020 4:44 AM CDT Narrative [facility] - 08/19/2020 5:45 AM CDT Is the patient experiencing any symptoms consistent with COVID (eg. Fever, cough, shortness of breath)?->Yes What is the reason for testing?->Symptomatic (not immunocompromised) Date of Symptom Onset->08/15/20 Is the patient hospitalized?->No Is the patient admitted to an ICU?->No Does the patient currently work in a healthcare facility with direct patient contact?->No Is the patient a resident of a congregate care or living setting?->No Is the patient ?->Unknown Forrest MENDOZA LAB MICROBIOLOGY - GENERAL O RDERABLES Final Result [facility] [address] [facility] Department [place] [address] documented in this encounter Visit Diagnoses Diagnosis Nasal congestion- Primary Other diseases of nasal cavity and sinuses Hypertension, unspecified type documented in this encounter Additional Health Concerns Infection Onset Date Last Indicated Resolved Time COVID: Suspected 08/19/2020 08/19/2020 08/19/2020 5:45 AM CDT documented as of this encounter Care Teams Hand Paster Relationship Specialty Start Date End Date Ruma Shrestha NP PCP - General 05/30/18 documented as of this encounter
--- OUTSIDE RECORDS SUMMARY | 2024-02-25 20:49 | XMS_ITS | Encounter Summary ---
Author Organization [facility] Healthcare Address [address] [place] [address] Care Team Providers Care Electronics Test Engineer Name Role Phone Ruma Shrestha NP Primary Care Provider + Encounter Details Date Type Department Care Team (Late st Contact Info) Description 04/13/[address] [address] Jeana Mueller, [facility] Social History Tobacco Use Types Packs/Day Years Used Date Smoking Tobacco: Former Alcohol Use Standard Drinks/Week Comments Not Currently 0 (1 standard drink = 0.6 oz pur e alcohol) Comments No Sex and Gender Information Value Date Recorded Sex Assigned at Not on file 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
--- OUTSIDE RECORDS SUMMARY | 2024-02-25 20:49 | XMS_ITS | Encounter Summary ---
Author Organization [facility] Healthcare Address [address] [place] [address] Care Team Providers Care Director Of Student Aid Name Role Phone Ruma Shrestha NP Primary Care Provider + Encounter Details Date Type Department Care Team (Late st Contact Info) Description 09/06/2020 9:20 AM CDT Lab [facility] [address] [place] [id number] Social History Tobacco Use Types Packs/Day Years Used Date Smoking Tobacco: Former Alcohol Use Standard Drinks/Week Comments Not Currently 0 (1 standard drink = 0.6 oz pur e alcohol) Comments No Sex and Gender Information Value Date Recorded Sex Assigned at Not on file Legal Sex Female 5:42 AM [employer] Gender Identity Not on file Sexual Orientation Not on file documented as of this encounter Plan of Treatment Not on file documented as of this encounter Procedures Procedure Name Priority Date/Time Associated Diagnosis Comments DIFFERENTIAL AUTO Routine 09/06/2020 9:4 7 AM CDT CBC WITH AUTO DIFFERENTIAL Routine 09/06/2020 9:47 AM CDT MANUAL DIFFERENTIAL Routine 09/06/2020 9 :47 AM CDT documented in this encounter Results * (ABNORMAL) Manual Differential (09/06/2020 9:47 AM CDT) Differential Auto [facility] Neutrophil abs 2.7 1.7 - 6.5 K/cumm [facility] Imm gran abs 0.0 0.0 - 0.1 K/cumm [facility] Lymphocyte abs 2.8 0.8 - 3.3 K/cumm [facility] Monocyte abs 0.5 0.2 - 0.8 K/cumm [facility] Eosinophil abs 0.1 0.0 - 0.5 K/cumm [facility] Basophil abs 0.0 0.0 - 0.1 K/cumm [facility] Neutrophil pct 44.6 % [facility] Comment: Interpretive Data Percent cell count reference ranges are not reported, since discordance with absolute values may lead to misinterpretation of CBC data. Current Interpretive Data was last revised on 2017. Imm gran pct 0.2 % [facility] Comment: Interpretive Data Percent cell count reference ranges are not reported, since discordance with absolute values may lead to misinterpretation of CBC data. Current Interpretive Data was last revised on 2017. Lymphocyte pct 45.2 % [facility] Comment: Interpretive Data Percent cell count reference ranges are not reported, since discordance with absolute values may lead to misinterpretation of CBC data. Current Interpretive Data was last revised on 2017. Monocyte pct 8.5 % [facility] Comment: Interpretive Data Percent cell count reference ranges are not reported, since discordance with absolute values may lead to misinterpretation of CBC data. Current Interpretive Data was last revised on 2017. Eosinophil pct 1.0 % [facility] Comment: Interpretive Data Percent cell count reference ranges are not reported, since discordance with absolute values may lead to misinterpretation of CBC data. Current Interpretive Data was last revised on 2017. Basophil pct 0.5 % [facility] Comment: Interpretive Data Percent cell count reference ranges are not reported, since discordance with absolute values may lead to misinterpretation of CBC data. Current Interpretive Data was last revised on 2017. RBC morphology Present(A) [facility] Hypochromasia 3-7/HPF(A) [facility] Platelet estimate Adequate [facility] Giant platelets Present(A) [facility] Blood specimen (specimen) 09/06/2020 9:47 AM CDT 09/06/2020 11:53 AM CDT us Keiry Murphy MD LAB BLOOD ORDERABLES Radha leo Result [facility] [id number] [facility] Department [place] [address] * Differential, auto (09/06/2020 9:47 AM CDT) Neutrophil abs 2.7 1.7 - 6.5 K/cumm [facility] Imm gran abs 0.0 0.0 - 0.1 K/cumm [facility] Lymphocyte abs 2.8 0.8 - 3.3 K/cumm [facility] Monocyte abs 0.5 0.2 - 0.8 K/cumm [facility] Eosinophil abs 0.1 0.0 - 0.5 K/cumm [facility] Basophil abs 0.0 0.0 - 0.1 K/cumm [facility] Neutrophil pct 44.6 % [facility] Comment: Interpretive Data Percent cell count reference ranges are not reported, since discordance with absolute values may lead to misinterpretation of CBC data. Current Interpretive Data was last revised on 2017. Imm gran pct 0.2 % [facility] Comment: Interpretive Data Percent cell count reference ranges are not reported, since discordance with absolute values may lead to misinterpretation of CBC data. Current Interpretive Data was last revised on 2017. Lymphocyte pct 45.2 % [facility] Comment: Interpretive Data Percent cell count reference ranges are not reported, since discordance with absolute values may lead to misinterpretation of CBC data. Current Interpretive Data was last revised on 2017. Monocyte pct 8.5 % [facility] Comment: Interpretive Data Percent cell count reference ranges are not reported, since discordance with absolute values may lead to misinterpretation of CBC data. Current Interpretive Data was last revised on 2017. Eosinophil pct 1.0 % [facility] Comment: Interpretive Data Percent cell count reference ranges are not reported, since discordance with absolute values may lead to misinterpretation of CBC data. Current Interpretive Data was last revised on 2017. Basophil pct 0.5 % [facility] Comment: Interpretive Data Percent cell count reference ranges are not reported, since discordance with absolute values may lead to misinterpretation of CBC data. Current Interpretive Data was last revised on 2017. Blood specimen (specimen) 09/06/2020 9:47 AM CDT 09/06/2020 11:53 AM CDT Keiry Murphy MD LAB BLOOD ORDERABLES Radha l Result Performing Organization Address City/[facility]/ZIP Co de Phone Number [facility] [address] [place] [address] * (ABNORMAL) CBC with auto differential (09/06/2020 9:47 AM CDT) WBC 6.1 3.8 - 9.9 K/cumm [facility] Hgb 10.4(L) 11.9 - 15.5 g/dL [facility] Hct 32.8(L) 35.6 - 45.5 % [facility] Plt 215 150 - 400 K/cumm [facility] MPV 14.5(H) 9.1 - 12.3 fL [facility] RBC 3.95 3.90 - 5.20 M/cumm [facility] MCV 83.0 81.3 - 96.4 fL [facility] MCH 26.3(L) 27.1 - 33.3 pg [facility] MCHC 31.7(L) 32.3 - 35.7 g/dL [facility] RDW CV 13.3 11.1 - 14.9 % [facility] RDW SD 40.0 35.7 - 48.1 fL [facility] NRBC abs 0.00 0.00 - 0.01 K/cumm [facility] Blood specimen (specimen) 09/06/2020 9:47 AM CDT 09/06/2020 11:53 AM CDT Keiry Murphy MD LAB BLOOD ORDERABLES Edit ed Result - Final Performing Organization Address City/[facility]/ZIP Co de Phone Number [facility] [address] [place] [address] documented in this encounter Visit Diagnoses Not on filedocumented in this encounter Care Teams Director Of Student Aid Relationship Specialty Start Date End Date Ruma Shrestha NP PCP - General 05/30/18 documented as of this encounter
--- OUTSIDE RECORDS SUMMARY | 2024-02-25 20:49 | XMS_ITS | Encounter Summary ---
Author Organization [facility] Healthcare Address [address] [place] [address] Care Team Providers Care Water Purifier Operator Name Role Phone Ruma Shrestha NP Primary Care Provider + Reason for Visit * Reason Comments Chest Pain Encounter Details Date Type Department Care Team (Late st Contact Info) Description 04/12/2021 4:26 AM TECHNICAL SOLUTIONS ENGINEER - 04/12/2021 5:34 AM TECHNICAL SOLUTIONS ENGINEER Emergency [address] [address] To Torres MD [address] [place] [id number] Chest pain, unspecified type (Primary Dx) Discharge Disposition: Discharge to home or self care Social History Tobacco Use Types Packs/Day Years Used Date Smoking Tobacco: Former Alcohol Use Standard Drinks/Week Comments Not Currently 0 (1 standard drink = 0.6 oz pur e alcohol) Comments No Sex and Gender Information Value Date Recorded Sex Assigned at Not on file Legal Sex Female 5:42 AM TECHNICAL SOLUTIONS ENGINEER Gender Identity Not on file Sexual Orientation Not on file documented as of this encounter Last Filed Vital Signs Vital Sign Reading Time Taken Comments Blood Pressure 146/95 04/12/2021 4:55 AM TECHNICAL SOLUTIONS ENGINEER Pulse 78 04/12/2021 4:55 AM TECHNICAL SOLUTIONS ENGINEER Temperature 36.9 ??C (98.5 ??F) 04/12/2021 3:39 AM CS T Respiratory Rate 18 04/12/2021 4:55 AM TECHNICAL SOLUTIONS ENGINEER Oxygen Saturation 98% 04/12/2021 4:55 AM TECHNICAL SOLUTIONS ENGINEER Inhaled Oxygen Concentration - - Weight 91.6 kg (201 lb 15.1 oz) 04/12/2021 3:39 AM TECHNICAL SOLUTIONS ENGINEER Height 157.5 cm (5' 2 ) 04/12/2021 3:39 AM TECHNICAL SOLUTIONS ENGINEER Body Mass Index 36.94 04/12/2021 3:39 AM TECHNICAL SOLUTIONS ENGINEER documented in this encounter Discharge Instructions * Attachments The following attachments cannot be sent through Care Everywhere. * Chest Pain (AfterCare(R) Instructions(ER/ED)) (Pakistani) documented in this encounter Medications at Time of Discharge ergocalciferol (VITAMIN D) 50,000 unit capsule TAKE 1 CAPSULE BY MOUTH EVERY WEEK DIRECTED 02/27/2021 hydrOXYzine (ATARAX) 10 mg tablet Take 1 tablet (10 mg total) by mouth 3 (three) times a day 12/31/2019 metFORMIN (GLUCOPHAGE) 500 mg tablet 1 tablet (500 mg total) 11/10/2018 documented as of this encounter Discharge Disposition Disposition Code Departure Means Destination Discharge to home or self care documented in this encounter ED Notes * Jeana Mueller RN - 04/12/2021 5:34 AM CST This RN attempted to call the pt as a discharge follow up with no success. No VM was left at this time due to the mailbox being full. Jeana Mueller RN 04/13/21 1430 NICAL SOLUTIONS ENGINEER * To Torres MD - 04/12/2021 5:04 AM CST HPI Chief Complaint Patient presents with ??? Chest Pain HPI 40 y/o f with dmii, htn who presents with chest pain x 1 week. Center of chest, without radiation. Associated with b/l arm pain. At 3/10 Intermittent Not exertional Pt states her sxs are not worse with exertion No associated n/v/d. No fevers or chills. No diaphoresis. She is non compliant with her home htn meds, dmII meds. Denies smoking. Denies drinking Pain is not pleuritic. No hemoptysis. Patient History: There are no problems to display for this patient. Past Medical History: Diagnosis Date ??? Acid reflux ??? Diabetes mellitus (HCC) ??? Hypertension ??? Ovarian cyst ??? Sinus congestion Past Surgical History: Procedure Laterality Date ??? BREAST SURGERY ??? OVARIAN CYST REMOVAL ??? TONSILLECTOMY History reviewed. No pertinent family history. Social History Tobacco Use ??? Smoking status: Former Smoker Substance Use Topics ??? Alcohol use: Not Currently ??? Drug use: Not Currently Social History Social History Narrative ??? Not on file Review of Systems Review of Systems All systems reviewed and are neg or non contributory for this patients presentation today other than as stated in the HPI . Physical Exam ED Triage Vitals [04/12/21 0339] Temp Pulse Resp BP SpO2 36.9 ??C (98.5 ??F) 88 18 (!) 171/103 98 % Temp src Heart Rate Source Patient Position BP Location FiO2 (%) Oral -- Sitting Right arm -- Physical Exam Vitals and nursing note reviewed. Constitutional: General: She is not in acute distress. Appearance: She is well-developed. HENT: Head: Normocephalic and atraumatic. Eyes: Conjunctiva/sclera: Conjunctivae normal. Cardiovascular: Rate and Rhythm: Normal rate and regular rhythm. Pulses: Radial pulses are 2+ on the right side and 2+ on the left side. Heart sounds: Normal heart sounds. No murmur heard. Pulmonary: Effort: Pulmonary effort is normal. No respiratory distress. Breath sounds: Normal breath sounds. No decreased breath sounds or wheezing. Abdominal: General: Bowel sounds are normal. There is no distension. Palpations: Abdomen is soft. Tenderness: There is no abdominal tenderness. There is no guarding. Musculoskeletal: General: Normal range of motion. Cervical back: Neck supple. Skin: General: Skin is warm and dry. Capillary Refill: Capillary refill takes less than 2 seconds. Neurological: General: No focal deficit present. Mental Status: She is alert and oriented to person, place, and time. [facility] Medical records reviewed. Vitals stable on arrival. Cardiac workup is negative. ECG unremarkable. Heart score is 2. PERC negative. She has no pain at this time. Pt will be discharged with plan to f/u with cardiology and pcp. Vitals stable on discharge. Final diagnoses: Chest pain, unspecified type To Torres MD 04/12/21 0524 NICAL SOLUTIONS ENGINEER * Beverly Faye RN - 04/12/2021 3:44 AM CST PT states chest pain off and on since last Tuesday. States pain in both arms and nausea. NICAL SOLUTIONS ENGINEER documented in this encounter Miscellaneous Notes * ED Procedure Note - To Torres MD - 04/12/2021 5:03 AM TECHNICAL SOLUTIONS ENGINEER Associated Order(s): ECG 12 lead Procedure ECG 12 lead Date/Time: 04/12/2021 5:03 AM Performed by: To Torres MD Authorized by: To Torres MD Rate: ECG rate: 79 ECG rate assessment: normal Rhythm: Rhythm: sinus rhythm Ectopy: Ectopy: none QRS: QRS axis: Normal QRS intervals: Normal Conduction: Conduction: normal ST segments: ST segments: Normal T waves: T waves: normal Interpretation: Interpretation: normal To Torres MD 04/12/21 0504 NICAL SOLUTIONS ENGINEER documented in this encounter Plan of Treatment Not on file documented as of this encounter Procedures Procedure Name Priority Date/Time Associated Diagnosis Comments XR CHEST 1 VIEW ED 04/12/2021 4:05 AM TECHNICAL SOLUTIONS ENGINEER TROPONIN T HIGH-SENSITIVITY SERIES (BASELINE, 2HR, 4HR, 6HR) STAT 04/12/2021 3:50 AM TECHNICAL SOLUTIONS ENGINEER EGFR STAT 04/12/2021 3:50 AM TECHNICAL SOLUTIONS ENGINEER POCT TROPONIN DEVICE Routine 04/12/2021 3:50 AM TECHNICAL SOLUTIONS ENGINEER CBC WITH AUTO DIFFERENTIAL STAT 04/12/2021 3:50 AM TECHNICAL SOLUTIONS ENGINEER MANUAL DIFFERENTIAL STAT 04/12/2021 3 :50 AM TECHNICAL SOLUTIONS ENGINEER COMPREHENSIVE METABOLIC PANEL STAT 04/12/2021 3:50 AM TECHNICAL SOLUTIONS ENGINEER ECG 12-LEAD STAT 04/12/2021 3:46 AM TECHNICAL SOLUTIONS ENGINEER documented in this encounter Results * XR Chest 1 Vw Portable (04/12/2021 4:05 AM TECHNICAL SOLUTIONS ENGINEER) Anatomical Region Laterality Modality Body, Chest N/A Computed Radiogr aphy 04/12/2021 4:2 7 AM TECHNICAL SOLUTIONS ENGINEER Narrative 04/12/2021 4:28 AM TECHNICAL SOLUTIONS ENGINEER EXAM DESCRIPTION: ?? XR CHEST 1 VIEW REASON FOR STUDY: ?? chest pain ?? PT states chest pain off and on since last Tuesday. States pain in both arms and nausea. ? TECHNIQUE: ?? Frontal ??radiographic view of the chest acquired. COMPARISON: 04/08/2020 FINDINGS: LUNGS/PLEURA: ?? No focal consolidation or pneumothorax. No pleural effusion. HEART/MEDIASTINUM: ?? Heart size is normal. Normal mediastinal and hilar contours. HARDWARE/LINES/TUBES: ?? None. BONES: ?? No acute findings. OTHER: ?? No other significant finding. IMPRESSION: ??No acute cardiopulmonary disease. THIS IS AN ELECTRONICALLY VERIFIED FINAL REPORT 04/12/2021 4:28 AM - Electronically signed by ??Reza Lamb M.D. RW D: ??04/12/2021 4:28 AM T: Report ID: [id number] Reading Location: ??[id number] Procedure Note Reza Lamb MD - 04/12/2021 EXAM DESCRIPTION: XR CHEST 1 VIEW REASON FOR STUDY: chest pain PT states chest pain off and on since last Tuesday. States pain in botharms and nausea. TECHNIQUE: Frontal radiographic view of the chest acquired. COMPARISON: 04/08/2020 FINDINGS: LUNGS/PLEURA: No focal consolidation or pneumothorax. No pleuraleffusion. HEART/MEDIASTINUM: Heart size is normal. Normal mediastinal and hilar contours. HARDWARE/LINES/TUBES: None. BONES: No acute findings. OTHER: No other significant finding. IMPRESSION: No acute cardiopulmonary disease. THIS IS AN ELECTRONICALLY VERIFIED FINAL REPORT 04/12/2021 4:28 AM - Electronically signed by Reza Lamb M.D. Reza Lamb M.D. RW T: Report ID: [id number] Reading Location: [id number] To Torres MD IMG XR PROCEDURES Final R esult * Manual Differential (04/12/2021 3:50 AM TECHNICAL SOLUTIONS ENGINEER) [facility] Differential Manual [facility] Cells Counted [address] [facility] Neutrophil abs 2.8 1.7 - 6.5 K/cumm [facility] Lymphocyte abs 3.1 0.8 - 3.3 K/cumm [facility] Monocyte abs 0.5 0.2 - 0.8 K/cumm [facility] Neutrophil pct 43.0 % [facility] Comment: Interpretive Data Percent cell count reference ranges are not reported, since discordance with absolute values may lead to misinterpretation of CBC data. Current Interpretive Data was last revised on 2017. Lymphocyte pct 49.0 % [facility] Comment: Interpretive Data Percent cell count reference ranges are not reported, since discordance with absolute values may lead to misinterpretation of CBC data. Current Interpretive Data was last revised on 2017. Monocyte pct 8.0 % [facility] Comment: Interpretive Data Percent cell count reference ranges are not reported, since discordance with absolute values may lead to misinterpretation of CBC data. Current Interpretive Data was last revised on 2017. RBC morphology Normal [facility] Platelet estimate Adequate [facility] Blood 04/12/2021 3:50 AM TECHNICAL SOLUTIONS ENGINEER 04/12/2021 3:53 AM TECHNICAL SOLUTIONS ENGINEER To Torres MD LAB BLOOD ORDERABLES Radha l Result [facility] [address] [facility] Department [place] [address] * eGFR (04/12/2021 3:50 AM TECHNICAL SOLUTIONS ENGINEER) [facility] eGFR 116 mL/min/1. [address] [facility] Comment: Interpretive Data Reference Interval Normal ?>/= 90 mL/min/1.73m2 Mildly decreased* ? 60 - 89 mL/min/1.73m2 Mildly to moderately decreased ?45 - 59 mL/min/1.73m2 Moderately to severely decreased ??30 - 44 mL/min/1.73m2 Severely decreased ?15 - 29 mL/min/1.73m2 Kidney Failure ?< 15 ??mL/min/1.73m2 *Relative to young adult level Estimated glomerular filtration rate is determined by the 2020 CKD-EPI equation recommended by the National Kidney Foundation (A Unifying Approach to GFR Estimation: Recommendations of the NKF-ASK Task Force on Reassessing the Inclusion of Race in Diagnosing Kidney Disease, JASN 2020). The CKD-EPI equation should not be used for patients with unstable renal function and has not been validated in children and those over 70. Current interpretive data was last reviewed 2020. Blood 04/12/2021 3:50 AM TECHNICAL SOLUTIONS ENGINEER 04/12/2021 3:53 AM TECHNICAL SOLUTIONS ENGINEER us To Torres MD LAB BLOOD ORDERABLES Radha leo Result Performing Organization Address City/State/[facility] Co de Phone Number [facility] [phone] [facility] Department [place] [address] * POCT troponin (04/12/2021 3:50 AM TECHNICAL SOLUTIONS ENGINEER) Pathologist [facility] Troponin I Point of Care 0.00 0.00 - 0.08 ng/mL [facility] Comment: Interpretive Data If result is <= 0.08 ng/mL: ??Not Detected. If result is ??> 0.08 ng/mL: ??Detected. The Spring iSTAT point of care assay (Troponin I) was used. The cutoff for a Detected result is 0.08 ng/mL. ??This Troponin I result will not always exactly correlate with the high sensitivity Troponin T result, which uses a cutoff of 0.022 ng/mL for males and 0.014 ng/mL for females. ??The point of care assay should be regarded as an initial screening test for the presence of cardiac troponin. ??Correlation with clinical findings and high sensitivity Troponin T results is recommended. Current interpretive data was last revised 2020. Blood 04/12/2021 3:50 AM TECHNICAL SOLUTIONS ENGINEER 04/12/2021 3:50 AM TECHNICAL SOLUTIONS ENGINEER us Notinfile Unknown LAB POCT ORDERABLES - DEVICE F inal Result [facility] [address] [facility] Department [place] [address] * Comprehensive metabolic panel (04/12/2021 3:50 AM TECHNICAL SOLUTIONS ENGINEER) Sodium 136 135 - 145 mmol/L [facility] Potassium, pl 3.5 3.3 - 4.9 mmol/L [facility] Chloride 102 97 - 110 mmol/L [facility] CO2 24 22 - 32 mmol/L [facility] Anion gap 10 2 - 15 mmol/L [facility] BUN 12 8 - 25 mg/dL [facility] Creatinine 0.60 0.60 - 1.10 mg/dL [facility] Glucose 125 70 - 199 mg/dL [facility] Comment: Interpretive Data Fasting glucose >/= 126 mg/dl is diagnostic for diabetes. ?? Fasting is defined as no caloric intake for at least 8 hours. Fasting glucose between 100 mg/dl to 125 mg/dl is diagnostic of prediabetes. In a patient with classic symptoms of hyperglycemia or hyperglycemic crisis, a random glucose >/= 200 mg/dl is diagnostic for diabetes. In the absence of unequivocal hyperglycemia, results should be confirmed by repeat testing. The classification and Diagnosis of Diabetes Diabetes Care 2017;40 (Suppl. 1):S11. Current interpretive data was last revised 2016. Calcium 9.5 8.5 - 10.3 mg/dL [facility] Bilirubin, total <0.2 0.1 - 1.2 mg/dL [facility] Protein, pl 7.8 6.5 - 8.5 g/dL [facility] Albumin 4.6 3.5 - 5.0 g/dL [facility] Alk phos 66 40 - 130 Units/L [facility] ALT 16 7 - 45 Units/L [facility] AST 15 10 - 45 Units/L [facility] Blood 04/12/2021 3:50 AM TECHNICAL SOLUTIONS ENGINEER 04/12/2021 3:53 AM TECHNICAL SOLUTIONS ENGINEER Result [facility] To Torres MD LAB BLOOD ORDERABLES Radha l Result Performing Organization Address [facility] Co de Phone Number [address] [place] [employer] [place] [address] * Troponin T high-sensitivity series (baseline, 2hr, 4hr, 6hr) (04/12/2021 3:50 AM TECHNICAL SOLUTIONS ENGINEER) Pathologist [facility] Trop T hs <6 <=14 ng/L [facility] Comment: Interpretive Data For further hscTnT resources including the diagnostic algorithm and an aid in interpretation, copy and paste this link: [email or web address].testcatalog.org/show/hsTrop Current Interpretive Data last revised 2019. Blood 04/12/2021 3:50 AM TECHNICAL SOLUTIONS ENGINEER 04/12/2021 3:53 AM TECHNICAL SOLUTIONS ENGINEER To Torres MD LAB BLOOD ORDERABLES Radha l Result Performing Organization Address [facility] Co de Phone Number [address] [place] [address] * (ABNORMAL) CBC with auto differential (04/12/2021 3:50 AM TECHNICAL SOLUTIONS ENGINEER) Pathologist [facility] WBC 6.4 3.8 - 9.9 K/cumm [facility] Hgb 10.7(L) 11.9 - 15.5 g/dL [facility] Hct 33.3(L) 35.6 - 45.5 % [facility] Plt 211 150 - 400 K/cumm [facility] MPV 13.5(H) 9.1 - 12.[address] [facility] RBC 4.02 3.90 - 5.20 M/cumm [facility] MCV 82.8 81.3 - 96.4 fL [facility] M[facility] 26.6(L) 27.1 - 33.[address] [facility] MCHC 32.1(L) 32.3 - 35.7 g/dL [facility] RDW CV 13.6 11.1 - 14.9 % [facility] RDW SD 41.2 35.7 - 48.[address] [facility] NRBC abs 0.00 0.00 - 0.01 K/cumm [facility] Blood (Blood, Venous) 04/12/2021 3:50 AM TECHNICAL SOLUTIONS ENGINEER 04/12/2021 3:53 AM TECHNICAL SOLUTIONS ENGINEER To Torres MD LAB BLOOD ORDERABLES Edit ed Result - Final Performing Organization Address City/[facility]/ZIP Co de Phone Number TA[facility] [phone] [facility] Department [place] [address] * ECG 12 lead (04/12/2021 3:46 AM TECHNICAL SOLUTIONS ENGINEER) Ventricular Rate EKG/Min 79 BPM [facility] Atrial Rate 79 BPM [facility] PA-Interval (MSEC) 140 ms [facility] QRS-Interval (MSEC) 80 ms [facility] QT-Interval (MSEC) 382 ms [facility] QTc 438 ms [facility] P [place] 22 degrees [facility] R [place] 13 degrees [facility] T [place] 27 degrees [facility] Diagnosis Normal sinus rhythm Normal ECG When compared with ECG of 08-APR-2020 03:51, No significant change was found [facility] 04/12/2021 3:46 AM TECHNICAL SOLUTIONS ENGINEER 04/12/2021 2:36 PM TECHNICAL SOLUTIONS ENGINEER To Torres MD ECG ORDERABLES Final Res ult Performing Organization Address City/[facility]/ZIP Co de Phone Number [facility] documented in this encounter Visit Diagnoses Diagnosis Chest pain, unspecified type- Primary documented in this encounter Orders Lab Orders Without Results Count Last Ordered D ate First Ordered Date POCT TROPONIN DEVICE 1 04/12/2021 Nursing Count Last Ordered Date First Orde red Date NURSING COMMUNICATION 1 04/12/2021 IV Count Last Ordered Date First Orde red Date SALINE LOCK IV 1 04/12/2021 documented in this encounter Care Teams Water Purifier Operator Relationship Specialty Start Date End Date Ruma Shrestha, GERARDO PCP - General 05/30/18 documented as of this encounter
--- OUTSIDE RECORDS SUMMARY | 2024-02-25 20:49 | XMS_ITS | Encounter Summary ---
Author Organization [facility] Healthcare Address [address] [place] [id number] Care Team Providers Care Dental Insurance Biller Name Role Phone Ruma Shrestha NP Primary Care Provider + Reason for Visit * Reason Onset Date Comments Test Results 08/19/2020 Encounter Details Date Type Department Care Team (Late st Contact Info) Description 08/19/2020 Telephone [facility]/ Physicians [address] [place] [address] Catherine Lloyd RN Test Results Social History Tobacco Use Types Packs/Day Years Used Date Smoking Tobacco: Former Alcohol Use Standard Drinks/Week Comments Not Currently 0 (1 standard drink = 0.6 oz pur e alcohol) Comments No Sex and Gender Information Value Date Recorded Sex Assigned at Not on file Legal Sex Female 5:42 AM OFFICE ANALYST Gender Identity Not on file Sexual Orientation Not on file documented as of this encounter Miscellaneous Notes * Telephone Encounter - Catherine Lloyd RN - 08/19/2020 10:51 AM CDT Positive COVID19 test results were relayed via phone to the patient Maribell Jordan who expressedunderstanding. Their initial symptoms prompting presentation were: headache, congestions. They report that these symptoms are improved. The patient spoke easily in complete sentences throughout our conversation. We discussed that most patients with COVID19 who are younger or who have no additional comorbidities recover without any additional treatment needs and can be managed safely at home. We discussed that patients who are elderly or who have additional underlying medical conditions including chronic lung disease, moderate to severe asthma, serious heart conditions, renal failure, liver disease, poorly controlled diabetes, a BMI >40, or are immunocompromised may be at higher risk for developing more severe disease illness from COVID19. We discussed that if they developed emergency warning signs they should seek medical attention immediately. Emergency warning signs include severe trouble breathing, persistent pain or pressure in the chest, new confusion or inability to arouse, bluish lips or face, inability to keep fluids down with decreased urine output and/or dizziness, or any other life-threatening symptoms. We discussed that, prior to attending any regularly scheduled medical appointments, they should call the office and inform them they tested positive for COVID-19. For emergent care, I educated patient they should call 911 or go to the nearest emergency room for emergency medical conditions. They should not call us back and/or leave a message asking if they should call 911. We discussed that to limit transmission of COVID19 should their symptoms worsen and they develop a new need for additional medical care, they should immediately let any first responders know they are confirmed COVID19 positive when first responders are contacted and/or arrive and they should also tell staff they are confirmed COVID19 positive immediately on arrival to the Emergency Department. Phone numbers for the [facility] ([phone]), the [facility] ([phone]), and the [facility] 06/09 COVID19 hotline ([phone]) were provided. We discussed the need for strict home quarantine measures for a minimum of 10 days since symptoms first appeared AND they have been fever-free (with no fever reducing medicine) for 24 hours AND othersymptoms have improved. We discussed that if any different guidance was offered by the health department then their guidance would supersede ours. Patient reported they are employed at [employer]. Patient verbalized plan to inform employer of positive COVID-19 testing. Reinforced to patient they should not return to work and need to remain onhome quarantine until released by the health department or their provider. Patient reported family members are three. We discussed importance of self- isolating from asymptomatic family members as much as possible. We also discussed if household contacts start having symptoms like a cough and fever, they should call their primary care doctor and the health department; and,if they develop emergency warning signs they should call 911 or go to the nearest emergency room and should immediately inform first responders/ED staff that someone they live with tested positive for COVID-19. We discussed that household members should also home quarantine for 14 days from exposure and should stay home except to receive medical care. Educated patient they/their exposed family members should discuss further guidelines with the health department when contacted. We discussed what home quarantine meant including that they should: ??? Stay home. Do not go to work. This includes staying home from work, avoiding any public areas (including stores, restaurants, etc.), and not using public transportation. They should not leave home except for getting medical care. ??? Have only people in the home who are essential for providing care. No one else may visit. ??? Stay in a different room from other members of their family as much as possible and separate themselves from animals in the home. ??? Cover mouth and nose with a tissue when coughing or sneezing then dispose of the tissue. ??? Wear a facemask if outside and still coughing/sneezing/etc. ??? Clean their hands well with soap and water or hand hammerer helper often, especially after sneezing or blowing their nose, and before touching their face or eating. Avoid touching your eyes, nose, and mouth when possible. ??? Avoid sharing household items such as dishes, cups, bedding or other items between people in their home, especially between those who are sick and those who are not. ??? Clean and disinfect frequently touched surfaces such as tables, doorknobs, countertops, etc. atleast daily. Maribell Jordan expressed understanding of all of these concepts and agreed to follow the instructions. * Telephone Encounter - Catherine Lloyd RN - 08/19/2020 8:20 AM CDT Attempt #1 made regarding patients Positive COVID-19 results. Attempt unsuccessful.Left VM Will attempt call again tomorrow. documented in this encounter Plan of Treatment Not on file documented as of this encounter Visit Diagnoses Not on filedocumented in this encounter Additional Health Concerns Infection Onset Date Last Indicated Resolved Time COVID: Suspected 08/19/2020 08/19/2020 08/19/2020 5:45 AM CDT COVID19 08/19/2020 08/19/2020 09/02/2020 3:05 AM CDT documented as of this encounter Care Teams Dental Insurance Biller Relationship Specialty Start Date End Date Ruma Shrestha NP PCP - General 05/30/18 documented as of this encounter
--- OUTSIDE RECORDS SUMMARY | 2024-02-25 20:49 | XMS_ITS | Encounter Summary ---
Author Organization [facility] Healthcare Address [address] [place] [address] Care Team Providers Care Warehouse Associate Name Role Phone Ruma Shrestha NP Primary Care Provider + Encounter Details Date Type Department Care Team (Late st Contact Info) Description 04/08/2020 3:33 AM MORTGAGE CLOSER - 04/08/2020 4:50 AM MORTGAGE CLOSER Emergency [address] [address] Philip Del Toro MD [address] [place] [id number] Unknown, Notinfile Discharge Disposition: Discharge to home or self care Social History Tobacco Use Types Packs/Day Years Used Date Smoking Tobacco: Never Assessed Comments Unknown Sex and Gender Information Value Date Recorded Sex Assigned at Not on file Legal Sex Female 5:42 AM MORTGAGE CLOSER Gender Identity Not on file Sexual Orientation Not on file documented as of this encounter Last Filed Vital Signs Vital Sign Reading Time Taken Comments Blood Pressure 125/82 04/08/2020 3:36 AM MORTGAGE CLOSER Pulse 79 04/08/2020 3:36 AM MORTGAGE CLOSER Temperature 36.8 ??C (98.2 ??F) 04/08/2020 3:36 AM CS T Respiratory Rate - - Oxygen Saturation 97% 04/08/2020 3:36 AM MORTGAGE CLOSER Inhaled Oxygen Concentration - - Weight 101.5 kg (223 lb 12.3 oz) 04/08/2020 3:36 AM MORTGAGE CLOSER Height 157.5 cm (5' 2 ) 04/08/2020 3:36 AM MORTGAGE CLOSER Body Mass Index 40.93 04/08/2020 3:36 AM MORTGAGE CLOSER documented in this encounter Medications at Time [...] Procedure Name Priority Date/Time Associated Diagnosis Comments TNI WITH LIPID PANEL Routine 04/08/2020 3:56 AM MORTGAGE CLOSER CBC WITH AUTO DIFFERENTIAL Routine 04/08/2020 3:56 AM MORTGAGE CLOSER COMPREHENSIVE METABOLIC PANEL Routine 04/08/2020 3:56 AM MORTGAGE CLOSER ECG 12-LEAD 04/08/2020 3:51 AM MORTGAGE CLOSER SCAN - LABS 04/08/2020 12:00 AM MORTGAGE CLOSER XR CHEST 1 VIEW 04/08/2020 12:00 AM MORTGAGE CLOSER documented in this encounter Results * TNI with LIPID PANEL (04/08/2020 3:56 AM MORTGAGE CLOSER) Troponin I <0.300 0.000 - 0.300 ng/mL [facility] Comment: Reference using ANGÉLICA Chemiluminescence ? Negative: Repeat in 4-6 hours as indicated. Triglycerides 60 0 - 149 mg/dL [facility] Comment: National Lipid Association/NCEP Guidelines: ?? Normal ?< 150 mg/dL ?? Borderline high ?? 150-199 mg/dL ?? High ?200-499 mg/dL ?? Very High ? >=500 mg/dL Cholesterol 162 0 - 199 mg/dL [facility] Comment: National Lipid Association/NCEP Guidelines: Desirable ? < 200 mg/dL Borderline high: ??200-239 mg/dL High Risk: ?>=240 mg/dL HDL Cholesterol 36 mg/dL [facility] Comment: Reference Ranges: ? Males: >=40 mg/dL ? Females: >=50 mg/dL LDL Cholesterol, Calc 114 0 - 129 mg/dL [facility] Comment: National Lipid Association/NCEP Guidelines: ??Optimal ? < 100 mg/dL ??Near Optimal ?100-129 mg/dL ??Borderline high 130-159 mg/dL ??High ?>=160 mg/dL Cholesterol/HDL Ratio 4.5 [facility] Comment: Optimal ??< 3.5:1 High ? > 5:1 04/08/2020 3:56 AM MORTGAGE CLOSER 04/08/2020 3:59 AM MORTGAGE CLOSER Narrative Resulting Agency Comment ER us Philip Del Toro MD LAB BLOOD ORDERABLES Final Result [facility] [address] [place] [address], [facility] [phone] * (ABNORMAL) Comprehensive metabolic panel (04/08/2020 3:56 AM MORTGAGE CLOSER) Sodium 136 135 - 145 mmol/L [facility] Potassium 3.5 3.3 - 5.1 mmol/L [facility] Chloride 103 96 - 108 mmol/L [facility] Carbon Dioxide 24 22 - 32 mmol/L [facility] Anion Gap 9 7 - 16 [facility] Glucose 289(H) 70 - 100 mg/dL [facility] BUN 7(L) 8 - 25 mg/dL [facility] Creatinine 0.5 0.5 - 1.1 mg/dL [facility] Comment: NOTE: Estimated GFR (Cockroft-Gault) will NOT be calculated unless patient Height and Weight were entered. Also, Kidney Disease Stage (GFR) and Estimated GFR (Cockroft-Gault) will NOT be calculated if Creatinine result is <0.2. Kidney Disease Stage >90 mL/MIN [facility] Comment: NOTE; ??The GFR is an estimated [...] failure or on dialysis Est GFR (Cockcroft-G) 169 ml/MIN [facility] Comment: Estimated GFR(Cockroft-Gault)is used to calculate patient medication dosage Calcium 9.5 8.6 - 10.3 mg/dL [facility] Total Protein 7.4 6.4 - 8.3 g/dL [facility] Albumin 4.3 3.5 - 5.0 g/dL [facility] Globulin 3.1 2.3 - 3.5 gm/dL [facility] Albumin/Globulin Ratio 1.4 1.1 - 1.8 [facility] Total Bilirubin 0.3 0.0 - 1.2 mg/dL [facility] AST 29 0 - 32 U/L [facility] ALT 42(H) 0 - 33 U/L [facility] Alkaline Phosphatase 66 35 - 104 U/L [facility] 04/08/2020 3:56 AM MORTGAGE CLOSER 04/08/2020 3:59 AM MORTGAGE CLOSER Narrative Resulting Agency Comment ER us Philip Del Toro MD LAB BLOOD ORDERABLES Final Result [facility] [address] [place], [place] [address] [phone] * (ABNORMAL) CBC with auto differential (04/08/2020 3:56 AM MORTGAGE CLOSER) WBC 4.6 3.8 - 9.9 X10 3/ul [facility] RBC 4.07 3.90 - 5.20 x10 6/ul [facility] Hemoglobin 10.7(L) 11.9 - 15.5 g/dL [facility] Hct 32.6(L) 35.6 - 45.5 % [facility] MCV 80.1(L) 81.3 - 96.4 fl [facility] MCH 26.3(L) 27.1 - 33.3 pg [facility] MCHC 32.8 32.3 - 35.7 g/dl [facility] RDW 12.8 11.1 - 14.9 % [facility] Plt Count 204 150 - 400 x10 3/ul [facility] MPV 12.5(H) 9.1 - 12.3 fl [facility] Neut % 42.7 % [facility] Immature Gran % 0.2 % [facility] Lymph % 47.0 % [facility] [place] % 8.4 % [facility] Eos % 1.3 % [facility] AUTO BASO % 0.4 % [facility] NEUTROPHIL ABS # 1.9 1.7 - 6.5 x10 3/ul [facility] Immature Gran # 0.0 0.0 - 0.1 x10 3/ul [facility] Absolute Lymphs (auto) 2.1 0.8 - 3.3 x10 3/ul [facility] Absolute Monos (auto) 0.4 0.2 - 0.8 x10 3/ul [facility] Absolute Eos (auto) 0.1 0.0 - 0.5 x10 3/ul [facility] BASOPHIL ABS # 0.0 0.0 - 0.1 x10 3/ul [facility] Nucleat RBC Rel Count 0.0 #/100WBC [facility] NRBC abs 0.00 0.00 - 0.01 x10 3/ul [facility] Absolute Neutrophils 1,900 200 - 8,000 /ul [facility] 04/08/2020 3:56 AM MORTGAGE CLOSER 04/08/2020 3:59 AM MORTGAGE CLOSER Narrative Resulting Agency Comment ER us Philip Del Toro MD LAB BLOOD ORDERABLES Final Result [facility] [address] [phone] * ECG 12 lead (04/08/2020 3:51 AM MORTGAGE CLOSER) Ventricular Rate EKG/Min 78 BPM ER RADIOLOGY Atrial Rate 78 BPM ER RADIOLOGY SD-Interval (MSEC) 146 ms ER RADIOLOGY QRS-Interval (MSEC) 88 ms ER RADIOLOGY QT-Interval (MSEC) 360 ms ER RADIOLOGY QTc 410 ms ER RADIOLOGY P [place] 4 degrees ER RADIOLOGY R [place] 22 degrees ER RADIOLOGY T [place] 2 degrees ER RADIOLOGY Diagnosis Normal sinus rhythm Inferior t wave abnormality When compared with ECG of 14-SEP-2019 01:58, No significant change ER RADIOLOGY 04/08/2020 3:51 AM MORTGAGE CLOSER 04/08/2020 10:05 PM MORTGAGE CLOSER Narrative Resulting Agency Comment NATALI Philip Del Toro MD ECG ORDERABLES Final Result ER RADIOLOGY * SCAN - LABS (04/08/2020 12:00 AM MORTGAGE CLOSER) Narrative 04/08/2020 12:00 AM MORTGAGE CLOSER Ordered by an unspecified provider. us Historical Provider Final Res ult * XR Chest 1 View (04/08/2020 12:00 AM MORTGAGE CLOSER) Anatomical Region Laterality Modality Body, Chest N/A Radiographic Juanita ging 04/08/2020 4:24 AM MORTGAGE CLOSER Narrative 04/08/2020 4:25 AM MORTGAGE CLOSER Patient Name: MARIBELL DAMICO ?Ordering Dr: Philip Del Toro MD ?? D.O.B: 1980 ? Exam Date: 04/08/20 ?? 0000 ?? Age: 39 ?Sex: Female ? MR#: [id number] ?? Loc: ? RADIOLOGY REPORT ?? Order #[id number] ?? Radiology ? Chest 1 View ? Signed ?? EXAM DESCRIPTION: ?? Chest 1 View ? REASON FOR STUDY: ?? Intermittent left arm pain that started at 2100 at work ?? earlier this evening. ? TECHNIQUE: ?? Frontal radiographic view of the chest acquired. ? COMPARISON: ?? 09/14/2019 ? FINDINGS: ? LUNGS/PLEURA: ??No focal consolidation or pneumothorax. No pleural effusion. ? HEART/MEDIASTINUM: ??Heart size is normal. Normal mediastinal and hilar ?? contours. ? HARDWARE/LINES/TUBES: ??None. ? BONES: ??No acute findings. ? OTHER: ??No other significant finding. ? IMPRESSION: ?? No acute cardiopulmonary disease. ? THIS IS AN ELECTRONICALLY VERIFIED FINAL REPORT ?? 04/08/2020 4:25 AM - Electronically signed by Davon Burnett ?? Davon Burnett ? BB ?? D: ??04/08/2020 4:25 AM ?? T: ? Report ID: [id number] ?? Reading Location: ??[id number] ? REPORT ELECTRONICALLY SIGNED IN OTHER VENDOR SYSTEM ?? Resulting Agency Comment E Procedure Note Davon Burnett MD PhD - 04/08/2020 Patient Name: MARIBELL DAMICO Dr: Philip Del Toro MD D.O.B: 1980 Exam Date: 04/08/20 0000 Age: 39 Sex: Female MR#: [id number] Loc: [facility]#: [id number] RADIOLOGY REPORT Order #[id number] Radiology Chest 1 View Signed EXAM DESCRIPTION: Chest 1 View REASON FOR STUDY: Intermittent left arm pain that started at 2100 atwork earlier this evening. TECHNIQUE: Frontal radiographic view of the chest acquired. COMPARISON: 09/14/2019 FINDINGS: LUNGS/PLEURA: No focal consolidation or pneumothorax. No pleuraleffusion. HEART/MEDIASTINUM: Heart size is normal. Normal mediastinal and hilar contours. HARDWARE/LINES/TUBES: None. BONES: No acute findings. OTHER: No other significant finding. IMPRESSION: No acute cardiopulmonary disease. THIS IS AN ELECTRONICALLY VERIFIED FINAL REPORT 04/08/2020 4:25 AM - Electronically signed by Davon AMBROCIO T: Report ID: [id number] Reading Location: [place] [address] REPORT ELECTRONICALLY SIGNED IN OTHER VENDOR SYSTEM Philip Del Toro MD IMG XR PROCEDURES Fin al Result documented in this encounter Visit Diagnoses Not on filedocumented in this encounter Care Teams Warehouse Associate Relationship Specialty Start Date End Date Ruma Shrestha NP PCP - General 05/30/18 documented as of this encounter
--- OUTSIDE RECORDS SUMMARY | 2024-02-25 20:49 | XMS_ITS | Encounter Summary ---
Author Organization [facility] Healthcare Address [address] [place] [address] Care Team Providers Care Registered Dental Hygienist Name Role Phone Ruma Shrestha NP Primary Care Provider + Encounter Details Date Type Department Care Team (Late st Contact Info) Description 04/25/2020 4:47 AM RENTAL SALES ASSOCIATE - 04/25/2020 5:55 AM RENTAL SALES ASSOCIATE Emergency [address] [address] Prasad Curiel MD [address] [place] [address] Unknown, Notinfile Discharge Disposition: Discharge to home or self care Social History Tobacco Use Types Packs/Day Years Used Date Smoking Tobacco: Never Assessed Comments Unknown Sex and Gender Information Value Date Recorded Sex Assigned at Not on file Legal Sex Female 5:42 AM RENTAL SALES ASSOCIATE Gender Identity Not on file Sexual Orientation Not on file documented as of this encounter Last Filed Vital Signs Vital Sign Reading Time Taken Comments Blood Pressure 166/99 04/25/2020 4:51 AM RENTAL SALES ASSOCIATE Pulse 80 04/25/2020 4:51 AM RENTAL SALES ASSOCIATE Temperature 36.9 ??C (98.4 ??F) 04/25/2020 4:51 AM CS T Respiratory Rate - - Oxygen Saturation 98% 04/25/2020 4:51 AM RENTAL SALES ASSOCIATE Inhaled Oxygen Concentration - - Weight 100.8 kg (222 lb 3.6 oz) 04/25/2020 4:51 AM RENTAL SALES ASSOCIATE Height 157.5 cm (5' 2 ) 04/25/2020 4:51 AM RENTAL SALES ASSOCIATE Body Mass Index 40.65 04/25/2020 4:51 AM RENTAL SALES ASSOCIATE documented in this encounter Medications at Time [...] on filedocumented in this encounter Care Teams Registered Dental Hygienist Relationship Specialty Start Date End Date Ruma Shrestha NP PCP - General 05/30/18 documented as of this encounter
--- OUTSIDE RECORDS SUMMARY | 2024-02-25 20:49 | XMS_ITS | Encounter Summary ---
Author Organization [facility] Healthcare Address [address] [place] [address] Care Team Providers Care Chef Instructor Name Role Phone Ruma Shrestha NP Primary Care Provider + Encounter Details Date Type Department Care Team (Late st Contact Info) Description 09/14/2019 12:31 AM CDT - 09/14/2019 8:43 AM CDT Hospital Encounter [address] [address] Unknown, Mikala Razo, [address] [address] Discharge Disposition: Discharge to home or self care Social History Tobacco Use Types Packs/Day Years Used Date Smoking Tobacco: Never Assessed Comments Unknown Sex and Gender Information Value Date Recorded Sex Assigned at Not on file Legal Sex Female 5:42 AM ASSEMBLY MECHANIC Gender Identity Not on file Sexual Orientation Not on file documented as of this encounter Last Filed Vital Signs Vital Sign Reading Time Taken Comments Blood Pressure 137/89 09/14/2019 12:35 AM CDT Pulse 80 09/14/2019 12:35 AM CDT Temperature 36.9 ??C (98.5 ??F) 09/14/2019 1 2:35 AM CDT Respiratory Rate - - Oxygen Saturation 98% 09/14/2019 12: 35 AM CDT Inhaled Oxygen Concentration - - Weight 99.2 kg (218 lb 11.2 oz) 07/31/2 020 12:35 AM CDT Height 157.5 cm (5' 2 ) 09/14/2019 12:3 5 AM CDT Body Mass Index 40 09/14/2019 12:35 AM CDT documented in this encounter Medications [...] Date/Time Associated Diagnosis Comments SCAN - LABS 09/15/2019 12:00 AM CDT TROPONIN I Routine 09/14/2019 3:58 AM CDT ECG 12-LEAD 09/14/2019 1:58 AM CDT ECG 12-LEAD 09/14/2019 1:43 AM CDT TNI WITH LIPID PANEL Routine 09/14/2019 1:04 AM CDT CBC WITH AUTO DIFFERENTIAL Routine 09/14/2019 1:04 AM CDT LIPASE Routine 09/14/2019 1:04 AM CDT COMPREHENSIVE METABOLIC PANEL Routine 09/14/2019 1:04 AM CDT XR SHOULDER LEFT 2 OR MORE VIEWS 09/14/2019 12:00 AM CDT XR CHEST PA LATERAL 2 VIEWS 09/14/2019 12:00 AM CDT documented in this encounter Results * SCAN - LABS (09/15/2019 12:00 AM CDT) Narrative 09/15/2019 12:00 AM CDT Ordered by an unspecified provider. us Historical Provider MD Final Res ult * Troponin I (09/14/2019 3:58 AM CDT) Troponin I <0.300 0.000 - 0.300 ng/mL [facility] Comment: Reference using ANGÉLICA Chemiluminescence ? Negative: Repeat in 4-6 hours as indicated. 09/14/2019 3:58 AM CDT 09/14/2019 4:02 AM CDT Narrative Resulting Agency Comment ER Prasad Jimenez DO LAB BLOOD ORDERABLES Final Res ult [address] [phone] * ECG 12 lead (09/14/2019 1:58 AM CDT) Ventricular Rate EKG/Min 60 BPM [facility] Atrial Rate 60 BPM [facility] SD-Interval (MSEC) 138 ms [facility] QRS-Interval (MSEC) 90 ms [facility] QT-Interval (MSEC) 390 ms [facility] QTc 390 ms [facility] P [place] 10 degrees [facility] R [place] 23 degrees [facility] T [place] 8 degrees [facility] Diagnosis Normal sinus rhythm with sinus arrhythmia Normal ECG When compared with ECG of 14-SEP-2019 01:43, No significant change was found [facility] 09/14/2019 1:58 AM CDT 09/14/2019 9:17 AM CDT Narrative Resulting Agency Comment NATALI us Notinfile Unknown ECG ORDERABLES Final Result Performing Organization Address [facility] Co de Phone Number [address] * ECG 12 lead (09/14/2019 1:43 AM CDT) Ventricular Rate EKG/Min 63 BPM [facility] Atrial Rate 63 BPM [facility] SD-Interval (MSEC) 136 ms [facility] QRS-Interval (MSEC) 88 ms [facility] QT-Interval (MSEC) 384 ms [facility] QTc 392 ms [facility] P [place] 6 degrees [facility] R [place] 24 degrees [facility] T [place] 9 degrees [facility] Diagnosis Normal sinus rhythm with sinus arrhythmia Normal ECG When compared with ECG of 04-JUN-2019 09:49, No significant change was found [facility] 09/14/2019 1:43 AM CDT 09/14/2019 1:55 PM CDT Narrative Resulting Agency Comment NATALI Prasad Jimenez DO ECG ORDERABLES Final Result Performing Organization Address [facility] Co de Phone Number [facility] * Lipase (09/14/2019 1:04 AM CDT) Lipase 31 13 - 60 U/L [facility] 09/14/2019 1:04 AM CDT 09/14/2019 1:09 AM CDT Narrative Resulting Agency Comment ER Prasad Jimenez DO LAB BLOOD ORDERABLES Final Res ult Performing Organization Address [facility] Co de Phone Number [address] [phone] * TNI with LIPID PANEL (09/14/2019 1:04 AM CDT) Troponin I <0.300 0.000 - 0.300 ng/mL [facility] Comment: Reference using ANGÉLICA Chemiluminescence ? Negative: Repeat in 4-6 hours as indicated. Triglycerides 74 0 - 149 mg/dL [facility] Comment: National Lipid Association/NCEP Guidelines: ?? Normal ?< 150 mg/dL ?? Borderline high ?? 150-199 mg/dL ?? High ?200-499 mg/dL ?? Very High ? >=500 mg/dL Cholesterol 146 0 - 199 mg/dL [facility] Comment: National Lipid Association/NCEP Guidelines: Desirable ? < 200 mg/dL Borderline high: ??200-239 mg/dL High Risk: ?>=240 mg/dL HDL Cholesterol 38 mg/dL [facility] Comment: Reference Ranges: ? Males: >=40 mg/dL ? Females: >=50 mg/dL LDL Cholesterol, Calc 93 0 - 129 mg/dL [facility] Comment: National Lipid Association/NCEP Guidelines: ??Optimal ? < 100 mg/dL ??Near Optimal ?100-129 mg/dL ??Borderline high 130-159 mg/dL ??High ?>=160 mg/dL Cholesterol/HDL Ratio 3.8 [facility] Comment: Optimal ??< 3.5:1 High ? > 5:1 09/14/2019 1:04 AM CDT 09/14/2019 1:09 AM CDT Narrative Resulting Agency Comment ER us Prasad Jimenez DO LAB BLOOD ORDERABLES Final Res ult [facility] [address] [place] [address], [facility] [phone] * (ABNORMAL) Comprehensive metabolic panel (09/14/2019 1:04 AM CDT) Sodium 136 135 - 145 mmol/L [facility] Potassium 3.8 3.3 - 5.1 mmol/L [facility] Chloride 102 96 - 108 mmol/L [facility] Carbon Dioxide 26 22 - 32 mmol/L [facility] Anion Gap 8 7 - 16 [facility] Glucose 224(H) 70 - 100 mg/dL [facility] BUN 10 8 - 25 mg/dL [facility] Creatinine 0.6 0.5 - 1.1 mg/dL [facility] Comment: NOTE: Estimated GFR (Cockroft-Gault) will NOT be calculated unless patient Height and Weight were entered. Also, Kidney Disease Stage (GFR) and Estimated GFR (Cockroft-Gault) will NOT be calculated if Creatinine result is <0.2. Kidney Disease Stage >90 mL/MIN [facility] Comment: NOTE; ??The GFR is an [...] on dialysis Est GFR (Cockcroft-G) 139 ml/MIN [facility] Comment: Estimated GFR(Cockroft-Gault)is used to calculate patient medication dosage Calcium 9.8 8.6 - 10.3 mg/dL [facility] Total Protein 7.5 6.4 - 8.3 g/dL [facility] Albumin 4.4 3.5 - 5.0 g/dL [facility] Globulin 3.1 2.3 - 3.5 gm/dL [facility] Albumin/Globulin Ratio 1.4 1.1 - 1.8 [facility] Total Bilirubin <0.2 0.0 - 1.2 mg/dL [facility] AST 15 0 - 32 U/L [facility] ALT 17 0 - 33 U/L [facility] Alkaline Phosphatase 68 35 - 104 U/L [facility] 09/14/2019 1:04 AM CDT 09/14/2019 1:09 AM CDT Narrative Resulting Agency Comment ER us Prasad Jimenez DO LAB BLOOD ORDERABLES Edited Re jose - Final [facility] [address] [place] [address], [facility] [phone] * (ABNORMAL) CBC with auto differential (09/14/2019 1:04 AM CDT) WBC 6.6 3.8 - 9.9 X10 3/ul [facility] RBC 4.50 3.90 - 5.20 x10 6/ul [facility] Hemoglobin 11.3(L) 11.9 - 15.5 g/dL [facility] Hct 35.8 35.6 - 45.5 % [facility] MCV 79.6(L) 81.3 - 96.4 fl [facility] MCH 25.1(L) 27.1 - 33.3 pg [facility] MCHC 31.6(L) 32.3 - 35.7 g/dl [facility] RDW 17.6(H) 11.1 - 14.9 % [facility] Plt Count 209 150 - 400 x10 3/ul [facility] Neut % 50.0 % [facility] Immature Gran % 0.2 % [facility] Lymph % 40.8 % [facility] [place] % 7.5 % [facility] Eos % 1.2 % [facility] AUTO BASO % 0.3 % [facility] NEUTROPHIL ABS # 3.3 1.7 - 6.5 x10 3/ul [facility] Immature Gran # 0.0 0.0 - 0.1 x10 3/ul [facility] Absolute Lymphs (auto) 2.7 0.8 - 3.3 x10 3/ul [facility] Absolute Monos (auto) 0.5 0.2 - 0.8 x10 3/ul [facility] Absolute Eos (auto) 0.1 0.0 - 0.5 x10 3/ul [facility] BASOPHIL ABS # 0.0 0.0 - 0.1 x10 3/ul [facility] Nucleat RBC Rel Count 0.0 #/100WBC [facility] NRBC abs 0.00 0.00 - 0.01 x10 3/ul [facility] Absolute Neutrophils 3,300 200 - 8,000 /ul [facility] 09/14/2019 1:04 AM CDT 09/14/2019 1:09 AM CDT Narrative Resulting Agency Comment ER us Prasad Jimenez DO LAB BLOOD ORDERABLES Final Res ult [facility] [address] [phone] * XR Shoulder Left 2 or More Views (09/14/2019 12:00 AM CDT) Anatomical Region Laterality Modality Upper Extremities, Shoulder Left Radi ographic Imaging 09/14/2019 7:48 AM CDT Narrative 09/14/2019 7:49 AM CDT Patient Name: MARIBELL DAMICO ?Ordering Dr: Mikala Calixto PA-C ?? D.O.B: 1980 ? Exam Date: 09/14/19 ?? 0000 ?? Age: 39 ?Sex: Female ? MR#: [id number] ?? Loc: ? RADIOLOGY REPORT ?? Order #[id number] ?? Radiology ? Shoulder LT 2Vw Min (STANDARD) ? Signed ?? EXAM DESCRIPTION: ?? Shoulder LT 2Vw Min (STANDARD) ? REASON FOR STUDY: ?? left shoulder pain onset yesterday; denies injury ? TECHNIQUE: ?? Internal rotation, external rotation, and Y ??views acquired of ?? the left shoulder. ? COMPARISON: ?? None ? FINDINGS: ? BONES/JOINTS: ??No acute fracture, malalignment or osseous abnormalities. Mild ?? osteoarthritic changes. ? SOFT TISSUES: ??Unremarkable. ? VISUALIZED RIBS AND LUNG: ??No significant finding. ? OTHER: ??No significant finding. ? IMPRESSION: ?? No acute osseous abnormality. ? THIS IS AN ELECTRONICALLY VERIFIED FINAL REPORT ?? 09/14/2019 7:49 AM - Electronically signed by Austen Scales M.D. ?? Austen Scales M.D. ? [place] ?? D: ??09/14/2019 7:49 AM ?? T: ? Report ID: [id number] ?? Reading Location: ??[id number] ? REPORT ELECTRONICALLY SIGNED IN OTHER VENDOR SYSTEM ?? Resulting Agency Comment E Procedure Note Austen Scales MD - 09/14/2019 Patient Name: MARIBELL DAMICO Dr: Mikala Calixto PA-C, D.O.B: 1980 Exam Date: 09/14/19 0000 Age: 39 Sex: Female MR#: [id number] Loc: RADIOLOGY REPORT Order #[id number] Radiology Shoulder LT 2Vw Min (STANDARD) Signed EXAM DESCRIPTION: Shoulder LT 2Vw Min (STANDARD) REASON FOR STUDY: left shoulder pain onset yesterday; denies injury TECHNIQUE: Internal rotation, external rotation, and Y views acquiredof the left shoulder. COMPARISON: None FINDINGS: BONES/JOINTS: No acute fracture, malalignment or osseous abnormalities.Mild osteoarthritic changes. SOFT TISSUES: Unremarkable. VISUALIZED RIBS AND LUNG: No significant finding. OTHER: No significant finding. IMPRESSION: No acute osseous abnormality. THIS IS AN ELECTRONICALLY VERIFIED FINAL REPORT 09/14/2019 7:49 AM - Electronically signed by Austen Scales M.D. [place] T: Report ID: [id number] Reading Location: [place] [address] REPORT ELECTRONICALLY SIGNED IN OTHER VENDOR SYSTEM us Mikala Calixto PA IMG XR PROCEDURES Final Resul t * XR Chest Pa Lateral 2 Views (09/14/2019 12:00 AM CDT) Anatomical Region Laterality Modality Body, Chest N/A Radiographic Juanita ging 09/14/2019 1:51 AM CDT Narrative 09/14/2019 1:51 AM CDT Patient Name: MARIBELL DAMICO ?Ordering Dr: Prasad Jimenez DO ?? D.O.B: 1980 ? Exam Date: 09/13/20 ?? 0000 ?? Age: 39 ?Sex: Female ? MR#: [id number] ?? Loc: ? RADIOLOGY REPORT ?? Order #[id number] ?? Radiology ? Chest 2 Views ? Signed ?? EXAM DESCRIPTION: ?? Chest 2 Views ? REASON FOR STUDY: ?? Chest pain, pain to left shoulder tonight after eating ?? tristanian food. ? TECHNIQUE: ?? Frontal and lateral radiographic views of the chest acquired. ? COMPARISON: ?? 06/04/2019 ? FINDINGS: ? LUNGS/PLEURA: ??No focal consolidation or pneumothorax. No pleural effusion. ? HEART/MEDIASTINUM: ??Heart size is normal. Normal mediastinal and hilar ?? contours. ? HARDWARE/LINES/TUBES: ??None. ? BONES: ??No acute findings. ? OTHER: ??No other significant finding. ? IMPRESSION: ?? No acute cardiopulmonary abnormality. ? THIS IS AN ELECTRONICALLY VERIFIED FINAL REPORT ?? 09/14/2019 1:51 AM - Electronically signed by Davon Burnett ?? Davon Burnett ? BB ?? D: ??09/14/2019 1:51 AM ?? T: ? Report ID: [id number] ?? Reading Location: ??[id number] ? REPORT ELECTRONICALLY SIGNED IN OTHER VENDOR SYSTEM ?? Resulting Agency Comment P Procedure Note Davon Burnett MD PhD - 09/14/2019 Patient Name: MARIBELL DAMICO Dr: Prasad Jimenez DO DDontaeODontaeB: 1980 Exam Date: 09/14/19 0000 Age: 39 Sex: Female MR#: [id number] Loc: RADIOLOGY REPORT Order #[id number] Radiology Chest 2 Views Signed EXAM DESCRIPTION: Chest 2 Views REASON FOR STUDY: Chest pain, pain to left shoulder tonight aftereating tristanian food. TECHNIQUE: Frontal and lateral radiographic views of the chestacquired. COMPARISON: 06/04/2019 FINDINGS: LUNGS/PLEURA: No focal consolidation or pneumothorax. No pleuraleffusion. HEART/MEDIASTINUM: Heart size is normal. Normal mediastinal and hilar contours. HARDWARE/LINES/TUBES: None. BONES: No acute findings. OTHER: No other significant finding. IMPRESSION: No acute cardiopulmonary abnormality. THIS IS AN ELECTRONICALLY VERIFIED FINAL REPORT 09/14/2019 1:51 AM - Electronically signed by Davon AMBROCIO T: Report ID: [id number] Reading Location: [place] [address] REPORT ELECTRONICALLY SIGNED IN OTHER VENDOR SYSTEM Prasad Jimenez DO IMG XR PROCEDURES Final Result documented in this encounter Visit Diagnoses Not on filedocumented in this encounter Care Teams Chef Instructor Relationship Specialty Start Date End Date Ruma Shrestha NP PCP - General 05/30/18 documented as of this encounter
--- OUTSIDE RECORDS SUMMARY | 2024-02-25 20:49 | XMS_ITS | Encounter Summary ---
Author Organization [facility] Healthcare Address [address] [place] [address] Care Team Providers Care Program Clinician Name Role Phone Ruma Shrestha NP Primary Care Provider + Reason for Referral * Diagnostic Imaging (Routine) - Closed Specialty Diagnoses / Procedures Referred By Renata am Referred To Contact Diagnoses Epigastric pain Procedures US RUQ Keiry Murphy MD Phone: tel: fax: [address] [phone] Referral ID Status Reason Start Date Expiration Date Visits Re quested Visits Authorized [id number] Closed 10/14/2020 11/13/2021 1 1 Reason for Visit * Diagnostic Imaging (Routine) - Closed Specialty Diagnoses / Procedures Referred By Renata ma Referred To Contact Diagnoses Epigastric pain Procedures US RUKeiry Flower MD Phone: tel: fax: [address] [phone] Referral ID Status Reason Start Date Expiration Date Visits Re quested Visits Authorized [id number] Closed 10/14/2020 11/13/2021 1 1 Encounter Details Date Type Department Care Team (Latest Contact Info) Description 10/16/2020 10:40 AM CDT - 10/16/2020 11:59 PM CDT Hospital Encounter [place] [address] [place] [address] Epigastric pain Discharge Disposition: Discharge to home or self care Social History Tobacco Use Types Packs/Day Years Used Date Smoking Tobacco: Former Alcohol Use Standard Drinks/Week Comments Not Currently 0 (1 standard drink = 0.6 oz pur e alcohol) Comments No Sex and Gender Information Value Date Recorded Sex Assigned at Not on file 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 US RUQ REASON FOR STUDY: ?? Abdominal bloating for 9 months an intermittent nausea for 1 year. TECHNIQUE: ??Ultrasound of the right upper quadrant of the abdomen was performed with grayscale and color doppler. COMPARISON: ?? CT abdomen and pelvis dated 06/20/2019. FINDINGS: PANCREAS: ??Visualized portions of the pancreas are within normal limits. Portions of the pancreatic body and tail are obscured due to bowel gas. LIVER: ??The liver is diffusely increased in echogenicity, reflecting hepatic steatosis. ??The liver is at the upper limits of normal in size. ??No appreciable mass. GALLBLADDER: ??The gallbladder appears unremarkable. No cholelithiasis. ??No gallbladder wall thickening or pericholecystic fluid. No positive sonographic Joy's sign reported. BILIARY: ??There is no intrahepatic or extrahepatic biliary ductal dilatation. Common bile duct measures ??3 mm in diameter. RIGHT KIDNEY: ??Normal size. Normal echogenicity. No solid mass or cyst. ??No hydronephrosis. Measures ??12.1 cm in length. OTHER: ??No other significant findings. IMPRESSION: ?? 1. ??Diffuse hepatic steatosis. 2. ??No sonographic evidence of cholelithiasis or cholecystitis. THIS IS AN ELECTRONICALLY VERIFIED FINAL REPORT 10/16/2020 4:47 PM - Electronically signed by Justyna Christianson M.D. TB D: ??10/16/2020 4:47 PM T: Report ID: [id number] Reading Location: ??[id number] Procedure Note Justyna Christianson MD - 10/16/2020 EXAM DESCRIPTION: US RUQ REASON FOR STUDY: Abdominal bloating for 9 months an intermittent nauseafor 1 year. TECHNIQUE: Ultrasound of the right upper quadrant of the abdomen was performed with grayscale and color doppler. COMPARISON: CT abdomen and pelvis dated 06/20/2019. FINDINGS: PANCREAS: Visualized portions of the pancreas are within normal limits. Portions of the pancreatic body and tail are obscured due to bowel gas. LIVER: The liver is diffusely increased in echogenicity, reflectinghepatic steatosis. The liver is at the upper limits of normal in size. No appreciable mass. GALLBLADDER: The gallbladder appears unremarkable. No cholelithiasis. No gallbladder wall thickening or pericholecystic fluid. No positivesonographic Joy's sign reported. BILIARY: There is no intrahepatic or extrahepatic biliary ductaldilatation. Common bile duct measures 3 mm in diameter. RIGHT KIDNEY: Normal size. Normal echogenicity. No solid mass or cyst.No hydronephrosis. Measures 12.1 cm in length. OTHER: No other significant findings. IMPRESSION: 1. Diffuse hepatic steatosis. 2. No sonographic evidence of cholelithiasis or cholecystitis. THIS IS AN ELECTRONICALLY VERIFIED FINAL REPORT 10/16/2020 4:47 PM - Electronically signed by Justyna ESPINOZA T: Report ID: [id number] Reading Location: [facility] Keiry Murphy MD [facility] US PROCEDURES Final R esult documented in this encounter Visit Diagnoses Diagnosis Epigastric pain Abdominal pain, epigastric documented in this encounter Additional Health Concerns Infection Onset Date Last Indicated Resolved Time COVID: Recovered Comment:Added based on recent COVID infection. 09/02/2020 09/08/2020 12/31/2020 3:[address] documented as of this encounter Care Teams Program Clinician Relationship Specialty Start Date End Date Ruma Shrestha NP PCP - General 05/30/18 documented as of this encounter
--- OUTSIDE RECORDS SUMMARY | 2024-02-25 20:49 | XMS_ITS | Encounter Summary ---
Author Organization [facility] Healthcare Address [address] [place] [address] Care Team Providers Care Dehydration Plant Operator Name Role Phone Ruma Shrestha NP Primary Care Provider + Reason for Visit * Reason Comments Chest Pain Arm Pain Encounter Details Date Type Department Care Team (Late st Contact Info) Description 12/07/2021 4:08 AM CDT - 12/07/2021 5:56 AM CDT Emergency [address] [phone] Myesha Graves MD [address] [place] [address] EMERGENCY DEPARTMENT [place], [place] [id number] Pain of left upper extremity (Primary Dx) Discharge Disposition: Discharge to home or self care Social History Tobacco Use Types Packs/Day Years Used Date Smoking Tobacco: Former Alcohol Use Standard Drinks/Week Comments Not Currently 0 (1 standard drink = 0.6 oz pur e alcohol) Comments No Sex and Gender Information Value Date Recorded Sex Assigned at Not on file 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 Gender Identity Not on file Sexual Orientation Not on file documented as of this encounter Last Filed Vital Signs Vital Sign Reading Time Taken Comments Blood Pressure 113/68 12/07/2021 5:45 AM CDT Pulse 63 12/07/2021 5:45 AM CDT Temperature 36.9 ??C (98.5 ??F) 12/07/2021 2:25 AM CD T Respiratory Rate 19 12/07/2021 5:45 AM CDT Oxygen Saturation 94% 12/07/2021 5:45 AM CDT Inhaled Oxygen Concentration - - Weight 94.1 kg (207 lb 7.3 oz) 12/07/2021 2:25 A M CDT Height 157.5 cm (5' 2 ) 12/07/2021 2:25 AM CDT Body Mass Index 37.94 12/07/2021 2:25 AM CDT documented in this encounter Discharge Instructions * Discharge Instructions* Myesha Graves MD - 12/07/2021 5:36 AM CDT Ibuprofen 600mg every 6-8hours for pain. Tylenol 500mg every 4 hours for pain Lidocaine patch Biofreeze or icyhot Tramadol for breakthrough pain. * Attachments The following attachments cannot be sent through Care Everywhere. * Arm Pain (AfterCare(R) Instructions(ER/ED)) ([facility]) documented in this encounter Medications at Time of Discharge ergocalciferol (VITAMIN D) 50,000 unit capsule TAKE 1 CAPSULE BY MOUTH EVERY WEEK DIRECTED 02/27/2021 hydrOXYzine (ATARAX) 10 mg tablet Take 1 tablet (10 mg total) by mouth 3 (three) times a day 12/31/2019 metFORMIN (GLUCOPHAGE) 500 mg tablet 1 tablet (500 mg total) 11/10/2018 traMADoL (ULTRAM) 50 mg tablet Take 1 tablet (50 mg total) by mouth every 6 (six) hours 20 tablet 12/07/2021 01/09/2024 documented as of this encounter Ordered Prescriptions Prescription Sig Dispense Quantity Refills Last Filled Start Date End Date traMADoL (ULTRAM) 50 mg tablet Take 1 tablet (50 mg total) by mouth every 6 (six) hours 20 tablet 12/07/2021 01/09/2024 documented in this encounter Discharge Disposition Disposition Code Departure Means Destination Discharge to home or self care documented in this encounter ED Notes * Myesha Graves MD - 12/07/2021 4:35 AM CDT HPI Chief Complaint Patient presents with Chest Pain Arm Pain HPI 4:35 AM Maribell Jordan is a 41 y.o. female presenting to the ED c/o left arm pain. She has had pain intermittent for months but worse the past couple days. Yesterday persistent at work. Tylenol did not work for pain. Pt notes electrical pain in left upper arm that does not radiate. Pt denies allother ROS including dyspnea and chest pain. Pt denies family history of early CAD Patient History: Past Medical History: Diagnosis Date Acid reflux Diabetes mellitus (HCC) Hypertension Ovarian cyst Sinus congestion Past Surgical History: Procedure Laterality Date BREAST SURGERY OVARIAN CYST REMOVAL TONSILLECTOMY History reviewed. No pertinent family history. Social History Tobacco Use Smoking status: Former Smokeless tobacco: None Substance and Sexual Activity Drug use: Not Currently Sexual activity: None Alcohol Use: Not on file Current Facility-Administered Medications: lidocaine (LIDODERM) 5 % patch 1 patch, 1 patch, transdermal, Once, 1 patch at 12/07/21 0441 Current Outpatient Medications: traMADoL (ULTRAM) 50 mg tablet Review of Systems Review of Systems All systems reviewed and are neg or non contributory for this patients presentation today other than as stated in the HPI . Physical Exam ED Triage Vitals [12/07/21 0225] Temp Pulse Resp BP SpO2 36.9 ??C (98.5 ??F) 72 20 (!) 194/102 99 % Temp src Heart Rate Source Patient Position BP Location FiO2 (%) Oral Monitor Sitting Right arm -- Height Height Method Weight Weight Method 1.575 m (5' 2 ) Stated 94.1 kg (207 lb 7.3 oz) Standing scale Physical Exam Vitals and nursing note reviewed. Constitutional: General: She is not in acute distress. Appearance: Normal appearance. HENT: Head: Normocephalic and atraumatic. Nose: Nose normal. Eyes: General: Right eye: No discharge. Left eye: No discharge. Conjunctiva/sclera: Conjunctivae normal. Cardiovascular: Rate and Rhythm: Normal rate and regular rhythm. Pulmonary: Effort: Pulmonary effort is normal. No respiratory distress. Breath sounds: Normal breath sounds. No wheezing. Abdominal: General: There is no distension. Palpations: Abdomen is soft. Tenderness: There is no abdominal tenderness. Musculoskeletal: General: No swelling, tenderness or deformity. Normal range of motion. Cervical back: Normal range of motion. No rigidity. Skin: General: Skin is warm and dry. Neurological: General: No focal deficit present. Mental Status: She is alert and oriented to person, place, and time. Psychiatric: Mood and Affect: Mood normal. Behavior: Behavior normal. Procedures MDM Labs Reviewed CBC WITH AUTO DIFFERENTIAL - Abnormal Result Value WBC 7.0 Hgb 10.8 (*) Hct 33.4 (*) Plt 172 MPV 14.0 (*) RBC 4.03 MCV 82.9 MCH 26.8 (*) MCHC 32.3 RDW CV 13.3 RDW SD 40.8 NRBC abs 0.00 COMPREHENSIVE METABOLIC PANEL - Abnormal Sodium 137 Potassium, pl 3.9 Chloride 106 CO2 21 (*) Anion gap 10 BUN 13 Creatinine 0.90 Glucose 171 Calcium 9.3 Bilirubin, total <0.2 Protein, pl 7.3 Albumin 4.5 Alk phos 59 ALT 13 AST 12 MANUAL DIFFERENTIAL - Abnormal Differential Manual Cells Counted 100 Neutrophil abs 2.1 Imm gran abs 0.1 Lymphocyte abs 4.4 (*) Monocyte abs 0.2 Eosinophil abs 0.1 Basophil abs 0.1 Neutrophil pct 30.0 Lymphocyte pct 61.0 Monocyte pct 3.0 Eosinophil pct 1.0 Basophil pct 2.0 Neutrophilic metamyelocytes 1.0 Variant lymphs 2.0 (*) RBC morphology Normal Platelet estimate Automated Count Confirmed TROPONIN T HIGH-SENSITIVITY SERIES (BASELINE, 2HR, 4HR, 6HR) Trop T hs <6 TROPONIN T HIGH-SENSITIVITY 2-HOUR Trop T hs <6 Trop T hs delta 0 Trop T hs interp Insignificant EGFR eGFR 82 TROPONIN T HIGH-SENSITIVITY 4-HR TROPONIN T HIGH-SENSITIVITY 6-HOUR POCT TROPONIN DEVICE XR Shoulder Left 2 or More Views Final Result XR Chest 1 Vw Portable Final Result BP 155/78 Pulse 64 Temp 36.9 ??C (98.5 ??F) (Oral) Resp 19 Ht 157.5 cm (5' 2 ) Wt 94.1 kg(207 lb 7.3 oz) LMP 11/10/2021 (Approximate) SpO2 98% BMI 37.94 kg/m?? MDM Amount and/or Complexity of Data Reviewed Clinical lab tests: reviewed Tests in the radiology section of CPT??: reviewed ED Course as of 12/07/21 0536 Time: 12/07 529 Comment: Shoulder xray negative for acute abnormality By: Myesha Graves MD This examination was transcribed using the Revert voice recognition system without human site medical director. In an effort to expedite patient care, this report has not been adjusted for typographical, grammatical, and syntax by a trained medical service technician. Clinical Impression: Pain of left upper extremity Myesha Graves MD 12/07/21 0536 * Grace Rosa, RN - 12/07/2021 2:36 AM CDT Pt to ED for eval of central chest discomfort onset yesterday 12/06. Also complains of left arm pain. Sts the pain in arm comes and goes. Onset >month ago. Denies SOB. Pt has history of HT sts sheis currently not taking any medication for BP due to she did not like the way the medication made her feel. BP in triage 194/102 Hx HT, DM, Anxiety documented in this encounter Plan of Treatment Not on file documented as of this encounter Procedures Procedure Name Priority Date/Time Associated Diagnosis Comments XR SHOULDER LEFT 2 OR MORE VIEWS ED 12/07/2021 4:55 AM CDT TROPONIN T HIGH-SENSITIVITY 2-HOUR Timed 12/07/2021 4:37 AM CDT XR CHEST 1 VIEW ED 12/07/2021 4:32 AM CDT ECG 12-LEAD STAT 12/07/2021 2:54 AM CDT TROPONIN T HIGH-SENSITIVITY SERIES (BASELINE, 2HR, 4HR, 6HR) STAT 12/07/2021 2:48 AM CDT EGFR STAT 12/07/2021 2:48 AM CDT CBC WITH AUTO DIFFERENTIAL STAT 12/07/2021 2:48 AM CDT MANUAL DIFFERENTIAL STAT 12/07/2021 2 :48 AM CDT COMPREHENSIVE METABOLIC PANEL STAT 12/07/2021 2:48 AM CDT documented in this encounter Results * XR Shoulder Left 2 or More Views (12/07/2021 4:55 AM CDT) Anatomical Region Laterality Modality Upper Extremities, Shoulder Left Comp uted Radiography 12/07/2021 5:16 AM CDT Narrative 12/07/2021 5:18 AM CDT EXAM DESCRIPTION: ?? XR SHOULDER LEFT 2 OR MORE VIEWS REASON FOR STUDY: ?? pain ?? left arm pain. She has had pain intermittent for months but worse the past couple days. Yesterday persistent at work. Tylenol did not work for pain. Pt notes electrical pain in left upper arm that does not radiate. Pt denies all other ROS including ?? dyspnea and chest pain ?? TECHNIQUE: ?? Internal rotation, external rotation, and Y ??views acquired of the left shoulder. COMPARISON: ?? None FINDINGS: BONES/JOINTS: ?? No acute fracture, malalignment or osseous abnormalities. ?? Joint spaces are maintained. SOFT TISSUES: ?? Unremarkable. VISUALIZED RIBS AND LUNG: ?? No significant finding. OTHER: ?? No significant finding. IMPRESSION: ?? No acute osseous abnormality. THIS IS AN ELECTRONICALLY VERIFIED FINAL REPORT 12/07/2021 5:18 AM - Electronically signed by ??Reza Lamb M.D. RW D: ??12/07/2021 5:18 AM T: Report ID: [id number] Reading Location: ??[id number] Procedure Note Reza Lamb MD - 12/07/2021 EXAM DESCRIPTION: XR SHOULDER LEFT 2 OR MORE VIEWS REASON FOR STUDY: pain left arm pain. She has had pain intermittent for months but worse thepast couple days. Yesterday persistent at work. Tylenol did not work for pain.Pt notes electrical pain in left upper arm that does not radiate. Pt deniesall other ROS including dyspnea and chest pain TECHNIQUE: Internal rotation, external rotation, and Y views acquiredof the left shoulder. COMPARISON: None FINDINGS: BONES/JOINTS: No acute fracture, malalignment or osseous abnormalities. Joint spaces are maintained. SOFT TISSUES: Unremarkable. VISUALIZED RIBS AND LUNG: No significant finding. OTHER: No significant finding. IMPRESSION: No acute osseous abnormality. THIS IS AN ELECTRONICALLY VERIFIED FINAL REPORT 12/07/2021 5:18 AM - Electronically signed by Reza Lamb M.D. RW T: Report ID: [id number] Reading Location: [id number] us Myesha Graves MD IMG XR PROCEDURES Final R esult * Troponin T high-sensitivity 2-hour (12/07/2021 4:37 AM CDT) Trop T hs <6 <=14 ng/L [facility] Comment: Interpretive Data For further hscTnT resources including the diagnostic algorithm and an aid in interpretation, copy and paste this link: https://nrl.testcatalog.org/show/hsTrop Current Interpretive Data last revised 2019. Trop T hs delta 0 ng/L [facility] Trop T hs interp Insignificant [facility] Blood 12/07/2021 4:37 AM CDT 12/07/2021 4:40 AM CDT Cheryl Westbrook VULCANIZER LAB BLOOD ORDERABLES Final Resul t [facility] [address] [facility] Department [place] [address] * XR Chest 1 Vw Portable (12/07/2021 4:32 AM CDT) Anatomical Region Laterality Modality Body, Chest N/A Computed Radiogr aphy 12/07/2021 4:49 AM CDT Narrative 12/07/2021 4:49 AM CDT EXAM DESCRIPTION: ?? XR CHEST 1 VIEW REASON FOR STUDY: ?? pain ?? eval of central chest discomfort onset yesterday 12/06. Also complains of left arm pain. Sts the pain in arm comes and goes. Onset >month ago. Denies SOB. Pt ??has history of HT sts she is currently not taking any medication for BP due to she did not ?? like the way the medication made her feel. BP in triage 194/102 ? Hx HT, DM, Anxiety ? TECHNIQUE: ?? Frontal ??radiographic view of the chest acquired. COMPARISON: 04/12/2021 FINDINGS: LUNGS/PLEURA: ?? No focal consolidation or pneumothorax. No pleural effusion. HEART/MEDIASTINUM: ?? Heart size is normal. Normal mediastinal and hilar contours. HARDWARE/LINES/TUBES: ?? None. BONES: ?? No acute findings. OTHER: ?? No other significant finding. IMPRESSION: ?? No acute cardiopulmonary disease. THIS IS AN ELECTRONICALLY VERIFIED FINAL REPORT 12/07/2021 4:49 AM - Electronically signed by ??Reza Lamb M.D. RW D: ??12/07/2021 4:49 AM T: Report ID: [id number] Reading Location: ??[id number] Procedure Note Reza Lamb MD - 12/07/2021 EXAM DESCRIPTION: XR CHEST 1 VIEW REASON FOR STUDY: pain eval of central chest discomfort onset yesterday 12/06. Also complains of left arm pain. Sts the pain in arm comes and goes. Onset >month ago.Denies SOB. Pt has history of HT sts she is currently not taking any medicationfor BP due to she did not like the way the medication made her feel. BP in triage 194/102 Hx HT, DM, Anxiety TECHNIQUE: Frontal radiographic view of the chest acquired. COMPARISON: 04/12/2021 FINDINGS: LUNGS/PLEURA: No focal consolidation or pneumothorax. Nopleural effusion. HEART/MEDIASTINUM: Heart size is normal. Normal mediastinal and hilar contours. HARDWARE/LINES/TUBES: None. BONES: No acute findings. OTHER: No other significant finding. IMPRESSION: No acute cardiopulmonary disease. THIS IS AN ELECTRONICALLY VERIFIED FINAL REPORT 12/07/2021 4:49 AM - Electronically signed by Reza Lamb M.D. RW T: Report ID: [id number] Reading Location: [place] [address] us Myesha Graves MD IMG XR PROCEDURES Final R esult * ECG 12 lead (12/07/2021 2:54 AM CDT) Ventricular Rate EKG/Min 69 BPM [facility] Atrial Rate 69 BPM [facility] MD-Interval (MSEC) 144 ms [facility] QRS-Interval (MSEC) 82 ms [facility] QT-Interval (MSEC) 384 ms [facility] QTc 411 ms [facility] P [place] 29 degrees [facility] R [place] 23 degrees [facility] T [place] 28 degrees [facility] Diagnosis Normal sinus rhythm T-wave changes When compared with ECG of 12-APR-2021 03:46, Nonspecific T wave abnormality now evident in Anterior leads [facility] 12/07/2021 2:54 AM CDT 12/07/2021 4:33 PM CDT us Cheryl Westbrook NP ECG ORDERABLES Final Result [facility] * eGFR (12/07/2021 2:48 AM CDT) eGFR 82 mL/min/1. 73 m2 [facility] Comment: Interpretive Data Reference Interval Normal ?>/= [...] interpretive data was last reviewed 2020. Blood 12/07/2021 2:48 AM CDT 12/07/2021 2:57 AM CDT us Cheryl Westbrook NP LAB BLOOD ORDERABLES Final Resul t [facility] [address] [facility] Department [place] [address] * (ABNORMAL) Manual Differential (12/07/2021 2:48 AM CDT) Differential Manual [facility] Cells Counted 100 [facility] Neutrophil abs 2.1 1.7 - 6.5 K/cumm [facility] Imm gran abs 0.1 0.0 - 0.1 K/cumm [facility] Lymphocyte abs 4.4(H) 0.8 - 3.3 K/cumm [facility] Monocyte abs 0.2 0.2 - 0.8 K/cumm [facility] Eosinophil abs 0.1 0.0 - 0.5 K/cumm [facility] Basophil abs 0.1 0.0 - 0.1 K/cumm [facility] Neutrophil pct 30.0 % [facility] Comment: Interpretive Data Percent cell count reference ranges are not reported, since discordance with absolute values may lead to misinterpretation of CBC data. Current Interpretive Data was last revised on 2017. Lymphocyte pct 61.0 % [facility] Comment: Interpretive Data Percent cell count reference ranges are not reported, since discordance with absolute values may lead to misinterpretation of CBC data. Current Interpretive Data was last revised on 2017. Monocyte pct 3.0 % [facility] Comment: Interpretive Data Percent cell count reference ranges are not reported, since discordance with absolute values may lead to misinterpretation of CBC data. Current Interpretive Data was last revised on 2017. Eosinophil pct 1.0 % [facility] Comment: Interpretive Data Percent cell count reference ranges are not reported, since discordance with absolute values may lead to misinterpretation of CBC data. Current Interpretive Data was last revised on 2017. Basophil pct 2.0 % [facility] Comment: Interpretive Data Percent cell count reference ranges are not reported, since discordance with absolute values may lead to misinterpretation of CBC data. Current Interpretive Data was last revised on 2017. Metamyelocyte pct 1.0 % [facility] Variant lymph pct 2.0(H) 0.0 - 0.0 % [facility] RBC morphology Normal [facility] Platelet estimate Automated Count Confirmed [facility] Blood 12/07/2021 2:48 AM CDT 12/07/2021 2:57 AM CDT Cheryl Westbrook LAB BLOOD ORDERABLES Final Resul t Performing Organization Address [facility] de Phone Number [address] [place] [address] * Troponin T high-sensitivity series (baseline, 2hr, 4hr, 6hr) (12/07/2021 2:48 AM CDT) Trop T hs <6 <=14 ng/L [facility] Comment: Interpretive Data For further hscTnT resources including the diagnostic algorithm and an aid in interpretation, copy and paste this link: https://nrl.testcatalog.org/show/hsTrop Current Interpretive Data last revised 2019. Blood 12/07/2021 2:48 AM CDT 12/07/2021 2:57 AM CDT Cheryl Westbrook LAB BLOOD ORDERABLES Final Resul t Performing Organization Address [facility] Co de Phone Number [address] [place] [address] * (ABNORMAL) Comprehensive metabolic panel (12/07/2021 2:48 AM CDT) [facility] Sodium 137 135 - 145 mmol/L [facility] Potassium, pl 3.9 3.3 - 4.9 mmol/L [facility] Chloride 106 97 - 110 mmol/L [facility] CO2 21(L) 22 - 32 mmol/L [facility] Anion gap 10 2 - 15 mmol/L [facility] BUN 13 8 - 25 mg/dL [facility] Creatinine 0.90 0.60 - 1.10 mg/dL [facility] Glucose 171 70 - 199 mg/dL [facility] Comment: Interpretive Data Fasting glucose >/= [...] interpretive data was last revised 2016. Calcium 9.3 8.5 - 10.3 mg/dL [facility] Bilirubin, total <0.2 0.1 - 1.2 mg/dL [facility] Protein, pl 7.3 6.5 - 8.5 g/dL [facility] Albumin 4.5 3.5 - 5.0 g/dL [facility] Alk phos 59 40 - 130 Units/L [facility] ALT 13 7 - 45 Units/L [facility] AST 12 10 - 45 Units/L [facility] Blood 12/07/2021 2:48 AM CDT 12/07/2021 2:57 AM CDT us Cheryl Westbrook NP LAB BLOOD ORDERABLES Final Resul t [facility] [address] [facility] Department [place] [address] * (ABNORMAL) CBC with auto differential (12/07/2021 2:48 AM CDT) [facility] WBC 7.0 3.8 - 9.9 K/cumm [facility] Hgb 10.8(L) 11.9 - 15.5 g/dL [facility] Hct 33.4(L) 35.6 - 45.5 % [facility] Plt 172 150 - 400 K/cumm [facility] MPV 14.0(H) 9.1 - 12.3 fL [facility] RBC 4.03 3.90 - 5.20 M/cumm [facility] MCV 82.9 81.3 - 96.4 fL [facility] MCH 26.8(L) 27.1 - 33.3 pg [facility] MCHC 32.3 32.3 - 35.7 g/dL [facility] RDW CV 13.3 11.1 - 14.9 % [facility] RDW SD 40.8 35.7 - 48.1 fL [facility] NRBC abs 0.00 0.00 - 0.01 K/cumm [facility] Blood (Blood, Venous) 12/07/2021 2:48 AM CDT 12/07/2021 2:57 AM CDT us Cheryl Westbrook NP LAB BLOOD ORDERABLES Edited Resu lt - Final [facility] [address] [facility] Department [place] [address] documented in this encounter Visit Diagnoses Diagnosis Pain of left upper extremity- Primary documented in this encounter Administered Medications Inactive Administered Medications - up to 3 most recent administrations Medication Order MAR Action Action Date Dose Rate Site ibuprofen (ADVIL,MOTRIN) tablet/capsule 600 mg 600 mg, oral, Once, On Tue12/07/21 at 0436, For 1 dose, Do not crush, break, or open. Given 12/07/2021 4:43 AM CDT 600 mg lidocaine (LIDODERM) 5 % patch 1 patch 1 patch, transdermal, Administer over 12 Hours, Once, On Tue12/07/21 at 0436, For 1 dose, Do not cover the holes on the top side of the patch., Apply to affected area: arm, Laterality: Left Medication Applied 12/07/2021 4:41 AM CDT 1 patch Left Arm documented in this encounter Active and Recently Administered Medications Times are shown in CDT. Scheduled Medication Order 12/05/2021 12/06/2021 12/07/2021 ibuprofen (ADVIL,MOTRIN) tablet/capsule 600 mg (COMPLETED) 600 mg, oral, Once, On Tue12/07/21 at 0436, For 1 dose, Do not crush, break, or open. 0443 (Given - Provid er: Verenice Lynn RN) lidocaine (LIDODERM) 5 % patch 1 patch 1 patch, transdermal, Administer over 12 Hours, Once, On Tue12/07/21 at 0436, For 1 dose, Do not cover the holes on the top side of the patch., Apply to affected area: arm, Laterality: Left 0441 (Medication Megha lied - Provider: Verenice Lynn RN)0556 (Due: Medication Removed - Provider: Automatic Discharge Provider - Comment: Time automatically adjusted from order being discontinued) documented in this encounter Care Teams Dehydration Plant Operator Relationship Specialty Start Date End Date Ruma Shrestha NP PCP - General 05/30/18 documented as of this encounter
--- OUTSIDE RECORDS SUMMARY | 2024-02-25 20:49 | XMS_ITS | Encounter Summary ---
Author Organization [facility] Healthcare Address [address] [place] [address] Care Team Providers Care Inbound Customer Service Agent Name Role Phone Ruma Shrestha NP Primary Care Provider + Encounter Details Date Type Department Care Team (Late st Contact Info) Description 08/20/[address] [address] Jeana Mueller, [facility] Social History Tobacco Use Types Packs/Day Years Used Date Smoking Tobacco: Former Alcohol Use Standard Drinks/Week Comments Not Currently 0 (1 standard drink = 0.6 oz pur e alcohol) Comments No Sex and Gender Information Value Date Recorded Sex Assigned at Not on file 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 09/02/2020 09/08/2020 12/31/2020 3:[address] documented as of this encounter Care Teams Inbound Customer Service Agent Relationship Specialty Start Date End Date Ruma Shrestha NP PCP - General 05/30/18 documented as of this encounter
--- OUTSIDE RECORDS SUMMARY | 2024-02-25 20:49 | XMS_ITS | Encounter Summary ---
Author Organization [facility] Healthcare Address [address] [place] [address] Care Team Providers Care Geospatial Information Technologist Name Role Phone Ruma Shrestha NP Primary Care Provider + Encounter Details Date Type Department Care Team (Late st Contact Info) Description 06/20/2019 8:08 AM CDT Hospital Encounter [facility] OP INTERIM Katherine, Keiry Gonzalez MD [address] [address] Social History Tobacco Use Types Packs/Day Years Used Date Smoking Tobacco: Never Assessed Comments Unknown Sex and Gender Information Value Date Recorded Sex Assigned at Not on file 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 Gender Identity Not on file Sexual Orientation Not on file documented as of this encounter Medications at Time of Discharge metFORMIN (GLUCOPHAGE) 500 mg tablet 1 tablet (500 mg total) 11/10/2018 documented as of this encounter Plan of Treatment Not on file documented as of this encounter Procedures Procedure Name Priority Date/Time Associated Diagnosis Comments IRON PROFILE W/ IBC Routine 06/20/2019 9 :44 AM CDT TSH Routine 06/20/2019 9:44 AM CDT MAGNESIUM Routine 06/20/2019 9:44 AM CDT FERRITIN Routine 06/20/2019 9:44 AM CDT LIPID PANEL Routine 06/20/2019 9:44 AM CDT BASIC METABOLIC PANEL Routine 06/20/2019 9:[address] ABDOMEN PELVIS W CONTRAST 06/20/2019 12:00 AM CDT documented in this encounter Results * TSH (06/20/2019 9:44 AM CDT) TSH 0.853 0.27 - 4.20 uIU/mL [facility] 06/20/2019 9:44 AM CDT 06/20/2019 9:52 AM CDT Narrative Resulting Agency Comment CLI Keiry Murphy MD LAB BLOOD ORDERABLES Radha l Result [address] [phone] * (ABNORMAL) Ferritin (06/20/2019 9:44 AM CDT) Pathologist [facility] Ferritin 8.1(L) 15.0 - 150.0 ng/mL [facility] 06/20/2019 9:44 AM CDT 06/20/2019 9:52 AM CDT Narrative Resulting Agency Comment CLI Keiry Murphy MD LAB BLOOD ORDERABLES Radha l Result [address] [phone] * (ABNORMAL) Iron profile w/ IBC (06/20/2019 9:44 AM CDT) Iron 23(L) 37 - 145 ug/dL [facility] TIBC 413 228 - 428 ug/dL [facility] Transferrin % Sat 6(L) 20 - 50 % [facility] 06/20/2019 9:44 AM CDT 06/20/2019 9:52 AM CDT Narrative Resulting Agency Comment CLI Keiry Murphy MD LAB BLOOD ORDERABLES Radha l Result Performing Organization Address [facility] Co de Phone Number [address] [phone] * Magnesium (06/20/2019 9:44 AM CDT) Magnesium 1.9 1.6 - 2.6 mg/dL [facility] Comment: Magnesium sulfate therapy: ??3.0-9.1 mg/dL 06/20/2019 9:44 AM CDT 06/20/2019 9:52 AM CDT Narrative Resulting Agency Comment CLI Keiry Murphy MD LAB BLOOD ORDERABLES Radha l Result Performing Organization Address [facility] Co de Phone Number [address] [phone] * Lipid panel (06/20/2019 9:44 AM CDT) Triglycerides 75 0 - 149 mg/dL [facility] Comment: National Lipid Association/NCEP Guidelines: ?? Normal ?< 150 mg/dL ?? Borderline high ?? 150-199 mg/dL ?? High ?200-499 mg/dL ?? Very High ? >=500 mg/dL Cholesterol 141 0 - 199 mg/dL [facility] Comment: National Lipid Association/NCEP Guidelines: Desirable ? < 200 mg/dL Borderline high: ??200-239 mg/dL High Risk: ?>=240 mg/dL HDL Cholesterol 44 mg/dL [facility] Comment: Reference Ranges: ? Males: >=40 mg/dL ? Females: >=50 mg/dL LDL Cholesterol, Calc 82 0 - 129 mg/dL [facility] Comment: National Lipid Association/NCEP Guidelines: ??Optimal ? < 100 mg/dL ??Near Optimal ?100-129 mg/dL ??Borderline high 130-159 mg/dL ??High ?>=160 mg/dL Cholesterol/HDL Ratio 3.2 [facility] Comment: Optimal ??< 3.5:1 High ? > 5:1 06/20/2019 9:44 AM CDT 06/20/2019 9:52 AM CDT Narrative Resulting Agency Comment CLI us Keiry Murphy MD LAB BLOOD ORDERABLES Radha leo Result [facility] [address] [phone] * (ABNORMAL) Basic metabolic panel (06/20/2019 9:44 AM CDT) Sodium 137 135 - 145 mmol/L [facility] Potassium 3.8 3.3 - 5.1 mmol/L [facility] Chloride 100 96 - 108 mmol/L [facility] Carbon Dioxide 26 22 - 32 mmol/L [facility] Anion Gap 11 7 - 16 [facility] Glucose 207(H) 70 - 100 mg/dL [facility] BUN 9 8 - 25 mg/dL [facility] Creatinine 0.6 0.5 - 1.1 mg/dL [facility] Comment: NOTE: Estimated GFR (Cockroft-Gault) will NOT be calculated unless patient Height and Weight were entered. Also, Kidney Disease Stage (GFR) and Estimated GFR (Cockroft-Gault) will NOT be calculated if Creatinine result is <0.2. Kidney Disease Stage >90 mL/MIN [facility] Comment: NOTE; ??The GFR is an [...] mL/min ? Kidney failure or on dialysis Calcium 9.5 8.6 - 10.3 mg/dL [facility] 06/20/2019 9:44 AM CDT 06/20/2019 9:52 AM CDT Narrative Resulting Agency Comment CLI us Keiry Murphy MD LAB BLOOD ORDERABLES Radha l Result [facility] [address] [place] [address], [facility] [phone] * CT Abdomen Pelvis W Contrast (06/20/2019 12:00 AM CDT) Anatomical Region Laterality Modality Body N/A Computed Tomogra phy 06/20/2019 11:2 9 AM CDT Narrative 06/20/2019 11:36 AM CDT Patient Name: MARIBELL DAMICO ?Ordering Dr: Keiry Murphy MD ?? D.O.B: 1980 ? Exam Date: 05//20 ?? 0000 ?? Age: 39 ?Sex: Female ? MR#: [id number] ?? Loc: ? RADIOLOGY REPORT ?? Order #[id number] ?? CT Scan ? CT Abd/Pelvis W IV Contrast ? Signed ?? EXAM DESCRIPTION: ??CT Abd/Pelvis W IV Contrast ? REASON FOR STUDY: ??Anemia with abdominal pain and bloating, symptoms for 3 ?? weeks. ? TECHNIQUE: ??CT scan of the abdomen and pelvis performed with intravenous and ?? with 100 mL Optiray 350 intravenous oral contrast using helical scanning ?? technique with dynamic intravenous contrast injection. Reconstructed coronal ?? and sagittal MPR images reviewed. All images stored on PACS. ? Automated exposure control was used as a dose optimization technique for this ?? examination. ? CONTRAST TYPE/DOSE: ??Contrast via the right antecubital vein. ? COMPARISON: ??07/02/2016. ? FINDINGS: ? LOWER CHEST: Lung bases are predominantly clear. ??There is no pleural effusion. ? LIVER: No focal hepatic lesions. ??There is mild motion artifact. ? GALLBLADDER: No gallstones or inflammatory change. ? BILE DUCTS: No biliary ductal dilation. ? SPLEEN: Spleen size is normal. ??No focal lesion. ??Slight limitation due to ?? motion. ? PANCREAS: No pancreatic mass or inflammatory change. ? ADRENALS: Normal left adrenal gland. ??There is a low-attenuation right adrenal ?? nodule approximately 1.3 cm, this is 26 Hounsfield units on postcontrast ?? imaging, appears unchanged most characteristic of a benign adrenal adenoma. ? KIDNEYS/URINARY TRACT: No renal calculi or hydronephrosis. ??No ureteral ?? calculi. ??Urinary bladder is unremarkable. ??No urinary bladder calculi. ??No ?? urinary bladder mass. ? GI: No evidence of bowel obstruction. ??Mild colonic diverticulosis is seen. ? There is no evidence of acute diverticulitis. ??Oral contrast progresses ?? through the small bowel and well into the colon. ??The appendix is normal. ? Stomach and duodenum are normal. ??No abnormal bowel wall thickening. ? PERITONEUM: No ascites or free air. ??No mesenteric mass or lymphadenopathy. ? RETROPERITONEUM: No retroperitoneal mass or lymphadenopathy. ? REPRODUCTIVE: Uterus is noted. ??There is an IUD. ??The adnexa appear symmetric. ?Some debris is seen within the vagina. ? VASCULATURE: Abdominal aorta is nonaneurysmal. ? MUSCULOSKELETAL: Bone windows demonstrate no acute or aggressive osseous ?? abnormality. ??There is vacuum disc phenomena at L5-S1. ? OTHER: No other abnormality. ? IMPRESSION: ? 1. ??No evidence of an acute abnormality of the abdomen and pelvis. ? 2. ??Mild uncomplicated colonic diverticulosis. ? 3. ??Unchanged benign right adrenal adenoma. ? 4. ??IUD in place. ? THIS IS AN ELECTRONICALLY VERIFIED FINAL REPORT ?? 06/20/2019 11:36 AM - Electronically signed by Rivera Coffman M.D. ?? Rivera Coffman M.D. ? CH ?? D: ??06/20/2019 11:36 AM ?? T: ? Report ID: [id number] ?? Reading Location: ??[id number] ? REPORT ELECTRONICALLY SIGNED IN OTHER VENDOR SYSTEM ?? Resulting Agency Comment O Procedure Note Rivera Coffman Jr., MD - 06/20/2019 Patient Name: MARIBELL DAMICO Dr: Keiry Murphy MD D.O.B: 1980 Exam Date: 06/20/19 0000 Age: 39 Sex: Female MR#: [id number] Loc: RADIOLOGY REPORT Order #[id number] CT Scan CT Abd/Pelvis W IV Contrast Signed EXAM DESCRIPTION: CT Abd/Pelvis W IV Contrast REASON FOR STUDY: Anemia with abdominal pain and bloating, symptoms for3 weeks. TECHNIQUE: CT scan of the abdomen and pelvis performed with intravenousand with 100 mL Optiray 350 intravenous oral contrast using helical scanning technique with dynamic intravenous contrast injection. Reconstructedcoronal and sagittal MPR images reviewed. All images stored on PACS. Automated exposure control was used as a dose optimization technique forthis examination. CONTRAST TYPE/DOSE: Contrast via the right antecubital vein. COMPARISON: 07/02/2016. FINDINGS: LOWER CHEST: Lung bases are predominantly clear. There is no pleuraleffusion. LIVER: No focal hepatic lesions. There is mild motion artifact. GALLBLADDER: No gallstones or inflammatory change. BILE DUCTS: No biliary ductal dilation. SPLEEN: Spleen size is normal. No focal lesion. Slight limitation dueto motion. PANCREAS: No pancreatic mass or inflammatory change. ADRENALS: Normal left adrenal gland. There is a low-attenuation rightadrenal nodule approximately 1.3 cm, this is 26 Hounsfield units on postcontrast imaging, appears unchanged most characteristic of a benign adrenaladenoma. KIDNEYS/URINARY TRACT: No renal calculi or hydronephrosis. No ureteral calculi. Urinary bladder is unremarkable. No urinary bladder calculi.No urinary bladder mass. GI: No evidence of bowel obstruction. Mild colonic diverticulosis isseen. There is no evidence of acute diverticulitis. Oral contrast progresses through the small bowel and well into the colon. The appendix is normal. Stomach and duodenum are normal. No abnormal bowel wall thickening. PERITONEUM: No ascites or free air. No mesenteric mass orlymphadenopathy. RETROPERITONEUM: No retroperitoneal mass or lymphadenopathy. REPRODUCTIVE: Uterus is noted. There is an IUD. The adnexa appearsymmetric. Some debris is seen within the vagina. VASCULATURE: Abdominal aorta is nonaneurysmal. MUSCULOSKELETAL: Bone windows demonstrate no acute or aggressive osseous abnormality. There is vacuum disc phenomena at L5-S1. OTHER: No other abnormality. IMPRESSION: 1. No evidence of an acute abnormality of the abdomen and pelvis. 2. Mild uncomplicated colonic diverticulosis. 3. Unchanged benign right adrenal adenoma. 4. IUD in place. THIS IS AN ELECTRONICALLY VERIFIED FINAL REPORT 06/20/2019 11:36 AM - Electronically signed by Rivera Coffman M.D. T: Report ID: [id number] Reading Location: [place] [address] REPORT ELECTRONICALLY SIGNED IN OTHER VENDOR SYSTEM Keiry Murphy MD IMG CT PROCEDURES Final R esult documented in this encounter Visit Diagnoses Not on filedocumented in this encounter Care Teams Geospatial Information Technologist Relationship Specialty Start Date End Date Ruma Shrestha NP PCP - General 05/30/18 documented as of this encounter
--- OUTSIDE RECORDS SUMMARY | 2024-02-25 20:49 | XMS_ITS | Encounter Summary ---
Author Organization [facility] Healthcare Address [address] [place] [address] Care Team Providers Care Resident Programs Assistant Name Role Phone Ruma Shrestha NP Primary Care Provider + Reason for Visit * Reason Onset Date Comments Test Results 08/19/2020 Encounter Details Date Type Department Care Team (Late st Contact Info) Description 08/19/2020 Telephone [facility] [address] [place] [address] Corine Figueroa, SEPIDEH Test Results Social History Tobacco Use Types Packs/Day Years Used Date Smoking Tobacco: Former Alcohol Use Standard Drinks/Week Comments Not Currently 0 (1 standard drink = 0.6 oz pur e alcohol) Comments No Sex and Gender Information Value Date Recorded Sex Assigned at Not on file 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 documented in this encounter Plan of Treatment Not on file documented as of this encounter Visit Diagnoses Not on filedocumented in this encounter Additional Health Concerns Infection Onset Date Last Indicated Resolved Time COVID: Suspected 08/19/2020 08/19/2020 08/19/2020 5:45 AM CDT COVID19 08/19/2020 08/19/2020 09/02/2020 3:05 AM CDT documented as of this encounter Care Teams Resident Programs Assistant Relationship Specialty Start Date End Date Ruma Shrestha NP PCP - General 05/30/18 documented as of this encounter
--- OUTSIDE RECORDS SUMMARY | 2024-02-25 20:49 | XMS_ITS | Encounter Summary ---
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 Gender Identity Not on file Sexual Orientation Not on file documented as of this encounter Medications at Time of Discharge metFORMIN (GLUCOPHAGE) 500 mg tablet 1 tablet (500 mg total) 11/10/2018 documented as of this encounter Plan of Treatment Not on file documented as of this encounter Procedures Procedure Name Priority Date/Time Associated Diagnosis Comments IRON PROFILE W/ IBC Routine 07/27/2019 1 1:29 AM CDT CBC WITH AUTO DIFFERENTIAL Routine 07/27/2019 11:29 AM CDT documented in this encounter Results * (ABNORMAL) Iron profile w/ IBC (07/27/2019 11:29 AM CDT) Iron 34(L) 37 - 145 ug/dL [facility] TIBC 355 228 - 428 ug/dL [facility] Transferrin % Sat 10(L) 20 - 50 % [facility] 07/27/2019 11:2 9 AM CDT 07/27/2019 12:01 PM CDT Narrative Resulting Agency Comment CLI us Keiry Murphy MD LAB BLOOD ORDERABLES Radha leo Result [facility] [address] [place] [address], [facility] [phone] * (ABNORMAL) CBC with auto differential (07/27/2019 11:29 AM CDT) Pathologist [facility] WBC 5.0 3.8 - 9.9 X10 3/ul [facility] RBC 4.24 3.90 - 5.20 x10 6/ul [facility] Hemoglobin 9.5(L) 11.9 - 15.5 g/dL [facility] Hct 31.2(L) 35.6 - 45.5 % [facility] MCV 73.6(L) 81.3 - 96.4 fl [facility] MCH 22.4(L) 27.1 - 33.3 pg [facility] MCHC 30.4(L) 32.3 - 35.7 g/dl [facility] RDW 22.3(H) 11.1 - 14.9 % [facility] Plt Count 233 150 - 400 x10 3/ul [facility] Neut % 48.8 % [facility] Immature Gran % 0.2 % [facility] Lymph % 40.3 % [facility] Tyler % 9.1 % [facility] Eos % 1.0 % [facility] AUTO BASO % 0.6 % [facility] NEUTROPHIL ABS # 2.4 1.7 - 6.5 x10 3/ul [facility] Immature Gran # 0.0 0.0 - 0.1 x10 3/ul [facility] Absolute Lymphs (auto) 2.0 0.8 - 3.3 x10 3/ul [facility] Absolute Monos (auto) 0.5 0.2 - 0.8 x10 3/ul [facility] Absolute Eos (auto) 0.1 0.0 - 0.5 x10 3/ul [facility] BASOPHIL ABS # 0.0 0.0 - 0.1 x10 3/ul [facility] Nucleat RBC Rel Count 0.0 #/100WBC [facility] NRBC abs 0.00 0.00 - 0.01 x10 3/ul [facility] Absolute Neutrophils 2,400 200 - 8,000 /ul [facility] 07/27/2019 11:2 9 AM CDT 07/27/2019 12:01 PM CDT Narrative Resulting Agency Comment CLI us Keiry Murphy MD LAB BLOOD ORDERABLES Radha l Result [facility] [address] [phone] documented in this encounter Visit Diagnoses Not on filedocumented in this encounter Care Teams Manager Nuclear Relationship Specialty Start Date End Date Ruma Shrestha NP PCP - General 05/30/18 documented as of this encounter
--- OUTSIDE RECORDS SUMMARY | 2024-02-25 20:49 | XMS_ITS | Encounter Summary ---
Author Organization [facility] Address [address] [place] [address] Care Team Providers Care Box Truck Driver Name Role Phone Ruma Shrestha NP Primary Care Provider + Reason for Visit * Reason Onset Date Comments Covid-19 Home Monitoring 08/20/2020 Enrollm ent call day 1 Encounter Details Date Type Department Care Team (Late st Contact Info) Description 08/20/2020 Telephone [facility] Accountable Care Organization [address] [place] [address] Nel Ambrose, MARINE [address] [place] [id number] Covid-19 Home Monitoring (Enrollment call day 1 ) Social History Tobacco Use Types Packs/Day Years Used Date Smoking Tobacco: Former Alcohol Use Standard Drinks/Week Comments Not Currently 0 (1 standard drink = 0.6 oz pur e alcohol) Comments No Sex and Gender Information Value Date Recorded Sex Assigned at Not on file 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 The patient was contacted via phone for enrollment in the program. The patient has declined to participate in the automated MyChart Bottom Worker Program, but has verbally agreed to the Phone Only Home Monitoring Program, which includes being contacted for a daily phone assessment by a [facility] staff member. The patient was informed that members of the healthcare team will contact them depending on the symptoms that they report. This call could come from a variety of phone numbers depending on which member of the healthcare team is contacting the patient, and the patient should be prepared to answer calls from a variety of phone numbers. If the patient is unable to be reached for 3 days, they will be disenrolled from the program. Patient is aware that we will try and reach them at every available phone number, including HIPAA contacts. After review, the patient declined to participate. The ???COVID19 Home Monitoring?? order was not placed to enroll the patient in the phone only version of the program. Patient is not currently having any symptoms. Hotline number provided if needed. documented in this encounter Plan of Treatment Not on file documented as of this encounter Visit Diagnoses Not on filedocumented in this encounter Additional Health Concerns Infection Onset Date Last Indicated Resolved Time COVID19 08/19/2020 08/19/2020 09/02/2020 3:05 AM CDT documented as of this encounter Care Teams Box Truck Driver Relationship Specialty Start Date End Date Ruma Shrestha NP PCP - General 05/30/18 documented as of this encounter
--- OUTSIDE RECORDS SUMMARY | 2024-02-25 20:49 | XMS_ITS | Encounter Summary ---
Author Organization [facility] Healthcare Address [address] [place] [address] Care Team Providers Care Field Supervisor Name Role Phone Ruma Shrestha NP Primary Care Provider + Reason for Referral * Consultation (Routine) - Closed Specialty Diagnoses / Procedures Referred By Renata ma Referred To Contact Gastroenterology Diagnoses Diverticulitis Rea Vaughan NP [address] [place] [address] Phone: tel: fax: Rupert Murphy MD [address] [place] [address] [address] Phone: tel: fax: Referral ID Status Reason Start Date Expiration Date V isits Requested Visits Authorized [id number] Closed Specialty Services Required 06/28/2022 07/28/2023 1 1 Question Answer Please select the performing region: External Order [171] To provider: RUPERT MURPHY [[id number]] # of visits: 1 Reason for Visit * Reason Comments Abdominal Pain Encounter Details Date Type Department Care Team (Late st Contact Info) Description 06/28/2022 1:09 AM CDT - 06/28/2022 2:43 AM CDT Emergency [address] [address] Diverticulitis (Primary Dx) Discharge Disposition: Discharge to home or self care Social History Tobacco Use Types Packs/Day Years Used Date Smoking Tobacco: Former Alcohol Use Standard Drinks/Week Comments Not Currently 0 (1 standard drink = 0.6 oz pur e alcohol) Comments No Sex and Gender Information Value Date Recorded Sex Assigned at Not on file 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 Gender Identity Not on file Sexual Orientation Not on file documented as of this encounter Last Filed Vital Signs Vital Sign Reading Time Taken Comments Blood Pressure 164/97 06/28/2022 2:27 AM CDT Pulse 73 06/28/2022 2:27 AM CDT Temperature 36.9 ??C (98.5 ??F) 06/27/2022 11:49 PM C DT Respiratory Rate 18 06/28/2022 2:27 AM CDT Oxygen Saturation 100% 06/28/2022 2:27 AM CDT Inhaled Oxygen Concentration - - Weight 97.8 kg (215 lb 9.8 oz) 06/27/2022 11:49 PM CDT Height 157.5 cm (5' 2 ) 06/27/2022 11:49 PM CDT Body Mass Index 39.44 06/27/2022 11:49 PM CDT documented in this encounter Discharge Instructions * Discharge Instructions* Rea Vaughan NP - 06/28/2022 2:32 AM CDT Diagnosis diverticulitis. Home care includes rest, hydration, uari-xqh-bobvdju meds such as Tylenol. Prescribed Augmentin. This is your antibiotic. Prescribed Zofran. This is for nausea. Follow up with Dr. Murphy within the next 2-3 days. Red flags/criteria for ED return includes worsening symptoms such as abdomen pain, fever, nausea/vomiting, diarrhea/constipation, unable to keep food or drink down. This list is not all inclusive. With any concerns please follow up with your primary provider or return to ED. It is mandatory that you must follow-up, as recommended. You have received emergency care only at your visit today. This is not a substitute for ongoing care, further evaluation and treatment and therefore follow-up as directed is not optional but mandatory. You MUST follow up for further evaluation of all incidental abnormal radiographic and laboratory findings. Have your physician obtain records from this visit and address all the incidental abnormal findings. This may include final results of lab testing, cultures and final x-ray reports, which may not have been available during the time of the visit. Return immediately for any new symptoms, worsening of symptoms, or persistent symptoms. * Attachments The following attachments cannot be sent through Care Everywhere. * Diverticulitis (AfterCare(R) Instructions(ER/ED)) (Georgian) documented in this encounter Medications at Time [...] for nausea or vomiting 20 tablet 06/28/2022 amoxicillin-clavulan ate (AUGMENTIN) 875-125 mg per tablet Take 1 tablet by mouth every 12 (twelve) hours for 10 days 20 tablet 06/28/2022 3 traMADoL (ULTRAM) 50 mg tablet Take 1 tablet (50 mg total) by mouth every 6 (six) hours 20 tablet 12/07/2021 4 documented as of this encounter Ordered Prescriptions Prescription Sig Dispense Quantity Refills Last Filled Start Date End Date ondansetron ODT (ZOFRAN-ODT) 4 mg disintegrating tablet Take 1 tablet (4 mg total) by mouth every 8 (eight) hours as needed for nausea or vomiting 20 tablet 06/28/2022 amoxicillin-clavulan ate (AUGMENTIN) 875-125 mg per tablet Take 1 tablet by mouth every 12 (twelve) hours for 10 days 20 tablet 06/28/2022 3 documented in this encounter Discharge Disposition Disposition Code Departure Means Destination Comment s Discharge to home or self care documented in this encounter ED Notes * Rea Vaughan NP - 06/28/2022 12:59 AM CDT CHIEF COMPLAINT: Chief Complaint Patient presents with Abdominal Pain HPI 12:59 AM Maribell Jordan is a 42 y.o. female presenting to the ED c/o patient reports she is having some abdomen pain to the right and left side of the abdomen. States that this started yesterday. Reports it came in gone. Reports no abdomen pain at this time. Take patient states that she is beingtreated for a yeast infection. History provided by patient. PCP: Ruma Shrestha NP PAST MEDICAL HISTORY Past Medical History: Diagnosis Date Acid reflux Diabetes mellitus (HCC) Hypertension Ovarian cyst Sinus congestion PAST SURGICAL HISTORY Past Surgical History: Procedure Laterality Date BREAST SURGERY OVARIAN CYST REMOVAL TONSILLECTOMY FAMILY HISTORY No family history on file. MEDICATIONS GIVEN IN THE ED Medications - No data to display CURRENT HOME MEDICATIONS No current facility-administered medications for this encounter. Current Outpatient Medications: traMADoL (ULTRAM) 50 mg tablet, Take 1 [...] Triage Vitals Temp Pulse Resp BP SpO2 06/27/22234806/27/22234806/27/22234806/27/22234806/27/222348 36.9 ??C (98.5 ??F) 73 20 (!) 171/104 98 % Temp src Heart Rate Source Patient Position BP Location FiO2 (%) 06/27/222348 -- -- 06/28/22 0000 -- Oral Right arm Height Height Method Weight Weight Method 06/27/22234806/27/22234814/23 2349 06/27/22 2349 1.575 m (5' 2 ) Stated 97.8 kg (215 lb 9.8 oz) Standing scale Physical Exam Vitals and nursing note reviewed. Constitutional: General: She is not in acute distress. Appearance: She is well-developed. HENT: Head: Normocephalic and atraumatic. Eyes: Conjunctiva/sclera: Conjunctivae normal. Cardiovascular: Rate and Rhythm: Normal rate and regular rhythm. Heart sounds: No murmur heard. Pulmonary: Effort: Pulmonary effort is normal. No respiratory distress. Abdominal: Palpations: Abdomen is soft. Tenderness: There is no abdominal tenderness. Musculoskeletal: General: No swelling. Cervical back: Neck supple. Skin: General: Skin is warm and dry. Capillary Refill: Capillary refill takes less than 2 seconds. Neurological: General: No focal deficit present. Mental Status: She is alert and oriented to person, place, and time. Psychiatric: Mood and Affect: Mood normal. Behavior: Behavior normal. LABS Labs Reviewed URINALYSIS AND REFLEX TO MICROSCOPIC AND CULTURE - Abnormal Result Value Color, ur Yellow Clarity, ur Clear Specific gravity, ur 1.019 pH, urine 6.0 Protein, ur ql Negative Glucose, ur ql Negative Ketones, ur Negative Bilirubin, ur Negative Blood, ur Negative Urobilinogen, ur 2.0 (*) Nitrite, ur Negative Leukocyte esterase, ur Negative UA reflex comment Value: Reflex conditions for microscopic UA and culture not met. Narrative: Urine pH is affected by diet, medications, systemic acid-base disturbances, and renal tubular function. pH may affect urinary stone formation. For example, urine pH below 6.0 may help reduce the tendency for calcium phosphate stones and pH greater than 6.0 may reduce the tendency for uric acid stone formation. Source: [place] DXY.Last revised 02-24-2017 POCT HCG, URINE - Normal HCG, ur, POC Negative Lot Number [id number] QC Backgroud Clear Acceptable QC Control Line Acceptable COMPREHENSIVE METABOLIC PANEL Sodium 138 Potassium, pl 3.7 Chloride 103 CO2 24 Anion gap 11 BUN 10 Creatinine 0.90 Glucose 180 Calcium 8.8 Bilirubin, total <0.2 Protein, pl 7.4 Albumin 4.4 Alk phos 85 ALT 20 AST 13 LIPASE Lipase 24 EGFR eGFR 82 CBC WITH AUTO DIFFERENTIAL DIFFERENTIAL AUTO RADIOLOGY No results found. ED COURSE/MEDICAL DECISION MAKING Differential diagnosis included but not limited to Ddx: gastroenteritis, gastritis, appendicitis, cholecystitis, cholelithiasis, diverticulitis, pancreatitis, intestinal obstruction, intestinal perforation, peritonitis, salpingitis, ectopic , peptic ulcer, mesenteric adenitis, ureterolithia sis, dissection/rupture aortic aneurysm, reflux (peptic) esophagitis, IBS, incarcerated hernia, mesenteric infarction, Patient's medical records were reviewed. Procedures FINAL IMPRESSION Diverticulitis DISPOSITION: Home All findings were discussed with patient. Pt agreeable with plan. Non toxic appearing, vitals stable. Patient stable for discharge home. Given return to ER precautions Close outpatient follow-up with a low threshold to return has been mandated , concerning symptoms have been emphasized in detail, and this patient expresses understanding PATIENT INSTRUCTED TO FOLLOW UP Dr. Fady Nevarez Katherine DISCHARGE MEDICATIONS Your medication list ASK your doctor about these medications Instructions Last Dose Given Next Dose Due traMADoL 50 mg tablet Commonly known as: ULTRAM 50 mg, oral, Every 6 hours This examination was transcribed using the Transmit voice recognition system without human king maker. In an effort to expedite patient care, this report has not been adjusted for typographical, grammatical, and syntax by a trained site medical director. 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 Reports nausea denies vomit and fever. Denies urinary complain. Endorses was seen by ob/gyne for yeast infection last week. PMH: DM, HTN documented in this encounter Plan of Treatment Scheduled Referrals Name Type Priority Associated Diagnoses Order Schedule Ambulatory referral to Gastroenterology Outpatient Referral Routine Diverticulitis Ordered: 06/28/2022 documented as of this encounter Procedures Procedure Name Priority Date/Time Associated Diagnosis Comments CT ABDOMEN PELVIS W CONTRAST ED 06/28/2022 1:09 AM CDT POCT HCG, URINE Routine 06/28/2022 12:48 AM CDT EGFR STAT 06/28/2022 12:09 AM CDT DIFFERENTIAL AUTO STAT 06/28/2022 12: 09 AM CDT URINALYSIS AND REFLEX TO MICROSCOPIC AND CULTURE STAT 06/28/2022 12:09 AM CDT CBC WITH AUTO DIFFERENTIAL STAT 06/28/2022 12:09 AM CDT LIPASE STAT 06/28/2022 12:09 AM CDT COMPREHENSIVE METABOLIC PANEL STAT 06/28/2022 12:09 AM CDT documented in this encounter Results * CT Abdomen Pelvis W Contrast (06/28/2022 1:09 AM CDT) Anatomical Region Laterality Modality Body N/A Computed Tomogra phy 06/28/2022 1:49 AM CDT Narrative 06/28/2022 2:00 AM CDT EXAM DESCRIPTION: ?? CT ABDOMEN PELVIS W CONTRAST REASON FOR STUDY: ?? Abdominal pain, acute, nonlocalized ?? 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 Reports nausea denies vomit and fever. Denies urinary complain. ?Endorses was seen by ob/gyne for yeast infection last week. ? PMH: DM, HTN ??HCG neg ??CR 0.9 ?? TECHNIQUE: CT scan of the abdomen and pelvis performed with intravenous and ?? without ??oral contrast using helical scanning technique with dynamic intravenous contrast injection. Reconstructed coronal and sagittal MPR images reviewed. All images stored on PACS. Automated exposure control was used as a dose optimization technique for this examination. CONTRAST TYPE/DOSE: ?? 100mL of IOVERSOL 350 MG IODINE/ML INTRAVENOUS SYRINGE ?? injected via ?? intravenous COMPARISON: ?? Right upper quadrant ultrasound of October 16, [address] of the abdomen and pelvis of June 20, 2019. REFERENCE: Per ACR white paper recommendations, unless otherwise specified no follow-up imaging is recommended for incidental renal and adrenal lesions per consensus recommendations based on imaging criteria. Further lab evaluation could be pursued based on clinical findings. FINDINGS: LOWER CHEST: ??The lung bases are clear. ? LIVER: ??The liver is normal in attenuation without focal lesion. GALLBLADDER: ??No stones identified. Normal wall. ??No evidence of pericholecystic fluid. BILE DUCTS: ??No intrahepatic or extrahepatic ductal dilatation. PANCREAS: ??Normal. SPLEEN: ??Normal size. ??No focal lesions. ADRENALS: ??Left adrenal is normal. ??There is a 2.2 cm low to intermediate density nodule in the right adrenal, unchanged dating back to 2017. KIDNEYS/URINARY TRACT: ?? There are tiny subcentimeter cysts versus angiomyolipomas noted in the right kidney. The left kidney is unremarkable. ? Urinary bladder is unremarkable. VASCULATURE: ??There is atherosclerosis of the aorta and its pelvic branches. ?? There are multiple phleboliths in the left gonadal vein. GI: ??The stomach appears normal. ?? There is no significant small bowel dilation or visible thickening. ?? There is diverticulosis throughout the sigmoid and descending colon. ??There is a focal area of marked inflammatory change surrounding several diverticula at the junction of the descending and sigmoid colon. ??There is no associated collection or perforation seen. ?The appendix is normal. PERITONEUM/MESENTERY: ??No ascites or free air. ?? Again, there is haziness in the mesentery adjacent to the junction of the descending and sigmoid colon. LYMPH NODES: ??There are no enlarged lymph nodes seen by CT size criteria. REPRODUCTIVE: An IUD is seen in place. ?? Uterus and adnexae are otherwise unremarkable. MUSCULOSKELETAL: ??Multilevel degenerative changes are present in the spine, greatest at the lumbosacral junction. ??No acute bony abnormalities are seen. OTHER: ??No other abnormality. IMPRESSION: Acute, uncomplicated diverticulitis at the junction of the descending and sigmoid colon. Indeterminate right adrenal lesion; given its stability dating back to 2017, this is most likely benign. THIS IS AN ELECTRONICALLY VERIFIED FINAL REPORT 06/28/2022 2:00 AM - Electronically signed by ??Deborah SWENSON D: ??06/28/2022 2:00 AM T: Report ID: [id number] Reading Location: ??[id number] Procedure Note Deborah Perez MD - 06/28/2022 EXAM DESCRIPTION: CT ABDOMEN PELVIS W CONTRAST REASON FOR STUDY: Abdominal pain, acute, nonlocalized Arrived with associate account executive intermittent contractions on lower abdomen painradiating to back x1 day. Reports nausea denies vomit and fever. Denies urinary complain. Endorses was seen by ob/gyne for yeast infection last week. PMH: DM, HTN HCG neg CR 0.9 TECHNIQUE: CT scan of the abdomen and pelvis performed with intravenousand without oral contrast using helical scanning technique with dynamic intravenous contrast injection. Reconstructed coronal and sagittal MPRimages reviewed. All images stored on PACS. Automated exposure control was used as a dose optimization technique forthis examination. CONTRAST TYPE/DOSE: 100mL of IOVERSOL 350 MG IODINE/ML INTRAVENOUSSYRINGE injected via intravenous COMPARISON: Right upper quadrant ultrasound of October 16, [address] of the abdomen and pelvis of June 20, 2019. REFERENCE: Per ACR white paper recommendations, unless otherwise specifiedno follow-up imaging is recommended for incidental renal and adrenal lesionsper consensus recommendations based on imaging criteria. Further labevaluation could be pursued based on clinical findings. FINDINGS: LOWER CHEST: The lung bases are clear. LIVER: The liver is normal in attenuation without focal lesion. GALLBLADDER: No stones identified. Normal wall. No evidence of pericholecystic fluid. BILE DUCTS: No intrahepatic or extrahepatic ductal dilatation. PANCREAS: Normal. SPLEEN: Normal size. No focal lesions. ADRENALS: Left adrenal is normal. There is a 2.2 cm low to intermediate density nodule in the right adrenal, unchanged dating back to 2017. KIDNEYS/URINARY TRACT: There are tiny subcentimeter cysts versus angiomyolipomas noted in the right kidney. The left kidney isunremarkable. Urinary bladder is unremarkable. VASCULATURE: There is atherosclerosis of the aorta and its pelvicbranches. There are multiple phleboliths in the left gonadal vein. GI: The stomach appears normal. There is no significant small bowel dilation or visible thickening. There is diverticulosis throughout the sigmoid and descending colon. There is a focal area of markedinflammatory change surrounding several diverticula at the junction of the descendingand sigmoid colon. There is no associated collection or perforation seen.The appendix is normal. PERITONEUM/MESENTERY: No ascites or free air. Again, there is hazinessin the mesentery adjacent to the junction of the descending and sigmoidcolon. LYMPH NODES: There are no enlarged lymph nodes seen by CT size criteria. REPRODUCTIVE: An IUD is seen in place. Uterus and adnexae are otherwise unremarkable. MUSCULOSKELETAL: Multilevel degenerative changes are present in thespine, greatest at the lumbosacral junction. No acute bony abnormalities areseen. OTHER: No other abnormality. IMPRESSION: Acute, uncomplicated diverticulitis at the junction of the descending and sigmoid colon. Indeterminate right adrenal lesion; given its stability dating back [id number], this is most likely benign. THIS IS AN ELECTRONICALLY VERIFIED FINAL REPORT 06/28/2022 2:00 AM - Electronically signed by Deborah Perez M.D. SN T: Report ID: [id number] Reading Location: [id number] Rea Vaughan NP IMG CT PROCEDURES Final Re sult * POCT hCG, urine (06/28/2022 12:48 AM CDT) HCG, ur, POC Negative Lot Number [id number] QC Backgroud Clear Acceptable QC Control Line Acceptable Urine 06/28/2022 12:4 8 AM CDT Myesha Graves MD POINT OF CARE TEST ORDERA BLES Final Result * eGFR (06/28/2022 12:09 AM CDT) eGFR 82 mL/min/1. 73 m2 [...] interpretive data was last reviewed 2020. Blood 06/28/2022 12:0 9 AM CDT 06/28/2022 12:15 AM CDT Myesha Graves MD LAB BLOOD ORDERABLES Radha l Result [facility] [address] [facility] Department [place] [address] * Differential, auto (06/28/2022 12:09 AM CDT) Neutrophil abs 3.0 1.7 - 6.5 K/cumm [facility] Imm gran abs 0.0 0.0 - 0.1 K/cumm [facility] Lymphocyte abs 2.4 0.8 - 3.3 K/cumm [facility] Monocyte abs 0.4 0.2 - 0.8 K/cumm [facility] Eosinophil abs 0.1 0.0 - 0.5 K/cumm [facility] Basophil abs 0.0 0.0 - 0.1 K/cumm [facility] Neutrophil pct 51.2 % [facility] Comment: Interpretive Data Percent cell count reference ranges are not reported, since discordance with absolute values may lead to misinterpretation of CBC data. Current Interpretive Data was last revised on 2017. Imm gran pct 0.3 % [facility] Comment: Interpretive Data Percent cell count reference ranges are not reported, since discordance with absolute values may lead to misinterpretation of CBC data. Current Interpretive Data was last revised on 2017. Lymphocyte pct 40.1 % [facility] Comment: Interpretive Data Percent cell count reference ranges are not reported, since discordance with absolute values may lead to misinterpretation of CBC data. Current Interpretive Data was last revised on 2017. Monocyte pct 7.3 % [facility] Comment: Interpretive Data Percent cell count reference ranges are not reported, since discordance with absolute values may lead to misinterpretation of CBC data. Current Interpretive Data was last revised on 2017. Eosinophil pct 0.8 % [facility] Comment: Interpretive Data Percent cell count reference ranges are not reported, since discordance with absolute values may lead to misinterpretation of CBC data. Current Interpretive Data was last revised on 2017. Basophil pct 0.3 % [facility] Comment: Interpretive Data Percent cell count reference ranges are not reported, since discordance with absolute values may lead to misinterpretation of CBC data. Current Interpretive Data was last revised on 2017. Blood 06/28/2022 12:0 9 AM CDT 06/28/2022 12:15 AM CDT Myesha Graves MD LAB BLOOD ORDERABLES Radha l Result [facility] [address] [facility] [place] [address] * (ABNORMAL) Urinalysis reflex to microscopic and culture Urine (06/28/2022 12:09 AM CDT) Color, ur Yellow Yellow [facility] Clarity, ur Clear Clear [facility] Specific gravity, ur 1.019 1.003 - 1.030 [facility] pH, urine 6.0 [facility] Protein, ur ql Negative Negative [facility] Glucose, ur ql Negative Negative [facility] Ketones, ur Negative Negative [facility] Bilirubin, ur Negative Negative [facility] Blood, ur Negative Negative [facility] Urobilinogen, ur 2.0(A) <2.0 mg/dL [facility] Nitrite, ur Negative Negative [facility] Leukocyte esterase, ur Negative Negative [facility] UA reflex comment Reflex conditions for microscopic UA and culture not met. [facility] Urine 06/28/2022 12:0 9 AM CDT 06/28/2022 12:15 AM CDT Narrative [facility] - 06/28/2022 12:20 AM CDT ?? Urine pH is affected by diet, medications, systemic acid-base disturbances, and renal tubular function. ??pH may affect urinary stone formation. ??For example, urine pH below 6.0 may help reduce the tendency for calcium phosphate stones and pH greater than 6.0 may reduce the tendency for uric acid stone formation. Source: [facility] its learning. Last revised 02-24-2017 Myesha Graves MD LAB MICROBIOLOGY - GENERA L ORDERABLES Final Result [facility] [address] [facility] Department [place] [address] * Lipase (06/28/2022 12:09 AM CDT) Lipase 24 10 - 99 Units/L [facility] Blood (Blood, Venous) 06/28/2022 12:09 AM CDT 06/28/2022 12:15 AM CDT Myesha Graves MD LAB BLOOD ORDERABLES Radha leo Result [facility] [address] [facility] Department [place] [address] * Comprehensive metabolic panel (06/28/2022 12:09 AM CDT) Sodium 138 135 - 145 mmol/L [facility] Potassium, pl 3.7 3.3 - 4.9 mmol/L [facility] Chloride 103 97 - 110 mmol/L [facility] CO2 24 22 - 32 mmol/L [facility] Anion gap 11 2 - 15 mmol/L [facility] BUN 10 8 - 25 mg/dL [facility] Creatinine 0.90 0.60 - 1.10 mg/dL [facility] Glucose 180 70 - 199 mg/dL [facility] Comment: Interpretive Data Fasting glucose >/= [...] classification and Diagnosis of Diabetes Diabetes Care 202; 46: S19-S40. Current interpretive data was last revised 2022. Calcium 8.8 8.5 - 10.3 mg/dL [facility] Bilirubin, total <0.2 0.1 - 1.2 mg/dL [facility] Protein, pl 7.4 6.5 - 8.5 g/dL [facility] Albumin 4.4 3.5 - 5.0 g/dL [facility] Alk phos 85 40 - 130 Units/L [facility] ALT 20 7 - 45 Units/L [facility] AST 13 10 - 45 Units/L [facility] Blood 06/28/2022 12:0 9 AM CDT 06/28/2022 12:15 AM CDT Myesha Graves MD LAB BLOOD ORDERABLES Radha l Result Performing Organization Address [facility] de Phone Number [address] [address] * (ABNORMAL) CBC with auto differential (06/28/2022 12:09 AM CDT) [facility] Signature WBC 5.9 3.8 - 9.9 K/cumm [facility] Hgb 11.7(L) 11.9 - 15.5 g/dL [facility] Hct 36.1 35.6 - 45.5 % [facility] Plt 212 150 - 400 K/cumm [facility] MPV 14.0(H) 9.1 - 12.3 fL [facility] RBC 4.33 3.90 - 5.20 M/cumm [facility] [facility] MCV 83.4 81.3 - 96.4 fL [facility] MCH 27.0(L) 27.1 - 33.3 pg [facility] MCHC 32.4 32.3 - 35.7 g/dL [facility] RDW CV 13.4 11.1 - 14.9 % [facility] RDW SD 41.1 35.7 - 48.1 fL [facility] NRBC abs 0.00 0.00 - 0.01 K/cumm [facility] Blood (Blood, Venous) 06/28/2022 12:09 AM CDT 06/28/2022 12:15 AM CDT Myesha Graves MD LAB BLOOD ORDERABLES Radha l Result Performing Organization Address [facility] Co de Phone Number [address] [address] documented in this encounter Visit Diagnoses Diagnosis Diverticulitis- Primary Diverticulitis of colon (without mention of hemorrhage) documented in this encounter Administered Medications Inactive Administered Medications - up to 3 most recent administrations Medication Order MAR Action Action Date Dose Rate Site acetaminophen (TYLENOL) tablet 650 mg 650 mg, oral, Once, On 06/28/22 at 0230, For 1 dose Given 06/28/2022 2:31 AM CDT 650 mg ioversoL (OPTIRAY 350) syringe 100 mL 100 mL, intravenous, Once in imaging, contrast, Starting on 06/28/22 at 0109, For 1 dose Contrast Given 06/28/2022 1:10 AM CDT 100 mL documented in this encounter Active and Recently Administered Medications Times are shown in CDT. Scheduled Medication Order 06/26/2022 06/27/2022 06/28/2022 acetaminophen (TYLENOL) tablet 650 mg (COMPLETED) 650 mg, oral, Once, On Tue06/28/22 at 0230, For 1 dose 0231 (Given - Provid er: Nancy Steven RN) PRN Medication Order 06/26/2022 06/27/2022 06/28/2022 ioversoL (OPTIRAY 350) syringe 100 mL (COMPLETED) 100 mL, intravenous, Once in imaging, contrast, Starting on Tue06/28/22 at 0109, For 1 dose 0110 (Contrast Given - Provider: Kierra Devine RT) documented in this encounter Orders Nursing Count Last Ordered Date First Orde red Date MISCELLANEOUS NURSING CARE ORDER (SPECIFY) 1 06/27/2022 IV Count Last Ordered Date First Orde red Date SALINE LOCK IV 1 06/27/2022 documented in this encounter Care Teams Field Supervisor Relationship Specialty Start Date End Date Ruma Shrestha NP PCP - General 05/30/18 documented as of this encounter
--- OUTSIDE RECORDS SUMMARY | 2024-02-25 20:49 | XMS_ITS | Encounter Summary ---
Author Organization [facility] Healthcare Address [address] [place] [address] Care Team Providers Care Bingo Caller Name Role Phone Ruma Shrestha NP Primary Care Provider + Encounter Details Date Type Department Care Team (Late st Contact Info) Description 01/31/2020 3:20 PM CLERK GENERAL Hospital Encounter [facility]IM Katherine, Keiry Gonzalez MD [address] [place] [address] [place] [id number] Social History Tobacco Use Types Packs/Day Years Used Date Smoking Tobacco: Never Assessed Comments Unknown Sex and Gender Information Value Date Recorded Sex Assigned at Not on file Legal Sex Female 5:42 AM CLERK GENERAL Gender Identity Not on file Sexual Orientation [...] Procedure Name Priority Date/Time Associated Diagnosis Comments GLIADIN IGG/IGA AB PROF, EIA Routine 01/31/2020 3:51 PM CLERK GENERAL ENDOMYSIAL ANTIBODY, QUANTITATIVE Routine 01/31/2020 3:51 PM CLERK GENERAL TISSUE TRANSGLUTAMINASE, IGA Routine 01/31/2020 3:51 PM CLERK GENERAL CBC WITHOUT DIFFERENTIAL Routine 01/31/2020 3:51 PM CLERK GENERAL documented in this encounter Results * Gliadin IgG/IgA Ab Prof, EIA (01/31/2020 3:51 PM CLERK GENERAL) Gliadin Peptide IgG Ab 7 0 - 19 Units [facility] Comment: INTERPRETIVE INFORMATION: Deamidated Gliadin Peptide ?(DGP) Ab, IgG 19 Units or less: ........... Negative 20-30 Units: ................ Weak Positive 31 Units or greater: ........ Positive Performed By: [facility] [address] [place] [address] Wireless Sales Representative: Maral Tristan MD GLIADIN PEPTIDE AB,IGA 7 0 - 19 Units [facility] Comment: INTERPRETIVE INFORMATION: Deamidated Gliadin Peptide (DGP) Ab, IgA 19 Units or less: ........... Negative 20-30 Units: ................ Weak Positive 31 Units or greater: ........ Positive 01/31/2020 3:51 PM CLERK GENERAL 01/31/2020 3:56 PM CLERK GENERAL Narrative Resulting Agency Comment CLI us Keiry Murphy MD LAB BLOOD ORDERABLES Radha l Result [facility] [address] [place] [address], [facility] [phone] * Tissue transglutaminase IgA (TGG-IgA Ab) (01/31/2020 3:51 PM CLERK GENERAL) Tiss Transglutamin IgA <2 0 - 3 U/mL [facility] Comment: INTERPRETIVE INFORMATION: Tissue Transglutaminase (tTG) Antibody, IgA 3 U/mL or less: Negative 4-10 U/mL: Weak Positive 11 U/mL or greater: Positive Presence of the tissue transglutaminase (tTG) IgA antibody is associated with glutensensitive enteropathies such as celiac disease and dermatitis herpetiformis. tTG IgA antibody concentrations greater than 40 U/mL usually correlate with results of duodenal biopsies consistent with a diagnosis of celiac disease. For antibody concentrations greater or equal to 4 U/mL but less than or equal to 40 U/mL, additional testing for endomysial (ARON) IgA concentrations may improve the positive predictive value for disease. Performed By: [facility] [address] [place] [address] Wireless Sales Representative: Maral Tristan MD 01/31/2020 3:51 PM CLERK GENERAL 01/31/2020 3:56 PM CLERK GENERAL Narrative Resulting Agency Comment CLI Keiry Murphy MD LAB BLOOD ORDERABLES Radha l Result Performing Organization Address [facility] de Phone Number [facility] [address] [place] [address] * Endomysial antibody, quantitative (01/31/2020 3:51 PM CLERK GENERAL) Endomysial IgG Ab <1:10 <1:10 [facility] Comment: INTERPRETIVE INFORMATION: Endomysial Antibody, IgG The presence of ARON IgG antibody may be useful in the identification of IgA-deficient patients at risk for celiac disease. Positive results must be confirmed by biopsy of the small intestine to establish a diagnosis of celiac disease. Test developed and characteristics determined by [facility]. See Compliance Statement D: [email or web address] Performed By: [facility] [address] [place] [address] Wireless Sales Representative: Maral Tristan MD 01/31/2020 3:51 PM CLERK GENERAL 01/31/2020 3:56 PM CLERK GENERAL Narrative Resulting Agency Comment CLI Keiry Murphy MD LAB BLOOD ORDERABLES Radha l Result Performing Organization Address [facility] Co de Phone Number [facility] [address] [place] [address] * (ABNORMAL) CBC without differential (01/31/2020 3:51 PM CLERK GENERAL) WBC 5.9 3.8 - 9.9 X10 3/ul [facility] RBC 4.35 3.90 - 5.20 x10 6/ul [facility] Hemoglobin 11.7(L) 11.9 - 15.5 g/dL [facility] Hct 35.4(L) 35.6 - 45.5 % [facility] MCV 81.4 81.3 - 96.[address] [facility] MCH 26.9(L) 27.1 - 33.[address] [facility] MCHC 33.1 32.3 - 35.7 g/dl [facility] RDW 13.0 11.1 - 14.9 % [facility] Plt Count 227 150 - 400 x10 3/ul [facility] MPV 13.3(H) 9.1 - 12.[address] [facility] 01/31/2020 3:51 PM CLERK GENERAL 01/31/2020 3:56 PM CLERK GENERAL Narrative Resulting Agency Comment CLI us Keiry Murphy MD LAB BLOOD ORDERABLES Radha l Result [facility] [address] [place] [address], [facility] [phone] documented in this encounter Visit Diagnoses Not on filedocumented in this encounter Care Teams Bingo Caller Relationship Specialty Start Date End Date Ruma Shrestha NP PCP - General 05/30/18 documented as of this encounter
--- OUTSIDE RECORDS SUMMARY | 2024-02-25 20:50 | XMS_ITS | Encounter Summary ---
Author Organization [facility] Healthcare Address [address] [place] [address] Care Team Providers Care Vice President Regulatory Name Role Phone Unavailable Primary Care Provider Unavailabl e Encounter Details Date Type Department Care Team (Latest Contact Info) Description 12/24/2014 4:10 PM RECRUITER COORDINATOR - 12/24/2014 9:48 PM RECRUITER COORDINATOR Hospital Encounter [facility] ER Kemar Carey MD [address] [facility] [place] [address] Other abnormal glucose; Acute maxillary sinusitis; Dizziness and giddiness; Visual disturbance; Weakness; Essential (primary) hypertension; Personal history of nicotine dependence Social History Tobacco Use Types Packs/Day Years Used Date Smoking Tobacco: Never Assessed Comments Unknown Sex and Gender Information Value Date Recorded Sex Assigned at Not on file Legal Sex Female 5:42 AM RECRUITER COORDINATOR Gender Identity Not on file Sexual Orientation Not on file documented as of this encounter Last Filed Vital Signs Vital Sign Reading Time Taken Comments Blood Pressure 135/75 12/24/2014 4:14 PM RECRUITER COORDINATOR Pulse 106 12/24/2014 4:14 PM RECRUITER COORDINATOR Temperature 36.7 ??C (98.1 ??F) 12/24/2014 4:14 PM CS T Respiratory Rate - - Oxygen Saturation 99% 12/24/2014 4:14 PM RECRUITER COORDINATOR Inhaled Oxygen Concentration - - Weight 95.3 kg (210 lb) 12/24/2014 4:14 PM RECRUITER COORDINATOR Height 157.5 cm (5' 2 ) 12/24/2014 4:14 PM RECRUITER COORDINATOR Body Mass Index 38.41 12/24/2014 4:14 PM RECRUITER COORDINATOR documented in this encounter Plan of Treatment Not on file documented as of this encounter Procedures Procedure Name Priority Date/Time Associated Diagnosis Comments URINALYSIS AND REFLEX TO MICROSCOPIC AND CULTURE Routine 12/24/2014 7:45 PM RECRUITER COORDINATOR CBC WITH AUTO DIFFERENTIAL Routine 12/24/2014 5:14 PM RECRUITER COORDINATOR COMPREHENSIVE METABOLIC PANEL Routine 12/24/2014 5:14 PM RECRUITER COORDINATOR documented in this encounter Results * Urinalysis reflex to microscopic and culture (12/24/2014 7:45 PM RECRUITER COORDINATOR) Ur Collection Type CLEAN CATCH 12/24/2014 8:03 PM Motility Count HISTORICAL RESULTS Ur Culture Indicated? C&S NOT INDICATED 12/24/2014 8:08 PM Motility Count HISTORICAL RESULTS Urine Color STRAW YELLOW 12/24/2014 8:08 PM Motility Count HISTORICAL RESULTS Urine Clarity CLEAR CLEAR 12/24/2014 8:08 PM Motility Count HISTORICAL RESULTS Urine Glucose (UA) NORMAL NORMAL mg/dL 12/24/2014 8:08 PM Motility Count HISTORICAL RESULTS Urine Bilirubin NEGATIVE NEGATIVE mg/dl 12/24/2014 8:08 PM Motility Count HISTORICAL RESULTS Urine Ketones NEGATIVE NEGATIVE mg/dL 12/24/2014 8:08 PM Motility Count HISTORICAL RESULTS Ur Specific [place] 1.016 1.005 - 1.025 12/24/2014 8:08 PM Motility Count HISTORICAL RESULTS Urine Blood NEGATIVE NEGATIVE mg/dl 12/24/2014 8:08 PM Motility Count HISTORICAL RESULTS Urine pH 6.5 5.0 - 8.0 12/24/2014 8:08 PM Motility Count HISTORICAL RESULTS Urine Protein NEGATIVE NEGATIVE mg/dL 12/24/2014 8:08 PM Motility Count HISTORICAL RESULTS Urine Urobilinogen NORMAL NORMAL mg/dL 12/24/2014 8:08 PM Motility Count HISTORICAL RESULTS Urine Nitrite NEGATIVE NEGATIVE 12/24/2014 8:08 PM Motility Count HISTORICAL RESULTS Ur Leukocyte Esterase NEGATIVE NEGATIVE Nuno/ul 12/24/2014 8:08 PM Motility Count HISTORICAL RESULTS Ur Microscopic Review Indicated or Ordered Urine RBC 2 0 - 2 /HPF Urine WBC <1 0 - 2 /HPF Ur Squamous Epith Cells Rare /HPF 12/24/2014 7:45 PM RECRUITER COORDINATOR 12/24/2014 8:01 PM RECRUITER COORDINATOR us Mikala MENDOZA LAB MICROBIOLOGY - GENERAL OR DERABLES Final Result [facility] HISTORICAL RESULTS * (ABNORMAL) Comprehensive metabolic panel (12/24/2014 5:14 PM RECRUITER COORDINATOR) Sodium 131(L) 135 - 145 mmol/L Potassium 3.4 3.3 - 5.1 mmol/L Chloride 92(L) 96 - 108 mmol/L Carbon Dioxide 24 22 - 32 mmol/L Anion Gap 15 7 - 16 Glucose 175(H) 70 - 100 mg/dL BUN 12 6 - 20 mg/dL Creatinine 0.5 0.5 - 1.1 mg/dL Kidney Disease Stage > 90 mL/MIN Comment: NOTE; ??The GFR is an estimated value using the creatinine, sex, age, and race of the patient. THE ESTIMATED GFR IS VALIDATED FOR AGES 18-70 YEARS STAGE ?mL/Min ?DESCRIPTION ??1 ?90 mL/min or more ?Normal or elevated GFR ??2 ? 60-89 mL/min ?Mildly decreased GFR ??3 ? 30-59 mL/min ?Moderately decreased GFR ??4 ? 15-29 mL/min ?Severely decreased GFR ??5 ? <15 mL/min ? Kidney failure or on dialysis @ Calcium 10.0 8.6 - 10.0 mg/dL Total Protein 8.5(H) 6.4 - 8.3 g/dL Albumin 5.0 3.5 - 5.2 g/dL Globulin 3.5 2.3 - 3.5 gm/dL Albumin/Globulin Ratio 1.4 1.1 - 1.8 Total Bilirubin 0.4 0.0 - 1.2 mg/dL AST 15 0 - 32 U/L ALT 27 0 - 33 U/L Alkaline Phosphatase 98 35 - 104 U/L 12/24/2014 5:14 PM RECRUITER COORDINATOR 12/24/2014 5:17 PM RECRUITER COORDINATOR us Mikala MENDOZA LAB BLOOD ORDERABLES Final Re sult [facility] HISTORICAL RESULTS * (ABNORMAL) CBC with auto differential (12/24/2014 5:14 PM RECRUITER COORDINATOR) [facility] Signature WBC 10.9(H) 4.6 - 10.2 x10 3/ul RBC 4.94(H) 3.76 - 4.80 x10 6/ul Hemoglobin 13.4 11.0 - 15.0 g/dl Hct 40.0 33.0 - 43.0 % MCV 81.0 80.0 - 97.0 fl MCH 27.1 27.0 - 31.2 pg MCHC 33.5 31.8 - 35.4 g/dl RDW 13.2 11.6 - 14.8 % Plt Count 289 124 - 400 x10 3/ul MPV 12.2(H) 7.4 - 10.4 fl Differential Method AUTOMATED DIFF --------- -- Neut % 64.6 37.0 - 85.0 % Immature Gran % 0.4 0.0 - 3.0 % Lymph % 28.6 5.0 - 45.0 % [place] % 5.7 3.0 - 15.0 % Eos % 0.4 0.0 - 7.0 % Baso % 0.3 0.0 - 2.0 % ABSOLUTE COUNTS ABSOLUTE COUNTS --------- -- Absolute Neuts (auto) 7.0 1.7 - 8.7 x10 3/ul Immature Gran # 0.0 0.0 - 0.3 x10 3/ul Absolute Lymphs (auto) 3.1 0.2 - 4.6 x10 3/ul Absolute Monos (auto) 0.6 0.1 - 1.5 x10 3/ul Absolute Eos (auto) 0.0 0.0 - 0.7 x10 3/ul Absolute Basos (auto) 0.0 0.0 - 0.2 x10 3/ul 12/24/2014 5:14 PM RECRUITER COORDINATOR 12/24/2014 5:17 PM [facility] us Mikala MENDOZA LAB BLOOD ORDERABLES Final Re sult [facility] HISTORICAL RESULTS documented in this encounter Visit Diagnoses Diagnosis Other abnormal glucose Acute maxillary sinusitis Dizziness and giddiness Visual disturbance Unspecified visual disturbance Weakness Other malaise and fatigue Essential (primary) hypertension Unspecified essential hypertension Personal history of nicotine dependence documented in this encounter
--- OUTSIDE RECORDS SUMMARY | 2024-02-25 20:50 | XMS_ITS | Encounter Summary ---
Author Organization [facility] Healthcare Address [address] [place] [address] Care Team Providers Care Manager Technology Name Role Phone Unavailable Primary Care Provider Unavailabl e Encounter Details Date Type Department Care Team (Latest Contact Info) Description 07/02/2016 6:38 PM CDT - 07/02/2016 9:43 PM CDT Hospital Encounter [facility] Trey Cohen Pelvic and perineal pain; Abnormal findings on diagnostic imaging of other abdominal regions, including retroperitoneum; Type 2 diabetes mellitus without complications (CMS/HCC); Essential (primary) hypertension; Presence of (intrauterine) contraceptive device; medical terminologist current use of oral hypoglycemic drug; Other manager intermediate (current) drug therapy Social History Tobacco Use Types Packs/Day Years Used Date Smoking Tobacco: Never Assessed Comments Unknown Sex and Gender Information Value Date Recorded Sex Assigned at Not on file Legal 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 Gender Identity Not on file Sexual Orientation Not on file documented as of this encounter Last Filed Vital Signs Vital Sign Reading Time Taken Comments Blood Pressure 132/79 07/02/2016 6:39 PM CDT Pulse 92 07/02/2016 6:39 PM CDT Temperature 36.7 ??C (98.1 ??F) 07/02/2016 6:39 PM CD T Respiratory Rate - - Oxygen Saturation 98% 07/02/2016 6:39 PM CDT Inhaled Oxygen Concentration - - Weight 88.5 kg (195 lb) 07/02/2016 6:39 PM CDT Height 157.5 cm (5' 2 ) 07/02/2016 6:39 PM CDT Body Mass Index 35.67 07/02/2016 6:39 PM CDT documented in this encounter Plan of Treatment Not on file documented as of this encounter Procedures Procedure Name Priority Date/Time Associated Diagnosis Comments SCAN - PATHOLOGY 07/06/2016 12:0 0 AM CDT HCG, BLOOD, QUANTITATIVE Routine 07/02/2016 8:57 PM CDT VAGINAL PATHOGEN SCREEN Routine 07/02/2016 7:40 PM CDT N. GONORRHOEAE DNA PROBE GENITAL OR URINE Routine 07/02/2016 7:40 PM CDT URINALYSIS Routine 07/02/2016 7:21 PM CDT CBC WITH AUTO DIFFERENTIAL Routine 07/02/2016 7:19 PM CDT COMPREHENSIVE METABOLIC PANEL Routine 07/02/2016 7:[address] ABDOMEN PELVIS W CONTRAST Routine 07/02/2016 12:00 AM CDT documented in this encounter Results * SCAN - PATHOLOGY (07/06/2016 12:00 AM CDT) Narrative 07/06/2016 12:00 AM CDT Ordered by an unspecified provider. us Historical Provider Final Res ult * hCG, blood, quantitative (07/02/2016 8:57 PM CDT) Beta HCG, Quant < 0.1 0.0 - 1.0 mIU/mL Comment: Weeks of preg ?BHCG ? Weeks of preg ? BHCG ?3 ? 5.8-71.2 ?10 ? 46,509-186,977 ?4 ? 9.5-750 ? 12 ? 27,832-210,612 ?5 ? 217-7,138 ? 14 ? 13,950-62,530 ?6 ? 158-31,795 ?15 ? 12,039-70,971 ?7 ?3,697-163,563 ?16 ?9,040-56,451 ?8 ? 32,065-149,571 ?17 ?8,175-55,868 ?9 ? 63,803-151,410 ?18 ?8,099-58,176 Post-menopause: ??0-8.3 ?METHOD: ??Justin ECLIA Intended for the early detection of . ? 07/02/2016 8:57 PM CDT 07/02/2016 9:01 PM CDT us Historical Provider MD LAB BLOOD ORDERABLES Radha leo Result [facility] HISTORICAL RESULTS * N. gonorrhoeae DNA probe, genital or urine (07/02/2016 7:40 PM CDT) C. trachomatis RNA CT NOT DETECTED Comment:Chlamydia trachomati s is not detected. C. trachomatis RNA NG NOT DETECTED Comment:Neisseria gonorrhoea e is not detected. Chlamydia/GC Source ENDO/VAG Comment: Xpert CT/NG Assay performance has not been evaluated in female patients <14 years of age and male patients <17 years of age[address] Xpert CT/NG Assay performance has not been evaluated in patients with a history of hysterectomy. For patients <=14 years old The GeneXpert Chlamydia trachomatis/Neisseria gonorrhoeae Amplified DNA Assay should not be used for the evaluation of suspected sexual abuse or for other medico-legal indications. Additional testing is recommended in any circumstance when false positive or false negative results could lead to adverse medical, social or psychological consequences. 07/02/2016 7:40 PM CDT 07/02/2016 8:04 PM CDT Narrative [facility] HISTORICAL RESULTS - 07/02/2016 8:05 PM CDT Collected By HS ?? Collected By hs Deedee Espinozaers LAB MICROBIOLOGY - GENERA L ORDERABLES Final Result [facility] HISTORICAL RESULTS * VAGINAL PATHOGEN SCREEN (07/02/2016 7:40 PM CDT) Trichomonas vaginalis NEGATIVE NEGATIVE GARDNERELLA SCREEN NEGATIVE NEGATIVE 2016 9:02 PM CDT [facility] HISTORICAL RESULTS Samaria species DNA NEGATIVE NEGATIVE Comment: A positive result for Samaria, Gardnerella and/or Trichomonas means nucleic acid for Samaria species (C.albicans,C.glabrata,Ckefyr,C.krusei,C.parapsilosis, C.tropicalis),G.vaginalis and/or T.vaginalis,respectively, is present in the sample and indicates the patient has candidasis, bacterial vaginosis, and/or trichomoniasis when consisent with clinical signs and symptoms. Simultaneous infections by more than one organism are common. Negative results,for Samaria,Gardnerella,or Trichomonas test suggest the patient does not have candidasis,bacterial vaginosis and/or trichomoniasis, respectively, when consistent with clinical signs and symptoms. 07/02/2016 7:40 PM CDT 07/02/2016 8:04 PM CDT Narrative [facility] HISTORICAL RESULTS - 07/02/2016 9:02 PM CDT Collected By HS ?? Collected By hs Deedee Coyne LAB BLOOD ORDERABLES Radha l Result [facility] HISTORICAL RESULTS * (ABNORMAL) Urinalysis (07/02/2016 7:21 PM CDT) Ur Collection Type CLEAN CATCH Urine Color STRAW YELLOW Urine Clarity CLEAR CLEAR Urine Glucose (UA) NORMAL NORMAL mg/dL Urine Bilirubin NEGATIVE NEGATIVE mg/dl Urine Ketones NEGATIVE NEGATIVE mg/dL Ur Specific [place] 1.017 1.005 - 1.025 Urine Blood 0.03(H) NEGATIVE mg/dl Urine pH 6.0 5.0 - 8.0 Urine Protein NEGATIVE NEGATIVE mg/dL Urine Urobilinogen NORMAL NORMAL mg/dL Urine Nitrite NEGATIVE NEGATIVE Ur Leukocyte Esterase NEGATIVE NEGATIVE Nuno/ul Ur Microscopic Review Not Indicated 07/02/2016 7:21 PM CDT 07/02/2016 7:33 PM CDT Deedee Coyne LAB URINE ORDERABLES Radha l Result [facility] HISTORICAL RESULTS * (ABNORMAL) Comprehensive metabolic panel (07/02/2016 7:19 PM CDT) Sodium 138 135 - 145 mmol/L Potassium 3.9 3.3 - 5.1 mmol/L Chloride 102 96 - 108 mmol/L Carbon Dioxide 23 22 - 32 mmol/L Anion Gap 13 7 - 16 Glucose 106(H) 70 - 100 mg/dL BUN 12 6 - 20 mg/dL Creatinine 0.6 0.5 - 1.1 mg/dL Comment: NOTE: Estimated GFR (Cockroft-Gault) will NOT be calculated unless patient Height and Weight were entered. Also, Kidney Disease Stage (GFR) and Estimated GFR (Cockroft-Gault) will NOT be calculated if Creatinine result is <0.2. Kidney Disease Stage > 90 mL/MIN Comment: [...] ? Kidney failure or on dialysis @ Est GFR (Cockcroft-G) 134 ml/MIN Comment: Estimated GFR(Cockroft-Gault)is used to calculate patient medication dosage Calcium 8.9 8.6 - 10.0 mg/dL Total Protein 7.3 6.4 - 8.3 g/dL Albumin 4.3 3.5 - 5.2 g/dL Globulin 3.0 2.3 - 3.5 gm/dL Albumin/Globulin Ratio 1.4 1.1 - 1.8 Total Bilirubin < 0.2 0.0 - 1.2 mg/dL AST 12 0 - 32 U/L ALT 14 0 - 33 U/L Alkaline Phosphatase 59 35 - 104 U/L 07/02/2016 7:19 PM CDT 07/02/2016 7:25 PM CDT Deedee Coyne LAB BLOOD ORDERABLES Radha leo Result [facility] HISTORICAL RESULTS * (ABNORMAL) CBC with auto differential (07/02/2016 7:19 PM CDT) WBC 7.6 4.6 - 10.2 x10 3/ul RBC 4.12 3.76 - 4.80 x10 6/ul Hemoglobin 11.1 11.0 - 15.0 g/dl Hct 34.4 33.0 - 43.0 % MCV 83.5 80.0 - 97.0 fl MCH 26.9(L) 27.0 - 31.2 pg MCHC 32.3 31.8 - 35.4 g/dl RDW 13.6 11.6 - 14.8 % Plt Count 199 124 - 400 x10 3/ul MPV 12.5(H) 7.4 - 10.4 fl 07/02/2016 7:29 PM CDT [facility] Neut % 63.8 37.0 - 85.0 % 07/02/2016 7:29 PM CDT [facility] Immature Gran % 0.3 0.0 - 3.0 % Lymph % 27.9 5.0 - 45.0 % [place] % 6.2 3.0 - 15.0 % Eos % 1.4 0.0 - 7.0 % Baso % 0.4 0.0 - 2.0 % Absolute Neuts (auto) 4.9 1.7 - 8.7 x10 3/ul Immature Gran # 0.0 0.0 - 0.3 x10 3/ul Absolute Lymphs (auto) 2.1 0.2 - 4.6 x10 3/ul Absolute Monos (auto) 0.5 0.1 - 1.5 x10 3/ul Absolute Eos (auto) 0.1 0.0 - 0.7 x10 3/ul Absolute Basos (auto) 0.0 0.0 - 0.2 x10 3/ul Nucleat RBC Rel Count 0.0 0 - 3 #/100WBC Absolute Nucleated RBC 0.00 x10 3/ul Absolute Neutrophils 4900 200 - 8000 /ul 07/02/2016 7:19 PM CDT 07/02/2016 7:25 PM CDT us Deedee Coyne LAB BLOOD ORDERABLES Radha l Result [facility] HISTORICAL RESULTS * CT Abdomen Pelvis W Contrast (07/02/2016 12:00 AM CDT) Anatomical Region Laterality Modality Body N/A Computed Tomogra phy 07/02/2016 Impressions 07/02/2016 8:55 PM CDT ??IUD within the endometrial cavity of the uterus. ??No acute intra-abdominal process. ??Incidental low dense lesion in the right adrenal gland and hyper-enhancing area in the right lobe of liver which may be evaluated with additional imaging, as above. Automated exposure control was used as a dose optimization technique for this examination. THIS IS AN ELECTRONICALLY VERIFIED REPORT 07/02/2016 8:51 PM: ??Lennie Carney M.D. ?? Lennie Carney M.D. LC:lc 08:51 PM 08:51 PM CHR [EOD] Narrative 07/02/2016 8:[address] abdomen and pelvis with IV contrast HISTORY: ??Vaginal and lower abdominal pain. ??History of IUD. ??Severe pelvic cramping. Contrast: ??100 mL Omnipaque 350 right antecubital fossa IV site without adverse reaction. FINDINGS: ??There is no comparison. The upper sections include lung bases. ??There is no infiltrate, nodule, or pleural effusion. In the abdomen, there is a triangular shaped enhancing area in the upper right lobe of liver which may represent a hemangioma. ??Further characterization with ultrasound or potentially hepatic protocol CT may be beneficial. ??The liver and spleen otherwise are homogeneous. There is a 1.4 cm low density nodule in the right adrenal gland. ??This is indeterminate and might be further delineated with adrenal protocol CT or MRI. The pancreas is normal. ??The gallbladder is normal. ??The abdominal aortic caliber is normal. The bowel is normal. There is no bowel obstruction. ??Normal appendix. In the pelvis, an IUD is in place within the endometrial cavity of the uterus. There is no free air fluid. ??Multiple phleboliths. ??The bladder is normal. ?? There is no adnexal mass. Disc degeneration L5-S1. Procedure Note Provider, MD Graham - 07/02/2020 CT abdomen and pelvis with IV contrast HISTORY: Vaginal and lower abdominal pain. History of IUD. Severepelvic cramping. Contrast: 100 mL Omnipaque 350 right antecubital fossa IV site without adverse reaction. FINDINGS: There is no comparison. The upper sections include lung bases. There is no infiltrate, nodule, or pleural effusion. In the abdomen, there is a triangular shaped enhancing area in the upperright lobe of liver which may represent a hemangioma. Further characterizationwith ultrasound or potentially hepatic protocol CT may be beneficial. Theliver and spleen otherwise are homogeneous. There is a 1.4 cm low density nodule in the right adrenal gland. This is indeterminate and might be further delineated with adrenal protocol CT orMRI. The pancreas is normal. The gallbladder is normal. The abdominal aortic caliber is normal. The bowel is normal. There is no bowel obstruction. Normal appendix. In the pelvis, an IUD is in place within the endometrial cavity of theuterus. There is no free air fluid. Multiple phleboliths. The bladder is normal. There is no adnexal mass. Disc degeneration L5-S1. IMPRESSION: IUD within the endometrial cavity of the uterus. No acute intra-abdominal process. Incidental low dense lesion in the right adrenal gland and hyper-enhancing area in the right lobe of liver which may be evaluated with additional imaging, as above. Automated exposure control was used as a dose optimization technique forthis examination. THIS IS AN ELECTRONICALLY VERIFIED REPORT 07/02/2016 8:51 PM: Lennie Carney M.D. Lennie Carney M.D. LC:mary 08:51 PM 08:51 PM CHR [EOD] Deedee Coyne IMG CT PROCEDURES Final R esult documented in this encounter Visit Diagnoses Diagnosis Pelvic and perineal pain Abnormal findings on diagnostic imaging of other abdominal regions, including retroperitoneum Type 2 diabetes mellitus without complications (CMS/HCC) (HCC) Essential (primary) hypertension Unspecified essential hypertension Presence of (intrauterine) contraceptive device Presence of intrauterine contraceptive device medical terminologist current use of oral hypoglycemic drug Other manager intermediate (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
--- OUTSIDE RECORDS SUMMARY | 2024-02-25 20:50 | XMS_ITS | Encounter Summary ---
Author Organization [facility] Healthcare Address [address] [place] [address] Care Team Providers Care Graduate Fellow Name Role Phone Unavailable Primary Care Provider Unavailabl e Encounter Details Date Type Department Care Team (Latest Contact Info) Description 01/07/2018 5:59 AM TREE EXPERT - 01/07/2018 8:30 AM TREE EXPERT Hospital Encounter [facility] Mikala Calixto, [place] [address] [place] [address] Palpitations; Anxiety disorder; Essential (primary) hypertension; Gastro-esophageal reflux disease without esophagitis; Type 2 diabetes mellitus without complications ([facility]/HCC); Allergy status to other drugs, medicaments and biological substances status; [facility] current use of oral hypoglycemic drug; Other nursing home (current) drug therapy Social History Tobacco Use Types Packs/Day Years Used Date Smoking Tobacco: Never Assessed Comments Unknown Sex and Gender Information Value Date Recorded Sex Assigned at Not on file Legal Sex Female 5:42 AM TREE EXPERT Gender Identity Not on file Sexual Orientation Not on file documented as of this encounter Last Filed Vital Signs Vital Sign Reading Time Taken Comments Blood Pressure 154/96 01/07/2018 6:06 AM TREE EXPERT Pulse 78 01/07/2018 6:06 AM TREE EXPERT Temperature 36.5 ??C (97.7 ??F) 01/07/2018 6:06 AM CS T Respiratory Rate - - Oxygen Saturation 100% 01/07/2018 6:06 AM TREE EXPERT Inhaled Oxygen Concentration - - Weight 98 kg (216 lb) 01/07/2018 6:06 AM TREE EXPERT Height 157.5 cm (5' 2 ) 01/07/2018 6:06 AM TREE EXPERT Body Mass Index 39.51 01/07/2018 6:06 AM TREE EXPERT documented in this encounter Plan of Treatment Not on file documented as of this encounter Procedures Procedure Name Priority Date/Time Associated Diagnosis Comments URINALYSIS Routine 01/07/2018 6:50 AM TREE EXPERT CBC WITH AUTO DIFFERENTIAL Routine 01/07/2018 6:17 AM TREE EXPERT COMPREHENSIVE METABOLIC PANEL Routine 01/07/2018 6:17 AM TREE EXPERT XR CHEST PA LATERAL 2 VIEWS Routine 01/07/2018 12:00 AM TREE EXPERT documented in this encounter Results * (ABNORMAL) Urinalysis (01/07/2018 6:50 AM TREE EXPERT) Ur Collection Type CLEAN CATCH 01/07/2018 7:09 AM [facility] HISTORICAL RESULTS Urine Color COLORLESS YELLOW 01/07/2018 7:09 AM TREE EXPERT [facility] HISTORICAL RESULTS Urine Clarity CLEAR CLEAR 01/07/2018 7:09 AM [facility] HISTORICAL RESULTS Urine Glucose (UA) NORMAL NORMAL mg/dL 01/07/2018 7:09 AM TREE EXPERT [facility] HISTORICAL RESULTS Urine Bilirubin NEGATIVE NEGATIVE mg/dl 01/07/2018 7:09 AM [facility] HISTORICAL RESULTS Urine Ketones NEGATIVE NEGATIVE mg/dL 01/07/2018 7:09 AM [facility] HISTORICAL RESULTS Ur Specific Check 1.002(L) 1.005 - 1.025 01/07/2018 7:09 AM TREE EXPERT [facility] HISTORICAL RESULTS Urine Blood NEGATIVE NEGATIVE mg/dl 01/07/2018 7:09 AM [facility] HISTORICAL RESULTS Urine pH 7.0 5.0 - 8.0 01/07/2018 7:09 AM [facility] HISTORICAL RESULTS Urine Protein NEGATIVE NEGATIVE mg/dL 01/07/2018 7:09 AM TREE EXPERT [facility] HISTORICAL RESULTS Urine Urobilinogen NORMAL NORMAL mg/dL 01/07/2018 7:09 AM TREE EXPERT [facility] HISTORICAL RESULTS Urine Nitrite NEGATIVE NEGATIVE 01/07/2018 7:09 AM [facility] HISTORICAL RESULTS Ur Leukocyte Esterase NEGATIVE NEGATIVE Nuno/ul Ur Microscopic Review Not Indicated 01/07/2018 6:50 AM TREE EXPERT 01/07/2018 7:03 AM TREE EXPERT us Rosalinda Quezada BOTTLE BLOWING MACHINE TENDER LAB URINE ORDERABLES Final Resu lt [facility] HISTORICAL RESULTS * (ABNORMAL) Comprehensive metabolic panel (01/07/2018 6:17 AM TREE EXPERT) Sodium 139 135 - 145 mmol/L Potassium 3.9 3.3 - 5.1 mmol/L Chloride 102 96 - 108 mmol/L Carbon Dioxide 29 22 - 32 mmol/L Anion Gap 8 7 - 16 Glucose 140(H) 70 - 100 mg/dL BUN 12 6 - 20 mg/dL Creatinine 0.7 0.5 - 1.1 mg/dL Comment: NOTE: Estimated [...] or on dialysis @ Est GFR (Cockcroft-G) 120 ml/MIN 01/07/2018 6:43 AM [facility] HISTORICAL RESULTS Comment: Estimated GFR(Cockroft-Gault)is used to calculate patient medication dosage Calcium 9.8 8.6 - 10.0 mg/dL 01/07/2018 6:43 AM [facility] HISTORICAL RESULTS Total Protein 7.9 6.4 - 8.3 g/dL 01/07/2018 6:43 AM [facility] HISTORICAL RESULTS Albumin 4.6 3.5 - 5.2 g/dL 01/07/2018 6:43 AM [facility] HISTORICAL RESULTS Globulin 3.3 2.3 - 3.5 gm/dL 01/07/2018 6:43 AM [facility] HISTORICAL RESULTS Albumin/Globulin Ratio 1.4 1.1 - 1.8 01/07/2018 6:43 AM [facility] HISTORICAL RESULTS Total Bilirubin < 0.2 0.0 - 1.2 mg/dL 01/07/2018 6:43 AM [facility] HISTORICAL RESULTS AST 17 0 - 32 U/L 01/07/2018 6:43 AM [facility] HISTORICAL RESULTS ALT 21 0 - 33 U/L 01/07/2018 6:43 AM [facility] HISTORICAL RESULTS Alkaline Phosphatase 75 35 - 104 U/L 01/07/2018 6:43 AM [facility] HISTORICAL RESULTS 01/07/2018 6:17 AM TREE EXPERT 01/07/2018 6:21 AM TREE EXPERT us Roslainda Quezada BOTTLE BLOWING MACHINE TENDER LAB BLOOD ORDERABLES Final Resu lt [facility] HISTORICAL RESULTS * (ABNORMAL) CBC with auto differential (01/07/2018 6:17 AM TREE EXPERT) WBC 7.1 3.8 - 9.9 X10 3/ul 01/07/2018 6:25 AM TREE EXPERT [facility] HISTORICAL RESULTS RBC 4.24 3.90 - 5.20 x10 6/ul 01/07/2018 6:25 AM TREE EXPERT [facility] HISTORICAL RESULTS Hemoglobin 10.5(L) 11.9 - 15.5 g/dL 01/07/2018 6:25 AM TREE EXPERT [facility] HISTORICAL RESULTS Hct 32.3(L) 35.6 - 45.5 % 01/07/2018 6:25 AM TREE EXPERT [facility] HISTORICAL RESULTS MCV 76.2(L) 81.3 - 96.4 fl 01/07/2018 6:25 AM TREE EXPERT [facility] HISTORICAL RESULTS MCH 24.8(L) 27.1 - 33.3 pg 01/07/2018 6:25 AM TREE EXPERT [facility] HISTORICAL RESULTS MCHC 32.5 32.3 - 35.7 g/dl 01/07/2018 6:25 AM TREE EXPERT [facility] HISTORICAL RESULTS RDW 14.5 11.1 - 14.9 % 01/07/2018 6:25 AM TREE EXPERT [facility] HISTORICAL RESULTS Plt Count 258 150 - 400 x10 3/ul 01/07/2018 6:25 AM TREE EXPERT [facility] HISTORICAL RESULTS MPV 12.1 9.1 - 12.3 fl 01/07/2018 6:25 AM TREE EXPERT [facility] HISTORICAL RESULTS Neut % 62.1 % 01/07/2018 6:25 AM TREE EXPERT [facility] HISTORICAL RESULTS Immature Gran % 0.1 % 8 6:25 AM TREE EXPERT [facility] HISTORICAL RESULTS Lymph % 29.2 % 01/07/2018 6:25 AM TREE EXPERT [facility] HISTORICAL RESULTS [place] % 7.4 % 01/07/2018 6:25 AM TREE EXPERT [facility] HISTORICAL RESULTS Eos % 0.8 % Baso % 0.4 % Absolute Neuts (auto) 4.4 1.7 - 6.5 x10 3/ul Immature Gran # 0.0 0.0 - 0.1 x10 3/ul Absolute Lymphs (auto) 2.1 0.8 - 3.3 x10 3/ul Absolute Monos (auto) 0.5 0.2 - 0.8 x10 3/ul Absolute Eos (auto) 0.1 0.0 - 0.5 x10 3/ul Absolute Basos (auto) 0.0 0.0 - 0.1 x10 3/ul Nucleat RBC Rel Count 0.0 #/100WBC Absolute Nucleated RBC 0.00 0.00 - 0.01 x10 3/ul Absolute Neutrophils 4400 200 - 8000 /ul 01/07/2018 6:17 AM TREE EXPERT 01/07/2018 6:21 AM TREE EXPERT us Rosalinda Quezada BOTTLE BLOWING MACHINE TENDER LAB BLOOD ORDERABLES Final Resu lt [facility] HISTORICAL RESULTS * XR Chest Pa Lateral 2 Views (01/07/2018 12:00 AM TREE EXPERT) Anatomical Region Laterality Modality Body, Chest N/A Radiographic Juanita ging 01/07/2018 Impressions 01/07/2018 7:47 AM TREE EXPERT ?? 1. No acute radiographic abnormality. ?? THIS IS AN ELECTRONICALLY VERIFIED FINAL REPORT 01/07/2018 7:44 AM - Electronically signed by Unruyl DISLA D: ??01/07/2018 7:44 AM T: Report ID: [id number] Reading Location: ??[id number] [EOD] Narrative 01/07/2018 7:47 AM TREE EXPERT EXAM DESCRIPTION: ??Chest 2 Views REASON FOR STUDY: ??Intermittent palpitations with chest and back pain for 2-3 days. ?? TECHNIQUE: ??PA frontal and lateral radiographic views of the chest acquired. COMPARISON: ??Chest radiograph 10/03/2017, 09/02/2017 FINDINGS: LUNGS/PLEURA: No focal consolidation or pneumothorax. No pleural effusion. HEART/MEDIASTINUM: Heart size is normal. Normal mediastinal and hilar contours. HARDWARE/LINES/TUBES: None. BONES: No acute findings. OTHER: No other significant finding. Procedure Note Provider, MD Graham - 07/02/2020 EXAM DESCRIPTION: Chest 2 Views REASON FOR STUDY: Intermittent palpitations with chest and back pain for2-3 days. TECHNIQUE: PA frontal and lateral radiographic views of the chestacquired. COMPARISON: Chest radiograph 10/03/2017, 09/02/2017 FINDINGS: LUNGS/PLEURA: No focal consolidation or pneumothorax. No pleuraleffusion. HEART/MEDIASTINUM: Heart size is normal. Normal mediastinal and hilarcontours. HARDWARE/LINES/TUBES: None. BONES: No acute findings. OTHER: No other significant finding. IMPRESSION: 1. No acute radiographic abnormality. THIS IS AN ELECTRONICALLY VERIFIED FINAL REPORT 01/07/2018 7:44 AM - Electronically signed by Unruly DISLA T: Report ID: [id number] Reading Location: [id number] [EOD] Rosalinda Quezada BOTTLE BLOWING MACHINE TENDER IMG XR PROCEDURES Final Result documented in this encounter Visit Diagnoses Diagnosis Palpitations Anxiety disorder Anxiety state, unspecified Essential (primary) hypertension Unspecified essential hypertension Gastro-esophageal reflux disease without esophagitis Type 2 diabetes mellitus without complications (CMS/HCC) (HCC) Allergy status to other drugs, medicaments and biological substances status [facility] current use of oral hypoglycemic drug Other system administrator (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
--- OUTSIDE RECORDS SUMMARY | 2024-02-25 20:50 | XMS_ITS | Encounter Summary ---
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 Social History Tobacco Use Types Packs/Day Years Used Date Smoking Tobacco: Never Assessed Comments Unknown Sex and Gender Information Value Date Recorded Sex Assigned at Not on file Legal Sex Female 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 Gender Identity Not on file Sexual Orientation Not on file documented as of this encounter Last Filed Vital Signs Vital Sign Reading Time Taken Comments Blood Pressure 111/70 10/28/2015 6:14 AM CDT Pulse 72 10/28/2015 6:14 AM CDT Temperature 36.6 ??C (97.9 ??F) 10/28/2015 6:14 AM CD T Respiratory Rate - - Oxygen Saturation 100% 10/28/2015 6:14 AM CDT Inhaled Oxygen Concentration - - Weight 84.4 kg (186 lb) 10/28/2015 6:14 AM CDT Height 157.5 cm (5' 2 ) 10/28/2015 6:14 AM CDT Body Mass Index 34.02 10/28/2015 6:14 AM CDT documented in this encounter Plan of Treatment Not on file documented as of this encounter Visit Diagnoses Diagnosis Foreign body of left ear Essential (primary) hypertension Unspecified essential hypertension Type 2 diabetes mellitus without complications (CMS/HCC) (HCC) Other regional intermodal truck driver (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
--- OUTSIDE RECORDS SUMMARY | 2024-02-25 20:50 | XMS_ITS | Encounter Summary ---
Author Organization [facility] Healthcare Address [address] [place] [address] Care Team Providers Care News Director Name Role Phone Unavailable Primary Care Provider Unavailabl e Encounter Details Date Type Department Care Team (Late st Contact Info) Description 09/19/2016 12:30 AM CDT - 09/19/2016 4:20 AM CDT Hospital Encounter [facility] Nir Harman MD [address] 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 Gender Identity Not on file Sexual Orientation Not on file documented as of this encounter Last Filed Vital Signs Vital Sign Reading Time Taken Comments Blood Pressure 177/108 09/19/2016 12:32 AM CDT Pulse 83 09/19/2016 12:32 AM CDT Temperature 36.4 ??C (97.5 ??F) 09/19/2016 12:32 AM C DT Respiratory Rate - - Oxygen Saturation 99% 09/19/2016 12:32 AM CDT Inhaled Oxygen Concentration - - Weight 89.8 kg (198 lb) 09/19/2016 12:32 AM CDT Height 157.5 cm (5' 2 ) 09/19/2016 12:32 AM CDT Body Mass Index 36.21 09/19/2016 12:32 AM CDT documented in this encounter Plan of Treatment Not on file documented as of this encounter Visit Diagnoses Diagnosis Pruritus Unspecified pruritic disorder Other specified symptoms and signs involving the circulatory and respiratory systems Adverse effect of other specified systemic anti-infectives and antiparasitics, initial encounter Essential (primary) hypertension Unspecified essential hypertension 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
--- OUTSIDE RECORDS SUMMARY | 2024-02-25 20:50 | XMS_ITS | Encounter Summary ---
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 Social History Tobacco Use Types Packs/Day Years Used Date Smoking Tobacco: Never Assessed Comments Unknown Sex and Gender Information Value Date Recorded Sex Assigned at Not on file Legal Sex Female 5:42 AM NETWORKER Gender Identity Not on file Sexual Orientation Not on file documented as of this encounter Last Filed Vital Signs Vital Sign Reading Time Taken Comments Blood Pressure 113/71 01/17/2015 6:39 PM NETWORKER Pulse 94 01/17/2015 6:39 PM NETWORKER Temperature 36.8 ??C (98.2 ??F) 01/17/2015 6:39 PM CS T Respiratory Rate - - Oxygen Saturation 95% 01/17/2015 6:39 PM NETWORKER Inhaled Oxygen Concentration - - Weight 94.8 kg (209 lb) 01/17/2015 6:39 PM NETWORKER Height 157.5 cm (5' 2 ) 01/17/2015 6:39 PM NETWORKER Body Mass Index 38.23 01/17/2015 6:39 PM NETWORKER documented in this encounter Plan of Treatment Not on file documented as of this encounter Procedures Procedure Name Priority Date/Time Associated Diagnosis Comments BETA-HYDROXYBUTYRATE Routine 01/17/2015 7:38 PM NETWORKER CBC WITH AUTO DIFFERENTIAL Routine 01/17/2015 7:38 PM NETWORKER PHOSPHORUS Routine 01/17/2015 7:38 PM NETWORKER MAGNESIUM Routine 01/17/2015 7:38 PM NETWORKER COMPREHENSIVE METABOLIC PANEL Routine 01/17/2015 7:38 PM NETWORKER URINALYSIS AND REFLEX TO MICROSCOPIC AND CULTURE Routine 01/17/2015 6:51 PM NETWORKER documented in this encounter Results * Phosphorus (01/17/2015 7:38 PM NETWORKER) Pathologist [facility] Phosphorus 4.1 2.5 - 4.5 mg/dL 01/17/2015 8:15 PM NETWORKER [facility] HISTORICAL RESULTS 01/17/2015 7:38 PM NETWORKER 01/17/2015 7:40 PM NETWORKER [employer] LAB BLOOD ORDERABLES Radha l Result Performing Organization Address [facility] Co de Phone Number [facility] HISTORICAL RESULTS * Magnesium (01/17/2015 7:38 PM NETWORKER) Pathologist [facility] Magnesium 1.7 1.6 - 2.6 mg/dL 01/17/2015 8:15 PM NETWORKER [facility] HISTORICAL RESULTS Comment:Magnesium sulfate th erapy: 3.0-9.1 mg/dL 01/17/2015 7:38 PM NETWORKER 01/17/2015 7:40 PM NETWORKER [employer] LAB BLOOD ORDERABLES Radha l Result Performing Organization Address [facility]/ZIP Co de Phone Number [facility] HISTORICAL RESULTS * (ABNORMAL) Beta-hydroxybutyrate (01/17/2015 7:38 PM NETWORKER) B-Hydroxybutyr ate 0.31(H) 0.02 - 0.27 mmol/L Comment: ?Ketosis: ?> 0.27 mM ??Possible Ketoacidosis: ??> 5.00 mM 01/17/2015 7:38 PM NETWORKER 01/17/2015 7:40 PM NETWORKER Deedee Sabillonle Coy[employer] LAB BLOOD ORDERABLES Radha l Result [facility] HISTORICAL RESULTS * (ABNORMAL) Comprehensive metabolic panel (01/17/2015 7:38 PM NETWORKER) Pathologist [facility] Sodium 140 135 - 145 mmol/L Potassium 3.6 3.3 - 5.1 mmol/L Chloride 101 96 - 108 mmol/L Carbon Dioxide 24 22 - 32 mmol/L Anion Gap 15 7 - 16 Glucose 187(H) 70 - 100 mg/dL BUN 10 6 - 20 mg/dL Creatinine 0.7 0.5 [...] or on dialysis @ Est GFR (Cockcroft-G) 122 ml/MIN 01/17/2015 8:12 PM [employer] HISTORICAL RESULTS Calcium 9.7 8.6 - 10.0 mg/dL 01/17/2015 8:12 PM [employer] HISTORICAL RESULTS Total Protein 7.7 6.4 - 8.3 g/dL 01/17/2015 8:12 PM [employer] HISTORICAL RESULTS Albumin 4.6 3.5 - 5.2 g/dL 01/17/2015 8:12 PM [employer] HISTORICAL RESULTS Globulin 3.1 2.3 - 3.5 gm/dL 01/17/2015 8:12 PM [employer] HISTORICAL RESULTS Albumin/Globulin Ratio 1.5 1.1 - 1.8 01/17/2015 8:12 PM [employer] HISTORICAL RESULTS Total Bilirubin 0.3 0.0 - 1.2 mg/dL 01/17/2015 8:12 PM [employer] HISTORICAL RESULTS AST 16 0 - 32 U/L 01/17/2015 8:12 PM [employer] HISTORICAL RESULTS ALT 30 0 - 33 U/L 01/17/2015 8:12 PM [employer] HISTORICAL RESULTS Alkaline Phosphatase 83 35 - 104 U/L 01/17/2015 8:12 PM [facility] [employer] HISTORICAL RESULTS 01/17/2015 7:38 PM NETWORKER 01/17/2015 7:40 PM NETWORKER Deedee Coyne LAB BLOOD ORDERABLES Radha l Result [facility] HISTORICAL RESULTS * (ABNORMAL) CBC with auto differential (01/17/2015 7:38 PM NETWORKER) Pathologist [facility] WBC 5.7 4.6 - 10.2 x10 3/ul RBC 4.35 3.76 - 4.80 x10 6/ul Hemoglobin 11.7 11.0 - 15.0 g/dl Hct 35.6 33.0 - 43.0 % MCV 81.8 80.0 - 97.0 fl MCH 26.9(L) 27.0 - 31.2 pg 01/17/2015 7:44 PM [facility] RES[facility] MCHC 32.9 31.8 - 35.4 g/dl RDW 13.4 11.6 - 14.8 % Plt Count 233 124 - 400 x10 3/ul MPV 12.3(H) 7.4 - 10.4 fl 01/17/2015 7:44 PM [facility] HISTORICAL RESULTS Differential Method AUTOMATED DIFF --------- -- Neut % 58.0 37.0 - 85.0 % 01/17/2015 7:44 PM [facility] HISTORICAL RESULTS Immature Gran % 0.2 0.0 - 3.0 % Lymph % 34.3 5.0 - 45.0 % Perry % 5.8 3.0 - 15.0 % Eos % 1.2 0.0 - 7.0 % Baso % 0.5 0.0 - 2.0 % ABSOLUTE COUNTS ABSOLUTE COUNTS --------- -- Absolute Neuts (auto) 3.3 1.7 - 8.7 x10 3/ul Immature Gran # 0.0 0.0 - 0.3 x10 3/ul Absolute Lymphs (auto) 2.0 0.2 - 4.6 x10 3/ul Absolute Monos (auto) 0.3 0.1 - 1.5 x10 3/ul Absolute Eos (auto) 0.1 0.0 - 0.7 x10 3/ul Absolute Basos (auto) 0.0 0.0 - 0.2 x10 3/ul 01/17/2015 7:38 PM NETWORKER 01/17/2015 7:40 PM NETWORKER Deedee Coyne LAB BLOOD ORDERABLES Radha leo Result [facility] HISTORICAL RESULTS * (ABNORMAL) Urinalysis reflex to microscopic and culture (01/17/2015 6:51 PM NETWORKER) Ur Collection Type CLEAN CATCH Ur Culture Indicated? C&S NOT INDICATED Urine Color STRAW YELLOW Urine Clarity HAZY CLEAR Urine Glucose (UA) NORMAL NORMAL mg/dL Urine Bilirubin NEGATIVE NEGATIVE mg/dl Urine Ketones NEGATIVE NEGATIVE mg/dL Ur Specific [place] 1.016 1.005 - 1.025 Urine Blood NEGATIVE NEGATIVE mg/dl Urine pH 6.5 5.0 - 8.0 Urine Protein NEGATIVE NEGATIVE mg/dL Urine Urobilinogen NORMAL NORMAL mg/dL Urine Nitrite NEGATIVE NEGATIVE Ur Leukocyte Esterase 500(H) NEGATIVE Nuno/ul Ur Microscopic Review Indicated or Ordered Urine RBC 1 0 - 2 /HPF Urine WBC 9 0 - 2 /HPF Urine Bacteria Rare /HPF Ur Squamous Epith Cells Rare /HPF 01/17/2015 6:51 PM NETWORKER 01/17/2015 7:00 PM NETWORKER Narrative [facility] HISTORICAL RESULTS - 01/17/2015 7:07 PM NETWORKER us Deedee Coyne LAB MICROBIOLOGY - GENERA L ORDERABLES Final Result 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
--- OUTSIDE RECORDS SUMMARY | 2024-02-25 20:50 | XMS_ITS | Encounter Summary ---
Author Organization [facility] Healthcare Address [address] [place] [address] Care Team Providers Care Foreign Exchange Student Coordinator Name Role Phone Unavailable Primary Care Provider Unavailabl e Encounter Details Date Type Department Care Team (Latest Contact Info) Description 12/02/2016 12:04 PM CDT Hospital Encounter [facility] OP Ruma Shrestha NP [address] [place] [address] Other specified symptoms and signs involving the circulatory and respiratory systems; Chronic sinusitis Social History Tobacco Use Types Packs/Day Years Used Date Smoking Tobacco: Never Assessed Comments Unknown Sex and Gender Information Value Date Recorded Sex Assigned at Not on file 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 No acute abnormalities identified. Automated exposure control was used as a dose optimization technique for this examination. THIS IS AN ELECTRONICALLY VERIFIED REPORT 12/03/2016 9:38 AM: ??Wero Hills D.O. ?? Wero Hills D.O. BW:bw 09:38 AM 09:38 AM PAH [EOD] Narrative 12/03/2016 9:41 AM CDT EXAMINATION: ?? CT the paranasal sinuses HISTORY: ?? Sinusitis. ??The relief with vjib-yww-afgnjbv medications for years. ??Nasal congestion and urate currently. ??Patient feels a lump in the back of the throat for the past month. TECHNIQUE: ?? Axial CT imaging of the paranasal sinuses performed. ??Coronal reformatted images were also submitted. ?? COMPARISON: ??None FINDINGS: ?? No air-fluid levels identified in the visualized paranasal sinuses. ??No significant mucosal thickening identified. ??The ostiomeatal complexes appear patent bilaterally. ??Posterior recesses appear patent bilaterally. ??Included portions of the facial bones appear grossly unremarkable. ??Visualized portions of the orbits appear unremarkable. ??Normal pneumatization of the mastoid air cells. Procedure Note Provider, MD Graham - 07/02/2020 EXAMINATION: CT the paranasal sinuses HISTORY: Sinusitis. The relief with wtya-fvl-killsra medications for years. Nasal congestion and urate currently. Patient feels a lump in the back of the throat for the past month. TECHNIQUE: Axial CT imaging of the paranasal sinuses performed. Coronal reformatted images were also submitted. COMPARISON: None FINDINGS: No air-fluid levels identified in the visualized paranasal sinuses. No significant mucosal thickening identified. The ostiomeatal complexesappear patent bilaterally. Posterior recesses appear patent bilaterally.Included portions of the facial bones appear grossly unremarkable. Visualizedportions of the orbits appear unremarkable. Normal pneumatization of the mastoidair cells. IMPRESSION: No acute abnormalities identified. Automated exposure control was used as a dose optimization technique forthis examination. THIS IS AN ELECTRONICALLY VERIFIED REPORT 12/03/2016 9:38 AM: Wero Hills D.O. Wero Hills D.O. BW:germania 09:38 AM 09:38 AM PAH [EOD] us Ruma Shrestha REAL ESTATE SALESPERSON IMG CT PROCEDURES Final Result * CT Neck Soft Tissue WO Contrast (12/02/2016 12:00 AM CDT) Anatomical Region Laterality Modality Head and Neck N/A Computed Tomogra phy 12/02/2016 Impressions 12/03/2016 9:56 AM CDT ?? 1. ??No definite acute abnormalities identified within limits of this unenhanced examination. ??Study is compromised due to lack of IV contrast. 2. Increased number of normal size cervical lymph nodes identified bilaterally which can indicate mild lymphadenopathy which could be reactive in nature given the patient's symptomatology. Automated exposure control was used as a dose optimization technique for this examination. THIS IS AN ELECTRONICALLY VERIFIED REPORT 12/03/2016 9:52 AM: ??Wero Hills D.O. ?? Wero Hills D.O. BW:germania 09:52 AM 09:52 AM PAH [EOD] Narrative 12/03/2016 9:56 AM CDT EXAMINATION: ?? CT the soft tissue neck without contrast HISTORY: ?? Sinusitis with little relief using oznj-vip-vrntvph medications for many years. ??Nasal congestion and earache TECHNIQUE: ?? Axial CT imaging of the soft tissue neck is performed without the administration of IV contrast. ??Coronal and sagittal reformatted images were also submitted. COMPARISON: ??None FINDINGS: ?? Examination is compromised due to the lack of IV contrast. ??Within limits of this unenhanced examination, no acute abnormalities are identified. ?? Visualized salivary glands appear symmetric. ??There are an increase number of normal size cervical lymph nodes identified bilaterally. ??This could represent a mild lymphadenopathy in the increased number. ??This could be reactive in nature given the patient's symptomatology. ??Lung apices appear unremarkable. Procedure Note Provider, MD Graham - 07/02/2020 EXAMINATION: CT the soft tissue neck without contrast HISTORY: Sinusitis with little relief using bsnd-bep-yjisamm medications for many years. Nasal congestion and earache TECHNIQUE: Axial CT imaging of the soft tissue neck is performed without the administration of IV contrast. Coronal and sagittal reformatted imageswere also submitted. COMPARISON: None FINDINGS: Examination is compromised due to the lack of IV contrast. Within limitsof this unenhanced examination, no acute abnormalities are identified. Visualized salivary glands appear symmetric. There are an increase numberof normal size cervical lymph nodes identified bilaterally. This couldrepresent a mild lymphadenopathy in the increased number. This could be reactive in nature given the patient's symptomatology. Lung apices appearunremarkable. IMPRESSION: 1. No definite acute abnormalities identified within limits of this unenhanced examination. Study is compromised due to lack of IV contrast. 2. Increased number of normal size cervical lymph nodes identifiedbilaterally which can indicate mild lymphadenopathy which could be reactive in nature given the patient's symptomatology. Automated exposure control was used as a dose optimization technique forthis examination. THIS IS AN ELECTRONICALLY VERIFIED REPORT 12/03/2016 9:52 AM: Wero Hills D.O. Wero Hills D.O. BW:germania 09:52 AM 09:52 AM PAH [EOD] Ruma Shrestha NP IMG CT PROCEDURES Final Result documented in this encounter Visit Diagnoses Diagnosis Other specified symptoms and signs involving the circulatory and respiratory systems Chronic sinusitis Unspecified sinusitis (chronic) documented in this encounter
--- OUTSIDE RECORDS SUMMARY | 2024-02-25 20:50 | XMS_ITS | Encounter Summary ---
Author Organization [facility] Healthcare Address [address] [place] [address] Care Team Providers Care Aerologist Name Role Phone Unavailable Primary Care Provider Unavailabl e Encounter Details Date Type Department Care Team (Late st Contact Info) Description 05/21/2015 9:34 AM CDT Hospital Encounter [facility] OP Saray Kingston MD [address] [place] [address] [address] [place] [address] Chest pain; Palpitations Social History Tobacco Use Types Packs/Day Years Used Date Smoking Tobacco: Never Assessed Comments Unknown Sex and Gender Information Value Date Recorded Sex Assigned at Not on file 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 Gender Identity Not on file Sexual Orientation Not on file documented as of this encounter Plan of Treatment Not on file documented as of this encounter Procedures Procedure Name Priority Date/Time Associated Diagnosis Comments CARDIOLOGY REPORT 05/25/2015 12: 00 AM CDT HOLTER MONITOR 24 HR Routine 05/21/2015 10:30 AM CDT TRANSTHORACIC ECHO (TTE) COMPLETE W DOPPLER/CF Routine 05/21/2015 9:45 AM CDT CARDIOLOGY REPORT 1980 12: 00 AM INNER DIAMETER GRINDER TOOL documented in this encounter Results * CARDIOLOGY REPORT (05/25/2015 12:00 AM CDT) Anatomical Region Laterality Modality Other Narrative 05/25/2015 12:00 AM CDT Ordered by an unspecified provider. us Historical Provider [facility] TONY MIRANDA Final Result * 24 HR Holter Monitor (05/21/2015 10:30 AM CDT) Anatomical Region Laterality Modality Other 05/21/2015 10:3 0 AM CDT Narrative 05/30/2015 7:33 PM CDT DATE OF SERVICE: 05/21/2015 INDICATION: ??Palpitations. DATE OF STUDY: ??05/21/2015 at 10:28 a.m. for 24 hours' duration. Less than 1% of the time was classified as noise so the sensitivity of the study is quite good. ??Minimal heart rate was 47 beats per minute and consistent with sinus bradycardia. ??Average heart rate was 77 beats per minute. ??Maximal heart rate was 147 beats per minute and consistent with sinus tachycardia, 9% of the time was classified as tachycardia with a heart rate of greater than 100 beats per minute, 7% of the time was classified as bradycardia with a heart rate of less than 60 beats per minute. ??The longest R-R interval was recorded incorrectly; however, I reviewed the strips and there were no significant pauses. ??There were 79 isolated PVCs, no PVC couplets and no ventricular tachycardia. ??There were 306 isolated PACs and 1 PAC couplet. ??There was no supraventricular tachycardia or ventricular tachycardia noted during the study. ??She had numerous complaints of palpitations, but these were associated with normal sinus rhythm without any arrhythmias. CONCLUSIONS: 1. ??Underlying rhythm was sinus rhythm. 2. ??Occasional isolated PACs and PVCs and 1 rare PVC couplet, which were asymptomatic. ??Multiple complaints of discomfort which were not associated with any arrhythmias, just normal sinus rhythm, and no significant ST changes. 3. ??There were no supraventricular tachycardia, ventricular tachycardia or significant pauses noted. NTS Job: [id number] Dictated By: Saray Kingston MD Dictated For: Saray Kingston MD [EOD] Procedure Note Provider, MD Graham - 07/02/2020 DATE OF SERVICE: 05/21/2015 INDICATION: Palpitations. DATE OF STUDY: 05/21/2015 at 10:28 a.m. for 24 hours' duration. Less than 1% of the time was classified as noise so the sensitivity of thestudy is quite good. Minimal heart rate was 47 beats per minute andconsistent with sinus bradycardia. Average heart rate was 77 beats perminute. Maximal heart rate was 147 beats per minute and consistent withsinus tachycardia, 9% of the time was classified as tachycardia with aheart rate of greater than 100 beats per minute, 7% of the time wasclassified as bradycardia with a heart rate of less than 60 beats perminute. The longest R-R interval was recorded incorrectly; however, Ireviewed the strips and there were no significant pauses. There were 79isolated PVCs, no PVC couplets and no ventricular tachycardia. There jedp180 isolated PACs and 1 PAC couplet. There was no supraventriculartachycardia or ventricular tachycardia noted during the study. She hadnumerous complaints of palpitations, but these were associated with normalsinus rhythm without any arrhythmias. CONCLUSIONS: 1. Underlying rhythm was sinus rhythm. 2. Occasional isolated PACs and PVCs and 1 rare PVC couplet, which wereasymptomatic. Multiple complaints of discomfort which were not associatedwith any arrhythmias, just normal sinus rhythm, and no significant STchanges. 3. There were no supraventricular tachycardia, ventricular tachycardia orsignificant pauses noted. NTS Job: [id number] Dictated By: Saray Kingston MD Dictated For: Saray Kingston MD [EOD] us Saray Kingston MD [facility] C[facility] PROCEDUR ES Final Result * Transthoracic Echo Complete W Doppler/CF (05/21/2015 9:45 AM CDT) Anatomical Region Laterality Modality Ultrasound 05/21/2015 9:45 AM CDT Narrative 05/22/2015 8:07 AM CDT Results viewable in EMR, Cardiovascular [EOD] Procedure Note Provider, MD Graham - 05/19/2021 Results viewable in EMR, Cardiovascular [EOD] us Saray Kingston MD CV ECHO PROCEDURES Final Res ult * CARDIOLOGY REPORT (1980 12:00 AM INNER DIAMETER GRINDER TOOL) Anatomical Region Laterality Modality Other Narrative 1980 12:00 AM INNER DIAMETER GRINDER TOOL Ordered by an unspecified provider. us Historical Provider [facility] TONY JEAN Final Result documented in this encounter Visit Diagnoses Diagnosis Chest pain Unspecified chest pain Palpitations documented in this encounter
--- OUTSIDE RECORDS SUMMARY | 2024-02-25 20:50 | XMS_ITS | Encounter Summary ---
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 Historical Provider [facility] TONY JEAN [...] documented as of this encounter Care Teams Button Maker Relationship Specialty Start Date End Date Ruma Shrestha NP PCP - General 05/30/18 documented as of this encounter
--- OUTSIDE RECORDS SUMMARY | 2024-02-25 20:50 | XMS_ITS | Encounter Summary ---
Author Organization [facility] Healthcare Address [address] [place] [address] Care Team Providers Care Assistant General Manager Name Role Phone Unavailable Primary Care Provider Unavailabl e Encounter Details Date Type Department Care Team (Late st Contact Info) Description 02/08/2018 9:14 PM DEPARTMENT ADMINISTRATOR - 02/08/2018 11:44 PM DEPARTMENT ADMINISTRATOR Hospital Encounter [facility] Geraldo Steven MD [address] [facility] [place] [address] Cellulitis of left lower extremity; Essential (primary) hypertension; Type 2 diabetes mellitus without complications (CMS/HCC); Allergy status to other drugs, medicaments and biological substances status; MCC current use of oral hypoglycemic drug; 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; Personal history of nicotine dependence Social History Tobacco Use Types Packs/Day Years Used Date Smoking Tobacco: Never Assessed Comments Unknown Sex and Gender Information Value Date Recorded Sex Assigned at Not on file Legal Sex Female 5:42 AM DEPARTMENT ADMINISTRATOR Gender Identity Not on file Sexual Orientation Not on file documented as of this encounter Last Filed Vital Signs Vital Sign Reading Time Taken Comments Blood Pressure 131/75 02/08/2018 9:26 PM DEPARTMENT ADMINISTRATOR Pulse 85 02/08/2018 9:26 PM DEPARTMENT ADMINISTRATOR Temperature 36.6 ??C (97.8 ??F) 02/08/2018 9:26 PM CS T Respiratory Rate - - Oxygen Saturation 99% 02/08/2018 9:26 PM DEPARTMENT ADMINISTRATOR Inhaled Oxygen Concentration - - Weight 98.9 kg (218 lb) 02/08/2018 9:26 PM DEPARTMENT ADMINISTRATOR Height 157.5 cm (5' 2 ) 02/08/2018 9:26 PM DEPARTMENT ADMINISTRATOR Body Mass Index 39.87 02/08/2018 9:26 PM DEPARTMENT ADMINISTRATOR documented in this encounter Plan of Treatment Not on file documented as of this encounter Procedures Procedure Name Priority Date/Time Associated Diagnosis Comments CBC WITH AUTO DIFFERENTIAL Routine 02/08/2018 10:21 PM DEPARTMENT ADMINISTRATOR URIC ACID Routine 02/08/2018 10:21 PM DEPARTMENT ADMINISTRATOR COMPREHENSIVE METABOLIC PANEL Routine 02/08/2018 10:21 PM DEPARTMENT ADMINISTRATOR XR FOOT LEFT 3 OR MORE VIEWS Routine 02/08/2018 12:00 AM DEPARTMENT ADMINISTRATOR documented in this encounter Results * Uric acid (02/08/2018 10:21 PM DEPARTMENT ADMINISTRATOR) Uric Acid 2.8 2.5 - 7.0 mg/dL 02/08/2018 10:47 PM [facility] 02/08/2018 10:2 1 PM DEPARTMENT ADMINISTRATOR 02/08/2018 10:25 PM DEPARTMENT ADMINISTRATOR us Myla Rivera PIECE WORKER LAB BLOOD ORDERABLES Final R esult [facility] HISTORICAL RESULTS * (ABNORMAL) Comprehensive metabolic panel (02/08/2018 10:21 PM DEPARTMENT ADMINISTRATOR) Sodium 129(L) 135 - 145 mmol/L 02/08/2018 10:47 PM [facility] [employer] [facility] HISTORICAL RESULTS Potassium 3.9 3.3 - 5.1 mmol/L Chloride 98 96 - 108 mmol/L Carbon Dioxide 22 22 - 32 mmol/L Anion Gap 9 7 - 16 Glucose 272(H) 70 - 100 mg/dL BUN 10 6 - 20 mg/dL 02/08/2018 10:47 PM [employer] [facility] Creatinine 0.6 0.5 - 1.1 mg/dL 02/08/2018 10:47 PM [employer] HISTORICAL RESULTS Comment: NOTE: Estimated GFR (Cockroft-Gault) will NOT be calculated unless patient Height and Weight were entered. Also, Kidney Disease Stage (GFR) and Estimated GFR (Cockroft-Gault) will NOT be calculated if Creatinine result is <0.2. Kidney Disease Stage > 90 mL/MIN 02/08/2018 10:47 PM [employer] HISTORICAL RESULTS Comment: NOTE; ??The GFR is an estimated [...] or on dialysis @ Est GFR (Cockcroft-G) 141 ml/MIN 02/08/2018 10:47 PM [employer] HISTORICAL RESULTS Comment: Estimated GFR(Cockroft-Gault)is used to calculate patient medication dosage Calcium 9.0 8.6 - 10.0 mg/dL 02/08/2018 10:47 PM [employer] HISTORICAL RESULTS Total Protein 7.2 6.4 - 8.3 g/dL 02/08/2018 10:47 PM [employer] HISTORICAL RESULTS Albumin 4.1 3.5 - 5.2 g/dL Globulin 3.1 2.3 - 3.5 gm/dL Albumin/Globulin Ratio 1.3 1.1 - 1.8 Total Bilirubin < 0.2 0.0 - 1.2 mg/dL AST 14 0 - 32 U/L ALT 17 0 - 33 U/L Alkaline Phosphatase 83 35 - 104 U/L 02/08/2018 10:2 1 PM DEPARTMENT ADMINISTRATOR 02/08/2018 10:25 PM DEPARTMENT ADMINISTRATOR Myla Rivera PIECE WORKER LAB BLOOD ORDERABLES Final R esult [facility] HISTORICAL RESULTS * (ABNORMAL) CBC with auto differential (02/08/2018 10:21 PM DEPARTMENT ADMINISTRATOR) WBC 5.6 3.8 - 9.9 X10 3/ul RBC 3.96 3.90 - 5.20 x10 6/ul Hemoglobin 9.6(L) 11.9 - 15.5 g/dL Hct 30.0(L) 35.6 - 45.5 % MCV 75.8(L) 81.3 - 96.4 fl MCH 24.2(L) 27.1 - 33.3 pg MCHC 32.0(L) 32.3 - 35.7 g/dl RDW 14.6 11.1 - 14.9 % Plt Count 240 150 - 400 x10 3/ul MPV 11.7 9.1 - 12.3 fl Neut % 57.8 % Immature Gran % 0.2 % 8 10:27 PM [facility] HISTORICAL RESULTS Lymph % 33.8 % [place] % 6.6 % Eos % 1.2 % Baso % 0.4 % Absolute Neuts (auto) 3.3 1.7 - 6.5 x10 3/ul Immature Gran # 0.0 0.0 - 0.1 x10 3/ul Absolute Lymphs (auto) 1.9 0.8 - 3.3 x10 3/ul Absolute Monos (auto) 0.4 0.2 - 0.8 x10 3/ul Absolute Eos (auto) 0.1 0.0 - 0.5 x10 3/ul Absolute Basos (auto) 0.0 0.0 - 0.1 x10 3/ul Nucleat RBC Rel Count 0.0 #/100WBC Absolute Nucleated RBC 0.00 0.00 - 0.01 x10 3/ul 02/08/2018 10:27 PM DEPARTMENT ADMINISTRATOR [facility] HISTORICAL RESULTS Absolute Neutrophils 3300 200 - 8000 /ul 02/08/2018 10:27 PM DEPARTMENT ADMINISTRATOR [facility] HISTORICAL RESULTS 02/08/2018 10:2 1 PM DEPARTMENT ADMINISTRATOR 02/08/2018 10:25 PM DEPARTMENT ADMINISTRATOR us Myla AbbottDontae Rivera PIECE WORKER LAB BLOOD ORDERABLES Final R esult [facility] HISTORICAL RESULTS * XR Foot Left 3 or More Views (02/08/2018 12:00 AM DEPARTMENT ADMINISTRATOR) Anatomical Region Laterality Modality Lower Extremities, Foot Left Radiogra phic Imaging 02/08/2018 Impressions 02/08/2018 10:52 PM DEPARTMENT ADMINISTRATOR ??No acute abnormality identified. THIS IS AN ELECTRONICALLY VERIFIED FINAL REPORT 02/08/2018 10:48 PM - Electronically signed by Philip IRIZARRY D: ??02/08/2018 10:48 PM T: Report ID: [id number] Reading Location: ??[id number] [EOD] Narrative 02/08/2018 10:52 PM DEPARTMENT ADMINISTRATOR EXAM DESCRIPTION: ??Foot LT 3 View Min REASON FOR STUDY: ??Left foot pain x1 week, swelling of 1st toe x1 day TECHNIQUE: Frontal, oblique, and lateral views of the left foot. COMPARISON: ??None FINDINGS: BONES/JOINTS: No fracture, malalignment, or suspicious osseous lesion is identified. Joint spaces are preserved. SOFT TISSUES: Unremarkable. Procedure Note Provider, MD Graham - 07/02/2020 EXAM DESCRIPTION: Foot LT 3 View Min REASON FOR STUDY: Left foot pain x1 week, swelling of 1st toe x1 day TECHNIQUE: Frontal, oblique, and lateral views of the left foot. COMPARISON: None FINDINGS: BONES/JOINTS: No fracture, malalignment, or suspicious osseous lesion is identified. Joint spaces are preserved. SOFT TISSUES: Unremarkable. IMPRESSION: No acute abnormality identified. THIS IS AN ELECTRONICALLY VERIFIED FINAL REPORT 02/08/2018 10:48 PM - Electronically signed by Philip Cobb M.D. [place] T: Report ID: [id number] Reading Location: [id number] [EOD] Myla Rivera NP IMG XR PROCEDURES Final Resu lt documented in this encounter Visit Diagnoses Diagnosis Cellulitis of left lower extremity Essential (primary) hypertension Unspecified essential hypertension Type 2 diabetes mellitus without complications (CMS/HCC) (HCC) Allergy status to other drugs, medicaments and biological substances status MCC current use of oral hypoglycemic drug Other custodial (current) drug therapy Personal history of nicotine dependence documented in this encounter
--- OUTSIDE RECORDS SUMMARY | 2024-02-25 20:50 | XMS_ITS | Encounter Summary ---
Author Organization [facility] Healthcare Address [address] [place] [address] Care Team Providers Care Malt House Kiln Operator Name Role Phone Unavailable Primary Care Provider Unavailabl e Encounter Details Date Type Department Care Team (Latest Contact Info) Description 06/16/2015 1:18 PM CDT Hospital Encounter [facility] Saray Kingston MD [address] [place] [id number] Other abnormalities of breathing; Chest pain; Palpitations Social History Tobacco Use Types Packs/Day Years Used Date Smoking Tobacco: Never Assessed Comments Unknown Sex and Gender Information Value Date Recorded Sex Assigned at Not on file Legal Sex Female 5:42 AM LIVING SPECIALIST Gender Identity Not on file Sexual Orientation Not on file documented as of this encounter Plan of Treatment Not on file documented as of this encounter Procedures Procedure Name Priority Date/Time Associated Diagnosis Comments CARDIOLOGY REPORT 06/16/2015 12: 00 AM CDT STRESS TEST ONLY TREADMILL Routine 06/16/2015 12:00 AM CDT documented in this encounter Results * CARDIOLOGY REPORT (06/16/2015 12:00 AM CDT) Anatomical Region Laterality Modality Other Narrative 06/16/2015 12:00 AM CDT Ordered by an unspecified provider. us Historical Provider [facility] TONY JEAN Final Result * Stress Treadmill Test (06/16/2015 12:00 AM CDT) Anatomical Region Laterality Modality Other 06/16/2015 Narrative 06/19/2015 3:15 PM CDT DATE OF SERVICE: 06/16/2015 INDICATION: ??The patient is a 34-year-old female. ??She has a known history of hypertension and has a history of palpitations as well as diabetes mellitus. ??She complained of some chest pain and had a normal EKG and went to the emergency department and had a troponin negative x 2 and was discharged. ??She was placed on omeprazole with resolution of her chest pain but in light of her cardiac risk factors it was felt to be prudent to evaluate her for myocardial ischemia. Modality of stress was treadmill stress test utilizing standard Esau protocol. ??The patient was able to exercise for a total of 10 minutes and 1 second into standard Esau protocol. ??Reason for termination of the stress test was predominantly leg fatigue. ??She did have some mild shortness of breath but denied any chest pain or pressure. VITAL SIGNS: ??Baseline blood pressure was 130/80 mmHg, baseline heart rate 87 beats per minute. ??Peak blood pressure was 180/70 mmHg and peak heart rate was 179 beats per minute which is 97% of her age-predicted maximal heart rate. Baseline EKG reveals normal sinus rhythm, a rate of about 70 beats per minute, a normal electrocardiogram. STRESS ELECTROCARDIOGRAM: ??She had a normal chronotropic response to exercise. ??She had no arrhythmias. ??Her peak exercise EKG was quite noisy; however, her immediate postexercise EKG at 15 seconds into recovery at a rate of 174 beats per minute was a good quality, which revealed no significant ST or T-wave changes which meet criteria for ischemia. ??There were no arrhythmias. ??In recovery phase there were no ischemic EKG changes and no arrhythmias in the recovery phase. CONCLUSIONS: 1. ??Normal electrocardiographic portion of a treadmill stress test, patient walking a total of 10 minutes and 1 second into the standard Esau protocol achieving 12.8 METs of exercise attaining 97% of her age-predicted maximal heart rate. 2. ??Adequate exercise tolerance only limited by leg fatigue, although she did have some mild shortness of breath which did not limit her. 3. ??No chest pain or chest pressure with exercise. 4. ??No arrhythmias were noted during the study. 5. ??Normal blood pressure, appropriate blood pressure response to exercise. 6. ??Normal chronotropic response to exercise. NTS Job: [id number] Dictated By: Saray Kingston MD Dictated For: Saray Kingston MD [EOD] Procedure Note Provider, MD Graham - 07/02/2020 DATE OF SERVICE: 06/16/2015 INDICATION: The patient is a 34-year-old female. She has a known historyof hypertension and has a history of palpitations as well as diabetesmellitus. She complained of some chest pain and had a normal EKG and wentto the emergency department and had a troponin negative x 2 and wasdischarged. She was placed on omeprazole with resolution of her chestpain but in light of her cardiac risk factors it was felt to be prudent toevaluate her for myocardial ischemia. Modality of stress was treadmill stress test utilizing standard Bruceprotocol. The patient was able to exercise for a total of 10 minutes and1 second into standard Esau protocol. Reason for termination of thestress test was predominantly leg fatigue. She did have some mildshortness of breath but denied any chest pain or pressure. VITAL SIGNS: Baseline blood pressure was 130/80 mmHg, baseline heart rate87 beats per minute. Peak blood pressure was 180/70 mmHg and peak heartrate was 179 beats per minute which is 97% of her age-predicted maximalheart rate. Baseline EKG reveals normal sinus rhythm, a rate of about 70 beats perminute, a normal electrocardiogram. STRESS ELECTROCARDIOGRAM: She had a normal chronotropic response toexercise. She had no arrhythmias. Her peak exercise EKG was quite noisy;however, her immediate postexercise EKG at 15 seconds into recovery at arate of 174 beats per minute was a good quality, which revealed nosignificant ST or T-wave changes which meet criteria for ischemia. Therewere no arrhythmias. In recovery phase there were no ischemic EKG changesand no arrhythmias in the recovery phase. CONCLUSIONS: 1. Normal electrocardiographic portion of a treadmill stress test,patient walking a total of 10 minutes and 1 second into the standard Bruceprotocol achieving 12.8 METs of exercise attaining 97% of herage-predicted maximal heart rate. 2. Adequate exercise tolerance only limited by leg fatigue, although shedid have some mild shortness of breath which did not limit her. 3. No chest pain or chest pressure with exercise. 4. No arrhythmias were noted during the study. 5. Normal blood pressure, appropriate blood pressure response toexercise. 6. Normal chronotropic response to exercise. NTS Job: [id number] Dictated By: Saray Kingston MD Dictated For: Saray Kingston MD [EOD] us Saray Kingston MD CV STRESS PROCEDURES Final R esult documented in this encounter Visit Diagnoses Diagnosis Other abnormalities of breathing Chest pain Unspecified chest pain Palpitations documented in this encounter
--- OUTSIDE RECORDS SUMMARY | 2024-02-25 20:50 | XMS_ITS | Encounter Summary ---
Author Organization [facility] Healthcare Address [address] [place] [address] Care Team Providers Care Winder Fixer Name Role Phone Unavailable Primary Care Provider Unavailabl e Encounter Details Date Type Department Care Team (Latest Contact Info) Description 03/04/2017 9:58 AM BUSHING PRESS OPERATOR - 03/04/2017 12:07 PM BUSHING PRESS OPERATOR Hospital Encounter [facility] ER Kemar Carey MD [address] [facility] [place] [address] Hemorrhage of anus and rectum; Essential (primary) hypertension; Type 2 diabetes mellitus without complications (CMS/HCC); Gastro-esophageal reflux disease without esophagitis; Other mcfp (current) drug therapy; 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 Social History Tobacco Use Types Packs/Day Years Used Date Smoking Tobacco: Never Assessed Comments Unknown Sex and Gender Information Value Date Recorded Sex Assigned at Not on file Legal Sex Female 5:42 AM BUSHING PRESS OPERATOR Gender Identity Not on file Sexual Orientation Not on file documented as of this encounter Last Filed Vital Signs Vital Sign Reading Time Taken Comments Blood Pressure 154/94 03/04/2017 10:00 AM BUSHING PRESS OPERATOR Pulse 100 03/04/2017 10:00 AM BUSHING PRESS OPERATOR Temperature 37.1 ??C (98.7 ??F) 03/04/2017 10:[address] Respiratory Rate - - Oxygen Saturation 98% 03/04/2017 10:00 AM BUSHING PRESS OPERATOR Inhaled Oxygen Concentration - - Weight 95.9 kg (211 lb 6.8 oz) 03/04/2017 10:00 AM BUSHING PRESS OPERATOR Height 157.5 cm (5' 2 ) 03/04/2017 10:00 AM BUSHING PRESS OPERATOR Body Mass Index 38.67 03/04/2017 10:00 AM BUSHING PRESS OPERATOR documented in this encounter Plan of Treatment Not on file documented as of this encounter Procedures Procedure Name Priority Date/Time Associated Diagnosis Comments OCCULT BLOOD, FECAL (FIT) Routine 03/04/2017 10:30 AM BUSHING PRESS OPERATOR CBC WITH AUTO DIFFERENTIAL Routine 03/04/2017 10:22 AM BUSHING PRESS OPERATOR COMPREHENSIVE METABOLIC PANEL Routine 03/04/2017 10:22 AM BUSHING PRESS OPERATOR documented in this encounter Results * Occult blood, fecal non neoplasm screening (03/04/2017 10:30 AM BUSHING PRESS OPERATOR) Pathologist [facility] Stool Occult Blood POSITIVE NEGATIVE 03/04/2017 10:53 AM [facility] HISTORICAL RESULTS 03/04/2017 10:3 0 AM BUSHING PRESS OPERATOR 03/04/2017 10:47 AM BUSHING PRESS OPERATOR Narrative [facility] HISTORICAL RESULTS - 03/04/2017 10:53 AM BUSHING PRESS OPERATOR Collected By MB us Mikala MENDOZA LAB BODY FLUIDS AND STOOLS OR DERABLES Final Result [facility] HISTORICAL RESULTS * (ABNORMAL) Comprehensive metabolic panel (03/04/2017 10:22 AM BUSHING PRESS OPERATOR) Pathologist [facility] Sodium 136 135 - 145 mmol/L 03/04/2017 11:05 AM [facility] HISTORICAL RESULTS Potassium 4.1 3.3 - 5.1 mmol/L Chloride 99 96 - 108 mmol/L Carbon Dioxide 22 22 - 32 mmol/L Anion Gap 15 7 - 16 Glucose 157(H) 70 - 100 mg/dL BUN 11 6 - 20 mg/dL 03/04/2017 11:05 AM [employer] HISTORICAL RESULTS Creatinine 0.8 0.5 - 1.1 mg/dL 03/04/2017 11:05 AM [employer] HISTORICAL RESULTS Comment: NOTE: Estimated GFR (Cockroft-Gault) will NOT be calculated unless patient Height and Weight were entered. Also, Kidney Disease Stage (GFR) and Estimated GFR (Cockroft-Gault) will NOT be calculated if Creatinine result is <0.2. Kidney Disease Stage > 90 mL/MIN 03/04/2017 11:05 AM [employer] HISTORICAL RESULTS Comment: NOTE; ??The GFR is [...] or on dialysis @ Est GFR (Cockcroft-G) 105 ml/MIN 03/04/2017 11:05 AM [employer] HISTORICAL RESULTS Comment: Estimated GFR(Cockroft-Gault)is used to calculate patient medication dosage Calcium 9.5 8.6 - 10.0 mg/dL 03/04/2017 11:05 AM [employer] HISTORICAL RESULTS Total Protein 7.7 6.4 - 8.3 g/dL 03/04/2017 11:05 AM [employer] HISTORICAL RESULTS Albumin 4.5 3.5 - 5.2 g/dL Globulin 3.2 2.3 - 3.5 gm/dL 03/04/2017 11:05 AM BUSHING PRESS OPERATOR [facility] HISTORICAL RESULTS Albumin/Globulin Ratio 1.4 1.1 - 1.8 03/04/2017 11:05 AM BUSHING PRESS OPERATOR [facility] HISTORICAL RESULTS Total Bilirubin 0.4 0.0 - 1.2 mg/dL 03/04/2017 11:05 AM BUSHING PRESS OPERATOR [facility] HISTORICAL RESULTS AST 16 0 - 32 U/L 03/04/2017 11:05 AM BUSHING PRESS OPERATOR [facility] HISTORICAL RESULTS ALT 20 0 - 33 U/L Alkaline Phosphatase 66 35 - 104 U/L 03/04/2017 10:2 2 AM BUSHING PRESS OPERATOR 03/04/2017 10:30 AM BUSHING PRESS OPERATOR us Mikala MENDOZA LAB BLOOD ORDERABLES Final Re sult [facility] HISTORICAL RESULTS * (ABNORMAL) CBC with auto differential (03/04/2017 10:22 AM BUSHING PRESS OPERATOR) WBC 8.5 3.5 - 10.5 x10 3/ul Comment:New Reference Range in use 03/03/17. RBC 4.44 3.76 - 4.80 x10 6/ul Hemoglobin 11.7 11.0 - 15.0 g/dl Hct 35.2 33.0 - 43.0 % MCV 79.3(L) 80.0 - 97.0 fl MCH 26.4(L) 27.0 - 31.2 pg MCHC 33.2 31.8 - 35.4 g/dl 03/04/2017 10:40 AM [employer] HISTORICAL RESULTS RDW 14.6 11.6 - 14.8 % 03/04/2017 10:40 AM [employer] [facility] [employer] HISTORICAL RESULTS Plt Count 208 150 - 450 x10 3/ul 03/04/2017 10:40 AM [employer] [facility] [employer] HISTORICAL RESULTS Comment:New Reference Range in use 03/03/17. MPV 12.8(H) 7.4 - 10.4 fl 03/04/2017 10:40 AM [employer] HISTORICAL RESULTS Neut % 67.6 37.0 - 85.0 % 03/04/2017 10:40 AM [employer] [facility] [employer] HISTORICAL RESULTS Immature Gran % 0.2 0.0 - 3.0 % 03/04/2017 10:40 AM [employer] HISTORICAL RESULTS Lymph % 25.4 5.0 - 45.0 % 03/04/2017 10:40 AM [employer] HISTORICAL RESULTS [place] % 5.2 3.0 - 15.0 % 03/04/2017 10:40 AM [employer] HISTORICAL RESULTS Eos % 1.1 0.0 - 7.0 % 03/04/2017 10:40 AM [employer] HISTORICAL RESULTS Baso % 0.5 0.0 - 2.0 % 03/04/2017 10:40 AM [employer] HISTORICAL RESULTS Absolute Neuts (auto) 5.7 1.7 - 8.7 x10 3/ul 03/04/2017 10:40 AM [employer] HISTORICAL RESULTS Immature Gran # 0.0 0.0 - 0.3 x10 3/ul 03/04/2017 10:40 AM [employer] HISTORICAL RESULTS Absolute Lymphs (auto) 2.2 0.2 - 4.6 x10 3/ul 03/04/2017 10:40 AM [employer] HISTORICAL RESULTS Absolute Monos (auto) 0.4 0.1 - 1.5 x10 3/ul 03/04/2017 10:40 AM [employer] HISTORICAL RESULTS Absolute Eos (auto) 0.1 0.0 - 0.7 x10 3/ul 03/04/2017 10:40 AM [employer] HISTORICAL RESULTS Absolute Basos (auto) 0.0 0.0 - 0.2 x10 3/ul 03/04/2017 10:40 AM [employer] HISTORICAL RESULTS Nucleat RBC Rel Count 0.0 0 - 3 #/100WBC 03/04/2017 10:40 AM BUSHING PRESS OPERATOR [facility] HISTORICAL RESULTS Absolute Nucleated RBC 0.00 x10 3/ul 03/04/2017 10:40 AM BUSHING PRESS OPERATOR [facility] HISTORICAL RESULTS Absolute Neutrophils 5700 200 - 8000 /ul 03/04/2017 10:40 AM BUSHING PRESS OPERATOR [facility] HISTORICAL RESULTS 03/04/2017 10:2 2 AM BUSHING PRESS OPERATOR 03/04/2017 10:30 AM [facility] us Mikala MENDOZA LAB BLOOD ORDERABLES Final Re sult [facility] HISTORICAL RESULTS documented in this encounter Visit Diagnoses Diagnosis Hemorrhage of anus and rectum Hemorrhage of rectum and anus Essential (primary) hypertension Unspecified essential hypertension Type 2 diabetes mellitus without complications (CMS/HCC) (HCC) Gastro-esophageal reflux disease without esophagitis 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
--- OUTSIDE RECORDS SUMMARY | 2024-02-25 20:50 | XMS_ITS | Encounter Summary ---
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 Social History Tobacco Use Types Packs/Day Years Used Date Smoking Tobacco: Never Assessed Comments Unknown Sex and Gender Information Value Date Recorded Sex Assigned at Not on file Legal Sex Female 5:42 AM MRP CONTROLLER Gender Identity Not on file Sexual Orientation Not on file documented as of this encounter Last Filed Vital Signs Vital Sign Reading Time Taken Comments Blood Pressure 101/63 03/27/2015 1:04 AM MRP CONTROLLER Pulse 108 03/27/2015 1:04 AM MRP CONTROLLER Temperature 37.2 ??C (98.9 ??F) 03/27/2015 1:04 AM CS T Respiratory Rate - - Oxygen Saturation 96% 03/27/2015 1:04 AM MRP CONTROLLER Inhaled Oxygen Concentration - - Weight 88 kg (194 lb) 03/27/2015 1:04 AM MRP CONTROLLER Height 157.5 cm (5' 2 ) 03/27/2015 1:04 AM MRP CONTROLLER Body Mass Index 35.48 03/27/2015 1:04 AM MRP CONTROLLER documented in this encounter Plan of Treatment Not on file documented as of this encounter Procedures Procedure Name Priority Date/Time Associated Diagnosis Comments XR CHEST PA LATERAL 2 VIEWS Routine 03/27/2015 2:17 AM MRP CONTROLLER URINALYSIS Routine 03/27/2015 1:41 AM MRP CONTROLLER CBC WITH AUTO DIFFERENTIAL Routine 03/27/2015 1:41 AM MRP CONTROLLER INFLUENZA A/B ANTIGENS, RAPID Routine 03/27/2015 1:41 AM MRP CONTROLLER COMPREHENSIVE METABOLIC PANEL Routine 03/27/2015 1:41 AM MRP CONTROLLER documented in this encounter Results * XR Chest Pa Lateral 2 Views (03/27/2015 2:17 AM MRP CONTROLLER) Anatomical Region Laterality Modality Body, Chest N/A Radiographic Juanita ging 03/27/2015 2:17 AM MRP CONTROLLER Impressions 03/27/2015 3:06 AM MRP CONTROLLER ??No definite acute cardiopulmonary process. THIS IS AN ELECTRONICALLY VERIFIED REPORT 03/27/2015 3:03 AM: ??Neema Ruiz M.D. Neema Ruiz M.D. JS:[email or web address] 03:03 AM 03:03 AM [facility] [EOD] Narrative 03/27/2015 3:06 AM MRP CONTROLLER EXAMINATION: ??CHEST HISTORY: ??Fever and body aches for 1 day, cough TECHNIQUE: ??PA and lateral views COMPARISON: ??12/05/2014 FINDINGS: ??There is no pneumonic consolidation, pleural fluid or pneumothorax. The cardiomediastinal silhouette is unremarkable. There is no pulmonary vascular congestion. The osseous structures are intact. Procedure Note Provider, MD Graham - 07/02/2020 EXAMINATION: CHEST HISTORY: Fever and body aches for 1 day, cough TECHNIQUE: PA and lateral views COMPARISON: 12/05/2014 FINDINGS: There is no pneumonic consolidation, pleural fluid orpneumothorax. The cardiomediastinal silhouette is unremarkable. There is no pulmonary vascular congestion. The osseous structures are intact. IMPRESSION: No definite acute cardiopulmonary process. THIS IS AN ELECTRONICALLY VERIFIED REPORT 03/27/2015 3:03 AM: Neema Ruiz M.D. Neema Ruiz M.D. JS:[email or web address] 03:03 AM 03:03 AM [facility] [EOD] Deedee Coyne IMG XR PROCEDURES Final R esult * (ABNORMAL) Urinalysis (03/27/2015 1:41 AM MRP CONTROLLER) Ur Collection Type CLEAN CATCH 03/27/2015 2:01 AM MRP CONTROLLER [facility] HISTORICAL RESULTS Urine Color COLORLESS YELLOW 03/27/2015 2:06 AM [facility] HISTORICAL RESULTS Urine Clarity CLEAR CLEAR 03/27/2015 2:06 AM [facility] HISTORICAL RESULTS Urine Glucose (UA) NORMAL NORMAL mg/dL 03/27/2015 2:06 AM [facility] HISTORICAL RESULTS Urine Bilirubin NEGATIVE NEGATIVE mg/dl 03/27/2015 2:06 AM [facility] HISTORICAL RESULTS Urine Ketones NEGATIVE NEGATIVE mg/dL 03/27/2015 2:06 AM [facility] HISTORICAL RESULTS Ur Specific [place] 1.002(L) 1.005 - 1.025 03/27/2015 2:06 AM [facility] HISTORICAL RESULTS Urine Blood NEGATIVE NEGATIVE mg/dl 03/27/2015 2:06 AM [facility] HISTORICAL RESULTS Urine pH 7.0 5.0 - 8.0 03/27/2015 2:06 AM [facility] HISTORICAL RESULTS Urine Protein NEGATIVE NEGATIVE mg/dL 03/27/2015 2:06 AM [facility] HISTORICAL RESULTS Urine Urobilinogen NORMAL NORMAL mg/dL 03/27/2015 2:06 AM [facility] HISTORICAL RESULTS Urine Nitrite NEGATIVE NEGATIVE Ur Leukocyte Esterase NEGATIVE NEGATIVE Nuno/ul Ur Microscopic Review Not Indicated 03/27/2015 1:41 AM MRP CONTROLLER 03/27/2015 2:01 AM MRP CONTROLLER [facility] URINE ORDERABLES Radha l Result Performing Organization Address [facility] de Phone Number [facility] HISTORICAL RESULTS * Influenza A/B antigens, rapid (03/27/2015 1:41 AM MRP CONTROLLER) [facility] Influenza A Ag NEGATIVE NEGATIVE Influenza B Ag NEGATIVE NEGATIVE Comment: A NEGATIVE RESULT DOES NOT ELIMINATE THE POSSIBILITY OF AN ?? INFLUENZA A OR B INFECTION. ??INADEQUATE SPECIMEN COLLECTION ?? OR IMPROPER SAMPLE HANDLING/TRANSPORT, OR LOW LEVELS OF ?? VIRAL SHEDDING MAY YIELD A FALSE NEGATIVE RESULT. 03/27/2015 1:41 AM MRP CONTROLLER 03/27/2015 2:00 AM MRP CONTROLLER Narrative [facility] HISTORICAL RESULTS - 03/27/2015 2:16 AM MRP CONTROLLER Collected By [facility] MICROBIOLOGY - GENERA L ORDERABLES Final Result Performing Organization Address [facility] de Phone Number [facility] HISTORICAL RESULTS * (ABNORMAL) Comprehensive metabolic panel (03/27/2015 1:41 AM MRP CONTROLLER) [facility] Sodium 140 135 - 145 mmol/L Potassium 3.3 3.3 - 5.1 mmol/L Chloride 100 96 - 108 mmol/L Carbon Dioxide 25 22 - 32 mmol/L Anion Gap 15 7 - 16 03/27/2015 2:21 AM [facility] HISTORICAL RESULTS Glucose 123(H) 70 - 100 mg/dL 03/27/2015 2:21 AM [facility] HISTORICAL RESULTS BUN 6 6 - 20 mg/dL 03/27/2015 2:21 AM [facility] HISTORICAL RESULTS Creatinine 0.6 0.5 - 1.1 mg/dL 03/27/2015 2:21 AM [facility] HISTORICAL RESULTS Comment: NOTE: Estimated GFR (Cockroft-Gault) will NOT be calculated unless patient Height and Weight were entered. Also, Kidney Disease Stage (GFR) and Estimated GFR (Cockroft-Gault) will NOT be calculated if Creatinine result is <0.2. Kidney Disease Stage > 90 mL/MIN 03/27/2015 2:21 AM [facility] HISTORICAL RESULTS Comment: NOTE; ??The GFR is [...] or on dialysis @ Est GFR (Cockcroft-G) 136 ml/MIN 03/27/2015 2:21 AM [facility] HISTORICAL RESULTS Calcium 9.3 8.6 - 10.0 mg/dL 03/27/2015 2:21 AM [facility] HISTORICAL RESULTS Total Protein 7.5 6.4 - 8.3 g/dL 03/27/2015 2:21 AM [facility] HISTORICAL RESULTS Albumin 4.5 3.5 - 5.2 g/dL Globulin 3.0 2.3 - 3.5 gm/dL Albumin/Globulin Ratio 1.5 1.1 - 1.8 03/27/2015 2:21 AM MRP CONTROLLER [facility] HISTORICAL RESULTS Total Bilirubin 0.5 0.0 - 1.2 mg/dL AST 17 0 - 32 U/L 03/27/2015 2:21 AM MRP CONTROLLER [facility] HISTORICAL RESULTS ALT 18 0 - 33 U/L Alkaline Phosphatase 70 35 - 104 U/L 03/27/2015 1:41 AM MRP CONTROLLER 03/27/2015 1:49 AM [facility] Deedee Espinal Coyne LAB BLOOD ORDERABLES Radah l Result [facility] HISTORICAL RESULTS * (ABNORMAL) CBC with auto differential (03/27/2015 1:41 AM MRP CONTROLLER) WBC 11.8(H) 4.6 - 10.2 x10 3/ul RBC 4.00 3.76 - 4.80 x10 6/ul Hemoglobin 10.9(L) 11.0 - 15.0 g/dl Hct 33.0 33.0 - 43.0 % MCV 82.5 80.0 - 97.0 fl MCH 27.3 27.0 - 31.2 pg MCHC 33.0 31.8 - 35.4 g/dl 03/27/2015 2:03 AM [facility] HISTORICAL RESULTS RDW 13.1 11.6 - 14.8 % 03/27/2015 2:03 AM MRP CONTROLLER [facility] HISTORICAL RESULTS Plt Count 238 124 - 400 x10 3/ul MPV 12.8(H) 7.4 - 10.4 fl Differential Method AUTOMATED DIFF --------- -- 03/27/2015 2:03 AM [facility] HISTORICAL RESULTS Neut % 80.9 37.0 - 85.0 % 03/27/2015 2:03 AM [facility] Immature Gran % 0.3 0.0 - 3.0 % 03/27/2015 2:03 AM [facility] HIST[facility] RESULTS Lymph % 12.2 5.0 - 45.0 % 03/27/2015 2:03 AM [facility] HIST[facility] RESULTS [facility] % 6.2 3.0 - 15.0 % 03/27/2015 2:03 AM [facility] HISTOR[facility] RESULTS Eos % 0.1 0.0 - 7.0 % 03/27/2015 2:03 AM [facility] Baso % 0.3 0.0 - 2.0 % 03/27/2015 2:03 AM MRP CONTROLLER [facility] HISTORICAL RESULTS ABSOLUTE COUNTS ABSOLUTE COUNTS --------- -- 03/27/2015 2:03 AM [facility] HIST[facility] RESULTS Absolute Neuts (auto) 9.5(H) 1.7 - 8.7 x10 3/ul 03/27/2015 2:03 AM [facility]IST[facility] RESULTS Immature Gran # 0.0 0.0 - 0.3 x10 3/ul 03/27/2015 2:03 AM [facility] HISTOR[facility] RESULTS Absolute Lymphs (auto) 1.4 0.2 - 4.6 x10 3/ul 03/27/2015 2:03 AM [facility] HIST[facility] RESULTS Absolute Monos (auto) 0.7 0.1 - 1.5 x10 3/ul 03/27/2015 2:03 AM [facility] RESULTS Absolute Eos (auto) 0.0 0.0 - 0.7 x10 3/ul 03/27/2015 2:03 AM MRP CONTROLLER [facility] HISTORICAL RESULTS Absolute Basos (auto) 0.0 0.0 - 0.2 x10 3/ul 03/27/2015 2:03 AM [facility] CONTROLLER [facility] 03/27/2015 1:41 AM MRP CONTROLLER 03/27/2015 1:49 AM MRP CONTROLLER Deedee Coyne LAB BLOOD ORDERABLES Radha l Result [facility] HISTORICAL RESULTS documented in this encounter Visit Diagnoses Diagnosis Viral infection Fever Fever, unspecified Type 2 diabetes mellitus without complications (CMS/HCC) (HCC) Essential (primary) hypertension Unspecified essential hypertension 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
--- OUTSIDE RECORDS SUMMARY | 2024-02-25 20:50 | XMS_ITS | Encounter Summary ---
Author Organization [facility] Healthcare Address [address] [place] [address] Care Team Providers Care Quill Buncher And Sorter Name Role Phone Ruma Shrestha NP Primary Care Provider + Encounter Details Date Type Department Care Team (Latest Contact Info) Description 05/30/2018 6:54 AM CDT - 05/30/2018 8:58 AM CDT Hospital Encounter [address] [address] [place] [address] Discharge Disposition: Discharge to home or self care Social History Tobacco Use Types Packs/Day Years Used Date Smoking Tobacco: Never Assessed Comments Unknown Sex and Gender Information Value Date Recorded Sex Assigned at Not on file Legal Sex Female 5:42 AM CONTINUITY EDITOR Gender Identity Not on file Sexual Orientation Not on file documented as of this encounter Last Filed Vital Signs Vital Sign Reading Time Taken Comments Blood Pressure 152/92 05/30/2018 6:56 AM CDT Pulse 87 05/30/2018 6:56 AM CDT Temperature 36.8 ??C (98.2 ??F) 05/30/2018 6:56 AM CD T Respiratory Rate - - Oxygen Saturation 97% 05/30/2018 6:56 AM CDT Inhaled Oxygen Concentration - - Weight 102.3 kg (225 lb 8.5 oz) 05/30/2018 6:56 AM CDT Height 157.5 cm (5' 2 ) 05/30/2018 6:56 AM CDT Body Mass Index 41.25 05/30/2018 6:56 AM CDT documented in this encounter Discharge Disposition Disposition Code Departure Means Destination Discharge to home or self care documented in this encounter Plan of Treatment Not on file documented as of this encounter Procedures Procedure Name Priority Date/Time Associated Diagnosis Comments XR SPINE CERVICAL 2 OR 3 VIEWS 05/30/2018 12:00 AM CDT documented in this encounter Results * XR Spine Cervical 2 or 3 Views (05/30/2018 12:00 AM CDT) Anatomical Region Laterality Modality Spine N/A Radiographic Juanita ging 05/30/2018 8:20 AM CDT Narrative 05/30/2018 8:23 AM CDT Patient Name: MARIBELL DAMICO ?Ordering Dr: Mikala Calixto PA-C ?? D.O.B: 1980 ? Exam Date: 05/30/18 ?? 0000 ?? Age: 38 ?Sex: Female ? MR#: [id number] ?? Loc: ? RADIOLOGY REPORT ?? Order #[id number] ?? Radiology ? Cervical Spine 2 or 3 Views ? Signed ?? EXAM DESCRIPTION: ??Cervical Spine 2 or 3 Views ? REASON FOR STUDY: ??Neck pain radiating to right arm. ??No known injury. ? Duration: 2 weeks ? TECHNIQUE: ??Three radiographic views acquired of the cervical spine. ? COMPARISON: ??None ? FINDINGS: ? ALIGNMENT: Anatomic. ??Straightening of the cervical lordosis which may relate ?? to muscle spasm. ? VERTEBRAE: Vertebral bodies of normal height.No facet arthropathy. ? DISCS: Disc height well-maintained. ? HARDWARE: None in the spine. ? SOFT TISSUES: No soft tissue swelling. ??Lung apices clear. ? OTHER: No other significant finding. ? IMPRESSION: ? 1.No acute bony abnormality in the cervical spine. ??Disc spaces well ?? maintained. ? 2.Straightening of cervical lordosis which may relate to muscle spasm. ? THIS IS AN ELECTRONICALLY VERIFIED FINAL REPORT ?? 05/30/2018 8:23 AM - Electronically signed by Wilfrido Garcia M.D. ?? Wilfrido Garcia M.D. ? RB ?? D: ??05/30/2018 8:23 AM ?? T: ? Report ID: [id number] ?? Reading Location: ??[id number] ? REPORT ELECTRONICALLY SIGNED IN OTHER VENDOR SYSTEM ?? Resulting Agency Comment P Procedure Note Wilfrido Garcia MD - 05/30/2018 Patient Name: MARIBELL DAMICO Dr: Mikala Calixto PA-C, D.O.B: 1980 Exam Date: 05/30/18 0000 Age: 38 Sex: Female MR#: [id number] Loc: RADIOLOGY REPORT Order #[id number] Radiology Cervical Spine 2 or 3 Views Signed EXAM DESCRIPTION: Cervical Spine 2 or 3 Views REASON FOR STUDY: Neck pain radiating to right arm. No known injury. Duration: 2 weeks TECHNIQUE: Three radiographic views acquired of the cervical spine. COMPARISON: None FINDINGS: ALIGNMENT: Anatomic. Straightening of the cervical lordosis which mayrelate to muscle spasm. VERTEBRAE: Vertebral bodies of normal height.No facet arthropathy. DISCS: Disc height well-maintained. HARDWARE: None in the spine. SOFT TISSUES: No soft tissue swelling. Lung apices clear. OTHER: No other significant finding. IMPRESSION: 1.No acute bony abnormality in the cervical spine. Disc spaces well maintained. 2.Straightening of cervical lordosis which may relate to muscle spasm. THIS IS AN ELECTRONICALLY VERIFIED FINAL REPORT 05/30/2018 8:23 AM - Electronically signed by Wilfrido RODRIGUES T: Report ID: [id number] Reading Location: [place] [id number] REPORT ELECTRONICALLY SIGNED IN OTHER VENDOR SYSTEM us Mikala MENDOZA IMG XR PROCEDURES Final Resul t documented in this encounter Visit Diagnoses Not on filedocumented in this encounter Care Teams Quill Buncher And Sorter Relationship Specialty Start Date End Date Ruma Shrestha NP PCP - General 05/30/18 documented as of this encounter
--- OUTSIDE RECORDS SUMMARY | 2024-02-25 20:50 | XMS_ITS | Encounter Summary ---
Author Organization [facility] Healthcare Address [address] [place] [address] Care Team Providers Care Taping Machine Operator Name Role Phone Unavailable Primary Care Provider Unavailabl e Encounter Details Date Type Department Care Team (Latest Contact Info) Description 04/06/2015 6:13 PM AIRFIELD MANAGER - 04/06/2015 7:39 PM AIRFIELD MANAGER Hospital Encounter [facility] Romel Watkins II, MD [facility] [place] [address] Acute pharyngitis; Essential (primary) hypertension; Type 2 diabetes mellitus without complications (CMS/HCC); [facility] current use of inhaled steroid; Other computer terminal operator (current) drug therapy Social History Tobacco Use Types Packs/Day Years Used Date Smoking Tobacco: Never Assessed Comments Unknown Sex and Gender Information Value Date Recorded Sex Assigned at Not on file Legal Sex Female 5:42 AM AIRFIELD MANAGER Gender Identity Not on file Sexual Orientation Not on file documented as of this encounter Last Filed Vital Signs Vital Sign Reading Time Taken Comments Blood Pressure 117/70 04/06/2015 6:14 PM AIRFIELD MANAGER Pulse 70 04/06/2015 6:14 PM AIRFIELD MANAGER Temperature 36.7 ??C (98.1 ??F) 04/06/2015 6:14 PM CS T Respiratory Rate - - Oxygen Saturation 100% 04/06/2015 6:14 PM AIRFIELD MANAGER Inhaled Oxygen Concentration - - Weight 85.3 kg (188 lb) 04/06/2015 6:14 PM AIRFIELD MANAGER Height 157.5 cm (5' 2 ) 04/06/2015 6:14 PM AIRFIELD MANAGER Body Mass Index 34.39 04/06/2015 6:14 PM AIRFIELD MANAGER documented in this encounter Plan of Treatment Not on file documented as of this encounter Visit Diagnoses Diagnosis Acute pharyngitis Essential (primary) hypertension Unspecified essential hypertension Type 2 diabetes mellitus without complications (CMS/HCC) (HCC) [facility] current use of inhaled steroid Other computer terminal operator (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
--- OUTSIDE RECORDS SUMMARY | 2024-02-25 20:50 | XMS_ITS | Encounter Summary ---
Author Organization [facility] Healthcare Address [address] [place] [address] Care Team Providers Care Salesperson Books Name Role Phone Unavailable Primary Care Provider Unavailabl e Encounter Details Date Type Department Care Team (Latest Contact Info) Description 05/02/2015 1:04 PM CDT - 05/02/2015 6:45 PM CDT Hospital Encounter [facility] ER Kemar Carey MD [address] [facility] [place] [address] Gastro-esophageal reflux disease without esophagitis; Essential (primary) hypertension; Type 2 diabetes mellitus without complications (CMS/HCC); Other skilled nursing (current) drug therapy Social History Tobacco Use Types Packs/Day Years Used Date Smoking Tobacco: Never Assessed Comments Unknown Sex and Gender Information Value Date Recorded Sex Assigned at Not on file 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 Gender Identity Not on file Sexual Orientation Not on file documented as of this encounter Last Filed Vital Signs Vital Sign Reading Time Taken Comments Blood Pressure 118/59 05/02/2015 1:11 PM CDT Pulse 71 05/02/2015 1:11 PM CDT Temperature 37.2 ??C (99 ??F) 05/02/2015 1:11 PM CDT Respiratory Rate - - Oxygen Saturation 99% 05/02/2015 1:11 PM CDT Inhaled Oxygen Concentration - - Weight 89.8 kg (198 lb) 05/02/2015 1:11 PM CDT Height 157.5 cm (5' 2 ) 05/02/2015 1:11 PM CDT Body Mass Index 36.21 05/02/2015 1:11 PM CDT documented in this encounter Plan of Treatment Not on file documented as of this encounter Procedures Procedure Name Priority Date/Time Associated Diagnosis Comments TROPONIN I Routine 05/02/2015 4:55 PM CDT TNI WITH LIPID PANEL Routine 05/02/2015 1:33 PM CDT CBC WITH AUTO DIFFERENTIAL Routine 05/02/2015 1:33 PM CDT APTT Routine 05/02/2015 1:33 PM CDT PROTIME-INR Routine 05/02/2015 1:33 PM CDT B-TYPE NATRIURETIC PEPTIDE Routine 05/02/2015 1:33 PM CDT COMPREHENSIVE METABOLIC PANEL Routine 05/02/2015 1:33 PM CDT XR CHEST PA LATERAL 2 VIEWS Routine 05/02/2015 12:00 AM CDT documented in this encounter Results * Troponin I (05/02/2015 4:55 PM CDT) [facility] Troponin I < 0.300 0.000 - 0.300 ng/mL 05/02/2015 5:25 PM CDT [facility] HISTORICAL RESULTS Comment: Reference using ANGÉLICA Chemiluminescence ? Negative: Repeat in 4-6 hours as indicated. 05/02/2015 4:55 PM CDT 05/02/2015 4:59 PM CDT us Lety Menjivar LAB BLOOD ORDERABLES Final Resul t [facility] HISTORICAL RESULTS * TNI with LIPID PANEL (05/02/2015 1:33 PM CDT) [facility] Troponin I < 0.300 0.000 - 0.300 ng/mL 05/02/2015 2:03 PM CDT [facility] HISTORICAL RESULTS Comment: Reference using ANGÉLICA Chemiluminescence ? Negative: Repeat in 4-6 hours as indicated. Triglycerides 62 0 - 199 mg/dL 05/02/2015 2:08 PM T [facility] HISTORICAL RESULTS Comment:12 hr pc highly channing mmended for Triglyceride Cholesterol 131 0 - 199 mg/dL 05/02/2015 2:08 PM T [facility] HISTORICAL RESULTS Comment: Borderline: ??200-239 High Risk: ?? >239 HDL Cholesterol 42 40 - 60 mg/dL 05/02/2015 2:08 PM T [facility] HISTORICAL RESULTS Comment: Major Risk ?< 40 mg/dL Moderate Risk ?40-60 mg/dL Negative Risk ?? > 60 mg/dL LDL Cholesterol, Calc 77 0 - 130 mg/dL 05/02/2015 2:08 PM T [facility] HISTORICAL RESULTS Comment:High Risk > 159 mg/d L Cholesterol/HDL Ratio 3.1 05/02/2015 2:08 PM T [facility] HISTORICAL RESULTS Comment: Cholesterol / HDL Ratio 3.5:1 or less is desirable. Cholesterol / HDL Ratio greater than 5:1 is considered higher risk for developing heart disease. 05/02/2015 1:33 PM CDT 05/02/2015 1:38 PM CDT Lety Menjivar LAB BLOOD ORDERABLES Final Resul t [facility] HISTORICAL RESULTS * Protime-INR (05/02/2015 1:33 PM CDT) [facility] PT 13.4 11.8 - 14.5 SECONDS 05/02/2015 1:55 PM T [facility] HISTORICAL RESULTS Comment:New Reference Range in use at [facility] 03/20/2015 INR 1.03 0.01 - 5.99 05/02/2015 1:55 PM T [facility] HISTORICAL RESULTS Comment: Recommended Therapeutic range for Oral Anticoagulant Therapy No anti-coagulation therapy ? Normal Range: ?0.8-1.4 Anti-coagulation therapy ? Low intensity therapy ?2.0-3.0 ? High intensity therapy ?? 2.5-3.5 Critical Value ? Greater than or equal to 6.0 Patients should be monitored for serious bleeding. ?? 05/02/2015 1:33 PM CDT 05/02/2015 1:38 PM CDT [facility] LAB BLOOD ORDERABLES Final Resul t Performing Organization Address [facility] de Phone Number [facility] HISTORICAL RESULTS * aPTT (05/02/2015 1:33 PM CDT) Pathologist [facility] APTT 32 26 - 33 SECONDS 05/02/2015 1:56 PM T [facility] HISTORICAL RESULTS Comment:New Reference Range in use at [facility] 03/20/2015 05/02/2015 1:33 PM CDT 05/02/2015 1:38 PM CDT [facility] LAB BLOOD ORDERABLES Final Resul t Performing Organization Address [facility] Phone Number [facility] HISTORICAL RESULTS * (ABNORMAL) Comprehensive metabolic panel (05/02/2015 1:33 PM CDT) Pathologist [facility] Sodium 136 135 - 145 mmol/L Potassium 3.8 3.3 - 5.1 mmol/L Chloride 100 96 - 108 mmol/L Carbon Dioxide 23 22 - 32 mmol/L Anion Gap 13 7 - 16 Glucose 113(H) 70 - 100 mg/dL BUN 14 6 - 20 mg/dL Creatinine 0.5 0.5 - 1.1 mg/dL Comment: NOTE: Estimated [...] or on dialysis @ Est GFR (Cockcroft-G) 165 ml/MIN Calcium 9.8 8.6 - 10.0 mg/dL Total Protein 7.9 6.4 - 8.3 g/dL Albumin 4.4 3.5 - 5.2 g/dL Globulin 3.5 2.3 - 3.5 gm/dL 05/02/2015 2:08 PM CDT [facility] HISTORICAL RESULTS Albumin/Globulin Ratio 1.3 1.1 - 1.8 05/02/2015 2:08 PM CDT [facility] HISTORICAL RESULTS Total Bilirubin 0.2 0.0 - 1.2 mg/dL 05/02/2015 2:08 PM CDT [facility] HISTORICAL RESULTS AST 14 0 - 32 U/L 05/02/2015 2:08 PM CDT [facility] HISTORICAL RESULTS ALT 15 0 - 33 U/L 05/02/2015 2:08 PM CDT [facility] HISTORICAL RESULTS Alkaline Phosphatase 61 35 - 104 U/L 05/02/2015 2:08 PM CDT [facility] HISTORICAL RESULTS 05/02/2015 1:33 PM CDT 05/02/2015 1:38 PM CDT Lety Menjivar LAB BLOOD ORDERABLES Final Resul t [facility] HISTORICAL RESULTS * (ABNORMAL) CBC with auto differential (05/02/2015 1:33 PM CDT) WBC 7.0 4.6 - 10.2 x10 3/ul 05/02/2015 1:43 PM CDT [facility] HISTORICAL RESULTS RBC 4.17 3.76 - 4.80 x10 6/ul 05/02/2015 1:43 PM CDT [facility] HISTORICAL RESULTS Hemoglobin 11.3 11.0 - 15.0 g/dl 05/02/2015 1:43 PM CDT [facility] HISTORICAL RESULTS Hct 33.5 33.0 - 43.0 % 05/02/2015 1:43 PM CDT [facility] HISTORICAL RESULTS MCV 80.3 80.0 - 97.0 fl 05/02/2015 1:43 PM CDT [facility] HISTORICAL RESULTS MCH 27.1 27.0 - 31.2 pg 05/02/2015 1:43 PM CDT [facility] HISTORICAL RESULTS MCHC 33.7 31.8 - 35.4 g/dl 05/02/2015 1:43 PM CDT [facility] HISTORICAL RESULTS RDW 13.6 11.6 - 14.8 % Plt Count 245 124 - 400 x10 3/ul MPV 12.0(H) 7.4 - 10.4 fl Differential Method AUTOMATED DIFF --------- -- Neut % 67.6 37.0 - 85.0 % Immature Gran % 0.1 0.0 - 3.0 % Lymph % 23.6 5.0 - 45.0 % Smith % 6.9 3.0 - 15.0 % Eos % 1.2 0.0 - 7.0 % Baso % 0.6 0.0 - 2.0 % ABSOLUTE COUNTS ABSOLUTE COUNTS --------- -- Absolute Neuts (auto) 4.7 1.7 - 8.7 x10 3/ul Immature Gran # 0.0 0.0 - 0.3 x10 3/ul Absolute Lymphs (auto) 1.6 0.2 - 4.6 x10 3/ul Absolute Monos (auto) 0.5 0.1 - 1.5 x10 3/ul Absolute Eos (auto) 0.1 0.0 - 0.7 x10 3/ul Absolute Basos (auto) 0.0 0.0 - 0.2 x10 3/ul 05/02/2015 1:43 PM CDT [facility] HISTORICAL RESULTS 05/02/2015 1:33 PM CDT 05/02/2015 1:38 PM CDT Lety Menjivar LAB BLOOD ORDERABLES Final Resul t Performing Organization Address [facility] de Phone Number [facility] HISTORICAL RESULTS * B-type natriuretic peptide (05/02/2015 1:33 PM CDT) B-Natriuretic Peptide 8 0 - 100 pg/mL 05/02/2015 2:09 PM CDT [facility] HISTORICAL RESULTS Comment: B Natriutetic Peptide METHOD: ??[employer] XP using YANNA. Decision threshold of 100 pg/mL has been demonstrated to provide the maximal combination of sensitivity, specificity, and predictive value for the diagnosis of congestive heart failure (CHF). ??Virtually all patients with no evidence of CHF have BNP values <100 pg/mL. ?? NOTE: ??Nesiritide (Natrecor) interferes with the BNP assay. BNP result will be invalid if drawn within 2 hours of bolus or infusion of nesiritide. 05/02/2015 1:33 PM CDT 05/02/2015 1:38 PM CDT us Lety Menjivar LAB BLOOD ORDERABLES Final Resul t Performing Organization Address [facility] de Phone Number [facility] HISTORICAL RESULTS * XR Chest Pa Lateral 2 Views (05/02/2015 12:00 AM CDT) Anatomical Region Laterality Modality Body, Chest N/A Radiographic Juanita ging 05/02/2015 Impressions 05/02/2015 1:59 PM CDT ??No evidence of an acute cardiopulmonary abnormality. THIS IS AN ELECTRONICALLY VERIFIED REPORT 05/02/2015 1:56 PM: ??Rivera Coffman M.D. Rivera Coffman M.D. [email or web address] 01:56 PM 01:56 PM [facility] [EOD] Narrative 05/02/2015 1:59 PM CDT EXAMINATION: ??Two-view chest. HISTORY: ??Shortness of breath for 2 days. TECHNIQUE: ??PA and lateral chest. COMPARISON: ??03/27/2015. FINDINGS: ??The lungs are normally expanded and clear without focal consolidation. ??There is no pleural effusion or pneumothorax. ?? Cardiomediastinal silhouette within normal limits. ??No acute osseous abnormalities. Procedure Note Provider, MD Graham - 07/02/2020 EXAMINATION: Two-view chest. HISTORY: Shortness of breath for 2 days. TECHNIQUE: PA and lateral chest. COMPARISON: 03/27/2015. FINDINGS: The lungs are normally expanded and clear without focal consolidation. There is no pleural effusion or pneumothorax. Cardiomediastinal silhouette within normal limits. No acute osseous abnormalities. IMPRESSION: No evidence of an acute cardiopulmonary abnormality. THIS IS AN ELECTRONICALLY VERIFIED REPORT 05/02/2015 1:56 PM: Rivera Coffman M.D. Rivera Coffman M.D. [email or web address] 01:56 PM 01:56 PM [facility] [EOD] Lety Menjivar IMG XR PROCEDURES Final Result documented in this encounter Visit Diagnoses Diagnosis Gastro-esophageal reflux disease without esophagitis Essential (primary) hypertension Unspecified essential hypertension Type 2 diabetes mellitus without complications (CMS/HCC) (HCC) Other skilled nursing (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
--- OUTSIDE RECORDS SUMMARY | 2024-02-25 20:50 | XMS_ITS | Encounter Summary ---
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 - 03/28/2015 8:03 PM MASTER MOTORCYCLE TECHNICIAN Hospital Encounter [facility] Bernarda Neville MD [address] [place] [address] Streptococcal pharyngitis; Type 2 diabetes mellitus without complications (CMS/HCC); Essential (primary) hypertension; Other meterman (current) drug therapy Social History Tobacco Use Types Packs/Day Years Used Date Smoking Tobacco: Never Assessed Comments Unknown Sex and Gender Information Value Date Recorded Sex Assigned at Not on file 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 Gender Identity Not on file Sexual Orientation Not on file documented as of this encounter Last Filed Vital Signs Vital Sign Reading Time Taken Comments Blood Pressure 118/73 03/28/2015 7:46 PM MASTER MOTORCYCLE TECHNICIAN Pulse 78 03/28/2015 7:46 PM MASTER MOTORCYCLE TECHNICIAN Temperature 36.9 ??C (98.5 ??F) 03/28/2015 7:46 PM CS T Respiratory Rate - - Oxygen Saturation 98% 03/28/2015 7:46 PM MASTER MOTORCYCLE TECHNICIAN Inhaled Oxygen Concentration - - Weight 88 kg (194 lb) 03/28/2015 7:46 PM MASTER MOTORCYCLE TECHNICIAN Height 157.5 cm (5' 2 ) 03/28/2015 7:46 PM MASTER MOTORCYCLE TECHNICIAN Body Mass Index 35.48 03/28/2015 7:46 PM MASTER MOTORCYCLE TECHNICIAN documented in this encounter Plan of Treatment Not on file documented as of this encounter Visit Diagnoses Diagnosis Streptococcal pharyngitis Streptococcal sore throat Type 2 diabetes mellitus without complications (CMS/HCC) (HCC) Essential (primary) hypertension Unspecified essential hypertension Other mcfp (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
--- OUTSIDE RECORDS SUMMARY | 2024-02-25 20:50 | XMS_ITS | Encounter Summary ---
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 Historical Provider Final Res ult documented in this encounter Visit Diagnoses Not on filedocumented in this encounter Additional Health Concerns Infection Onset Date Last Indicated Resolved Time COVID: Suspected 08/19/2020 08/19/2020 08/19/2020 5:45 AM CDT COVID19 08/19/2020 08/19/2020 09/02/2020 3:05 AM CDT COVID: Recovered Comment:Added based on recent COVID infection. 09/02/2020 09/08/2020 12/31/2020 3:[address] documented as of this encounter Care Teams Flooring Professional Relationship Specialty Start Date End Date Ruma Shrestha NP PCP - General 05/30/18 documented as of this encounter
--- OUTSIDE RECORDS SUMMARY | 2024-02-25 20:50 | XMS_ITS | Encounter Summary ---
Author Organization [facility] Healthcare Address [address] [place] [address] Care Team Providers Care Insurance Verification Representative Name Role Phone Unavailable Primary Care Provider Unavailabl e Encounter Details Date Type Department Care Team (Latest Contact Info) Description 07/11/2017 6:37 AM CDT - 07/11/2017 11:21 AM CDT Hospital Encounter [facility] Merlin Otero MD [facility] [place] [address] Palpitations; Shortness of breath; Adverse effect of calcium-channel jesus manuel; Nasal congestion; Patient's other noncompliance with medication regimen; Non-institutional private residence as place of occurrence of external cause; Type 2 diabetes mellitus without complications ([facility]/HCC); Gastro-esophageal reflux disease without esophagitis; senior care current use of oral hypoglycemic drug; Other exterminator helper termite (current) drug therapy Social History Tobacco Use Types Packs/Day Years Used Date Smoking Tobacco: Never Assessed Comments Unknown Sex and Gender Information Value Date Recorded Sex Assigned at Not on file 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 Gender Identity Not on file Sexual Orientation Not on file documented as of this encounter Last Filed Vital Signs Vital Sign Reading Time Taken Comments Blood Pressure 138/89 07/11/2017 6:40 AM CDT Pulse 82 07/11/2017 6:40 AM CDT Temperature 36.4 ??C (97.6 ??F) 07/11/2017 6:40 AM CD T Respiratory Rate - - Oxygen Saturation 98% 07/11/2017 6:40 AM CDT Inhaled Oxygen Concentration - - Weight 97.2 kg (214 lb 4.6 oz) 07/11/2017 6:40 A M CDT Height 157.5 cm (5' 2 ) 07/11/2017 6:40 AM CDT Body Mass Index 39.19 07/11/2017 6:40 AM CDT documented in this encounter Plan of Treatment Not on file documented as of this encounter Procedures Procedure Name Priority Date/Time Associated Diagnosis Comments TNI WITH LIPID PANEL Routine 07/11/2017 7:42 AM CDT CBC WITH AUTO DIFFERENTIAL Routine 07/11/2017 7:42 AM CDT B-TYPE NATRIURETIC PEPTIDE Routine 07/11/2017 7:42 AM CDT COMPREHENSIVE METABOLIC PANEL Routine 07/11/2017 7:42 AM CDT XR CHEST 1 VIEW Routine 07/11/2017 12:00 AM CDT documented in this encounter Results * B-type natriuretic peptide (07/11/2017 7:42 AM CDT) B-Natriuretic Peptide 23 0 - 100 pg/mL 07/11/2017 10:[address] [facility] HISTORICAL RESULTS Comment: B Natriutetic Peptide METHOD: ??Siemens Centaur [...] hours of bolus or infusion of nesiritide. 07/11/2017 7:42 AM CDT 07/11/2017 7:46 AM CDT us Samantha Dunaway MANAGER [employer] LAB BLOOD ORDERABLES Final R esult [facility] HISTORICAL RESULTS * TNI with LIPID PANEL (07/11/2017 7:42 AM CDT) [facility] Troponin I < 0.300 0.000 - 0.300 ng/mL Comment: Reference using ANGÉLICA Chemiluminescence ? Negative: Repeat in 4-6 hours as indicated. Triglycerides 98 0 - 149 mg/dL Comment: National Lipid Association/NCEP Guidelines: ?? Normal ?< 150 mg/dL ?? Borderline high ?? 150-199 mg/dL ?? High ?200-499 mg/dL ?? Very High ? >=500 mg/dL Cholesterol 128 0 - 199 mg/dL Comment: National Lipid Association/NCEP Guidelines: Desirable ? < 200 mg/dL Borderline high: ??200-239 mg/dL High Risk: ?>=240 mg/dL HDL Cholesterol 34 mg/dL 8:12 AM [facility] HISTORICAL RESULTS Comment: Reference Ranges: ? Males: >=40 mg/dL ? Females: >=50 mg/dL LDL Cholesterol, Calc 74 0 - 129 mg/dL Comment: National Lipid Association/NCEP Guidelines: ??Optimal ? < 100 mg/dL ??Near Optimal ?100-129 mg/dL ??Borderline high 130-159 mg/dL ??High ?>=160 mg/dL Cholesterol/HDL Ratio 3.8 Comment: Optimal ??< 3.5:1 High ? > 5:1 07/11/2017 7:42 AM CDT 07/11/2017 7:46 AM CDT Samantha Dunaway MANAGER [employer] LAB BLOOD ORDERABLES Final R esult [facility] HISTORICAL RESULTS * (ABNORMAL) Comprehensive metabolic panel (07/11/2017 7:42 AM CDT) Sodium 138 135 - 145 mmol/L 07/11/2017 8:[address] [facility] HISTORICAL RESULTS Potassium 3.4 3.3 - 5.1 mmol/L 07/11/2017 8:[address] [facility] HISTORICAL RESULTS Chloride 100 96 - 108 mmol/L 07/11/2017 8:[address] [facility] HISTORICAL RESULTS Carbon Dioxide 25 22 - 32 mmol/L 07/11/2017 8:[address] [facility] HISTORICAL RESULTS Anion Gap 13 7 - 16 07/11/2017 8:[address] [facility] HISTORICAL RESULTS Glucose 212(H) 70 - 100 mg/dL 07/11/2017 8:[address] [facility] HISTORICAL RESULTS BUN 9 6 - 20 mg/dL 07/11/2017 8:[address] [facility] HISTORICAL RESULTS Creatinine 0.6 0.5 - 1.1 mg/dL 07/11/2017 8:[address] [facility] HISTORICAL RESULTS Comment: NOTE: Estimated GFR (Cockroft-Gault) [...] or on dialysis @ Est GFR (Cockcroft-G) 140 ml/MIN Comment: Estimated GFR(Cockroft-Gault)is used to calculate patient medication dosage Calcium 9.0 8.6 - 10.0 mg/dL Total Protein 7.1 6.4 - 8.3 g/dL Albumin 4.0 3.5 - 5.2 g/dL Globulin 3.1 2.3 - 3.5 gm/dL Albumin/Globulin Ratio 1.3 1.1 - 1.8 Total Bilirubin 0.2 0.0 - 1.2 mg/dL AST 19 0 - 32 U/L ALT 21 0 - 33 U/L Alkaline Phosphatase 75 35 - 104 U/L 07/11/2017 7:42 AM CDT 07/11/2017 7:46 AM T us Samantha Dunaway MANAGER [employer] LAB BLOOD ORDERABLES Final R esult [facility] HISTORICAL RESULTS * (ABNORMAL) CBC with auto differential (07/11/2017 7:42 AM CDT) WBC 6.3 3.5 - 10.5 x10 3/ul 07/11/2017 7:49 AM CDT [facility] RBC 4.02 3.76 - 4.80 x10 6/ul 07/11/2017 7:49 AM CDT [facility] Hemoglobin 10.1(L) 11.0 - 15.0 g/dL 07/11/2017 7:49 AM CDT [facility] Hct 30.8(L) 33.0 - 43.0 % 07/11/2017 7:49 AM CDT [facility] MCV 76.6(L) 80.0 - 97.0 fl 07/11/2017 7:49 AM CDT [facility] MCH 25.1(L) 27.0 - 31.2 pg 07/11/2017 7:49 AM CDT [facility] MCHC 32.8 31.8 - 35.4 g/dl 07/11/2017 7:49 AM CDT [facility] [place] [facility] RESULTS RDW 14.7 11.6 - 14.8 % 07/11/2017 7:49 AM CDT [facility] Plt Count 175 150 - 450 X10 3/ul 07/11/2017 7:49 AM CDT [facility] [place] [facility] RESULTS MPV 13.0(H) 7.4 - 10.4 fl 07/11/2017 7:49 AM CDT [facility] [place] [facility] RESULTS Neut % 55.3 37.0 - 85.0 % 07/11/2017 7:49 AM CDT [facility] [place] [facility] RES[facility] Immature Gran % 0.3 0.0 - 3.0 % 07/11/2017 7:49 AM CDT [facility] HISTORICAL RESULTS Lymph % 36.5 5.0 - 45.0 % 07/11/2017 7:49 AM CDT [facility] HISTORICAL RESULTS [place] % 5.8 3.0 - 15.0 % 07/11/2017 7:49 AM CDT [facility] Eos % 1.6 0.0 - 7.0 % 07/11/2017 7:49 AM CDT [facility] HISTORICAL RESULTS Baso % 0.5 0.0 - 2.0 % 07/11/2017 7:[address] [facility] HISTORICAL RESULTS Absolute Neuts (auto) 3.5 1.7 - 8.7 x10 3/ul 07/11/2017 7:[address] [facility] HISTORICAL RESULTS Immature Gran # 0.0 0.0 - 0.3 x10 3/ul 07/11/2017 7:[address] [facility] HISTORICAL RESULTS Absolute Lymphs (auto) 2.3 0.2 - 4.6 x10 3/ul 07/11/2017 7:[address] [facility] HISTORICAL RESULTS Absolute Monos (auto) 0.4 0.1 - 1.5 x10 3/ul 07/11/2017 7:[address] [facility] HISTORICAL RESULTS Absolute Eos (auto) 0.1 0.0 - 0.7 x10 3/ul 07/11/2017 7:[address] [facility] HISTORICAL RESULTS Absolute Basos (auto) 0.0 0.0 - 0.2 x10 3/ul 07/11/2017 7:[address] [facility] HISTORICAL RESULTS Nucleat RBC Rel Count 0.0 0 - 3 #/100WBC Absolute Nucleated RBC 0.00 x10 3/ul Absolute Neutrophils 3500 200 - 8000 /ul 07/11/2017 7:[address] [facility] HISTORICAL RESULTS 07/11/2017 7:42 AM CDT 07/11/2017 7:46 AM CDT Samantha Dunaway MANAGER [employer] LAB BLOOD ORDERABLES Final R esult [facility] HISTORICAL RESULTS * XR Chest 1 View (07/11/2017 12:00 AM CDT) Anatomical Region Laterality Modality Body, Chest N/A Radiographic Juanita ging 07/11/2017 Impressions 07/11/2017 7:51 AM CDT ??Prominence of the pulmonary vascularity could relate to congestive heart failure/mild pulmonary edema. ??Technical artifact is a consideration. THIS IS AN ELECTRONICALLY VERIFIED FINAL REPORT 07/11/2017 7:47 AM - Electronically signed by Forrest Elizalde M.D. AT: AT D: ??07/11/2017 7:47 AM T: ??07/11/2017 7:47 AM Report ID: [id number] Reading Location: ??[id number] [EOD] Narrative 07/11/2017 7:51 AM CDT EXAM DESCRIPTION: ??Chest 1 View Portable COMPLETED DATE/TIME: ??07/11/2017 7:40 am REASON FOR STUDY: ??POSSIBLE ALLERGIC REACTION TO BP MEDICINE THIS MORNING, TIGHTNESS IN THROAT AND SOB SINCE THIS AM. TECHNIQUE: ??Frontal radiographic view of the chest acquired. COMPARISON: ??03/19/2017 FINDINGS: LUNGS/PLEURA: There is no consolidation, pneumothorax, or large pleural effusion. HEART/MEDIASTINUM: Heart size is within normal limits. ??Trachea is midline. ?? There is prominence of the central pulmonary vascularity as well as the peripheral pulmonary vascularity. HARDWARE/LINES/TUBES: None. BONES: No acute findings. OTHER: No other significant finding. Procedure Note Provider, MD Graham - 07/02/2020 EXAM DESCRIPTION: Chest 1 View Portable COMPLETED DATE/TIME: 07/11/2017 7:40 am REASON FOR STUDY: POSSIBLE ALLERGIC REACTION TO BP MEDICINE THIS MORNING, TIGHTNESS IN THROAT AND SOB SINCE THIS AM. TECHNIQUE: Frontal radiographic view of the chest acquired. COMPARISON: 03/19/2017 FINDINGS: LUNGS/PLEURA: There is no consolidation, pneumothorax, or large pleural effusion. HEART/MEDIASTINUM: Heart size is within normal limits. Trachea ismidline. There is prominence of the central pulmonary vascularity as well as the peripheral pulmonary vascularity. HARDWARE/LINES/TUBES: None. BONES: No acute findings. OTHER: No other significant finding. IMPRESSION: Prominence of the pulmonary vascularity could relate to congestive heart failure/mild pulmonary edema. Technical artifact is a consideration. THIS IS AN ELECTRONICALLY VERIFIED FINAL REPORT 07/11/2017 7:47 AM - Electronically signed by Forrest Elizalde M.D. 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
--- OUTSIDE RECORDS SUMMARY | 2024-02-25 20:50 | XMS_ITS | Encounter Summary ---
Author Organization [facility] Healthcare Address [address] [place] [address] Care Team Providers Care Under Cutter Name Role Phone Ruma Shrestha NP Primary Care Provider + Encounter Details Date Type Department Care Team (Late st Contact Info) Description 11/10/2018 10:47 AM CDT - 11/10/2018 1:50 PM CDT Hospital Encounter [address] [address] Candi Mcgovern DO [address] [place] [address] [place] [address] Unknown, Notinfile Discharge Disposition: Discharge to home or self care Social History Tobacco Use Types Packs/Day Years Used Date Smoking Tobacco: Never Assessed Comments Unknown Sex and Gender Information Value Date Recorded Sex Assigned at Not on file 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 Gender Identity Not on file Sexual Orientation Not on file documented as of this encounter Last Filed Vital Signs Vital Sign Reading Time Taken Comments Blood Pressure 128/77 11/10/2018 10:49 AM CDT Pulse 78 11/10/2018 10:49 AM CDT Temperature 36.7 ??C (98.1 ??F) 11/10/2018 10:49 AM C DT Respiratory Rate - - Oxygen Saturation 97% 11/10/2018 10:49 AM CDT Inhaled Oxygen Concentration - - Weight 100.5 kg (221 lb 9 oz) 11/10/2018 10:49 A M CDT Height 157.5 cm (5' 2 ) 11/10/2018 10:49 AM CDT Body Mass Index 40.52 11/10/2018 10:49 AM CDT documented in this encounter Medications at Time of Discharge metFORMIN (GLUCOPHAGE) 500 mg tablet 1 tablet (500 mg total) 11/10/2018 documented as of this encounter Discharge Disposition Disposition Code Departure Means Destination Discharge to home or self care documented in this encounter Plan of Treatment Not on file documented as of this encounter Procedures Procedure Name Priority Date/Time Associated Diagnosis Comments ECG 12-LEAD 11/10/2018 11:59 AM CDT XR CHEST 1 VIEW 11/10/2018 11:31 AM CDT CBC WITH AUTO DIFFERENTIAL Routine 11/10/2018 11:21 AM CDT COMPREHENSIVE METABOLIC PANEL Routine 11/10/2018 11:21 AM CDT documented in this encounter Results * ECG 12 lead (11/10/2018 11:59 AM CDT) Ventricular Rate EKG/Min 85 BPM ER RADIOLOGY Atrial Rate 85 BPM ER RADIOLOGY VT-Interval (MSEC) 136 ms ER RADIOLOGY QRS-Interval (MSEC) 86 ms ER RADIOLOGY QT-Interval (MSEC) 370 ms ER RADIOLOGY QTc 440 ms ER RADIOLOGY P Poston 15 degrees ER RADIOLOGY R Poston 29 degrees ER RADIOLOGY T Poston 14 degrees ER RADIOLOGY Diagnosis Normal sinus rhythm Normal ECG When compared with ECG of 29-OCT-2018 06:01, No significant change was found ER RADIOLOGY 11/10/2018 11:5 9 AM CDT 11/10/2018 1:35 PM CDT Narrative Resulting Agency Comment NATALI us Candi Mcgovern DO ECG ORDERABLES Final Result ER RADIOLOGY * XR Chest 1 View (11/10/2018 11:31 AM CDT) Anatomical Region Laterality Modality Body, Chest N/A Radiographic Juanita ging 11/10/2018 12:1 0 PM CDT Narrative 11/10/2018 12:11 PM CDT Patient Name: MARIBELL DAMICO ?Ordering Dr: Candi Mcgovern DO ?? D.O.B: 1980 ? Exam Date: 11/10/18 ?? 1131 ?? Age: 38 ?Sex: Female ? MR#: [id number] ?? Loc: ? RADIOLOGY REPORT ?? Order #[id number] ?? Radiology ? Chest 1 View Portable ? Signed ?? EXAM DESCRIPTION: ??Chest 1 View Portable ? REASON FOR STUDY: ??Hyperglycemia today. ? TECHNIQUE: ??Frontal radiographic view of the chest acquired. ? COMPARISON: ??10/29/2018 ? FINDINGS: ? LUNGS/PLEURA: No focal consolidation or pneumothorax. No pleural effusion. ? HEART/MEDIASTINUM: Heart size is normal. Normal mediastinal and hilar contours. ? HARDWARE/LINES/TUBES: None. ? BONES: No acute findings. ? OTHER: No other significant finding. ? IMPRESSION: ??No radiographic evidence of an acute cardiopulmonary abnormality. ? THIS IS AN ELECTRONICALLY VERIFIED FINAL REPORT ?? 11/10/2018 12:11 PM - Electronically signed by Manny Batista M.D. ?? Manny Batista M.D. ? MD ?? D: ??11/10/2018 12:11 PM ?? T: ? Report ID: [id number] ?? Reading Location: ??[id number] ? REPORT ELECTRONICALLY SIGNED IN OTHER VENDOR SYSTEM ?? Resulting Agency Comment E Procedure Note Manny Batista MD - 11/10/2018 Patient Name: OTTO DAMICOOYA Daniel Dr: Candi Mcgovern DO, D.O.B: 1980 Exam Date: 11/10/18 1131 Age: 38 Sex: Female MR#: [id number] Loc: RADIOLOGY REPORT Order #[id number] Radiology Chest 1 View Portable Signed EXAM DESCRIPTION: Chest 1 View Portable REASON FOR STUDY: Hyperglycemia today. TECHNIQUE: Frontal radiographic view of the chest acquired. COMPARISON: 10/29/2018 FINDINGS: LUNGS/PLEURA: No focal consolidation or pneumothorax. No pleuraleffusion. HEART/MEDIASTINUM: Heart size is normal. Normal mediastinal and hilarcontours. HARDWARE/LINES/TUBES: None. BONES: No acute findings. OTHER: No other significant finding. IMPRESSION: No radiographic evidence of an acute cardiopulmonaryabnormality. THIS IS AN ELECTRONICALLY VERIFIED FINAL REPORT 11/10/2018 12:11 PM - Electronically signed by Manny Batista M.D., MD T: Report ID: [id number] Reading Location: [id number] REPORT ELECTRONICALLY SIGNED IN OTHER VENDOR SYSTEM us Candi Mcgovern DO IMG XR PROCEDURES Final Result * (ABNORMAL) Comprehensive metabolic panel (11/10/2018 11:21 AM CDT) Sodium 135 135 - 145 mmol/L [facility] Potassium 3.7 3.3 - 5.1 mmol/L [facility] Chloride 99 96 - 108 mmol/L [facility] Carbon Dioxide 25 22 - 32 mmol/L [facility] Anion Gap 11 7 - 16 [facility] Glucose 179(H) 70 - 100 mg/dL [facility] BUN 9 8 - 25 mg/dL [facility] Creatinine 0.6 0.5 - 1.1 mg/dL [facility] Comment: NOTE: Estimated GFR (Cockroft-Gault) will NOT be calculated unless patient Height and Weight were entered. Also, Kidney Disease Stage (GFR) and Estimated GFR (Cockroft-Gault) will NOT be calculated if Creatinine result is <0.2. Kidney Disease Stage >90 mL/MIN [facility] Comment: NOTE; ??The GFR is an estimated [...] failure or on dialysis Est GFR (Cockcroft-G) 141 ml/MIN [facility] Comment: Estimated GFR(Cockroft-Gault)is used to calculate patient medication dosage Calcium 9.7 8.6 - 10.3 mg/dL [facility] Total Protein 7.9 6.4 - 8.3 g/dL [facility] Albumin 4.3 3.5 - 5.0 g/dL [facility] Globulin 3.6(H) 2.3 - 3.5 gm/dL [facility] Albumin/Globulin Ratio 1.2 1.1 - 1.8 [facility] Total Bilirubin <0.2 0.0 - 1.2 mg/dL [facility] AST 15 0 - 32 U/L [facility] ALT 20 0 - 33 U/L [facility] Alkaline Phosphatase 76 35 - 104 U/L [facility] 11/10/2018 11:2 1 AM CDT 11/10/2018 12:47 PM CDT Narrative Resulting Agency Comment ER Candi Mcgovern DO LAB BLOOD ORDERABLES Final Resu lt [facility] [address] [place] [address], [facility] [phone] * (ABNORMAL) CBC with auto differential (11/10/2018 11:21 AM CDT) WBC 7.4 3.8 - 9.9 X10 3/ul [facility] RBC 4.21 3.90 - 5.20 x10 6/ul [facility] Hemoglobin 9.1(L) 11.9 - 15.5 g/dL [facility] Hct 29.6(L) 35.6 - 45.5 % [facility] MCV 70.3(L) 81.3 - 96.4 fl [facility] MCH 21.6(L) 27.1 - 33.3 pg [facility] MCHC 30.7(L) 32.3 - 35.7 g/dl [facility] RDW 17.0(H) 11.1 - 14.9 % [facility] Plt Count 243 150 - 400 x10 3/ul [facility] Neut % 47.5 % [facility] Immature Gran % 0.1 % [facility] Lymph % 44.5 % [facility] [place] % 6.9 % [facility] Eos % 0.7 % [facility] AUTO BASO % 0.3 % [facility] NEUTROPHIL ABS # 3.5 1.7 - 6.5 x10 3/ul [facility] Immature Gran # 0.0 0.0 - 0.1 x10 3/ul [facility] Absolute Lymphs (auto) 3.3 0.8 - 3.3 x10 3/ul [facility] Absolute Monos (auto) 0.5 0.2 - 0.8 x10 3/ul [facility] Absolute Eos (auto) 0.1 0.0 - 0.5 x10 3/ul [facility] BASOPHIL ABS # 0.0 0.0 - 0.1 x10 3/ul [facility] Nucleat RBC Rel Count 0.0 #/100WBC [facility] NRBC abs 0.00 0.00 - 0.01 x10 3/ul [facility] Absolute Neutrophils 3,500 200 - 8,000 /ul [facility] 11/10/2018 11:2 1 AM CDT 11/10/2018 12:47 PM CDT Narrative Resulting Agency Comment ER us Candi Mcgovern DO LAB BLOOD ORDERABLES Final Resu lt [facility] [address] [place] [address], [facility] [phone] documented in this encounter Visit Diagnoses Not on filedocumented in this encounter Care Teams Under Cutter Relationship Specialty Start Date End Date Ruma Shrestha NP PCP - General 05/30/18 documented as of this encounter
--- OUTSIDE RECORDS SUMMARY | 2024-02-25 20:50 | XMS_ITS | Encounter Summary ---
Author Organization [facility] Healthcare Address [address] [place] [address] Care Team Providers Care Scene Painter Name Role Phone Unavailable Primary Care Provider Unavailabl e Encounter Details Date Type Department Care Team (Latest Contact Info) Description 06/09/2015 10:11 AM CDT Hospital Encounter [facility] Bashir Mott MD [address] [place] [address] Epigastric pain; Gastro-esophageal reflux disease without esophagitis; Gastrointestinal hemorrhage Social History Tobacco Use Types Packs/Day Years Used Date Smoking Tobacco: Never Assessed Comments Unknown Sex and Gender Information Value Date Recorded Sex Assigned at Not on file 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 THIS IS AN ELECTRONICALLY VERIFIED REPORT 06/09/2015 1:10 PM: ??Dickson Victoria M.D. ?? Dickson Victoria M.D. KIERRA:kierra 01:10 PM 01:10 PM BM [EOD] Narrative 06/09/2015 1:14 PM CDT EXAMINATION: ??Right upper quadrant ultrasound. HISTORY: Epigastric pain gastroesophageal reflux disease. ??6 months duration. TECHNIQUE: ??Garner-scale color duplex ultrasound in the right upper quadrant. ?? COMPARISON: None available FINDINGS: ??The liver is not enlarged with normal echotexture. ??There is no intrahepatic biliary ductal dilatation. Portal venous flow is normally directed. The gallbladder wall measures normal thickness. ??There are no gallstones. ??No pericholecystic fluid. ??Sonographic Joy's sign is negative. The common bile duct measures4.4 mm in diameter. Visualized portions of the pancreas are unremarkable. The right kidney is normal in echotexture and measures 12.8 cm. ??There is no hydronephrosis. Procedure Note Provider, MD Graham - 07/02/2020 EXAMINATION: Right upper quadrant ultrasound. HISTORY: Epigastric pain gastroesophageal reflux disease. 6 monthsduration. TECHNIQUE: Garner-scale color duplex ultrasound in the right upperquadrant. COMPARISON: None available FINDINGS: The liver is not enlarged with normal echotexture. There is no intrahepatic biliary ductal dilatation. Portal venous flow is normally directed. The gallbladder wall measures normal thickness. There are no gallstones. No pericholecystic fluid. Sonographic Joy's sign isnegative. The common bile duct measures4.4 mm in diameter. Visualized portions of the pancreas are unremarkable. The right kidney is normal in echotexture and measures 12.8 cm. There isno hydronephrosis. IMPRESSION: Normal right upper quadrant ultrasound. THIS IS AN ELECTRONICALLY VERIFIED REPORT 06/09/2015 1:10 PM: Dickson Victoria M.D. Dickson Victoria M.D. KIERRA:kierra 01:10 PM 01:[address] [facility] [EOD] Bashir Mott MD [facility] PROCEDURES Final Result documented in this encounter Visit Diagnoses Diagnosis Epigastric pain Abdominal pain, epigastric Gastro-esophageal reflux disease without esophagitis Gastrointestinal hemorrhage Unspecified, hemorrhage of gastrointestinal tract documented in this encounter
--- OUTSIDE RECORDS SUMMARY | 2024-02-25 20:50 | XMS_ITS | Encounter Summary ---
Author Organization [facility] Healthcare Address [address] [place] [address] Care Team Providers Care Honey Extractor Name Role Phone Unavailable Primary Care Provider Unavailabl e Encounter Details Date Type Department Care Team (Latest Contact Info) Description 09/02/2017 1:43 PM CDT - 09/02/2017 3:11 PM CDT Hospital Encounter [facility] Merlin Otero MD [address] [place] [address] Acute upper respiratory infection; Essential (primary) hypertension; Type 2 diabetes mellitus without complications (CMS/HCC); Allergy status to other drugs, medicaments and biological substances status Social History Tobacco Use Types Packs/Day Years Used Date Smoking Tobacco: Never Assessed Comments Unknown Sex and Gender Information Value Date Recorded Sex Assigned at Not on file 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 Gender Identity Not on file Sexual Orientation Not on file documented as of this encounter Last Filed Vital Signs Vital Sign Reading Time Taken Comments Blood Pressure 140/88 09/02/2017 1:48 PM CDT Pulse 81 09/02/2017 1:48 PM CDT Temperature 36.7 ??C (98.1 ??F) 09/02/2017 1:48 PM CD T Respiratory Rate - - Oxygen Saturation 98% 09/02/2017 1:48 PM CDT Inhaled Oxygen Concentration - - Weight 98 kg (216 lb) 09/02/2017 1:48 PM CDT Height 157.5 cm (5' 2 ) 09/02/2017 1:48 PM CDT Body Mass Index 39.51 09/02/2017 1:48 PM CDT documented in this encounter Plan of Treatment Not on file documented as of this encounter Procedures Procedure Name Priority Date/Time Associated Diagnosis Comments XR CHEST PA LATERAL 2 VIEWS Routine 09/02/2017 12:00 AM CDT documented in this encounter Results * XR Chest Pa Lateral 2 Views (09/02/2017 12:00 AM CDT) Anatomical Region Laterality Modality Body, Chest N/A Radiographic Juanita ging 09/02/2017 Impressions 09/02/2017 2:47 PM CDT ?? 1.No acute cardiopulmonary process is identified. THIS IS AN ELECTRONICALLY VERIFIED FINAL REPORT 09/02/2017 2:44 PM - Electronically signed by Ivan Child D.O. : D: ??09/02/2017 2:44 PM T: ??09/02/2017 2:44 PM Report ID: [id number] Reading Location: ??[id number] [EOD] Narrative 09/02/2017 2:47 PM CDT EXAM DESCRIPTION: ??Chest 2 Views REASON FOR STUDY: ??sob x 1 day / hx of smoker and bronchitis TECHNIQUE: ??Frontal and lateral radiographic views of the chest acquired. COMPARISON: ??Most recently 08/22/2017. FINDINGS: LUNGS/PLEURA: No focal consolidation or pneumothorax. No pleural effusion. HEART/MEDIASTINUM: Heart size is normal. Normal mediastinal and hilar contours. HARDWARE/LINES/TUBES: None. BONES: No acute findings. OTHER: No other significant finding. Procedure Note Provider, MD Graham - 07/02/2020 EXAM DESCRIPTION: Chest 2 Views REASON FOR STUDY: sob x 1 day / hx of smoker and bronchitis TECHNIQUE: Frontal and lateral radiographic views of the chestacquired. COMPARISON: Most recently 08/22/2017. FINDINGS: LUNGS/PLEURA: No focal consolidation or pneumothorax. No pleuraleffusion. HEART/MEDIASTINUM: Heart size is normal. Normal mediastinal and hilarcontours. HARDWARE/LINES/TUBES: None. BONES: No acute findings. OTHER: No other significant finding. IMPRESSION: 1.No acute cardiopulmonary process is identified. THIS IS AN ELECTRONICALLY VERIFIED FINAL REPORT 09/02/2017 2:44 PM - Electronically signed by Ivan Child D.O. : Report ID: [id number] Reading Location: [place] [id number] [EOD] Betsy Marcelo ASSURANCE SERVICES MANAGER HEALTH CARE IMG XR PROCEDURES Final Res ult documented in this encounter Visit Diagnoses Diagnosis Acute upper respiratory infection Acute upper respiratory infections of unspecified site Essential (primary) hypertension Unspecified essential hypertension Type 2 diabetes mellitus without complications (CMS/HCC) (HCC) Allergy status to other drugs, medicaments and biological substances status documented in this encounter
--- OUTSIDE RECORDS SUMMARY | 2024-02-25 20:50 | XMS_ITS | Encounter Summary ---
Author Organization [facility] Healthcare Address [address] [place] [address] Care Team Providers Care Aircraft Mechanic Armament Name Role Phone Unavailable Primary Care Provider Unavailabl e Encounter Details Date Type Department Care Team (Latest Contact Info) Description 07/13/2017 2:06 PM CDT - 07/13/2017 3:05 PM CDT Hospital Encounter [facility] Easton Lopez Acute pharyngitis; Postnasal drip; Essential (primary) hypertension; Type 2 diabetes mellitus without complications (CMS/HCC); Allergy status to other drugs, medicaments and biological substances status; long-term current use of oral hypoglycemic drug; Other custodial (current) drug therapy Social History Tobacco Use Types Packs/Day Years Used Date Smoking Tobacco: Never Assessed Comments Unknown Sex and Gender Information Value Date Recorded Sex Assigned at Not on file 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 Gender Identity Not on file Sexual Orientation Not on file documented as of this encounter Last Filed Vital Signs Vital Sign Reading Time Taken Comments Blood Pressure 148/106 07/13/2017 2:08 PM CDT Pulse 87 07/13/2017 2:08 PM CDT Temperature 36.9 ??C (98.4 ??F) 07/13/2017 2:08 PM CD T Respiratory Rate - - Oxygen Saturation 98% 07/13/2017 2:08 PM CDT Inhaled Oxygen Concentration - - Weight 96.6 kg (213 lb) 07/13/2017 2:08 PM CDT Height 157.5 cm (5' 2 ) 07/13/2017 2:08 PM CDT Body Mass Index 38.96 07/13/2017 2:08 PM CDT documented in this encounter Plan of Treatment Not on file documented as of this encounter Visit Diagnoses Diagnosis Acute pharyngitis Postnasal drip Essential (primary) hypertension Unspecified essential hypertension Type 2 diabetes mellitus without complications (CMS/HCC) (HCC) Allergy status to other drugs, medicaments and biological substances status long-term current use of oral hypoglycemic drug Other bench worker binding (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
--- OUTSIDE RECORDS SUMMARY | 2024-02-25 20:50 | XMS_ITS | Encounter Summary ---
Author Organization [facility] Healthcare Address [address] [place] [address] Care Team Providers Care Branch Operations Specialist Name Role Phone Unavailable Primary Care Provider Unavailabl e Encounter Details Date Type Department Care Team (Latest Contact Info) Description 10/03/2017 3:32 AM CDT - 10/03/2017 8:21 AM CDT Hospital Encounter [facility] Maria Luisa Vaca MD [address] [place] [address] Other chest pain; Paresthesia of skin; Essential (primary) hypertension; Type 2 diabetes mellitus without complications (CMS/HCC); Gastro-esophageal reflux disease without esophagitis; Allergy status to other drugs, medicaments and biological substances status; Other residential (current) drug therapy; Family history of diabetes mellitus; Family history of stroke; Family history of ischemic heart disease and other diseases of the circulatory system Social History Tobacco Use Types Packs/Day Years Used Date Smoking Tobacco: Never Assessed Comments Unknown Sex and Gender Information Value Date Recorded Sex Assigned at Not on file 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 Gender Identity Not on file Sexual Orientation Not on file documented as of this encounter Last Filed Vital Signs Vital Sign Reading Time Taken Comments Blood Pressure 133/85 10/03/2017 3:36 AM CDT Pulse 84 10/03/2017 3:36 AM CDT Temperature 36.9 ??C (98.5 ??F) 10/03/2017 3:36 AM CD T Respiratory Rate - - Oxygen Saturation 98% 10/03/2017 3:36 AM CDT Inhaled Oxygen Concentration - - Weight 100.4 kg (221 lb 5.5 oz) 10/03/2017 3:36 AM CDT Height 157.5 cm (5' 2 ) 10/03/2017 3:36 AM CDT Body Mass Index 40.48 10/03/2017 3:36 AM CDT documented in this encounter Plan of Treatment Not on file documented as of this encounter Procedures Procedure Name Priority Date/Time Associated Diagnosis Comments TROPONIN I Routine 10/03/2017 6:39 AM CDT HCG, BLOOD, QUANTITATIVE Routine 10/03/2017 6:39 AM CDT TNI WITH LIPID PANEL Routine 10/03/2017 3:57 AM CDT CBC WITH AUTO DIFFERENTIAL Routine 10/03/2017 3:57 AM CDT CRP (ACUTE PHASE) Routine 10/03/2017 3:5 7 AM CDT B-TYPE NATRIURETIC PEPTIDE Routine 10/03/2017 3:57 AM CDT MAGNESIUM Routine 10/03/2017 3:57 AM CDT LIPASE Routine 10/03/2017 3:57 AM CDT CREATINE KINASE (CK), TOTAL Routine 10/03/2017 3:57 AM CDT COMPREHENSIVE METABOLIC PANEL Routine 10/03/2017 3:57 AM CDT XR CHEST PA LATERAL 2 VIEWS Routine 10/03/2017 12:00 AM CDT documented in this encounter Results * hCG, blood, quantitative (10/03/2017 6:39 AM CDT) Beta HCG, Quant < 0.1 0.0 - 4.0 mIU/mL 10/03/2017 7:15 AM CDT [facility] HISTORICAL RESULTS Comment: Female Reference Intervals(): ??Negative ? < 5.0 mIU/mL ??Indeterminate ??5.0-25.0 mIU/mL ??Positive ? > 25.0 mIU/mL Values between 5.0 and 25.0 mIU/mL are indeterminate for . Repeat testing of indeterminate results is suggested in 72 hours. Plasma hCG levels cannot be used to date a . In normal , values should double every 48-72 hours for the first 6 weeks.In postmenopausal women, an hCG level up to 14.0 mIU/mL can be considered normal. This result is not interpretable as a tumor marker in females. 10/03/2017 6:39 AM CDT 10/03/2017 6:42 AM CDT Maria Luisa Adams MD LAB BLOOD ORDERABLES Final Result Performing Organization Address [facility] de Phone Number [facility] HISTORICAL RESULTS * Troponin I (10/03/2017 6:39 AM CDT) Pathologist [facility] Troponin I < 0.300 0.000 - 0.300 ng/mL 10/03/2017 7:09 AM CDT [facility] HISTORICAL RESULTS Comment: Reference using ANGÉLICA Chemiluminescence ? Negative: Repeat in 4-6 hours as indicated. 10/03/2017 6:39 AM CDT 10/03/2017 6:42 AM CDT Narrative [facility] HISTORICAL RESULTS - 10/03/2017 7:09 AM CDT PREVIOUSLY DRAWN TOO SOON - REORDERING FOR ORIGINAL TIME Historical Provider LAB BLOOD ORDERABLES Radha l Result Performing Organization Address [facility] Co de Phone Number [facility] HISTORICAL RESULTS * (ABNORMAL) CRP (acute phase) (10/03/2017 3:57 AM CDT) Pathologist [facility] C-Reactive Protein 6.2(H) 0.0 - 4.9 mg/L 10/03/2017 5:55 AM CDT [facility] HISTORICAL RESULTS 10/03/2017 3:57 AM CDT 10/03/2017 4:02 AM CDT us Wagner Bowen DO LAB BLOOD ORDERABLES Final Result Performing Organization Address [facility] Co de Phone Number [facility] HISTORICAL RESULTS * Magnesium (10/03/2017 3:57 AM CDT) Pathologist [facility] Magnesium 1.9 1.6 - 2.6 mg/dL 10/03/2017 5:55 AM CDT [facility] HISTORICAL RESULTS Comment:Magnesium sulfate th erapy: 3.0-9.1 mg/dL 10/03/2017 3:57 AM CDT 10/03/2017 4:02 AM CDT Wagner Bowen DO LAB BLOOD ORDERABLES Final Result Performing Organization Address [facility] Phone Number [facility] HISTORICAL RESULTS * B-type natriuretic peptide (10/03/2017 3:57 AM CDT) [facility] B-Natriuretic Peptide 9 0 - 100 pg/mL 10/03/2017 6:08 AM CDT [facility] HISTORICAL RESULTS Comment: B Natriutetic Peptide METHOD: [...] hours of bolus or infusion of nesiritide. 10/03/2017 3:57 AM CDT 10/03/2017 4:02 AM CDT Wagner Bowen DO LAB BLOOD ORDERABLES Final Result Performing Organization Address [facility] Co de Phone Number [facility] HISTORICAL RESULTS * Creatine kinase (CK), total (10/03/2017 3:57 AM CDT) [facility] Creatine Kinase 111 20 - 180 U/L 10/03/2017 5:55 AM CDT [facility] HISTORICAL RESULTS 10/03/2017 3:57 AM CDT 10/03/2017 4:02 AM CDT Wagner Bowen DO LAB BLOOD ORDERABLES Final Result Performing Organization Address [facility]/ZIP Co de Phone Number [facility] HISTORICAL RESULTS * Lipase (10/03/2017 3:57 AM CDT) Lipase 31 13 - 60 U/L 10/03/2017 5:55 AM T [facility] HISTORICAL RESULTS 10/03/2017 3:57 AM CDT 10/03/2017 4:02 AM CDT Wagner Bowen DO LAB BLOOD ORDERABLES Final Result Performing Organization Address [facility] de Phone Number [facility] HISTORICAL RESULTS * TNI with LIPID PANEL (10/03/2017 3:57 AM CDT) Pathologist [facility] Troponin I < 0.300 0.000 - 0.300 ng/mL Comment: Reference using ANGÉLICA Chemiluminescence ? Negative: Repeat in 4-6 hours as indicated. Triglycerides 61 0 - 149 mg/dL Comment: National Lipid Association/NCEP Guidelines: ?? Normal ?< 150 mg/dL ?? Borderline high ?? 150-199 mg/dL ?? High ?200-499 mg/dL ?? Very High ? >=500 mg/dL Cholesterol 149 0 - 199 mg/dL Comment: National Lipid Association/NCEP Guidelines: Desirable ? < 200 mg/dL Borderline high: ??200-239 mg/dL High Risk: ?>=240 mg/dL HDL Cholesterol 35 mg/dL 8 4:34 AM T [facility] HISTORICAL RESULTS Comment: Reference Ranges: ? Males: >=40 mg/dL ? Females: >=50 mg/dL LDL Cholesterol, Calc 102 0 - 129 mg/dL 10/03/2017 4:34 AM T [facility] HISTORICAL RESULTS Comment: National Lipid Association/NCEP Guidelines: ??Optimal ? < 100 mg/dL ??Near Optimal ?100-129 mg/dL ??Borderline high 130-159 mg/dL ??High ?>=160 mg/dL Cholesterol/HDL Ratio 4.3 10/03/2017 4:34 AM T [facility] HISTORICAL RESULTS Comment: Optimal ??< 3.5:1 High ? > 5:1 10/03/2017 3:57 AM CDT 10/03/2017 4:02 AM CDT Wagner Bowen DO LAB BLOOD ORDERABLES Final Result [facility] HISTORICAL RESULTS * (ABNORMAL) Comprehensive metabolic panel (10/03/2017 3:57 AM CDT) Sodium 138 135 - 145 mmol/L 10/03/2017 4:34 AM T [facility] HISTORICAL RESULTS Potassium 3.7 3.3 - 5.1 mmol/L 10/03/2017 4:34 AM [facility] Chloride 105 96 - 108 mmol/L 10/03/2017 4:34 AM T [facility] HISTOR[facility] RESULTS Carbon Dioxide 23 22 - 32 mmol/L 10/03/2017 4:34 AM T [facility] HISTORICAL RESULTS Anion Gap 10 7 - 16 10/03/2017 4:34 AM [facility] Glucose 146(H) 70 - 100 mg/dL 10/03/2017 4:34 AM T [facility] HISTORICAL RESULTS BUN 10 6 - 20 mg/dL 10/03/2017 4:34 AM T [facility] HISTOR[facility] RESULTS Creatinine 0.6 0.5 - 1.1 mg/dL 10/03/2017 4:34 AM [facility] [employer] [facility] Comment: NOTE: Estimated GFR (Cockroft-Gault) will NOT be calculated unless patient Height and Weight were entered. Also, Kidney Disease Stage (GFR) and Estimated GFR (Cockroft-Gault) will NOT be calculated if Creatinine result is <0.2. Kidney Disease Stage > 90 mL/MIN 10/03/2017 4:34 AM [facility] [employer] [facility] HISTORICAL RESULTS Comment: NOTE; ??The GFR is [...] or on dialysis @ Est GFR (Cockcroft-G) 142 ml/MIN 10/03/2017 4:34 AM [facility] [employer] HISTORICAL RESULTS Comment: Estimated GFR(Cockroft-Gault)is used to calculate patient medication dosage Calcium 9.5 8.6 - 10.0 mg/dL Total Protein 7.3 6.4 - 8.3 g/dL 10/03/2017 4:34 AM [facility] [employer] [facility] HISTORICAL RESULTS Albumin 4.3 3.5 - 5.2 g/dL 10/03/2017 4:34 AM [facility] [employer] HISTORICAL RESULTS Globulin 3.0 2.3 - 3.5 gm/dL 10/03/2017 4:34 AM T [facility] HISTORICAL RESULTS Albumin/Globulin Ratio 1.4 1.1 - 1.8 10/03/2017 4:34 AM T [facility] HISTORICAL RESULTS Total Bilirubin < 0.2 0.0 - 1.2 mg/dL 10/03/2017 4:34 AM T [facility] HISTORICAL RESULTS AST 14 0 - 32 U/L 10/03/2017 4:34 AM T [facility] HISTORICAL RESULTS ALT 17 0 - 33 U/L 10/03/2017 4:34 AM T [facility] HISTORICAL RESULTS Alkaline Phosphatase 73 35 - 104 U/L 10/03/2017 4:34 AM T [facility] HISTORICAL RESULTS 10/03/2017 3:57 AM CDT 10/03/2017 4:02 AM CDT Wagner Bowen DO LAB BLOOD ORDERABLES Final Result [facility] HISTORICAL RESULTS * (ABNORMAL) CBC with auto differential (10/03/2017 3:57 AM CDT) WBC 6.3 3.5 - 10.5 x10 3/ul RBC 3.91 3.76 - 4.80 x10 6/ul 10/03/2017 4:07 AM T [facility] HISTORICAL RESULTS Hemoglobin 9.8(L) 11.0 - 15.0 g/dL Hct 30.1(L) 33.0 - 43.0 % MCV 77.0(L) 80.0 - 97.0 fl 10/03/2017 4:07 AM T [facility] HISTORICAL RESULTS MCH 25.1(L) 27.0 - 31.2 pg 10/03/2017 4:07 AM T [facility] HISTORICAL RESULTS MCHC 32.6 31.8 - 35.4 g/dl RDW 14.8 11.6 - 14.8 % Plt Count 234 150 - 450 X10 3/ul MPV 12.9(H) 7.4 - 10.4 fl Neut % 46.2 37.0 - 85.0 % Immature Gran % 0.2 0.0 - 3.0 % Lymph % 43.8 5.0 - 45.0 % [place] % 8.0 3.0 - 15.0 % Eos % 1.0 0.0 - 7.0 % Baso % 0.8 0.0 - 2.0 % Absolute Neuts (auto) 2.9 1.7 - 8.7 x10 3/ul Immature Gran # 0.0 0.0 - 0.3 x10 3/ul Absolute Lymphs (auto) 2.7 0.2 - 4.6 x10 3/ul Absolute Monos (auto) 0.5 0.1 - 1.5 x10 3/ul Absolute Eos (auto) 0.1 0.0 - 0.7 x10 3/ul Absolute Basos (auto) 0.1 0.0 - 0.2 x10 3/ul Nucleat RBC Rel Count 0.0 0 - 3 #/100WBC 10/03/2017 4:07 AM CDT [facility] HISTORICAL RESULTS Absolute Nucleated RBC 0.00 x10 3/ul 10/03/2017 4:07 AM CDT [facility] HISTORICAL RESULTS Absolute Neutrophils 2900 200 - 8000 /ul 10/03/2017 4:07 AM CDT [facility] HISTORICAL RESULTS 10/03/2017 3:57 AM CDT 10/03/2017 4:02 AM CDT Wagner Bowen DO LAB BLOOD ORDERABLES Final Result [facility] HISTORICAL RESULTS * XR Chest Pa Lateral 2 Views (10/03/2017 12:00 AM CDT) Anatomical Region Laterality Modality Body, Chest N/A Radiographic Juanita ging 10/03/2017 Impressions 10/03/2017 4:29 AM CDT ??No acute cardiopulmonary abnormality. THIS IS AN ELECTRONICALLY VERIFIED FINAL REPORT 10/03/2017 4:25 AM - Electronically signed by Rene Urban M.D., MA D: ??10/03/2017 4:25 AM T: Report ID: [id number] Reading Location: ??[id number] [EOD] Narrative 10/03/2017 4:29 AM CDT EXAM DESCRIPTION: ??Chest 2 Views REASON FOR STUDY: ??Midsternal chest pain onset 30 min prior to arrival. TECHNIQUE: ??Frontal and lateral radiographic views of the chest acquired. COMPARISON: ??Chest x-ray September 02, 2017 FINDINGS: LUNGS/PLEURA: No focal consolidation or pneumothorax. No pleural effusion. HEART/MEDIASTINUM: Heart size is normal. Normal mediastinal and hilar contours. HARDWARE/LINES/TUBES: None. BONES: No acute findings. OTHER: No other significant finding. Procedure Note Provider, Graham, - 07/02/2020 EXAM DESCRIPTION: Chest 2 Views REASON FOR STUDY: Midsternal chest pain onset 30 min prior to arrival. TECHNIQUE: Frontal and lateral radiographic views of the chestacquired. COMPARISON: Chest x-ray September 02, 2017 FINDINGS: LUNGS/PLEURA: No focal consolidation or pneumothorax. No pleuraleffusion. HEART/MEDIASTINUM: Heart size is normal. Normal mediastinal and hilarcontours. HARDWARE/LINES/TUBES: None. BONES: No acute findings. OTHER: No other significant finding. IMPRESSION: No acute cardiopulmonary abnormality. THIS IS AN ELECTRONICALLY VERIFIED FINAL REPORT 10/03/2017 4:25 AM - Electronically signed by Rene Urban M.D., MA T: Report ID: [id number] Reading Location: [place] [id number] [EOD] Wagner Bowen DO IMG XR PROCEDURES Final Res ult documented in this encounter Visit Diagnoses Diagnosis Other chest pain Paresthesia of skin Essential (primary) hypertension Unspecified essential hypertension Type 2 diabetes mellitus without complications (CMS/HCC) (HCC) Gastro-esophageal reflux disease without esophagitis Allergy status to other drugs, medicaments and biological substances status Other residential (current) drug therapy Family history of diabetes mellitus Family history of stroke Family history of stroke (cerebrovascular) Family history of ischemic heart disease and other diseases of the circulatory system documented in this encounter
--- OUTSIDE RECORDS SUMMARY | 2024-02-25 20:50 | XMS_ITS | Encounter Summary ---
Author Organization [facility] Healthcare Address [address] [place] [address] Care Team Providers Care Facility Technician Name Role Phone Unavailable Primary Care Provider Unavailabl e Encounter Details Date Type Department Care Team (Latest Contact Info) Description 08/22/2017 11:47 AM CDT - 08/22/2017 5:13 PM CDT Hospital Encounter [facility] Esau Campoverde Jr., MD [facility] [place] [address] Palpitations; Chest pain; Essential (primary) hypertension; Gastro-esophageal reflux disease without esophagitis; Type 2 diabetes mellitus without complications (CMS/HCC); Cigarette nicotine dependence, uncomplicated; care home current use of oral hypoglycemic drug; Other oysterman (current) drug therapy Social History Tobacco Use Types Packs/Day Years Used Date Smoking Tobacco: Never Assessed Comments Unknown Sex and Gender Information Value Date Recorded Sex Assigned at Not on file 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 Gender Identity Not on file Sexual Orientation Not on file documented as of this encounter Last Filed Vital Signs Vital Sign Reading Time Taken Comments Blood Pressure 135/85 08/22/2017 11:48 AM CDT Pulse 82 08/22/2017 11:48 AM CDT Temperature 36.8 ??C (98.3 ??F) 08/22/2017 11:48 AM C DT Respiratory Rate - - Oxygen Saturation 100% 08/22/2017 11:48 AM CDT Inhaled Oxygen Concentration - - Weight 96.6 kg (213 lb) 08/22/2017 11:48 AM CDT Height 160 cm (5' 3 ) 08/22/2017 11:48 AM CDT Body Mass Index 37.73 08/22/2017 11:48 AM CDT documented in this encounter Plan of Treatment Not on file documented as of this encounter Procedures Procedure Name Priority Date/Time Associated Diagnosis Comments TROPONIN I Routine 08/22/2017 4:07 PM CDT THYROID FUNCTION CASCADE Routine 08/22/2017 1:44 PM CDT D-DIMER, QUANTITATIVE Routine 08/22/2017 1:44 PM CDT MAGNESIUM Routine 08/22/2017 1:44 PM CDT CBC WITH AUTO DIFFERENTIAL Routine 08/22/2017 12:36 PM CDT B-TYPE NATRIURETIC PEPTIDE Routine 08/22/2017 12:36 PM CDT COMPREHENSIVE METABOLIC PANEL Routine 08/22/2017 12:36 PM CDT TROPONIN I Routine 08/22/2017 12:35 PM CDT XR CHEST PA LATERAL 2 VIEWS Routine 08/22/2017 12:00 AM CDT documented in this encounter Results * Troponin I (08/22/2017 4:07 PM CDT) Troponin I < 0.300 0.000 - 0.300 ng/mL 08/22/2017 4:36 PM CDT [facility] HISTORICAL RESULTS Comment: Reference using ANGÉLICA Chemiluminescence ? Negative: Repeat in 4-6 hours as indicated. 08/22/2017 4:07 PM CDT 08/22/2017 4:09 PM CDT us Esau Machuca Jr., MD LAB BLOOD ORDERABLE S Final Result [facility] HISTORICAL RESULTS * Magnesium (08/22/2017 1:44 PM CDT) Pathologist [facility] Magnesium 1.8 1.6 - 2.6 mg/dL 08/22/2017 2:17 PM CDT [facility] HISTORICAL RESULTS Comment:Magnesium sulfate th erapy: 3.0-9.1 mg/dL 08/22/2017 1:44 PM CDT 08/22/2017 1:49 PM CDT Esau Machuca Jr., MD LAB BLOOD ORDERABLE S Final Result Performing Organization Address [facility] Number [facility] HISTORICAL RESULTS * TSH reflex to free T4 (08/22/2017 1:44 PM CDT) [facility] TSH W REFLEX TO FT4 0.75 0.27 - 4.20 uIU/mL 08/22/2017 2:24 PM CDT [facility] HISTORICAL RESULTS 08/22/2017 1:44 PM CDT 08/22/2017 1:49 PM CDT Esau Machuca Jr., MD LAB BLOOD ORDERABLE S Final Result Performing Organization Address [facility] Number [facility] HISTORICAL RESULTS * D-dimer, quantitative (08/22/2017 1:44 PM CDT) [facility] D-Dimer, Quantitative < 0.27 0.00 - 0.50 FEUug/ml 08/22/2017 2:10 PM CDT [facility] HISTORICAL RESULTS Comment: Studies indicate that a D-Dimer level of <0.50 FEUug/ml has a >95% negative predictive value for DVT,DIC,PE and other embolus conditions. ??Levels >0.50 FEUug/ml may be present in a wide variety of conditions and should not be considered diagnostic of any disease state. 08/22/2017 1:44 PM CDT 08/22/2017 1:49 PM CDT Esau Machuca Jr., MD LAB BLOOD ORDERABLE S Final Result Performing Organization Address [facility] Phone Number [facility] HISTORICAL RESULTS * (ABNORMAL) Comprehensive metabolic panel (08/22/2017 12:36 PM CDT) Sodium 143 135 - 145 mmol/L Potassium 3.5 3.3 - 5.1 mmol/L Chloride 103 96 - 108 mmol/L Carbon Dioxide 24 22 - 32 mmol/L Anion Gap 16 7 - 16 Glucose 207(H) 70 - 100 mg/dL BUN 9 6 - 20 mg/dL Creatinine 0.8 0.5 - 1.1 mg/dL Comment: NOTE: Estimated [...] or on dialysis @ Est GFR (Cockcroft-G) 107 ml/MIN Comment: Estimated GFR(Cockroft-Gault)is used to calculate patient medication dosage Calcium 10.1(H) 8.6 - 10.0 mg/dL Total Protein 7.7 6.4 - 8.3 g/dL Albumin 4.4 3.5 - 5.2 g/dL Globulin 3.3 2.3 - 3.5 gm/dL Albumin/Globulin Ratio 1.3 1.1 - 1.8 Total Bilirubin < 0.2 0.0 - 1.2 mg/dL AST 15 0 - 32 U/L ALT 21 0 - 33 U/L Alkaline Phosphatase 87 35 - 104 U/L 08/22/2017 12:3 6 PM CDT 08/22/2017 12:50 PM CDT us Myla Rivera THERMODYNAMICIST LAB BLOOD ORDERABLES Final R esult [facility] HISTORICAL RESULTS * (ABNORMAL) CBC with auto differential (08/22/2017 12:36 PM CDT) WBC 7.7 3.5 - 10.5 x10 3/ul RBC 4.44 3.76 - 4.80 x10 6/ul 08/22/2017 12:53 PM CDT [facility] HISTORICAL RESULTS Hemoglobin 11.3 11.0 - 15.0 g/dL Hct 35.0 33.0 - 43.0 % 08/22/2017 12:53 PM CDT [facility] HISTORICAL RESULTS MCV 78.8(L) 80.0 - 97.0 fl MCH 25.5(L) 27.0 - 31.2 pg 08/22/2017 12:53 PM CDT [facility] HISTORICAL RESULTS MCHC 32.3 31.8 - 35.4 g/dl 08/22/2017 12:53 PM CDT [facility] HISTORICAL RESULTS RDW 15.0(H) 11.6 - 14.8 % 08/22/2017 12:53 PM CDT [facility] HISTORICAL RESULTS Plt Count 246 150 - 450 X10 3/ul 08/22/2017 12:53 PM CDT [facility] HISTORICAL RESULTS MPV 13.4(H) 7.4 - 10.4 fl 08/22/2017 12:53 PM CDT [facility] HISTORICAL RESULTS Neut % 67.2 37.0 - 85.0 % 08/22/2017 12:53 PM CDT [facility] HISTORICAL RESULTS Immature Gran % 0.4 0.0 - 3.0 % 08/22/2017 12:53 PM CDT [facility] HISTORICAL RESULTS Lymph % 26.1 5.0 - 45.0 % [place] % 5.1 3.0 - 15.0 % Eos % 0.8 0.0 - 7.0 % 08/22/2017 12:53 PM CDT [facility] HISTORICAL RESULTS Baso % 0.4 0.0 - 2.0 % 08/22/2017 12:53 PM CDT [facility] HISTORICAL RESULTS Absolute Neuts (auto) 5.1 1.7 - 8.7 x10 3/ul Immature Gran # 0.0 0.0 - 0.3 x10 3/ul Absolute Lymphs (auto) 2.0 0.2 - 4.6 x10 3/ul Absolute Monos (auto) 0.4 0.1 - 1.5 x10 3/ul Absolute Eos (auto) 0.1 0.0 - 0.7 x10 3/ul Absolute Basos (auto) 0.0 0.0 - 0.2 x10 3/ul Nucleat RBC Rel Count 0.0 0 - 3 #/100WBC Absolute Nucleated RBC 0.00 x10 3/ul Absolute Neutrophils 5100 200 - 8000 /ul 08/22/2017 12:3 6 PM CDT 08/22/2017 12:50 PM CDT us Myla Rivera THERMODYNAMICIST LAB BLOOD ORDERABLES Final R esult [facility] HISTORICAL RESULTS * B-type natriuretic peptide (08/22/2017 12:36 PM CDT) B-Natriuretic Peptide 20 0 - 100 pg/mL Comment: B Natriutetic Peptide METHOD: ??[employer] XP using YANNA. Decision threshold of 100 [...] hours of bolus or infusion of nesiritide. 08/22/2017 12:3 6 PM CDT 08/22/2017 12:50 PM CDT Myla Rivera THERMODYNAMICIST LAB BLOOD ORDERABLES Final R esult Performing Organization Address City/[facility] Co de Phone Number [facility] HISTORICAL RESULTS * Troponin I (08/22/2017 12:35 PM CDT) [facility] Troponin I < 0.300 0.000 - 0.300 ng/mL 08/22/2017 1:15 PM CDT [facility] HISTORICAL RESULTS Comment: Reference using ANGÉLICA Chemiluminescence ? Negative: Repeat in 4-6 hours as indicated. 08/22/2017 12:3 5 PM CDT 08/22/2017 12:50 PM CDT Myla Rivera THERMODYNAMICIST LAB BLOOD ORDERABLES [facility] Performing Organization Address [facility] Co de Phone Number [facility] HISTORICAL RESULTS * XR Chest Pa Lateral 2 Views (08/22/2017 12:00 AM CDT) Anatomical Region Laterality Modality Body, Chest N/A Radiographic Juanita ging 08/22/2017 Impressions 08/22/2017 12:35 PM CDT ??No acute cardiopulmonary abnormality. THIS IS AN ELECTRONICALLY VERIFIED FINAL REPORT 08/22/2017 12:31 PM - Electronically signed by Brian Parham M.D. HL: HL D: ??08/22/2017 12:31 PM T: ??08/22/2017 12:31 PM Report ID: [id number] Reading Location: ??[id number] [EOD] Narrative 08/22/2017 12:35 PM CDT EXAM DESCRIPTION: ??Chest 2 Views REASON FOR STUDY: ??Chest pain for 2 days. ??Onset of rapid heartbeat today. ?? Left-sided chest pain. TECHNIQUE: ??Frontal and lateral radiographic views of the chest acquired. COMPARISON: ??Multiple prior chest radiographs dating back to 12/05/2014 FINDINGS: LUNGS/PLEURA: No focal consolidation or pneumothorax. No pleural effusion. HEART/MEDIASTINUM: Heart size is normal. Normal mediastinal and hilar contours. HARDWARE/LINES/TUBES: None. BONES: No acute findings. OTHER: No other significant finding. Procedure Note Provider, MD Graham - 07/02/2020 EXAM DESCRIPTION: Chest 2 Views REASON FOR STUDY: Chest pain for 2 days. Onset of rapid heartbeat today. Left-sided chest pain. TECHNIQUE: Frontal and lateral radiographic views of the chestacquired. COMPARISON: Multiple prior chest radiographs dating back to 12/05/2014 FINDINGS: LUNGS/PLEURA: No focal consolidation or pneumothorax. No pleuraleffusion. HEART/MEDIASTINUM: Heart size is normal. Normal mediastinal and hilarcontours. HARDWARE/LINES/TUBES: None. BONES: No acute findings. OTHER: No other significant finding. IMPRESSION: No acute cardiopulmonary abnormality. THIS IS AN ELECTRONICALLY VERIFIED FINAL REPORT 08/22/2017 12:31 PM - Electronically signed by Brian Parham M.D. 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
--- OUTSIDE RECORDS SUMMARY | 2024-02-25 20:50 | XMS_ITS | Encounter Summary ---
Author Organization [facility] Healthcare Address [address] [place] [address] Care Team Providers Care School Traffic Guard Name Role Phone Unavailable Primary Care Provider Unavailabl e Encounter Details Date Type Department Care Team (Latest Contact Info) Description 03/19/2017 3:57 AM PROCESSING SUPERVISOR - 03/19/2017 9:11 AM PROCESSING SUPERVISOR Hospital Encounter 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 Social History Tobacco Use Types Packs/Day Years Used Date Smoking Tobacco: Never Assessed Comments Unknown Sex and Gender Information Value Date Recorded Sex Assigned at Not on file Legal Sex Female 5:42 AM PROCESSING SUPERVISOR Gender Identity Not on file Sexual Orientation Not on file documented as of this encounter Last Filed Vital Signs Vital Sign Reading Time Taken Comments Blood Pressure 124/72 03/19/2017 4:04 AM PROCESSING SUPERVISOR Pulse 95 03/19/2017 4:04 AM PROCESSING SUPERVISOR Temperature 36.7 ??C (98.1 ??F) 03/19/2017 4:04 AM CS T Respiratory Rate - - Oxygen Saturation 99% 03/19/2017 4:04 AM PROCESSING SUPERVISOR Inhaled Oxygen Concentration - - Weight 86.2 kg (190 lb) 03/19/2017 4:04 AM PROCESSING SUPERVISOR Height 167.6 cm (5' 6 ) 03/19/2017 4:04 AM PROCESSING SUPERVISOR Body Mass Index 30.67 03/19/2017 4:04 AM PROCESSING SUPERVISOR documented in this encounter Plan of Treatment Not on file documented as of this encounter Procedures Procedure Name Priority Date/Time Associated Diagnosis Comments CBC WITH AUTO DIFFERENTIAL Routine 03/19/2017 6:15 AM PROCESSING SUPERVISOR TROPONIN I Routine 03/19/2017 6:15 AM PROCESSING SUPERVISOR APTT Routine 03/19/2017 6:15 AM PROCESSING SUPERVISOR PROTIME-INR Routine 03/19/2017 6:15 AM PROCESSING SUPERVISOR D-DIMER, QUANTITATIVE Routine 03/19/2017 6:15 AM PROCESSING SUPERVISOR COMPREHENSIVE METABOLIC PANEL Routine 03/19/2017 6:15 AM PROCESSING SUPERVISOR XR CHEST PA LATERAL 2 VIEWS Routine 03/19/2017 12:00 AM PROCESSING SUPERVISOR documented in this encounter Results * D-dimer, quantitative (03/19/2017 6:15 AM PROCESSING SUPERVISOR) Pathologist [facility] D-Dimer, Quantitative < 0.27 0.00 - 0.50 FEUug/ml 03/19/2017 8:33 AM PROCESSING SUPERVISOR [facility] HISTORICAL RESULTS Comment: Studies indicate that a D-Dimer level of <0.50 FEUug/ml has a >95% negative predictive value for DVT,DIC,PE and other embolus conditions. ??Levels >0.50 FEUug/ml may be present in a wide variety of conditions and should not be considered diagnostic of any disease state. 03/19/2017 6:15 AM PROCESSING SUPERVISOR 03/19/2017 6:19 AM PROCESSING SUPERVISOR Marla Graves PA LAB BLOOD ORDERABLES Radha leo Result [facility] HISTORICAL RESULTS * Troponin I (03/19/2017 6:15 AM PROCESSING SUPERVISOR) Pathologist [facility] Troponin I < 0.300 0.000 - 0.300 ng/mL Comment: Reference using ANGÉLICA Chemiluminescence ? Negative: Repeat in 4-6 hours as indicated. 03/19/2017 6:15 AM PROCESSING SUPERVISOR 03/19/2017 6:19 AM PROCESSING SUPERVISOR Marla MENDOZA LAB BLOOD ORDERABLES Radha l Result Performing Organization Address [facility] de Phone Number [facility] HISTORICAL RESULTS * Protime-INR (03/19/2017 6:15 AM PROCESSING SUPERVISOR) PT 12.9 11.8 - 14.5 SECONDS INR 0.98 Comment: Recommended Therapeutic range for Oral Anticoagulant Therapy No anti-coagulation therapy ? Normal Range: ?0.8-1.4 Anti-coagulation therapy ? Low intensity therapy ?2.0-3.0 ? High intensity therapy ?? 2.5-3.5 Critical Value ? Greater than or equal to 5.0 Patients should be monitored for serious bleeding. ?? 03/19/2017 6:15 AM PROCESSING SUPERVISOR 03/19/2017 6:19 AM PROCESSING SUPERVISOR Marla MENDOZA LAB BLOOD ORDERABLES Radha l Result Performing Organization Address [facility] de Phone Number [facility] HISTORICAL RESULTS * aPTT (03/19/2017 6:15 AM PROCESSING SUPERVISOR) APTT 30 26 - 33 SECONDS 03/19/2017 6:34 AM [facility] [employer] [facility] HISTORICAL RESULTS 03/19/2017 6:15 AM PROCESSING SUPERVISOR 03/19/2017 6:19 AM PROCESSING SUPERVISOR Marla Graves PA LAB BLOOD ORDERABLES Radha leo Result [facility] HISTORICAL RESULTS * (ABNORMAL) Comprehensive metabolic panel (03/19/2017 6:15 AM PROCESSING SUPERVISOR) Sodium 136 135 - 145 mmol/L Potassium 4.1 3.3 - 5.1 mmol/L Chloride 96 96 - 108 mmol/L Carbon Dioxide 25 22 - 32 mmol/L Anion Gap 15 7 - 16 Glucose 164(H) 70 - 100 mg/dL BUN 14 6 - 20 mg/dL Creatinine 0.6 0.5 [...] or on dialysis @ Est GFR (Cockcroft-G) 143 ml/MIN 03/19/2017 6:47 AM [facility] RESULTS Comment: Estimated GFR(Cockroft-Gault)is used to calculate patient medication dosage Calcium 10.0 8.6 - 10.0 mg/dL 03/19/2017 6:47 AM [facility] RESULTS Total Protein 7.9 6.4 - 8.3 g/dL 03/19/2017 6:47 AM [facility]ISTOR[facility] RESULTS Albumin 4.5 3.5 - 5.2 g/dL Globulin 3.4 2.3 - 3.5 gm/dL Albumin/Globulin Ratio 1.3 1.1 - 1.8 Total Bilirubin 0.3 0.0 - 1.2 mg/dL AST 13 0 - 32 U/L 03/19/2017 6:47 AM [facility]OR[facility] RESULTS ALT 16 0 - 33 U/L Alkaline Phosphatase 68 35 - 104 U/L 03/19/2017 6:47 AM [facility]ISTOR[facility] RESULTS 03/19/2017 6:15 AM PROCESSING SUPERVISOR 03/19/2017 6:19 AM PROCESSING SUPERVISOR us Marla MENDOZA LAB BLOOD ORDERABLES Radha l Result [facility] HISTORICAL RESULTS * (ABNORMAL) CBC with auto differential (03/19/2017 6:15 AM PROCESSING SUPERVISOR) WBC 8.7 3.5 - 10.5 x10 3/ul 03/19/2017 6:22 AM [employer] HISTORICAL RESULTS Comment:New Reference Range in use 03/03/17. RBC 4.45 3.76 - 4.80 x10 6/ul 03/19/2017 6:22 AM PROCESSING SUPERVISOR [employer] HISTORICAL RESULTS Hemoglobin 11.6 11.0 - 15.0 g/dL 03/19/2017 6:22 AM PROCESSING SUPERVISOR [employer] HISTORICAL RESULTS Hct 35.3 33.0 - 43.0 % 03/19/2017 6:22 AM PROCESSING SUPERVISOR [employer] HISTORICAL RESULTS MCV 79.3(L) 80.0 - 97.0 fl 03/19/2017 6:22 AM PROCESSING SUPERVISOR [employer] HISTORICAL RESULTS MCH 26.1(L) 27.0 - 31.2 pg 03/19/2017 6:22 AM [employer] HISTORICAL RESULTS MCHC 32.9 31.8 - 35.4 g/dl 03/19/2017 6:22 AM [employer] HISTORICAL RESULTS RDW 14.3 11.6 - 14.8 % 03/19/2017 6:22 AM [employer] HISTORICAL RESULTS Plt Count 236 150 - 450 X10 3/ul 03/19/2017 6:22 AM [employer] HISTORICAL RESULTS Comment:New Reference Range in use 03/03/17. MPV 12.1(H) 7.4 - 10.4 fl 03/19/2017 6:22 AM [employer] HISTORICAL RESULTS Neut % 57.0 37.0 - 85.0 % 03/19/2017 6:22 AM [employer] HISTORICAL RESULTS Immature Gran % 0.3 0.0 - 3.0 % 03/19/2017 6:22 AM [employer] HISTORICAL RESULTS Lymph % 33.6 5.0 - 45.0 % 03/19/2017 6:22 AM [employer] HISTORICAL RESULTS [place] % 7.8 3.0 - 15.0 % 03/19/2017 6:22 AM [employer] HISTORICAL RESULTS Eos % 0.7 0.0 - 7.0 % 03/19/2017 6:22 AM [employer] HISTORICAL RESULTS Baso % 0.6 0.0 - 2.0 % Absolute Neuts (auto) 5.0 1.7 - 8.7 x10 3/ul 03/19/2017 6:22 AM PROCESSING SUPERVISOR [facility] HISTORICAL RESULTS Immature Gran # 0.0 0.0 - 0.3 x10 3/ul 03/19/2017 6:22 AM PROCESSING SUPERVISOR [facility] HISTORICAL RESULTS Absolute Lymphs (auto) 2.9 0.2 - 4.6 x10 3/ul 03/19/2017 6:22 AM PROCESSING SUPERVISOR [facility] HISTORICAL RESULTS Absolute Monos (auto) 0.7 0.1 - 1.5 x10 3/ul Absolute Eos (auto) 0.1 0.0 - 0.7 x10 3/ul Absolute Basos (auto) 0.1 0.0 - 0.2 x10 3/ul Nucleat RBC Rel Count 0.0 0 - 3 #/100WBC Absolute Nucleated RBC 0.00 x10 3/ul Absolute Neutrophils 5000 200 - 8000 /ul 03/19/2017 6:15 AM PROCESSING SUPERVISOR 03/19/2017 6:19 AM PROCESSING SUPERVISOR Marla Graves PA LAB BLOOD ORDERABLES Radha l Result [facility] HISTORICAL RESULTS * XR Chest Pa Lateral 2 Views (03/19/2017 12:00 AM PROCESSING SUPERVISOR) Anatomical Region Laterality Modality Body, Chest N/A Radiographic Juanita ging 03/19/2017 Impressions 03/19/2017 4:53 AM PROCESSING SUPERVISOR ??No acute cardiopulmonary process. THIS IS AN ELECTRONICALLY VERIFIED REPORT 03/19/2017 4:49 AM: ??Neema Ruiz M.D. ?? Avila Acosta:kavitha 04:49 AM 04:49 AM [facility] [EOD] Narrative 03/19/2017 4:53 AM PROCESSING SUPERVISOR EXAMINATION: ??CHEST HISTORY: ??Cough and wheezing starting this morning about 3 hours ago TECHNIQUE: ??PA and lateral views COMPARISON: ??08/08/2016 FINDINGS: ??There is no pneumonic consolidation, pleural fluid or pneumothorax. The cardiomediastinal silhouette is unchanged. There is no pulmonary vascular congestion. The osseous structures are stable. Procedure Note Provider, MD Graham - 07/02/2020 EXAMINATION: CHEST HISTORY: Cough and wheezing starting this morning about 3 hours ago TECHNIQUE: PA and lateral views COMPARISON: 08/08/2016 FINDINGS: There is no pneumonic consolidation, pleural fluid orpneumothorax. The cardiomediastinal silhouette is unchanged. There is no pulmonaryvascular congestion. The osseous structures are stable. IMPRESSION: No acute cardiopulmonary process. THIS IS AN ELECTRONICALLY VERIFIED REPORT 03/19/2017 4:49 AM: Neema Ruiz M.D. Avila Acosta 04:49 AM 04:49 AM [facility] [EOD] us Wagner Bowen DO IMG XR PROCEDURES Final Res ult documented in this encounter Visit Diagnoses Diagnosis Dyspnea Other dyspnea and respiratory abnormality Cigarette nicotine dependence, uncomplicated Other watermelon inspector (current) drug therapy Essential (primary) hypertension Unspecified essential hypertension Gastro-esophageal reflux disease without esophagitis Type 2 diabetes mellitus without complications (CMS/HCC) (HCC) halfway current use of oral hypoglycemic drug documented in this encounter
--- OUTSIDE RECORDS SUMMARY | 2024-02-25 20:50 | XMS_ITS | Encounter Summary ---
Author Organization [facility] Healthcare Address [address] [place] [address] Care Team Providers Care User Support Analyst Supervisor Name Role Phone Unavailable Primary Care Provider Unavailabl e Encounter Details Date Type Department Care Team (Latest Contact Info) Description 03/11/2017 12:46 PM REGIONAL SALES ASSOCIATE - 03/11/2017 2:45 PM REGIONAL SALES ASSOCIATE Hospital Encounter [facility] Gary Vigil, DO [address] [facility] [address] Adverse effect of unspecified drugs, medicaments and biological substances, initial encounter; Type 2 diabetes mellitus without complications (CMS/HCC); Shortness of breath; Essential (primary) hypertension; Gastro-esophageal reflux disease without esophagitis; Cigarette nicotine dependence, uncomplicated; Other manager long term care (current) drug therapy Social History Tobacco Use Types Packs/Day Years Used Date Smoking Tobacco: Never Assessed Comments Unknown Sex and Gender Information Value Date Recorded Sex Assigned at Not on file Legal Sex Female 5:42 AM REGIONAL SALES ASSOCIATE Gender Identity Not on file Sexual Orientation Not on file documented as of this encounter Last Filed Vital Signs Vital Sign Reading Time Taken Comments Blood Pressure 134/95 03/11/2017 12:49 PM REGIONAL SALES ASSOCIATE Pulse 100 03/11/2017 12:49 PM REGIONAL SALES ASSOCIATE Temperature 36.5 ??C (97.7 ??F) 03/11/2017 12:[address] Respiratory Rate - - Oxygen Saturation 98% 03/11/2017 12:49 PM REGIONAL SALES ASSOCIATE Inhaled Oxygen Concentration - - Weight 94.3 kg (208 lb) 03/11/2017 12:49 PM REGIONAL SALES ASSOCIATE Height 157.5 cm (5' 2 ) 03/11/2017 12:49 PM REGIONAL SALES ASSOCIATE Body Mass Index 38.04 03/11/2017 12:49 PM REGIONAL SALES ASSOCIATE documented in this encounter Plan of Treatment Not on file documented as of this encounter Visit Diagnoses Diagnosis Adverse effect of unspecified drugs, medicaments and biological substances, initial encounter Type 2 diabetes mellitus without complications (CMS/HCC) (HCC) Shortness of breath Essential (primary) hypertension Unspecified essential hypertension Gastro-esophageal reflux disease without esophagitis Cigarette nicotine dependence, uncomplicated Other mcc (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
--- OUTSIDE RECORDS SUMMARY | 2024-02-25 20:50 | XMS_ITS | Encounter Summary ---
Author Organization [facility] Healthcare Address [address] [place] [address] Care Team Providers Care Stripe Marker Name Role Phone Unavailable Primary Care Provider Unavailabl e Encounter Details Date Type Department Care Team (Latest Contact Info) Description 08/08/2016 6:41 PM CDT - 08/08/2016 9:48 PM CDT Hospital Encounter [facility] Gary Vigil, DO [address] [facility] [place] [address] Viral infection; Type 2 diabetes mellitus without complications (CMS/HCC); Essential (primary) hypertension; prison current use of oral hypoglycemic drug; Other watermelon harvesting supervisor (current) drug therapy Social History Tobacco Use Types Packs/Day Years Used Date Smoking Tobacco: Never Assessed Comments Unknown Sex and Gender Information Value Date Recorded Sex Assigned at Not on file Legal Sex Female 5:42 AM 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 PRINTER 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 Gender Identity Not on file Sexual Orientation Not on file documented as of this encounter Last Filed Vital Signs Vital Sign Reading Time Taken Comments Blood Pressure 135/95 08/08/2016 6:42 PM CDT Pulse 82 08/08/2016 6:42 PM CDT Temperature 36.6 ??C (97.9 ??F) 08/08/2016 6:42 PM CD T Respiratory Rate - - Oxygen Saturation 98% 08/08/2016 6:42 PM CDT Inhaled Oxygen Concentration - - Weight 90.3 kg (199 lb) 08/08/2016 6:42 PM CDT Height 157.5 cm (5' 2 ) 08/08/2016 6:42 PM CDT Body Mass Index 36.4 08/08/2016 6:42 PM CDT documented in this encounter Plan of Treatment Not on file documented as of this encounter Procedures Procedure Name Priority Date/Time Associated Diagnosis Comments CBC WITH AUTO DIFFERENTIAL Routine 08/08/2016 7:58 PM CDT TROPONIN I Routine 08/08/2016 7:58 PM CDT LIPASE Routine 08/08/2016 7:58 PM CDT COMPREHENSIVE METABOLIC PANEL Routine 08/08/2016 7:58 PM CDT XR CHEST PA LATERAL 2 VIEWS Routine 08/08/2016 12:00 AM CDT documented in this encounter Results * Troponin I (08/08/2016 7:58 PM CDT) Pathologist [facility] Troponin I < 0.300 0.000 - 0.300 ng/mL 08/08/2016 8:24 PM CDT [facility] [place] [facility] Comment: Reference using ANGÉLICA Chemiluminescence ? Negative: Repeat in 4-6 hours as indicated. 08/08/2016 7:58 PM CDT 08/08/2016 8:02 PM CDT Gary Long DO LAB BLOOD ORDERABLES Final Result Performing Organization Address [facility] Co de Phone Number [facility] [place] [facility] * Lipase (08/08/2016 7:58 PM CDT) Pathologist [facility] Lipase 24 13 - 60 U/L 08/08/2016 8:25 PM CDT [facility] [place] [facility] 08/08/2016 7:58 PM CDT 08/08/2016 8:02 PM CDT Gary Long DO LAB BLOOD ORDERABLES Final Result Performing Organization Address [facility] Co de Phone Number [facility] [place] [facility] * (ABNORMAL) Comprehensive metabolic panel (08/08/2016 7:58 PM CDT) [facility] Sodium 139 135 - 145 mmol/L Potassium 3.2(L) 3.3 - 5.1 mmol/L Chloride 101 96 - 108 mmol/L Carbon Dioxide 24 22 - 32 mmol/L Anion Gap 14 7 - 16 Glucose 106(H) 70 - [...] or on dialysis @ Est GFR (Cockcroft-G) 135 ml/MIN Comment: Estimated GFR(Cockroft-Gault)is used to calculate patient medication dosage Calcium 9.3 8.6 - 10.0 mg/dL 08/08/2016 8:25 PM T [facility] [place] [facility] Total Protein 7.5 6.4 - 8.3 g/dL 08/08/2016 8:25 PM T [facility] [place] [facility] Albumin 4.2 3.5 - 5.2 g/dL 08/08/2016 8:25 PM T [facility] [place] [facility] Globulin 3.3 2.3 - 3.5 gm/dL 08/08/2016 8:25 PM T [facility] [place] [facility] Albumin/Globulin Ratio 1.3 1.1 - 1.8 08/08/2016 8:25 PM T [facility] [place] [facility] Total Bilirubin < 0.2 0.0 - 1.2 mg/dL 08/08/2016 8:25 PM T [facility] [place] [facility] AST 18 0 - 32 U/L 08/08/2016 8:25 PM T [facility] [place] [facility] ALT 29 0 - 33 U/L Alkaline Phosphatase 71 35 - 104 U/L 08/08/2016 7:58 PM CDT 08/08/2016 8:02 PM CDT Gary Long DO LAB BLOOD ORDERABLES Final Result [facility] [place] [facility] * (ABNORMAL) CBC with auto differential (08/08/2016 7:58 PM CDT) WBC 7.1 4.6 - 10.2 x10 3/ul RBC 4.25 3.76 - 4.80 x10 6/ul Hemoglobin 11.4 11.0 - 15.0 g/dl Hct 34.0 33.0 - 43.0 % MCV 80.0 80.0 - 97.0 fl MCH 26.8(L) 27.0 - 31.2 pg MCHC 33.5 31.8 - 35.4 g/dl RDW 14.2 11.6 - 14.8 % Plt Count 233 124 - 400 x10 3/ul MPV 12.4(H) 7.4 - 10.4 fl Neut % 55.0 37.0 - 85.0 % Immature Gran % 0.3 0.0 - 3.0 % Lymph % 36.7 5.0 - 45.0 % [place] % 6.3 3.0 - 15.0 % Eos % 1.3 0.0 - 7.0 % Baso % 0.4 0.0 - 2.0 % Absolute Neuts (auto) 3.9 1.7 - 8.7 x10 3/ul Immature Gran # 0.0 0.0 - 0.3 x10 3/ul Absolute Lymphs (auto) 2.6 0.2 - 4.6 x10 3/ul Absolute Monos (auto) 0.5 0.1 - 1.5 x10 3/ul Absolute Eos (auto) 0.1 0.0 - 0.7 x10 3/ul Absolute Basos (auto) 0.0 0.0 - 0.2 x10 3/ul Nucleat RBC Rel Count 0.0 0 - 3 #/100WBC Absolute Nucleated RBC 0.00 x10 3/ul Absolute Neutrophils 3900 200 - 8000 /ul 08/08/2016 7:58 PM CDT 08/08/2016 8:02 PM CDT Gary Long DO LAB BLOOD ORDERABLES Final Result [facility] [place] [facility] * XR Chest Pa Lateral 2 Views (08/08/2016 12:00 AM CDT) Anatomical Region Laterality Modality Body, Chest N/A Radiographic Juanita ging 08/08/2016 Impressions 08/08/2016 8:57 PM CDT No radiographic evidence of acute pulmonary disease. THIS IS AN ELECTRONICALLY VERIFIED REPORT 08/08/2016 8:53 PM: ??Matilda Dutton M.D. ?? Matilda Dutton M.D. SS:[email or web address] 08:53 PM 08:53 PM [facility] [EOD] Narrative 08/08/2016 8:57 PM CDT EXAMINATION: Two views of the chest dated 08/08/16 at 2032 hours HISTORY: ??Intermittent mid sternal chest pain for 1 week which is non-radiating COMPARISON: ??Two-view chest dated 03/18/16 TECHNIQUE: ??A upright PA and lateral view of the chest are submitted. FINDINGS: ??The heart size and pulmonary vascularity are within normal limits. ?? No pneumothorax, pleural effusion or focal area of consolidation. ??The visualized osseous structures are unremarkable. Procedure Note Provider, MD Graham - 07/02/2020 EXAMINATION: Two views of the chest dated 08/08/16 at 2032 hours HISTORY: Intermittent mid sternal chest pain for 1 week which isnon-radiating COMPARISON: Two-view chest dated 03/18/16 TECHNIQUE: A upright PA and lateral view of the chest are submitted. FINDINGS: The heart size and pulmonary vascularity are within normallimits. No pneumothorax, pleural effusion or focal area of consolidation. The visualized osseous structures are unremarkable. IMPRESSION: No radiographic evidence of acute pulmonary disease. THIS IS AN ELECTRONICALLY VERIFIED REPORT 08/08/2016 8:53 PM: Matilda Dutton M.D. Matilda Dutton M.D. SS:zana 08:53 PM 08:53 PM [facility] [EOD] Gary Long DO IMG XR PROCEDURES Final Res ult documented in this encounter Visit Diagnoses Diagnosis Viral infection Type 2 diabetes mellitus without complications (CMS/HCC) (HCC) Essential (primary) hypertension Unspecified essential hypertension prison current use of oral hypoglycemic drug Other long-term (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
--- OUTSIDE RECORDS SUMMARY | 2024-02-25 20:50 | XMS_ITS | Encounter Summary ---
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 Historical Provider [facility] TONY JEAN Final Result * CARDIOLOGY REPORT (06/28/2015 12:00 AM CDT) [...] documented as of this encounter Care Teams Stretcher Leveler Operator Helper Relationship Specialty Start Date End Date Ruma Shrestha NP PCP - General 05/30/18 documented as of this encounter
--- OUTSIDE RECORDS SUMMARY | 2024-02-25 20:50 | XMS_ITS | Encounter Summary ---
Author Organization [facility] Healthcare Address [address] [place] [address] Care Team Providers Care Restaurant Area Manager Name Role Phone Unavailable Primary Care Provider Unavailabl e Encounter Details Date Type Department Care Team (Latest Contact Info) Description 02/28/2015 1:50 PM [facility] Hospital Encounter [facility] OP Ruma Shrestha NP [address] [place] [id number] Other specified symptoms and signs involving the circulatory and respiratory systems; Nontoxic multinodular goiter Social History Tobacco Use Types Packs/Day Years Used Date Smoking Tobacco: Never Assessed Comments Unknown Sex and Gender Information Value Date Recorded Sex Assigned at Not on file Legal Sex Female 5:42 AM CARGOMAN Gender Identity Not on file Sexual Orientation Not on file documented as of this encounter Plan of Treatment Not on file documented as of this encounter Procedures Procedure Name Priority Date/Time Associated Diagnosis Comments US THYROID Routine 02/28/2015 1:51 PM CARGOMAN documented in this encounter Results * US Thyroid (02/28/2015 1:51 PM CARGOMAN) Anatomical Region Laterality Modality Head and Neck N/A Ultrasound 02/28/2015 1:51 PM CARGOMAN Impressions 02/28/2015 4:37 PM CAR[facility]OMAN ?? 1. ??Scattered sub centimeter nodules in the right thyroid lobe, largest measuring approximately 6 mm. These require no further imaging follow-up at this time. 2. ??No nodules in the left lobe of the thyroid gland. THIS IS AN ELECTRONICALLY VERIFIED REPORT 02/28/2015 4:34 PM: ??Pablo Cochran M.D. Pablo Cochran M.D. [email or web address] 04:34 PM 04:34 PM [facility] [EOD] Narrative 02/28/2015 4:37 PM CARGOMAN EXAMINATION: ??THYROID ULTRASOUND HISTORY: ??Palpable lump in throat, onset 2-3 months ago (ICD-10 code R09.89) TECHNIQUE: Multiple longitudinal and transverse goyal-scale and color Doppler sonographic images of the thyroid gland were obtained. COMPARISON: ??None available FINDINGS: The right lobe of the thyroid gland measures 5.1 x 1.9 x 1.7 cm. There are scattered sub centimeter nodules in the right thyroid lobe, largest measuring approximately 6 mm. The left lobe of the thyroid gland measures 4.6 x 2.0 x 1.5 cm. ??There are no nodules in the left lobe of the thyroid gland. The thyroid isthmus measures 5 mm. Procedure Note Provider, MD Graham - 07/02/2020 EXAMINATION: THYROID ULTRASOUND HISTORY: Palpable lump in throat, onset 2-3 months ago (ICD-10 codeR09.89) TECHNIQUE: Multiple longitudinal and transverse goyal-scale and colorDoppler sonographic images of the thyroid gland were obtained. COMPARISON: None available FINDINGS: The right lobe of the thyroid gland measures 5.1 x 1.9 x 1.7 cm. There are scattered sub centimeter nodules in the right thyroid lobe, largestmeasuring approximately 6 mm. The left lobe of the thyroid gland measures 4.6 x 2.0 x 1.5 cm. There areno nodules in the left lobe of the thyroid gland. The thyroid isthmus measures 5 mm. IMPRESSION: 1. Scattered sub centimeter nodules in the right thyroid lobe, largest measuring approximately 6 mm. These require no further imaging follow-upat this time. 2. No nodules in the left lobe of the thyroid gland. THIS IS AN ELECTRONICALLY VERIFIED REPORT 02/28/2015 4:34 PM: Pablo Cochran M.D. Pablo Cochran M.D. [email or web address] 04:34 PM 04:34 PM [facility] [EOD] us Ruma Shrestha NP IMG US PROCEDURES Final Result documented in this encounter Visit Diagnoses Diagnosis Other specified symptoms and signs involving the circulatory and respiratory systems Nontoxic multinodular goiter documented in this encounter
--- OUTSIDE RECORDS SUMMARY | 2024-02-25 20:50 | XMS_ITS | Encounter Summary ---
Author Organization [facility] Healthcare Address [address] [place] [address] Care Team Providers Care Agricultural Education Instructor Name Role Phone Unavailable Primary Care Provider Unavailabl e Encounter Details Date Type Department Care Team (Latest Contact Info) Description 12/25/2014 9:50 AM AUTOMOTIVE GLASS TECHNICIAN - 12/25/2014 11:03 AM AUTOMOTIVE GLASS TECHNICIAN [facility] Rowena Ramon MD [address] [facility] [place] [address] Angioneurotic edema; Essential (primary) hypertension Social History Tobacco Use Types Packs/Day Years Used Date Smoking Tobacco: Never Assessed Comments Unknown Sex and Gender Information Value Date Recorded Sex Assigned at Not on file Legal Sex Female 5:42 AM AUTOMOTIVE GLASS TECHNICIAN Gender Identity Not on file Sexual Orientation Not on file documented as of this encounter Last Filed Vital Signs Vital Sign Reading Time Taken Comments Blood Pressure 120/78 12/25/2014 9:54 AM AUTOMOTIVE GLASS TECHNICIAN Pulse 88 12/25/2014 9:54 AM AUTOMOTIVE GLASS TECHNICIAN Temperature 36.7 ??C (98 ??F) 12/25/2014 9:54 AM AUTOMOTIVE GLASS TECHNICIAN Respiratory Rate - - Oxygen Saturation 99% 12/25/2014 9:54 AM AUTOMOTIVE GLASS TECHNICIAN Inhaled Oxygen Concentration - - Weight 95.3 kg (210 lb) 12/25/2014 9:54 AM AUTOMOTIVE GLASS TECHNICIAN Height 157.5 cm (5' 2 ) 12/25/2014 9:54 AM AUTOMOTIVE GLASS TECHNICIAN Body Mass Index 38.41 12/25/2014 9:54 AM AUTOMOTIVE GLASS TECHNICIAN documented in this encounter Plan of Treatment Not on file documented as of this encounter Visit Diagnoses Diagnosis Angioneurotic edema Angioneurotic edema not elsewhere classified Essential (primary) hypertension Unspecified essential hypertension documented in this encounter
--- OUTSIDE RECORDS SUMMARY | 2024-02-25 20:50 | XMS_ITS | Encounter Summary ---
Author Organization [facility] Healthcare Address [address] [place] [address] Care Team Providers Care Advanced Practice Nurse Name Role Phone Ruma Shrestha NP Primary Care Provider + Encounter Details Date Type Department Care Team (Late st Contact Info) Description 02/02/2019 9:47 AM REELER OPERATOR - 02/02/2019 1:08 PM REELER OPERATOR Hospital Encounter [address] [address] Unknown, Pablo Arteaga MD [address] [place] [id number] Discharge Disposition: Discharge to home or self care Social History Tobacco Use Types Packs/Day Years Used Date Smoking Tobacco: Never Assessed Comments Unknown Sex and Gender Information Value Date Recorded Sex Assigned at Not on file Legal Sex Female 5:42 AM REELER OPERATOR Gender Identity Not on file Sexual Orientation Not on file documented as of this encounter Last Filed Vital Signs Vital Sign Reading Time Taken Comments Blood Pressure 167/90 02/02/2019 9:49 AM REELER OPERATOR Pulse 95 02/02/2019 9:49 AM REELER OPERATOR Temperature 36.4 ??C (97.5 ??F) 02/02/2019 9:49 AM CS T Respiratory Rate - - Oxygen Saturation 99% 02/02/2019 9:49 AM REELER OPERATOR Inhaled Oxygen Concentration - - Weight 96.5 kg (212 lb 11.9 oz) 02/02/2019 9:49 AM REELER OPERATOR Height 157.5 cm (5' 2 ) 02/02/2019 9:49 AM REELER OPERATOR Body Mass Index 38.91 02/02/2019 9:49 AM REELER OPERATOR documented in this encounter Medications at Time of Discharge metFORMIN (GLUCOPHAGE) 500 mg tablet 1 tablet (500 mg total) 11/10/2018 documented as of this encounter Discharge Disposition Disposition Code Departure Means Destination Discharge to home or self care documented in this encounter Plan of Treatment Not on file documented as of this encounter Procedures Procedure Name Priority Date/Time Associated Diagnosis Comments ECG 12-LEAD 02/02/2019 11:47 AM REELER OPERATOR BLOOD GAS, ARTERIAL Routine 02/02/2019 1 1:44 AM REELER OPERATOR THYROID FUNCTION CASCADE Routine 02/02/2019 11:02 AM REELER OPERATOR CBC WITH AUTO DIFFERENTIAL Routine 02/02/2019 11:02 AM REELER OPERATOR TROPONIN I Routine 02/02/2019 11:02 AM REELER OPERATOR COMPREHENSIVE METABOLIC PANEL Routine 02/02/2019 11:02 AM REELER OPERATOR XR CHEST PA LATERAL 2 VIEWS 02/02/2019 10:17 AM REELER OPERATOR ECG 12-LEAD 02/02/2019 10:07 AM REELER OPERATOR documented in this encounter Results * ECG 12 lead (02/02/2019 11:47 AM REELER OPERATOR) Ventricular Rate EKG/Min 84 BPM ER RADIOLOGY Atrial Rate 84 BPM ER RADIOLOGY AZ-Interval (MSEC) 136 ms ER RADIOLOGY QRS-Interval (MSEC) 82 ms ER RADIOLOGY QT-Interval (MSEC) 360 ms ER RADIOLOGY QTc 425 ms ER RADIOLOGY P Walton 12 degrees ER RADIOLOGY R Walton 22 degrees ER RADIOLOGY T Walton 7 degrees ER RADIOLOGY Diagnosis Normal sinus rhythm Normal ECG When compared with ECG of 02-FEB-2019 10:07, No significant change was found ER RADIOLOGY 02/02/2019 11:4 7 AM REELER OPERATOR 02/02/2019 4:00 PM REELER OPERATOR Narrative Resulting Agency Comment NATALI us Pablo Lane MD ECG ORDERABLES Final Res ult ER RADIOLOGY * (ABNORMAL) Blood gas, arterial (02/02/2019 11:44 AM REELER OPERATOR) Specimen Type Arterial Blood [facility] Puncture Site RR [facility] Patient Temperature 37.0 C [facility] pH 7.47(H) 7.35 - 7.45 [facility] pCO2 36 32 - 48 mmHg [facility] pO2 107 80 - 110 mmHg [facility] HCO3 26.2(H) 22.0 - 26.0 mmol/L [facility] Total CO2 27.3 20.0 - 30.0 mmol/L [facility] Base Excess 2.5(H) -2.0 - 2.0 mmol/L [facility] Hb (BLOOD GAS) 9.1(L) 12.1 - 15.1 g/dL [facility] O2 Saturation 96.1(H) 90.0 - 95.0 % [facility] ABG Carboxyhemoglobin 0.0 <3.0 % [facility] ABG Methemoglobin 0.0 <2.0 % [facility] ABG O2 Content 12.5(L) 17.6 - 24.3 mg/dL [facility] A-a O2 Difference -2.0 <=10.0 [facility] a/A Ratio 1.0 >=0.8 [facility] FiO2 21.0 % [facility] 02/02/2019 11:4 4 AM REELER OPERATOR 02/02/2019 11:50 AM REELER OPERATOR Narrative [facility] - 02/02/2019 11:52 AM REELER OPERATOR Conditions Room Air Source Arterial Resulting Agency Comment ER Pablo Lane MD LAB BLOOD ORDERABLES Radha l Result [address] [phone] * TSH reflex to free T4 (02/02/2019 11:02 AM REELER OPERATOR) Pathologist [facility] TSH W REFLEX TO FT4 0.72 0.27 - 4.20 uIU/mL [facility] 02/02/2019 11:0 2 AM REELER OPERATOR 02/02/2019 11:05 AM REELER OPERATOR Narrative Resulting Agency Comment ER Mikala MENDOZA LAB BLOOD ORDERABLES Final Re sult Performing Organization Address [facility] Co de Phone Number [address] [phone] * Troponin I (02/02/2019 11:02 AM REELER OPERATOR) Pathologist [facility] Troponin I <0.300 0.000 - 0.300 ng/mL [facility] Comment: Reference using ANGÉLICA Chemiluminescence ? Negative: Repeat in 4-6 hours as indicated. 02/02/2019 11:0 2 AM REELER OPERATOR 02/02/2019 11:05 AM REELER OPERATOR Narrative Resulting Agency Comment ER Mikala MENDOZA LAB BLOOD ORDERABLES Final Re sult Performing Organization Address City/[facility]/ZIP Co de Phone Number [address] [phone] * (ABNORMAL) Comprehensive metabolic panel (02/02/2019 11:02 AM REELER OPERATOR) Pathologist [facility] Sodium 131(L) 135 - 145 mmol/L [facility] Potassium 3.7 3.3 - 5.1 mmol/L [facility] Chloride 98 96 - 108 mmol/L [facility] Carbon Dioxide 22 22 - 32 mmol/L [facility] Anion Gap 11 7 - 16 [facility] Glucose 235(H) 70 - 100 mg/dL [facility] BUN 11 8 - 25 mg/dL [facility] Creatinine 0.6 0.5 - 1.1 mg/dL [facility] Comment: NOTE: Estimated GFR (Cockroft-Gault) will NOT be calculated unless patient Height and Weight were entered. Also, Kidney Disease Stage (GFR) and Estimated GFR (Cockroft-Gault) will NOT be calculated if Creatinine result is <0.2. Kidney Disease Stage >90 mL/MIN [facility] Comment: NOTE; ??The GFR is [...] failure or on dialysis Est GFR (Cockcroft-G) 138 ml/MIN [facility] Comment: Estimated GFR(Cockroft-Gault)is used to calculate patient medication dosage Calcium 9.8 8.6 - 10.3 mg/dL [facility] Total Protein 7.6 6.4 - 8.3 g/dL [facility] Albumin 4.2 3.5 - 5.0 g/dL [facility] Globulin 3.4 2.3 - 3.5 gm/dL [facility] Albumin/Globulin Ratio 1.2 1.1 - 1.8 [facility] Total Bilirubin 0.3 0.0 - 1.2 mg/dL [facility] AST 12 0 - 32 U/L [facility] ALT 15 0 - 33 U/L [facility] Alkaline Phosphatase 63 35 - 104 U/L [facility] 02/02/2019 11:0 2 AM REELER OPERATOR 02/02/2019 11:05 AM REELER OPERATOR Narrative Resulting Agency Comment ER us Mikala MENDOZA LAB BLOOD ORDERABLES Final Re sult [facility] [address] [place] [address], [facility] [phone] * (ABNORMAL) CBC with auto differential (02/02/2019 11:02 AM REELER OPERATOR) WBC 6.2 3.8 - 9.9 X10 3/ul [facility] RBC 4.33 3.90 - 5.20 x10 6/ul [facility] Hemoglobin 8.9(L) 11.9 - 15.5 g/dL [facility] Hct 29.8(L) 35.6 - 45.5 % [facility] MCV 68.8(L) 81.3 - 96.4 fl [facility] MCH 20.6(L) 27.1 - 33.3 pg [facility] MCHC 29.9(L) 32.3 - 35.7 g/dl [facility] RDW 17.2(H) 11.1 - 14.9 % [facility] Plt Count 240 150 - 400 x10 3/ul [facility] Neut % 65.9 % [facility] Immature Gran % 0.2 % [facility] Lymph % 26.6 % [facility] [place] % 6.7 % [facility] Eos % 0.3 % [facility] AUTO BASO % 0.3 % [facility] NEUTROPHIL ABS # 4.1 1.7 - 6.5 x10 3/ul [facility] Immature Gran # 0.0 0.0 - 0.1 x10 3/ul [facility] Absolute Lymphs (auto) 1.7 0.8 - 3.3 x10 3/ul [facility] Absolute Monos (auto) 0.4 0.2 - 0.8 x10 3/ul [facility] Absolute Eos (auto) 0.0 0.0 - 0.5 x10 3/ul [facility] BASOPHIL ABS # 0.0 0.0 - 0.1 x10 3/ul [facility] Nucleat RBC Rel Count 0.0 #/100WBC [facility] NRBC abs 0.00 0.00 - 0.01 x10 3/ul [facility] Absolute Neutrophils 4,100 200 - 8,000 /ul [facility] 02/02/2019 11:0 2 AM REELER OPERATOR 02/02/2019 11:05 AM REELER OPERATOR Narrative Resulting Agency Comment ER us Mikala MENDOZA LAB BLOOD ORDERABLES Final Re sult [facility] [address] [place] [address], [facility] [phone] * XR Chest Pa Lateral 2 Views (02/02/2019 10:17 AM REELER OPERATOR) Anatomical Region Laterality Modality Body, Chest N/A Radiographic Juanita ging 02/02/2019 11:2 6 AM REELER OPERATOR Narrative 02/02/2019 11:28 AM REELER OPERATOR Patient Name: MARIBELL DAMICO ?Ordering Dr: Mikala Calixto PA-C ?? D.O.B: 1980 ? Exam Date: 12/20/19 ?? 1017 ?? Age: 38 ?Sex: Female ? MR#: [id number] ?? Loc: ? RADIOLOGY REPORT ?? Order #[id number] ?? Radiology ? Chest 2 Views ? Signed ?? EXAM DESCRIPTION: ??Chest 2 Views ? REASON FOR STUDY: ??Shortness of breath and chest pain, onset 3 days ago ? TECHNIQUE: ??Frontal and lateral radiographic views of the chest acquired. ? COMPARISON: ??Chest radiograph 11/10/2018 ? FINDINGS: ? LUNGS/PLEURA: No focal consolidation or pneumothorax. No pleural effusion. ? HEART/MEDIASTINUM: The cardiac silhouette and mediastinal contours are within ?? normal limits. ? HARDWARE/LINES/TUBES: None. ? BONES: No acute findings. ? OTHER: No other significant finding. ? IMPRESSION: ??No acute cardiopulmonary process. ? THIS IS AN ELECTRONICALLY VERIFIED FINAL REPORT ?? 02/02/2019 11:28 AM - Electronically signed by Pablo Cochran M.D. ?? Pablo Cochran M.D. ? CN ?? D: ??02/02/2019 11:28 AM ?? T: ? Report ID: [id number] ?? Reading Location: ??[id number] ? REPORT ELECTRONICALLY SIGNED IN OTHER VENDOR SYSTEM ?? Resulting Agency Comment P Procedure Note Pablo Cochran MD - 02/02/2019 Patient Name: MARIBELL DAMICO Dr: Mikala Calixto PA-C, D.O.B: 1980 Exam Date: 02/02/19 1017 Age: 38 Sex: Female MR#: [id number] Loc: RADIOLOGY REPORT Order #[id number] Radiology Chest 2 Views Signed EXAM DESCRIPTION: Chest 2 Views REASON FOR STUDY: Shortness of breath and chest pain, onset 3 days ago TECHNIQUE: Frontal and lateral radiographic views of the chest acquired. COMPARISON: Chest radiograph 11/10/2018 FINDINGS: LUNGS/PLEURA: No focal consolidation or pneumothorax. No pleuraleffusion. HEART/MEDIASTINUM: The cardiac silhouette and mediastinal contours arewithin normal limits. HARDWARE/LINES/TUBES: None. BONES: No acute findings. OTHER: No other significant finding. IMPRESSION: No acute cardiopulmonary process. THIS IS AN ELECTRONICALLY VERIFIED FINAL REPORT 02/02/2019 11:28 AM - Electronically signed by Pablo PARRA T: Report ID: [id number] Reading Location: [place] [address] REPORT ELECTRONICALLY SIGNED IN OTHER VENDOR SYSTEM Mikala MENDOZA IMG XR PROCEDURES Final Resul t * ECG 12 lead (02/02/2019 10:07 AM REELER OPERATOR) Ventricular Rate EKG/Min 104 BPM ER RADIOLOGY Atrial Rate 104 BPM ER RADIOLOGY AZ-Interval (MSEC) 140 ms ER RADIOLOGY QRS-Interval (MSEC) 80 ms ER RADIOLOGY QT-Interval (MSEC) 346 ms ER RADIOLOGY QTc 454 ms ER RADIOLOGY P Walton 27 degrees ER RADIOLOGY R Walton 28 degrees ER RADIOLOGY T Walton 5 degrees ER RADIOLOGY Diagnosis Sinus tachycardia Otherwise normal ECG When compared with ECG of 10-NOV-2018 11:59, No significant change was found ER RADIOLOGY 02/02/2019 10:0 7 AM REELER OPERATOR 02/02/2019 12:39 PM REELER OPERATOR Narrative Resulting Agency Comment PREADT us Mikala MENDOZA ECG ORDERABLES Final Result ER RADIOLOGY documented in this encounter Visit Diagnoses Not on filedocumented in this encounter Care Teams Advanced Practice Nurse Relationship Specialty Start Date End Date Ruma Shrestha NP PCP - General 05/30/18 documented as of this encounter
--- OUTSIDE RECORDS SUMMARY | 2024-02-25 20:50 | XMS_ITS | Encounter Summary ---
Author Organization [facility] Healthcare Address [address] [place] [address] Care Team Providers Care Balling Head Tender Name Role Phone Unavailable Primary Care Provider Unavailabl e Encounter Details Date Type Department Care Team (Latest Contact Info) Description 03/18/2016 5:27 PM BUTCHER HELPER - 03/18/2016 11:00 PM BUTCHER HELPER Hospital Encounter [facility] ER Shania Sifuentes MD [address] [place] [id number] Other chest pain; Gastro-esophageal reflux disease without esophagitis; Type 2 diabetes mellitus without complications (CMS/HCC); Essential (primary) hypertension; Cigarette nicotine dependence, uncomplicated; intermediate current use of oral hypoglycemic drug; Other intermodal dispatcher (current) drug therapy Social History Tobacco Use Types Packs/Day Years Used Date Smoking Tobacco: Never Assessed Comments Unknown Sex and Gender Information Value Date Recorded Sex Assigned at Not on file Legal Sex Female 5:42 AM BUTCHER HELPER Gender Identity Not on file Sexual Orientation Not on file documented as of this encounter Last Filed Vital Signs Vital Sign Reading Time Taken Comments Blood Pressure 119/81 03/18/2016 6:11 PM BUTCHER HELPER Pulse 82 03/18/2016 6:11 PM BUTCHER HELPER Temperature 36.7 ??C (98.1 ??F) 03/18/2016 6:11 PM CS T Respiratory Rate - - Oxygen Saturation 99% 03/18/2016 6:11 PM BUTCHER HELPER Inhaled Oxygen Concentration - - Weight 41.6 kg (91 lb 12.8 oz) 03/18/2016 6:11 P M BUTCHER HELPER Height 157.5 cm (5' 2 ) 03/18/2016 6:11 PM BUTCHER HELPER Body Mass Index 16.79 03/18/2016 6:11 PM BUTCHER HELPER documented in this encounter Plan of Treatment Not on file documented as of this encounter Procedures Procedure Name Priority Date/Time Associated Diagnosis Comments TNI WITH LIPID PANEL Routine 03/18/2016 8:12 PM BUTCHER HELPER CBC WITH AUTO DIFFERENTIAL Routine 03/18/2016 8:12 PM BUTCHER HELPER COMPREHENSIVE METABOLIC PANEL Routine 03/18/2016 8:12 PM BUTCHER HELPER XR CHEST PA LATERAL 2 VIEWS Routine 03/18/2016 12:00 AM BUTCHER HELPER documented in this encounter Results * TNI with LIPID PANEL (03/18/2016 8:12 PM BUTCHER HELPER) Troponin I < 0.300 0.000 - 0.300 ng/mL 03/18/2016 8:40 PM [facility] HISTORICAL RESULTS Comment: Reference using ANGÉLICA Chemiluminescence ? Negative: Repeat in 4-6 hours as indicated. Triglycerides 52 0 - 199 mg/dL 03/18/2016 8:42 PM [facility] HISTORICAL RESULTS Comment:12 hr pc highly channing mmended for Triglyceride Cholesterol 137 0 - 199 mg/dL 03/18/2016 8:42 PM [facility] HISTORICAL RESULTS Comment: Borderline: ??200-239 High Risk: ?? >239 HDL Cholesterol 44 40 - 60 mg/dL 03/18/2016 8:42 PM [facility] HISTORICAL RESULTS Comment: Major Risk ?< 40 mg/dL Moderate Risk ?40-60 mg/dL Negative Risk ?? > 60 mg/dL LDL Cholesterol, Calc 83 0 - 130 mg/dL 03/18/2016 8:42 PM [facility] HISTORICAL RESULTS Comment:High Risk > 159 mg/d L Cholesterol/HDL Ratio 3.1 03/18/2016 8:42 PM [facility] HISTORICAL RESULTS Comment: Cholesterol / HDL Ratio 3.5:1 or less is desirable. Cholesterol / HDL Ratio greater than 5:1 is considered higher risk for developing heart disease. 03/18/2016 8:12 PM BUTCHER HELPER 03/18/2016 8:14 PM BUTCHER HELPER Deedee Coyne LAB BLOOD ORDERABLES Radha leo Result [facility] HISTORICAL RESULTS * (ABNORMAL) Comprehensive metabolic panel (03/18/2016 8:12 PM BUTCHER HELPER) Sodium 136 135 - 145 mmol/L Potassium 3.8 3.3 - 5.1 mmol/L Chloride 99 96 - 108 mmol/L Carbon Dioxide 26 22 - 32 mmol/L Anion Gap 11 7 - 16 Glucose 94 70 - 100 mg/dL BUN 5(L) 6 - 20 mg/dL Creatinine 0.5 0.5 [...] or on dialysis @ Est GFR (Cockcroft-G) 103 ml/MIN 03/18/2016 8:42 PM [facility] Comment: Estimated GFR(Cockroft-Gault)is used to calculate patient medication dosage Calcium 9.4 8.6 - 10.0 mg/dL 03/18/2016 8:42 PM [facility] HISTOR[facility] RESULTS Total Protein 7.3 6.4 - 8.3 g/dL 03/18/2016 8:42 PM [facility] HISTORICAL RESULTS Albumin 4.4 3.5 - 5.2 g/dL Globulin 2.9 2.3 - 3.5 gm/dL Albumin/Globulin Ratio 1.5 1.1 - 1.8 Total Bilirubin < 0.2 0.0 - 1.2 mg/dL 03/18/2016 8:42 PM [facility] [employer] [facility] HISTORICAL RESULTS AST 15 0 - 32 U/L 03/18/2016 8:42 PM [facility] [email or web address] HISTORICAL RESULTS ALT 15 0 - 33 U/L Alkaline Phosphatase 47 35 - 104 U/L 03/18/2016 8:42 PM [facility] HISTORICAL RESULTS 03/18/2016 8:12 PM BUTCHER HELPER 03/18/2016 8:14 PM BUTCHER HELPER Deedee Coyne LAB BLOOD ORDERABLES Radha l Result [facility]ISTOR[facility] RESULTS * (ABNORMAL) CBC with auto differential (03/18/2016 8:12 PM BUTCHER HELPER) WBC 7.9 4.6 - 10.2 x10 3/ul 03/18/2016 8:16 PM BUTCHER HELPER [employer] HISTORICAL RESULTS RBC 3.96 3.76 - 4.80 x10 6/ul 03/18/2016 8:16 PM BUTCHER HELPER [facility] [employer] HISTORICAL RESULTS Hemoglobin 10.8(L) 11.0 - 15.0 g/dl 03/18/2016 8:16 PM BUTCHER HELPER [facility] [employer] HISTORICAL RESULTS Hct 32.9(L) 33.0 - 43.0 % 03/18/2016 8:16 PM BUTCHER HELPER [facility] [employer] HISTORICAL RESULTS MCV 83.1 80.0 - 97.0 fl 03/18/2016 8:16 PM BUTCHER HELPER [facility] [employer] HISTORICAL RESULTS MCH 27.3 27.0 - 31.2 pg 03/18/2016 8:16 PM BUTCHER HELPER [facility] [employer] HISTORICAL RESULTS MCHC 32.8 31.8 - 35.4 g/dl 03/18/2016 8:16 PM BUTCHER HELPER [facility] [employer] HISTORICAL RESULTS RDW 13.7 11.6 - 14.8 % 03/18/2016 8:16 PM BUTCHER HELPER [employer] HISTORICAL RESULTS Plt Count 230 124 - 400 x10 3/ul 03/18/2016 8:16 PM BUTCHER HELPER [employer] HISTORICAL RESULTS MPV 11.6(H) 7.4 - 10.4 fl 03/18/2016 8:16 PM [facility] HISTORICAL RESULTS Neut % 59.2 37.0 - 85.0 % 03/18/2016 8:16 PM BUTCHER HELPER [facility] [employer] HISTORICAL RESULTS Immature Gran % 0.3 0.0 - 3.0 % 03/18/2016 8:16 PM BUTCHER HELPER [facility] [employer] HISTORICAL RESULTS Lymph % 31.9 5.0 - 45.0 % 03/18/2016 8:16 PM BUTCHER HELPER [facility] [employer] HISTORICAL RESULTS Morris % 6.8 3.0 - 15.0 % 03/18/2016 8:16 PM BUTCHER HELPER [facility] [employer] HISTORICAL RESULTS Eos % 1.4 0.0 - 7.0 % Baso % 0.4 0.0 - 2.0 % Absolute Neuts (auto) 4.7 1.7 - 8.7 x10 3/ul Immature Gran # 0.0 0.0 - 0.3 x10 3/ul Absolute Lymphs (auto) 2.5 0.2 - 4.6 x10 3/ul Absolute Monos (auto) 0.5 0.1 - 1.5 x10 3/ul Absolute Eos (auto) 0.1 0.0 - 0.7 x10 3/ul Absolute Basos (auto) 0.0 0.0 - 0.2 x10 3/ul 03/18/2016 8:12 PM BUTCHER HELPER 03/18/2016 8:14 PM BUTCHER HELPER Deedee Espinal Coyne LAB BLOOD ORDERABLES Radha l Result [facility] HISTORICAL RESULTS * XR Chest Pa Lateral 2 Views (03/18/2016 12:00 AM BUTCHER HELPER) Anatomical Region Laterality Modality Body, Chest N/A Radiographic Juanita ging 03/18/2016 Impressions 03/18/2016 8:02 PM BUTCHER HELPER No radiographic evidence of acute pulmonary disease. THIS IS AN ELECTRONICALLY VERIFIED REPORT 03/18/2016 7:58 PM: ??Matilda Dutton M.D. ?? Matilda Dutton M.D. SS:ss 07:58 PM 74:58 PM SWO [EOD] Narrative 03/18/2016 8:02 PM BUTCHER HELPER EXAMINATION: Two views of the chest dated 03/18/16 at 1913 hours HISTORY: ??Midsternal chest pain for 1 day. COMPARISON: ??Two-view chest dated 05/02/15 at 1350 hours TECHNIQUE: ??A upright PA and lateral view of the chest are submitted. FINDINGS: ??The heart size and pulmonary vascularity are within normal limits. ?? No pneumothorax, pleural effusion or focal area of consolidation. ??The visualized osseous structures are unremarkable. Procedure Note Provider, MD Graham - 07/02/2020 EXAMINATION: Two views of the chest dated 03/18/16 at 1913 hours HISTORY: Midsternal chest pain for 1 day. COMPARISON: Two-view chest dated 05/02/15 at 1350 hours TECHNIQUE: A upright PA and lateral view of the chest are submitted. FINDINGS: The heart size and pulmonary vascularity are within normallimits. No pneumothorax, pleural effusion or focal area of consolidation. The visualized osseous structures are unremarkable. IMPRESSION: No radiographic evidence of acute pulmonary disease. THIS IS AN ELECTRONICALLY VERIFIED REPORT 03/18/2016 7:58 PM: Matilda Dutton M.D. Matilda Dutton M.D. SS:zana 07:58 PM 07:58 PM SWO [EOD] Deedee Coyne IMG XR PROCEDURES Final R esult documented in this encounter Visit Diagnoses Diagnosis Other chest pain Gastro-esophageal reflux disease without esophagitis Type 2 diabetes mellitus without complications (CMS/HCC) (HCC) Essential (primary) hypertension Unspecified essential hypertension Cigarette nicotine dependence, uncomplicated terminal operator current use of oral hypoglycemic drug Other [facility] (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
--- OUTSIDE RECORDS SUMMARY | 2024-02-25 20:50 | XMS_ITS | Encounter Summary ---
Author Organization [facility] Healthcare Address [address] [place] [address] Care Team Providers Care Dialysis Equipment Technician Name Role Phone Ruma Shrestha NP Primary Care Provider + Encounter Details Date Type Department Care Team (Late st Contact Info) Description 10/29/2018 5:35 AM CDT - 10/29/2018 7:45 AM CDT Hospital Encounter [address] [address] Unknown, Romel Hdez II, MD [address] [place] [id number] Discharge Disposition: Discharge to home or self care Social History Tobacco Use Types Packs/Day Years Used Date Smoking Tobacco: Never Assessed Comments Unknown Sex and Gender Information Value Date Recorded Sex Assigned at Not on file 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 Gender Identity Not on file Sexual Orientation Not on file documented as of this encounter Last Filed Vital Signs Vital Sign Reading Time Taken Comments Blood Pressure 141/87 10/29/2018 5:40 AM CDT Pulse 67 10/29/2018 5:40 AM CDT Temperature 36.5 ??C (97.7 ??F) 10/29/2018 5:40 AM CD T Respiratory Rate - - Oxygen Saturation 98% 10/29/2018 5:40 AM CDT Inhaled Oxygen Concentration - - Weight 99.8 kg (220 lb) 10/29/2018 5:40 AM CDT Height 157.5 cm (5' 2 ) 10/29/2018 5:40 AM CDT Body Mass Index 40.24 10/29/2018 5:40 AM CDT documented in this encounter Discharge Disposition Disposition Code Departure Means Destination Discharge to home or self care documented in this encounter Plan of Treatment Not on file documented as of this encounter Procedures Procedure Name Priority Date/Time Associated Diagnosis Comments ECG 12-LEAD 10/29/2018 6:01 AM CDT TNI WITH LIPID PANEL Routine 10/29/2018 5:50 AM CDT CBC WITH AUTO DIFFERENTIAL Routine 10/29/2018 5:50 AM CDT LIPASE Routine 10/29/2018 5:50 AM CDT COMPREHENSIVE METABOLIC PANEL Routine 10/29/2018 5:50 AM CDT ECG 12-LEAD 10/29/2018 5:41 AM CDT XR CHEST PA LATERAL 2 VIEWS 10/29/2018 12:00 AM CDT documented in this encounter Results * ECG 12 lead (10/29/2018 6:01 AM CDT) Ventricular Rate EKG/Min 67 BPM [facility] Atrial Rate 67 BPM [facility] WV-Interval (MSEC) 146 ms [facility] QRS-Interval (MSEC) 90 ms [facility] QT-Interval (MSEC) 386 ms [facility] QTc 407 ms [facility] P Larned 7 degrees [facility] R Larned 27 degrees [facility] T Larned 7 degrees [facility] Diagnosis Sinus rhythm with marked sinus arrhythmia Otherwise normal ECG When compared with ECG of 29-OCT-2018 05:41, No significant change was found [facility] 10/29/2018 6:01 AM CDT 10/29/2018 5:01 PM CDT Narrative Resulting Agency Comment NATALI us Romel Crum II, MD ECG ORDERABLES Final Res ult [address] * Lipase (10/29/2018 5:50 AM CDT) Lipase 34 13 - 60 U/L [facility] 10/29/2018 5:50 AM CDT 10/29/2018 5:56 AM CDT Narrative Resulting Agency Comment ER us Notinfile Unknown LAB BLOOD ORDERABLES Final Res ult Performing Organization Address [facility]/ZIP Co de Phone Number [address] [phone] * TNI with LIPID PANEL (10/29/2018 5:50 AM CDT) Troponin I <0.300 0.000 - 0.300 ng/mL [facility] Comment: Reference using ANGÉLICA Chemiluminescence ? Negative: Repeat in 4-6 hours as indicated. Triglycerides 98 0 - 149 mg/dL [facility] Comment: National Lipid Association/NCEP Guidelines: ?? Normal ?< 150 mg/dL ?? Borderline high ?? 150-199 mg/dL ?? High ?200-499 mg/dL ?? Very High ? >=500 mg/dL Cholesterol 133 0 - 199 mg/dL [facility] Comment: National Lipid Association/NCEP Guidelines: Desirable ? < 200 mg/dL Borderline high: ??200-239 mg/dL High Risk: ?>=240 mg/dL HDL Cholesterol 37 mg/dL [facility] Comment: Reference Ranges: ? Males: >=40 mg/dL ? Females: >=50 mg/dL LDL Cholesterol, Calc 76 0 - 129 mg/dL [facility] [place] Comment: National Lipid Association/NCEP Guidelines: ??Optimal ? < 100 mg/dL ??Near Optimal ?100-129 mg/dL ??Borderline high 130-159 mg/dL ??High ?>=160 mg/dL Cholesterol/HDL Ratio 3.6 [facility] Comment: Optimal ??< 3.5:1 High ? > 5:1 10/29/2018 5:50 AM CDT 10/29/2018 5:56 AM CDT Narrative Resulting Agency Comment ER us Notinfile Unknown LAB BLOOD ORDERABLES Final Res ult [facility] [address] [phone] * (ABNORMAL) Comprehensive metabolic panel (10/29/2018 5:50 AM CDT) Sodium 140 135 - 145 mmol/L [facility] [place] Potassium 3.6 3.3 - 5.1 mmol/L [facility] Chloride 104 96 - 108 mmol/L [facility] Carbon Dioxide 23 22 - 32 mmol/L [facility] Anion Gap 13 7 - 16 [facility] Glucose 230(H) 70 - 100 mg/dL [facility] BUN 8 8 - 25 mg/dL [facility] Creatinine 0.6 0.5 - 1.1 mg/dL [facility] Comment: NOTE: Estimated GFR (Cockroft-Gault) will NOT be calculated unless patient Height and Weight were entered. Also, Kidney Disease Stage (GFR) and Estimated GFR (Cockroft-Gault) will NOT be calculated if Creatinine result is <0.2. Kidney Disease Stage >90 mL/MIN [facility] Comment: NOTE; ??The GFR is an estimated [...] failure or on dialysis Est GFR (Cockcroft-G) 140 ml/MIN [facility] Comment: Estimated GFR(Cockroft-Gault)is used to calculate patient medication dosage Calcium 9.3 8.6 - 10.3 mg/dL [facility] [place] Total Protein 7.3 6.4 - 8.3 g/dL [facility] [place] [place] Albumin 4.2 3.5 - 5.0 g/dL [facility] [place] Globulin 3.1 2.3 - 3.5 gm/dL [facility] Albumin/Globulin Ratio 1.4 1.1 - 1.8 [facility] Total Bilirubin <0.2 0.0 - 1.2 mg/dL [facility] AST 21 0 - 32 U/L [facility] ALT 24 0 - 33 U/L [facility] Alkaline Phosphatase 74 35 - 104 U/L [facility] 10/29/2018 5:50 AM CDT 10/29/2018 5:56 AM CDT Narrative Resulting Agency Comment ER us Notinfile Unknown LAB BLOOD ORDERABLES Edited Re sult - Final [facility] [address] [place] [address], [facility] [phone] * (ABNORMAL) CBC with auto differential (10/29/2018 5:50 AM CDT) WBC 6.7 3.8 - 9.9 X10 3/ul [facility] RBC 3.85(L) 3.90 - 5.20 x10 6/ul [facility] Hemoglobin 8.3(L) 11.9 - 15.5 g/dL [facility] Hct 27.6(L) 35.6 - 45.5 % [facility] MCV 71.7(L) 81.3 - 96.4 fl [facility] MCH 21.6(L) 27.1 - 33.3 pg [facility] MCHC 30.1(L) 32.3 - 35.7 g/dl [facility] RDW 16.8(H) 11.1 - 14.9 % [facility] Plt Count 271 150 - 400 x10 3/ul [facility] MPV 12.6(H) 9.1 - 12.3 fl [facility] Neut % 46.0 % [facility] Immature Gran % 0.3 % [facility] Lymph % 45.4 % [facility] Cooper % 6.8 % [facility] Eos % 1.2 % [facility] AUTO BASO % 0.3 % [facility] NEUTROPHIL ABS # 3.1 1.7 - 6.5 x10 3/ul [facility] Immature Gran # 0.0 0.0 - 0.1 x10 3/ul [facility] Absolute Lymphs (auto) 3.1 0.8 - 3.3 x10 3/ul [facility] Absolute Monos (auto) 0.5 0.2 - 0.8 x10 3/ul [facility] Absolute Eos (auto) 0.1 0.0 - 0.5 x10 3/ul [facility] BASOPHIL ABS # 0.0 0.0 - 0.1 x10 3/ul [facility] Nucleat RBC Rel Count 0.0 #/100WBC [facility] NRBC abs 0.00 0.00 - 0.01 x10 3/ul [facility] Absolute Neutrophils 3,100 200 - 8,000 /ul [facility] 10/29/2018 5:50 AM CDT 10/29/2018 5:56 AM CDT Narrative Resulting Agency Comment ER Notinfile Unknown LAB BLOOD ORDERABLES Final Res ult Performing Organization Address [facility] Co de Phone Number [facility] [address] [phone] * ECG 12 lead (10/29/2018 5:41 AM CDT) Ventricular Rate EKG/Min 74 BPM [facility] Atrial Rate 74 BPM [facility] WV-Interval (MSEC) 146 ms [facility] QRS-Interval (MSEC) 88 ms [facility] QT-Interval (MSEC) 378 ms [facility] QTc 419 ms [facility] P Larned 15 degrees [facility] R Larned 26 degrees [facility] T Larned 7 degrees [facility] Diagnosis Normal sinus rhythm Normal ECG When compared with ECG of 07-JAN-2018 06:04, No significant change was found [facility] 10/29/2018 5:41 AM CDT 10/29/2018 5:01 PM CDT Narrative Resulting Agency Comment NATALI Romel Crum II, MD ECG ORDERABLES Final Res ult [facility] * XR Chest Pa Lateral 2 Views (10/29/2018 12:00 AM CDT) Anatomical Region Laterality Modality Body, Chest N/A Radiographic Juanita ging 10/29/2018 6:25 AM CDT Narrative 10/29/2018 6:25 AM CDT Patient Name: CHANTEL DAMICO ?Ordering Dr: PERSONAL PHYSICIAN,NO ?? D.O.B: 1980 ? Exam Date: 10/29/ ?? 0000 ?? Age: 38 ?Sex: Female ? MR#: [id number] ?? Loc: ? RADIOLOGY REPORT ?? Order #[id number] ?? Radiology ? Chest 2 Views ? Signed ?? EXAM DESCRIPTION: ??Chest 2 Views ? REASON FOR STUDY: ??c/o chest pain since 0100 this morning with diarrhea and ?? nausea. ? TECHNIQUE: ??Frontal and lateral radiographic views of the chest acquired. ? COMPARISON: ??Prior study dated 01/07/2018 ? FINDINGS: ? LUNGS/PLEURA: No focal consolidation or pneumothorax. No pleural effusion. ? HEART/MEDIASTINUM: Heart size is normal. Normal mediastinal and hilar contours. ? HARDWARE/LINES/TUBES: None. ? BONES: No acute findings. ? IMPRESSION: ??No acute cardiopulmonary abnormality. ? THIS IS AN ELECTRONICALLY VERIFIED FINAL REPORT ?? 10/29/2018 6:25 AM - Electronically signed by Efren Ortiz M.D. ?? Efren Ortiz M.D. ? RH ?? D: ??10/29/2018 6:25 AM ?? T: ? Report ID: [id number] ?? Reading Location: ??[id number] ? REPORT ELECTRONICALLY SIGNED IN OTHER VENDOR SYSTEM ?? Resulting Agency Comment P Procedure Note Efren Ortiz MD - 10/29/2018 Patient Name: CHANTEL DAMICO Daniel Dr: PERSONAL PHYSICIAN,NO D.O.B: 1980 Exam Date: 10/29/18 0000 Age: 38 Sex: Female MR#: [id number] Loc: RADIOLOGY REPORT Order #[id number] Radiology Chest 2 Views Signed EXAM DESCRIPTION: Chest 2 Views REASON FOR STUDY: c/o chest pain since 0100 this morning with diarrheaand nausea. TECHNIQUE: Frontal and lateral radiographic views of the chest acquired. COMPARISON: Prior study dated 01/07/2018 FINDINGS: LUNGS/PLEURA: No focal consolidation or pneumothorax. No pleuraleffusion. HEART/MEDIASTINUM: Heart size is normal. Normal mediastinal and hilarcontours. HARDWARE/LINES/TUBES: None. BONES: No acute findings. IMPRESSION: No acute cardiopulmonary abnormality. THIS IS AN ELECTRONICALLY VERIFIED FINAL REPORT 10/29/2018 6:25 AM - Electronically signed by Efren Ortiz M.D. T: Report ID: [id number] Reading Location: [place] [address] REPORT ELECTRONICALLY SIGNED IN OTHER VENDOR SYSTEM us Notinfile Unknown IMG XR PROCEDURES Final Result documented in this encounter Visit Diagnoses Not on filedocumented in this encounter Care Teams Dialysis Equipment Technician Relationship Specialty Start Date End Date Ruma Shrestha NP PCP - General 05/30/18 documented as of this encounter
--- OUTSIDE RECORDS SUMMARY | 2024-02-25 20:50 | XMS_ITS | Encounter Summary ---
Author Organization [facility] Healthcare Address [address] [place] [address] Care Team Providers Care Carburetor Expert Name Role Phone Unavailable Primary Care Provider Unavailabl e Encounter Details Date Type Department Care Team (Latest Contact Info) Description 12/05/2014 3:21 PM CDT - 12/05/2014 7:04 PM CDT Hospital Encounter [facility] Matt [place], [address] [address] Acute bronchitis; Essential (primary) hypertension; Nicotine dependence, uncomplicated; Other spare hand (current) drug therapy Social History Tobacco Use Types Packs/Day Years Used Date Smoking Tobacco: Never Assessed Comments Unknown Sex and Gender Information Value Date Recorded Sex Assigned at Not on file 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 Gender Identity Not on file Sexual Orientation Not on file documented as of this encounter Last Filed Vital Signs Vital Sign Reading Time Taken Comments Blood Pressure 139/88 12/05/2014 3:42 PM CDT Pulse 93 12/05/2014 3:42 PM CDT Temperature 36.9 ??C (98.4 ??F) 12/05/2014 3:42 PM CD T Respiratory Rate - - Oxygen Saturation 98% 12/05/2014 3:42 PM CDT Inhaled Oxygen Concentration - - Weight 95.3 kg (210 lb) 12/05/2014 3:42 PM CDT Height 157.5 cm (5' 2 ) 12/05/2014 3:42 PM CDT Body Mass Index 38.41 12/05/2014 3:42 PM CDT documented in this encounter Plan of Treatment Not on file documented as of this encounter Procedures Procedure Name Priority Date/Time Associated Diagnosis Comments XR CHEST PA LATERAL 2 VIEWS Routine 12/05/2014 12:00 AM CDT documented in this encounter Results * XR Chest Pa Lateral 2 Views (12/05/2014 12:00 AM CDT) Anatomical Region Laterality Modality Body, Chest N/A Radiographic Juanita ging 12/05/2014 Impressions 12/05/2014 6:12 PM CDT ??No acute cardiopulmonary process. THIS IS AN ELECTRONICALLY VERIFIED REPORT 12/05/2014 5:55 PM: ??Lennie Carney M.D. Lennie Carney M.D. LC:mary 05:55 PM 05:55 PM CHR [EOD] Narrative 12/05/2014 6:12 PM CDT Chest PA and lateral HISTORY: ??Shortness of breath and congestion. ??Left-sided neck pain since noon. ??No chest pain. FINDINGS: ??No comparison. Normal heart size and mediastinal contours. ??Lung adrian are clear. ??No focal infiltrate or pleural effusion. ??No soft tissue or osseous abnormality. ??A few post inflammatory calcifications are present. Procedure Note Provider, MD Graham - 07/02/2020 Chest PA and lateral HISTORY: Shortness of breath and congestion. Left-sided neck pain since noon. No chest pain. FINDINGS: No comparison. Normal heart size and mediastinal contours. Lung adrian are clear. Nofocal infiltrate or pleural effusion. No soft tissue or osseous abnormality. Afew post inflammatory calcifications are present. IMPRESSION: No acute cardiopulmonary process. THIS IS AN ELECTRONICALLY VERIFIED REPORT 12/05/2014 5:55 PM: Lennie Carney M.D. Lennie Carney M.D. LC:mary 05:55 PM 05:55 PM CHR [EOD] us Historical Provider MD STORY XR PROCEDURES Final R esult documented in this encounter Visit Diagnoses Diagnosis Acute bronchitis Essential (primary) hypertension Unspecified essential hypertension Nicotine dependence, uncomplicated Other jail (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
--- OUTSIDE RECORDS SUMMARY | 2024-02-25 20:50 | XMS_ITS | Encounter Summary ---
Author Organization [facility] Healthcare Address [address] [place] [address] Care Team Providers Care Diesel Engine Assembler Name Role Phone Unavailable Primary Care Provider Unavailabl e Encounter Details Date Type Department Care Team (Latest Contact Info) Description 08/25/2017 4:25 PM CDT - 08/25/2017 8:18 PM CDT Hospital Encounter [facility] Romel Watkins II, MD [address] [place] [address] Tachycardia; Gastro-esophageal reflux disease without esophagitis; Essential (primary) hypertension; Type 2 diabetes mellitus without complications ([facility]/HCC); Allergy status to other drugs, medicaments and biological substances status Social History Tobacco Use Types Packs/Day Years Used Date Smoking Tobacco: Never Assessed Comments Unknown Sex and Gender Information Value Date Recorded Sex Assigned at Not on file 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 Gender Identity Not on file Sexual Orientation Not on file documented as of this encounter Last Filed Vital Signs Vital Sign Reading Time Taken Comments Blood Pressure 139/95 08/25/2017 4:30 PM CDT Pulse 54 08/25/2017 4:30 PM CDT Temperature 37 ??C (98.6 ??F) 08/25/2017 4:30 PM CDT Respiratory Rate - - Oxygen Saturation 97% 08/25/2017 4:30 PM CDT Inhaled Oxygen Concentration - - Weight 99.7 kg (219 lb 12.8 oz) 08/25/2017 4:30 PM CDT Height 157.5 cm (5' 2 ) 08/25/2017 4:30 PM CDT Body Mass Index 40.2 08/25/2017 4:30 PM CDT documented in this encounter Plan of Treatment Not on file documented as of this encounter Procedures Procedure Name Priority Date/Time Associated Diagnosis Comments COMPREHENSIVE METABOLIC PANEL Routine 08/25/2017 5:02 PM CDT CBC WITH AUTO DIFFERENTIAL Routine 08/25/2017 5:01 PM CDT documented in this encounter Results * (ABNORMAL) Comprehensive metabolic panel (08/25/2017 5:02 PM CDT) Sodium 137 135 - 145 mmol/L 08/25/2017 5:35 PM T [facility] Potassium 4.0 3.3 - 5.1 mmol/L 08/25/2017 5:35 PM T [facility] Chloride 101 96 - 108 mmol/L Carbon Dioxide 24 22 - 32 mmol/L Anion Gap 12 7 - 16 Glucose 184(H) 70 - 100 mg/dL BUN 8 6 - 20 mg/dL Creatinine 0.6 0.5 [...] dialysis @ Est GFR (Cockcroft-G) 142 ml/MIN Comment: Estimated GFR(Cockroft-Gault)is used to calculate patient medication dosage Calcium 9.6 8.6 - 10.0 mg/dL Total Protein 7.6 6.4 - 8.3 g/dL Albumin 4.2 3.5 - 5.2 g/dL Globulin 3.4 2.3 - 3.5 gm/dL Albumin/Globulin Ratio 1.2 1.1 - 1.8 Total Bilirubin < 0.2 0.0 - 1.2 mg/dL AST 15 0 - 32 U/L ALT 18 0 - 33 U/L Alkaline Phosphatase 79 35 - 104 U/L 08/25/2017 5:02 PM CDT 08/25/2017 5:05 PM CDT us Mariano Gan LAB BLOOD ORDERABLES Final Resul t [facility] HISTORICAL RESULTS * (ABNORMAL) CBC with auto differential (08/25/2017 5:01 PM CDT) WBC 7.5 3.5 - 10.5 x10 3/ul RBC 4.27 3.76 - 4.80 x10 6/ul Hemoglobin 10.6(L) 11.0 - 15.0 g/dL Hct 33.1 33.0 - 43.0 % MCV 77.5(L) 80.0 - 97.0 fl MCH 24.8(L) 27.0 - 31.2 pg MCHC 32.0 31.8 - 35.4 g/dl RDW 15.0(H) 11.6 - 14.8 % Plt Count 215 150 - 450 X10 3/ul MPV 13.0(H) 7.4 - 10.4 fl Neut % 58.9 37.0 - 85.0 % Immature Gran % 0.4 0.0 - 3.0 % Lymph % 32.3 5.0 - 45.0 % [place] % 6.8 3.0 - 15.0 % Eos % 1.1 0.0 - 7.0 % Baso % 0.5 0.0 - 2.0 % Absolute Neuts (auto) 4.4 1.7 - 8.7 x10 3/ul Immature Gran # 0.0 0.0 - 0.3 x10 3/ul Absolute Lymphs (auto) 2.4 0.2 - 4.6 x10 3/ul Absolute Monos (auto) 0.5 0.1 - 1.5 x10 3/ul Absolute Eos (auto) 0.1 0.0 - 0.7 x10 3/ul Absolute Basos (auto) 0.0 0.0 - 0.2 x10 3/ul Nucleat RBC Rel Count 0.0 0 - 3 #/100WBC Absolute Nucleated RBC 0.00 x10 3/ul Absolute Neutrophils 4400 200 - 8000 /ul 08/25/2017 5:01 PM CDT 08/25/2017 5:05 PM CDT us Mariano Gan LAB BLOOD ORDERABLES Final Resul t [facility] HISTORICAL RESULTS documented in this encounter Visit Diagnoses Diagnosis Tachycardia Unspecified tachycardia Gastro-esophageal reflux disease without esophagitis Essential (primary) hypertension Unspecified essential hypertension Type 2 diabetes mellitus without complications (CMS/HCC) (HCC) Allergy status to other drugs, medicaments and biological substances status documented in this encounter
--- OUTSIDE RECORDS SUMMARY | 2024-02-25 20:53 | XMS_ITS ---
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 If you checked YES to more t braga one of the above, have several of these ever happened during the same period of time?: No . How much of a problem did an y of these cause you - like being unable to work; having family, money or legal troubles; getting into arguments or fights?: Minor problem . Do Not Use CSSRS Interpretation and Follow Up Plan CSSRS Interpretation and Follow Up Plan CSSRS Screen documented using SF: Yes Moderate or High risk requir es selection of a follow up plan: CSSRS No/Low: intervention not needed at this time [facility] and Wellness follow-up . . . Examination Category Sub-Category Detail Notes Category Not es CQM Exceptions Cervical Cancer Screening not performed Reason: Client states that she gets them done at [facility] . Mental Status Exam SENSORIUM AND COGNITION Alert, A&OX4 ATTENTION AND CONCENTRATION No deficits APPEARANCE Appropriate ATTITUDE AND BEHAVIOR Cooperative , Plea magnus MEMORY Adequate EYE CONTACT Good AFFECT Broad/Full, Euthymic MOOD Euthymic SPEECH QUANTITY Appropriate SPEECH QUALITY Spontaneous , Approp riate volume THOUGHT PROCESS Coherent and goal di rected THOUGHT CONTENT No evidence of delus ional content , No reports of paranoia MOTOR ACTIVITY Leaning forward, mos tly relaxted, somewhat tense SUICIDAL IDEATION Denies SI or thought s of self harm HOMICIDAL IDEATION Denies homicidal tania ation or thoughts of aggression HALLUCINATIONS Does not appear to b e responding to internal stimuli or seeing hallucinations in the room INSIGHT Fair to Adequate JUDGMENT Fair to Adequate FUND OF KNOWLEDGE Adequate ABILITY TO PARTICIPATE IN TREATMENT Adeq uate WILLINGNESS TO PARTICIPATE IN TREATMENT Adequate LANGUAGE Appropriate- WNL Consultation Request Notes Referral Date Referring Provider Referred Provider Not es 12/14/2023 Amarilys Lyman , [facility] dual therapy
--- OUTSIDE RECORDS SUMMARY | 2024-02-25 20:53 | XMS_ITS ---
Author Organization [facility] Address [address] [place] [address] Care Team Providers Care Head Filter Press Tender Name Role Phone Amarilys Lyman Unavailable [phone] REASON FOR VISIT [facility] Social History Sex Assigned At : Social History Observation Description Sex Assigned At Female Encounters Encounter Location Date Provider Diagnosis [facility] [address] [place] [address] 12/14/2023 Amarilys Lyman Plan Of Treatment No Information Progress Notes * Janel DAMICOB:[birth year] (43 yo F)Acc No.[id number]:12/14/2023 Patient:?Maribell DAMICO :1980???Age:43 Y???Sex:Female [address] [place], [address] * true * Date:? Generated for Printi latoya/Toney/eTransmitting on:?02/25/2024 08:53 PM CLINICAL REGISTERED NURSE
--- OUTSIDE RECORDS SUMMARY | 2024-02-25 20:53 | XMS_ITS ---
Author Organization [facility] Address [address] [place] [address] Care Team Providers Care Boat Puller Name Role Phone Amarilys Lyman Unavailable [phone] REASON FOR VISIT FMLA paperwork Social History Sex Assigned At : Social History Observation Description Sex Assigned At Female Encounters Encounter Location Date Provider Diagnosis [address] [place] [address] 01/03/2024 Amarilys Lyman Plan Of Treatment No Information Progress Notes * Janel DAMICOB:[birth year] (43 yo F)Acc No.[id number]:01/03/2024 Patient:?Maribell DAMICO :1980???Age:43 Y???Sex:Female Address:[address] [place], [address] * true * Date:? Generated for Bobi latoya/Toney/eTransmitting on:?02/25/2024 08:53 PM SENIOR COST ANALYST
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
--- OUTSIDE RECORDS SUMMARY | 2024-02-25 20:54 | XMS_ITS | Continuity of Care Document ---
Author Organization [facility] Address [address] [place] [address] Phone Care Team Providers Care Thoracic Medicine Physician Name Role Phone Jennifer Reed MD Unavailable Unavailabl e Allergies, Adverse Reactions, Alerts Substance Reaction Status Criticality No Known Drug Allergies Other Active No I nformation Medications Medication Instructions Dosage Effective Dates (start - stop) Status Comments CLARITIN-D 12 HOUR 120-5MG TAB 1 BID - Active CEPHALEXIN 500MG CAPS 1 TID - No Longer Active Advance Directives Directive Yes / No Effective Date File Name No Information Encounters Encounter Description Practice Location Reason(s) For Visit Diagnoses Date Provider Providers Copied on Encounter [facility], [address], [place], [place], [id number], tel:[phone] [facility] No Information Derek Rodriguez. [address] [facility] [address] [place] [address], [id number]. tel:[phone] [facility], [address], [place], [place], [id number], tel:[phone] [facility] ACUTE PHARYNGITIS Derek Rodriguez. [address] [facility], [facility] [place], [place], [id number]. tel:[phone] Family History Family Member Type Diagnosis Age At Onset No Information Payers Payer name Insurance type Covered democrat ID Authoriza tion(s) No Information Social History Type Description Quantity Date Captured Comments Sex Female Smoking Status No Information Chief Complaint And Reason For Visit No Information Reason For Referral Reason For Referral No Information History Of Present Illness Encounter Date Complaint History Of Prese nt Illness No Information Functional Status Date Functional Assessmen t No Information Instructions Date Instruction Additional Infor mation No Information Assessments Type Assessment Date No Information Patient Care Teams Name Effective Dates (start - stop) Status Members No Information
== END 2024-02-18 17:01 | disposition home or self-care (01) ==
PROVIDERS: Emergency Provider Student in an Organized Health Care Education/Training Program
DX: M79.604 Pain in right leg (principal); I10 Essential (primary) hypertension; E11.9 Type 2 diabetes mellitus without complications
CPT/HCPCS: 36415; 80048; 85025; 85055; 85380; 85610; 85730; 93971; 96374; 99284; A9270; J1885